=== PATIENT | female | born 1975 | race Caucasian/White ===

== ENCOUNTER → 2025-04-30 | Outpatient (CLI) | payer OTHER, SELFPAY ==
--- NOTE | 2025-04-30 16:47 | RAD_ITS ---
PROCEDURE: L/S SPINE MIN 4 VIEWS 04/30/2025 REASON FOR EXAM: BACK PAIN TECHNIQUE: L/S SPINE MIN 4 VIEWS COMPARISON: No FINDINGS: Mild and diffuse facet arthritis. Grade 1 anterolisthesis, L4. Relatively preserved disc spaces. No abnormal motion with flexion/extension. Mild S shaped scoliosis. No acute bone or soft tissue pathology. Extensive bilateral nephrolithiasis. RAD/L/S Spine Min 4 Views IMPRESSION: Lumbar spine scoliosis and degeneration. Reading Location: [facility]
== END | disposition home or self-care (01) ==
LOC: MTRAD 16:46
PROVIDERS: PCP Internal Medicine; Referring Provider Student in an Organized Health Care Education/Training Program; Visit Provider Student in an Organized Health Care Education/Training Program
DX: M54.9 Dorsalgia, unspecified (principal)
CPT/HCPCS: 72110

== ENCOUNTER → 2025-05-09 | Outpatient (CLI) | payer OTHER, SELFPAY ==
--- OUTSIDE RECORDS SUMMARY | 2025-05-09 09:15 | XMS RPT_ITS | CCD ---
Author Organization [facility] Care Team Providers Care Maintenance And Repair Worker Name Role Phone Randee Hdz Unavailable Unavailable Unavailable WILDER, Dr. RANDEE COLVIN Primary Care Unavaila prince Gamboa, Juni Obrien Attending Unavailable Juni Gamboa Attending Unavailable WILDER, Dr. RANDEE COLVIN Primary Care Unavaila ble WILDER, Dr. RANDEE COLVIN Referring Unavaila ble WILDER, Dr. RANDEE COLVIN Primary Care Unavaila Juni Olivas Attending Unavailable Juni Gamboa Attending Unavailable WILDER, Dr. RANDEE COLVIN Primary Care Unavaila ble WILDER, Dr. RANDEE COLVIN Primary Care Unavaila Juni Olivas Referring Unavailable ISAÍAS ANDERS Attending Unavailable WILDER, Dr. RANDEE COLVIN Primary Care Unavaila ble WILDER, Dr. RANDEE COLVIN Attending Unavaila ble WILDER, Dr. RANDEE COLVIN Referring Unavaila ble WILDER, Dr. RANDEE COLVIN Attending Unavaila ble WILDER, Dr. RANDEE COLVIN Referring Unavaila ble WILDER, Dr. RANDEE COLVIN Primary Care Unavaila Randee White MD Primary Care Provider Randee Hdz MD Primary Care Provider [phone] Randee Hdz MD Primary Care Provider Randee Hdz MD Unavailable Randee Hdz MD Primary Care Provider ANTHONY WHITE Referring Unavailable RANDEE HDZ Primary Care Unavailable ANTHONY WHITE Referring Unavailable RANDEE HDZ Primary Care Unavailable RANDEE HDZ Attending Unavailable RANDEE HDZ Primary Care Unavailable ANTHONY WHITE Referring Unavailable RANDEE HDZ Genet Primary Care Unavailable ANTHONY WHITE Referring Unavailable ANTHONY WHITE Attending Unavailable RANDEE HDZ Genet Primary Care Unavailable RANDEE HDZ M Primary Care Unavailable RANDEE HDZ M Primary Care Unavailable WILDER, RANDEE M Primary Care Unavailable WILDER, RANDEE M Primary Care Unavailable ANTHONY WHITE Referring Unavailable Jay Jay CHARLES, Dr. Bailey Primary Care Provider Meghana Helms Attending Provider Meghana Helms Referring Provider Dr. Leo Goyal MD Referring Provider Meghana Woods Referring Unavailable Meghana Woods Attending Unavailable Leo Goyal Primary Care Unavailable Assessment, Health Risk Attending Unavaila ble Assessment, Health Risk Referring Unavaila ble Meghana Woods Referring Unavailable Meghana Woods Attending Unavailable Leo Goyal Primary Care Unavailable Meghana Woods Attending Unavailable Basilio Goyalongbe Referring Unavailable Leo Goyal Primary Care Unavailable Shahid Poon Attending Provider Medications Current Medications Medication Drug Class(es) Dates Sig (Normalized) Sig (Original) compounded progesterone 50 mg capsule (12 sources) compounded proge sterone 50 mg capsule 50 mg twice daily. Active compounded proge sterone 50 mg capsule 50 mg twice daily. 0 Active Comment on above: 50 mg twice daily. 84 hr estradiol 0.41421 mg/hr transdermal system (17 sources) Estrogen Start: 05-06-2025 Estradiol (Karen) 0.05 mg/24 hr patch semiweekly Active 1 NMA TOPICAL TWICE A WEEK May 06, 2025 12:00am Start: 01-05-2025 estradiol (EST RACE) 0.01 % (0.1 mg/gram) vaginal cream Use 1 g vaginally two times a week. 1-2 times per week as directed. 42.5 g 5 01/05/2025 Active estradiol (KAREN ) 0.025 mg/24 hr Apply 1 Patch as directed two times a week. Active Comment on above: Apply 1 Patch as dir ected two times a week. Estriol (11 sources) Start: 12-12-2023 estriol 0.01 % (CPD) estradiol 0.01% estriol 0.01% topical cream (CPD), Apply 1 gram (4 clicks) vaginally once weekly. 30 Each 4 12/12/2023 Active Start: 12-12-2023 End: 12-12-2023 estriol 0.01 % (CPD) estradi ol 0.01% estriol 0.01% topical cream (CPD), Apply 1 gram (4 clicks) vaginally once weekly. 30 Each 4 12/12/2023 12/12/2023 Discontinued Comment on above: estradiol 0.01% estr iol 0.01% topical cream (CPD), Apply 1 gram (4 clicks) vaginally once weekly. FA/mv,Ca,iron,min/lycopene/ lut (MULTIVITAL ORAL) (12 sources) FA/mv,Ca,iron,mi n/lycopen e/lut (MULTIVITAL ORAL) Take by mouth once daily. Active FA/mv,Ca,iron,mi n/lycopene/lut (MULTIVITAL ORAL) Take by mouth once daily. 0 Active Comment on above: Take by mouth once d aily. OMEGA-3 FATTY ACIDS/FISH OIL (OMEGA 3 FISH OIL ORAL) (14 sources) OMEGA-3 FATTY AC IDS/FISH OIL (OMEGA 3 FISH OIL ORAL) Take by mouth. Active OMEGA-3 FATTY AC IDS/FISH OIL (OMEGA 3 FISH OIL ORAL) Take by mouth. 0 Active Comment on above: Take by mouth. penicillin v potassium 500 mg oral tablet (1 source) Start: End: take 1 tablet by mouth four times daily penicillin v potassium (Veetid) 500 mg tablet Indications: Gingivitis Take 1 tablet (500 mg) by mouth 4 times a day for 7 days. 28 tablet 03/14/2024 03/21/2024 Active progesterone 100 mg oral capsule (3 sources) Progesterone Start: take 1 capsule by mouth once daily in the morning Progesterone Micronized 100 mg capsule Active 100 mg PO EVERY MORNING May 06, 2025 12:00am off 7 days; repeat cycle Testosterone Cypionate 100 mg/mL oil (3 sources) Start: Testosterone Cypionate 100 mg/mL oil Active mg IM May 06, 2025 12:00am TESTOSTERONE CYPIONATE INTRAMUSC. (2 sources) Start: TESTOSTERONE CYPIONATE INTRAMUSC. Inject 0.1 mL intramuscularly as directed. Every 4 days 01/01/2025 Active Tirzepatide (Mounjaro) 2.5 mg/0.5 mL pen injector (1 source) Start: Tirzepatide (Mounjaro) 2.5 mg/0.5 mL pen injector Active 2.5 mg SC EVERY WEEK May 08, 2025 12:00am for 4 weeks Completed/Discontinued Medications Medication Drug Class(es) Dates Sig (Normalized) Sig (Original) amoxicillin 875 mg oral tablet (6 sources) Penicillin-class Antibacterial Start: 07-15-2018 take 1 tablet by mouth once daily Amoxicillin 875 MG Oral Tablet TAKE 1 TABLET EVERY 12 HOURS DAILY. Quantity: 20 Refills: 0 Ordered: 15-Jul-2018 Randee Hdz MD Start : 15-Jul-2018 Active amoxicillin 875 mg / clavulanate 125 mg oral tablet (6 sources) Penicillin-class Antibacterial Start: 10-17-2024 End: 05-06-2025 Amoxicillin-Pot Clavulanate 875-125 mg tablet Discontinued 1 {tbl} PO TWICE A DAY October 17, 2024 7:59pm May 06, 2025 9:05am azithromycin 250 mg oral tablet (6 sources) Macrolide Antimicrobial Start: 02-11-2024 End: 02-16-2024 take 2 tablets by mouth once daily, then take 1 tablet by mouth once daily at mealtime Azithromycin 250 mg tablet Discontinued 250 mg PO daily 6 5 February 11, 2024 12:00am February 15, 2024 12:00am February 16, 2024 12:12am 2 po qd for 1 day then 1 po qd for 4 days with food or after eating Start: 09-20-2021 End: 09-25-2021 take 2 tablets by mouth once daily, then take 1 tablet by mouth once daily at mealtime Azithromycin 250 mg tablet Discontinued 250 mg PO daily 6 5 September 20, 2021 1:00am September 24, 2021 1:00am September 25, 2021 1:01am 2 po qd for 1 day then 1 po qd for 4 days with food or after eating 12 hr buPROPion hydrochloride 150 mg extended release oral tablet (4 sources) Aminoketone take 1 tablet by mouth twice daily buPROPion SR (ZYBAN SR; WELLBUTRIN SR) 150 mg 12 hr tablet Take 150 mg by mouth twice daily. 0 Active Comment on above: Take 150 mg by mouth twice daily. cefdinir 300 mg oral capsule (6 sources) Cephalosporin Antibacterial Start: 2023 End: 2024 take 1 capsule by mouth twice daily Cefdinir 300 mg capsule Discontinued 300 mg PO TWICE A DAY 20 August 11, 2024 9:04pm October 17, 2024 7:54pm Desogestrel / Ethinyl Estradiol (4 sources) Progestin, Estrogen Start: 2016 take 1 tablet by mouth once daily Desogestrel-Ethinyl Estradiol (MIRCETTE, 28,) 0.15-0.02 mgx21 /0.01 mg x 5 per tablet Take 1 tablet by mouth once daily. 3 Package 1 09/21/2017 Active Comment on above: Take 1 tablet by yuri once daily. dexamethasone 6 mg oral tablet (3 sources) Corticosteroid Start: 2020 End: 2022 take 1 tablet by mouth twice daily Dexamethasone (Decadron) 6 mg tablet Discontinued 6 mg PO TWICE A DAY 14 September 20, 2021 1:00am February 05, 2023 6:54pm estrogens, conjugated (group home) 0.625 mg/ml vaginal cream (1 source) Estrogen Start: 2023 End: 2023 conjugated estrogens (PREMARIN) vaginal cream Use 2 g vaginally once daily. 45 g 4 12/12/2023 12/12/2023 Discontinued Comment on above: Use 2 g vaginally on ce daily. hydrOXYzine hydrochloride 25 mg oral tablet (1 source) Antihistamine Start: 2021 take 1 tablet by mouth once daily as needed hydrOXYzine HCl - 25 MG Oral Tablet TAKE 1 TABLET Daily prn Quantity: 30 Refills: 1 Ordered: 26-Jun-2022 Randee Hdz MD Start : 26-Jun-2022 Active methylPREDNISolone 4 mg oral tablet (9 sources) Corticosteroid Start: 2024 End: 2024 take 1 tablet by mouth once daily in the morning Methylprednisolone (Medrol (Devon)) 4 mg tablets,dose pack Discontinued 4 mg PO EVERY MORNING 14 11October 17, 2024 7:58pm May 06, 2025 9:05am low back pain Start: 01-09-2024 End: 08-11-2024 take 1 tablet by mouth once daily in the morning Methylprednisolone (Medrol (Devon)) 4 mg tablets,dose pack Discontinued 4 mg PO EVERY MORNING 14 11January 09, 2024 2:51pm August 11, 2024 8:52pm epicondylitis Start: 02-05-2023 End: 02-28-2023 take 1 tablet by mouth once daily in the morning Methylprednisolone (Medrol (Devon)) 4 mg tablets,dose pack Discontinued 4 mg PO EVERY MORNING February 05, 2023 12:00am February 28, 2023 2:42pm epicondylitis methylPREDNISolone 4 MG Oral Tablet Therapy Pack (6 sources) Start: 11-02-2020 take 9 tablets by mouth once methylPREDNISolone 4 MG Oral Tablet Therapy Pack take as directed per card instructions Quantity: 1 Refills: 0 Ordered: 02-Nov-2020 Randee Hdz MD Start : 02-Nov-2020 Active 24 hr venlafaxine 37.5 mg extended release oral capsule (1 source) Serotonin and Norepinephrine Reuptake Inhibitor Start: 06-26-2022 take 1 capsule by mouth once daily Venlafaxine HCl ER 37.5 MG Oral Capsule Extended Release 24 Hour TAKE 1 CAPSULE Daily Quantity: 30 Refills: 2 Ordered: 26-Jun-2022 Randee Hdz MD Start : 26-Jun-2022 Active Problems Active Problems Problem Classification Problem Date Documented Date Episodic/Chronic Acute bronchitis (8 sources) Acute bronchitis; Translations: [Acute bronchitis] Episodic Adjustment disorders (8 sources) Reactive depression (situational); Translations: [Adjustment disorder with depressed mood] Chronic Anxiety disorders (15 sources) Anxiety; Translations: [Anxiety state, unspecified] Onset: 10-27-2013 10-27-2013 Chronic Chronic obstructive pulmonary disease and bronchiectasis (3 sources) Bronchitis; Translations: [Bronchitis, not specified as acute or chronic] 09-20-2021 Episodic Chronic ulcer of skin (1 source) Pressure ulcer of unspecified ankle, unspecified stage; Translations: [Controlled type 2 diabetes mellitus with pressure ulcer of ankle (HCC) ([facility])] Onset: 03-17-2024 Chronic Diabetes mellitus without complication (1 source) Type 2 diabetes mellitus without complications; Translations: [Controlled type 2 diabetes mellitus with pressure ulcer of ankle (HCC) ([facility])] Onset: 03-17-2024 Chronic Diseases of mouth; excluding dental (8 sources) Mucocele of mouth; Translations: [Other and unspecified diseases of the oral soft tissues] Episodic Disorders of lipid metabolism (1 source) Hyperlipidemia, unspecified; Translations: [Hyperlipoproteinemia ] Onset: 03-17-2024 Chronic Disorders of teeth and jaw (3 sources) Gingivitis; Translations: [Chronic gingivitis, plaque induced] Onset: 03-14-2024 03-14-2024 Chronic Genitourinary symptoms and ill-defined conditions (8 sources) Dysuria; Translations: [Dysuria] Episodic Lymphadenitis (8 sources) Lymphadenopathy; Translations: [Enlargement of lymph nodes] Episodic Menstrual disorders (14 sources) Irregular periods; Translations: [Irregular menstruation, unspecified] Onset: 10-27-2013 10-27-2013 Chronic Miscellaneous mental health disorders (14 sources) Orgasm incapacity; 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] Onset: 10-27-2013 10-27-2013 Chronic Mood disorders (8 sources) Depressive disorder; Translations: [Depressive disorder, not elsewhere classified] Chronic Nutritional deficiencies (1 source) Vitamin D deficiency, unspecified; Translations: [Avitaminosis D] Onset: 03-17-2024 Chronic Open wounds of head; neck; and trunk (3 sources) Laceration of eyebrow; Translations: [Laceration without foreign body of unspecified eyelid and periocular area, initial encounter] 10-08-2023 Episodic Other acquired deformities (4 sources) Lumbar spondylolisthesis; Translations: [Spondylolisthesis, lumbar region] 05-06-2025 Episodic Other acquired deformities (1 source) Spondylolisthesis, lumbar region; Translations: [Spondylolisthesis, lumbar region] Onset: 05-07-2025 Episodic Other connective tissue disease (3 sources) Lateral epicondylitis of right humerus; Translations: [Lateral epicondylitis, right elbow] 02-28-2023 Episodic Other endocrine disorders (1 source) Pansey's syndrome, unspecified; Translations: [Pansey's syndrome (HCC)] Onset: 04-17-2024 Chronic Other endocrine disorders (1 source) Other specified disorders of adrenal gland; Translations: [Abnormality of cortisol-binding globulin (HCC)] Onset: 03-17-2024 Chronic Other female genital disorders (1 source) Vaginal dryness; Translations: [Other specified noninflammatory disorders of vagina] 12-12-2023 Episodic Other inflammatory condition of skin (8 sources) Pityriasis rosea; Translations: [Pityriasis rosea] Chronic Other lower respiratory disease (8 sources) Cough; Translations: [Cough] Episodic Other non-traumatic joint disorders (3 sources) Pain in elbow; Translations: [Pain in right elbow] 02-28-2023 Episodic Other nutritional; endocrine; and metabolic disorders (1 source) Unintentional weight gain; Translations: [Abnormal weight gain] 12-12-2023 Episodic Other screening for suspected conditions (not mental disorders or infectious disease) (17 sources) Patient encounter status; Translations: [Encounter for screening mammogram for malignant neoplasm of breast] Onset: 12-22-2024 Episodic Other upper respiratory infections (20 sources) Acute frontal sinusitis; Translations: [Acute frontal sinusitis] 02-12-2024 Episodic Otitis media and related conditions (3 sources) Otitis media of left ear; Translations: [Otitis media, unspecified, left ear] 02-11-2024 Episodic Residual codes; unclassified (2 sources) Finding related to sleep; Translations: [Sleep apnea, unspecified] 03-14-2024 Chronic Residual codes; unclassified (2 sources) Sleep apnea, unspecified; Translations: [Sleep apnea, unspecified] Onset: 03-14-2024 Chronic Residual codes; unclassified (8 sources) Past history of procedure; Translations: [Other specified personal history presenting hazards to health] Episodic Comment on above: [08/05/2015]: LV анна mber size, wall thickness and systolic function are within normal limits. No wall motion abnormalities observed. LVSF normal, est EF 60-65%.; [11/10/2021]: The le ft ventricular systolic function is low normal with a 50% estimated ejection fraction. Spectral Doppler shows an impaired relaxation pattern of left ventricular diastolic filling. RVSP within normal limits.; EVENT MONITOR [10/18 - 10/31/2021]: Recordings show sinus rhythm w/avg HR 75. No ep/of atrial fibrillation / PSVT / high-grade AV block. Isolated PVCs with no ventricular tachycardia.; Residual codes; unclassified (1 source) Insomnia; Translations: [Insomnia, unspecified] Episodic Skin and subcutaneous tissue infections (8 sources) Furuncle; Translations: [Carbuncle and furuncle of unspecified site] Episodic Spondylosis; intervertebral disc disorders; other back problems (3 sources) Displacement of cervical intervertebral disc; Translations: [Other cervical disc displacement, unspecified cervical region] 02-06-2023 Chronic Spondylosis; intervertebral disc disorders; other back problems (13 sources) Low back pain; Translations: [Lumbago] Onset: 05-07-2025 05-06-2025 Episodic Thyroid disorders (2 sources) Autoimmune thyroiditis; Translations: [Autoimmune thyroiditis] Onset: 03-17-2024 12-12-2023 Chronic Past or Other Problems Problem Classification Problem Date Documented Da te Episodic/Chronic Cancer of cervix (15 sources) Atypical squamous cells of undetermined significance on cervical Papanicolaou smear; Translations: [Atypical squamous cells of undetermined significance on cytologic smear of cervix (ASC-US)] Onset: 12-18-2016 12-18-2016 Episodic Cardiac dysrhythmias (17 sources) Palpitations; Translations: [Palpitations] Onset: 11-22-2021 Episodic Deficiency and other anemia (1 source) Anemia, unspecified; Translations: [Relative anemia] Onset: 05-12-2024 Episodic Mood disorders (2 sources) Mood disorders Onset: 06-26-2022 11-06-2022 Other and delivery including normal (8 sources) Normal ; Translations: [Encounter for supervision of other normal , unspecified trimester] Onset: 09-15-2011 Resolved: 12-18-2016 12-18-2016 Episodic Unclassified (2 sources) Onset: 03-14-2024 03-14-2024 Unclassified (2 sources) Patient encounter status 11-27-2024 Viral infection (17 sources) Viral disease; Translations: [Unspecified viral infection] Onset: 10-18-2021 Episodic Results Test Name Value Interpretation Reference Range Facility Orthopedic Visit Reporton Orthopedic Visit Report [facility] [address] [place] [address] OFFICE VISIT Date of Service: 05/06/25 MR#: [id number] Acct: [id number] Name: TORY SOLIS Rep #: [id number] : 1975 Provider: SHAWN Jeff Age/Sex: 50/F Location: [facility] [place] Status: Signed Intake Vital Signs 10/17/24 18:50 05/06/25 09:02 Height 5 ft 5 in 5 ft 5 in Weight: 152 lb 8 oz BMI 25.3 Intake Visit Reasons: LUMBAR SPINE Chief Complaint: Lumbar spine pain Accompanied by: Self Is patient in pain?: Yes Pain scale (1-10): 2 Allergies No Known Allergies Allergy (Verified 05/06/25 09:05) Medications ???Medication ???Instructions ???Recorded ???Confirmed ???Type estradiol 0.05 mg/24 hr semiweekly 1 patch topical 2XW 05/06/25 History transdermal patch (Karen) progesterone micronized 100 mg 100 mg PO QAM 05/06/25 05/06/25 Hi story capsule testosterone cypionate 100 mg/mL mg IM 05/06/25 05/06/25 History intramuscular oil Have you fallen in the past year?: No PFSH Medical History Herniated disc, cervical Right lateral epicondylitis Family History Father Prostate cancer Mother Suicide Grandfather Diabetes Aunt Asthma Social History Smoking Status: Never smoker alcohol intake: current alcohol intake frequency: holidays/special occasions only HPI LUMBAR SPINE Details: This documentation accurately reflects the service provided and the decisions made by , SHAWN Jeff 05/06/25 0902. Part of today???s visit was documented by Mariana Ramos MA, acting as scribe. TORY SOLIS is a 50 year old F here today for lumbar spine. Patient states that her pain is a 2 today. She is having pain n the lower back mainly on the left side. The pain is kind of a sharp pain at time, and stiff. She states that the pain is deeper to touch. Patient states that she thinks she has lumbar bulging disk in the lower back. Patient states that this has been going on for a couple years. She states that there was no injury. She thinks that she over works at her job. 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 Says that bending over increases her pain which makes it difficult for her to do her job. She has a very active job and is constantly bending over for to work with patients. She thinks it's from lifting a table up. Patient has never had any lower back surgery. Patient states that the most aggravating motion is bending over. Lifting also increases her pain. Patient says that she has had some SI issues in the past. Standing and walking improves the pain. Patient has tried ice on her lower back. The ice did help her lower back. She states that she doesn't know if it made a big decrease with pain. Patient states that her pain level was about the same. Patient hasn't had any injections in the past for her lower back. Here and there she has done physical therapy, but she thinks it didn't help decrease the pain. Patient does have diabetes, last a1c was 5.2, but doesn't have any blood thinners. No heart or lung issues. Patient states that she doesn't smoke, or do any drugs. Patient states that her balance is okay, she hasn't had any issues with it. She will take ibuprofen and Tylenol as needed with some benefit. No cane or walker. Patient says that she has also dealt with cervical spine pain however she denies any radicular symptoms and says that this has been manageable for her. Ortho Exam General General: Yes no acute distress Neurologic: Yes alert and Yes oriented x3 Spine SPINE TESTING CERVICAL THORACIC LUMBAR Musculoskeletal Strength 0=absent - 5=normal Details: Neurological exam of the lower extremities shows 5x5 power. Normal sensations across all dermatomes. No hyperreflexia. No midline or paraspinal tenderness. Coding Level of Care Code Off vis,new,level 3 Diagnoses Spondylolisthesis at L4-L5 level M43.16 Chronic left-sided low back pain without sciatica M54.50; G89.29 Chronicity: chronic Back pain laterality: left Sciatica presence: without sciatica Assessment and Plan Assessment and Plan (1) Spondylolisthesis at L4-L5 level: Status: Acute (2) Low back pain: Status: Acute Qualifiers: Chronicity: chronic Back pain laterality: left Sciatica presence: without sciatica Qualified Code(s): M54.50 - Low back pain, unspecified; G89.29 - Other chronic pain Orders: Orders L/S Spine Min 4 Views 04/30/25 M54.9 - Dorsalgia, unspecified Plan Obtained and reviewed lumbar x-rays. X-rays were done on April 30, 2025. X-rays show a mild levoscoliosis, a grade 1 anterolisthesis of L (more content not included)... [facility] L/S Spine Min 4 Viewson L/S Spine Min [address] [facility] [address] [place] [address] [id number] L/S Spine Min 4 Views MR#: [id number] Acct: [id number] Name: TORY SOLIS Rep #: [id number] : 1975 F 50 From: John Tony MD PCP: Dr. Leo Goyal MD Status: REG CLI Study: L/S Spine Min 4 Views Date of Exam: 04/30/25 Exam# [id number] Ordering Dr: Meghana Woods PROCEDURE: L/S SPINE MIN 4 VIEWS 04/30/2025 REASON FOR EXAM: BACK PAIN TECHNIQUE: L/S SPINE MIN 4 VIEWS COMPARISON: No FINDINGS: Mild and diffuse facet arthritis. Grade 1 anterolisthesis, L4. Relatively preserved disc spaces. No abnormal motion with flexion/extension. Mild S shaped scoliosis. No acute bone or soft tissue pathology. Extensive bilateral nephrolithiasis. RAD/L/S Spine Min 4 Views IMPRESSION: Lumbar spine scoliosis and degeneration. Reading Location: [place] [address] CC: SHAWN Jeff; Dr. Leo Goyal MD [employer] Mixer: Signed Normal [facility] Comprehensive metabolic 2000 panelon 02-28-2025 Albumin [Mass/Vol] 4.3 g/dL Normal 3.9-4.9 [facility] Comment on above: Order Comment: Speci men Type: BLOOD SPECIMEN Ordering Facility: [facility] Address: [address] [place] [address] Performed By: #### 2 4323-8, 56246-5 #### [facility] CLIA [id number] [address] [place] [address] [place] ALP [Catalytic activity/Vol] 60 U/L Normal 34-123 [facility] Comment on above: Order Comment: Speci men Type: BLOOD SPECIMEN Ordering Facility: [facility] Address: [facility] [place] [address] Performed By: #### 2 4323-8, 39254-6 #### [facility] CLIA [id number] [address] [place] ALT [Catalytic activity/Vol] 14 U/L Normal 7-38 [facility] Comment on above: Order Comment: Speci men Type: BLOOD SPECIMEN Ordering Facility: [facility] Address: [address] [place] [address] Performed By: #### 2 4323-8, 64115-0 #### [facility] CLIA [id number] [address] [place] [address] [place] Anion gap [Moles/Vol] 8 mmol/L Normal 8-15 [facility] Comment on above: Order Comment: Speci men Type: BLOOD SPECIMEN Ordering Facility: [facility] Address: [address] [place] [address] Performed By: #### 2 4323-8, 11531-9 #### [facility] CLIA [id number] [address] [place] [address] [place] AST [Catalytic activity/Vol] 17 U/L Normal 13-35 [facility] Comment on above: Order Comment: Speci men Type: BLOOD SPECIMEN Ordering Facility: [facility] Address: [address] [place] [address] Performed By: #### 2 4323-8, 87992-6 #### [facility] CLIA [id number] [address] [place] [address] [place] Bilirubin [Mass/Vol] 0.2 mg/dL Normal 0.2-1.3 [facility] Comment on above: Order Comment: Speci men Type: BLOOD SPECIMEN Ordering Facility: [facility] Address: [address] [place] [address] Performed By: #### 2 4323-8, 17206-3 #### [facility] CLIA [id number] [address] [place] [address] [place] Calcium [Mass/Vol] 9.2 mg/dL Normal 8.5-10.2 [facility] Comment on above: Order Comment: Speci men Type: BLOOD SPECIMEN Ordering Facility: [facility] Address: [address] [place] [address] Performed By: #### 2 4323-8, 45891-4 #### [facility] CLIA [id number] [address] [place] [address] [place] Chloride [Moles/Vol] 107 mmol/L Normal 98-107 [facility] Comment on above: Order Comment: Speci men Type: BLOOD SPECIMEN Ordering Facility: [facility] Address: [address] [place] [address] Performed By: #### 2 4323-8, 01901-4 #### [facility] CLIA [id number] [address] [place] [address] [place] CO2 [Moles/Vol] 26 mmol/L Normal 22-30 [facility] Comment on above: Order Comment: Speci men Type: BLOOD SPECIMEN Ordering Facility: [facility] Address: [address] [place] [address] Performed By: #### 2 4323-8, 15889-4 #### [facility] CLIA [id number] [address] [place] [address] [place] Creatinine [Mass/Vol] 0.86 mg/dL Normal 0.58-0.96 [facility] Comment on above: Order Comment: Speci men Type: BLOOD SPECIMEN Ordering Facility: [facility] Address: [address] [place] [address] Performed By: #### 2 4323-8, 18947-5 #### [facility] CLIA [id number] [address] [place] [address] [place] Creatinine and Glomerular filtration rate.predicted panel (S/P/Bld) 83 mL/min/1.73m??? Normal >=60 [facility] Comment on above: Order Comment: Edmund srivastava Type: BLOOD SPECIMEN Ordering Facility: [facility] Address: [address] [place] [address] Result Comment: Cale mated Glomerular Filtration Rate (eGFR) is calculated using the 2020 CKD-EPI creatinine equation. This equation utilizes serum creatinine, sex, and age as parameters. The creatinine assay has traceable calibration to isotope dilution-mass spectrometry. Refer to KDIGO guidelines for clinical interpretation. In patients with unstable renal function, e.g. those with acute kidney injury, the eGFR may not accurately reflect actual GFR. Performed By: #### 2 4323-8, 31615-3 #### [facility] CLIA [id number] [address] [place] [address] [place] Glucose [Mass/Vol] 114 mg/dL High 74-99 [facility] Comment on above: Order Comment: Edmund srivastava Type: BLOOD SPECIMEN Ordering Facility: [facility] Address: [address] [place] [address] Result Comment: The [place] Diabetes Association (ADA) provides guidance for cutoff values for fasting glucose and random glucose. The ADA defines fasting as no caloric intake for at least 8 hours. Fasting plasma glucose results between 100 to 125 mg/dL indicate increased risk for diabetes (prediabetes). Fasting plasma glucose results greater than or equal to 126 mg/dL meet the criteria for diagnosis of diabetes. In the absence of unequivocal hyperglycemia, results should be confirmed by repeat testing. In a patient with classic symptoms of hyperglycemia or hyperglycemic crisis, random plasma glucose results greater than or equal to 200 mg/dL meet the criteria for diagnosis of diabetes. Reference: Standards of Medical Care in Diabetes 2016, [place] Diabetes Association. Diabetes Care. 2016.39(Suppl 1). Performed By: #### 2 4323-8, 99894-6 #### [facility] CLIA [id number] [address] [place] [address] [place] Potassium [Moles/Vol] 4.3 mmol/L Normal 3.7-5.1 [facility] Comment on above: Order Comment: Speci men Type: BLOOD SPECIMEN Ordering Facility: [facility] Address: [address] [place] [address] Performed By: #### 2 4323-8, 80107-1 #### [facility] CLIA [id number] [address] [place] [address] [place] Protein [Mass/Vol] 7.3 g/dL Normal 6.3-8.0 [facility] Comment on above: Order Comment: Saadi men Type: BLOOD SPECIMEN Ordering Facility: [facility] Address: [address] [place] [address] Performed By: #### 2 4323-8, 61213-2 #### [facility] CLIA [id number] [address] [place] [address] [place] Sodium [Moles/Vol] 141 mmol/L Normal 136-144 [facility] Comment on above: Order Comment: Saadi men Type: BLOOD SPECIMEN Ordering Facility: [facility] Address: [address] [place] [address] Performed By: #### 2 4323-8, 05368-2 #### [facility] CLIA [id number] [address] [place] [address] [place] Urea nitrogen [Mass/Vol] 24 mg/dL High 7-21 [facility] Comment on above: Order Comment: Saadi men Type: BLOOD SPECIMEN Ordering Facility: [facility] Address: [address] [place] [address] Performed By: #### 2 4323-8, 54115-8 #### [facility] CLIA [id number] [address] [place] [address] [place] HbA1c (Bld)on 02-28-2025 Average glucose Estimated from glycated hemoglobin (Bld) [Mass/Vol] 105 mg/dL Normal [facility] Comment on above: Order Comment: Saadi men Type: BLOOD SPECIMEN Ordering Facility: [facility] Address: [address] [place] [address] Result Comment: eAG: (Estimated average glucose) is a calculated value from HgbA1c and is surgical device sales representative of the average blood glucose level in the last 2-3 month period. Performed By: #### 5 5454-3 #### [facility] CLIA [id number] [address] [place] [address] [place] HbA1c (Bld) [Mass fraction] 5.3 % Normal 4.3-5.6 [facility] Comment on above: Order Comment: Edmund srivastava Type: BLOOD SPECIMEN Ordering Facility: [facility] Address: [address] [place] [address] Result Comment: Amer [place] Diabetes Association guidelines indicate that patients with HgbA1c in the range 5.7-6.4% are at increased risk for development of diabetes, and intervention by lifestyle modification may be beneficial. HgbA1c greater or equal to 6.5% is considered diagnostic of diabetes. Performed By: #### 5 5454-3 #### [facility] CLIA [id number] [address] [place] [address] [place] Lipid 1996 panelon 5 Cholesterol [Mass/Vol] 130 mg/dL Normal <200 [facility] Comment on above: Order Comment: Edmund srivastava Type: BLOOD SPECIMEN Ordering Facility: [facility] Address: [address] [place] [address] Result Comment: <200 mg/dL, Desirable 200-239 mg/dL, Borderline high >239 mg/dL, High Performed By: #### 2 4323-8, 24964-8 #### [facility] CLIA [id number] [address] [place] [address] [place] Cholesterol in HDL [Mass/Vol] 59 mg/dL Normal >39 [facility] Comment on above: Order Comment: Edmund srivastava Type: BLOOD SPECIMEN Ordering Facility: [facility] Address: [address] [place] [address] Result Comment: 40-5 9 mg/dL, Acceptable >59 mg/dL, High: Negative risk factor for coronary heart disease <40 mg/dL, Low: Positive risk factor for coronary heart disease Performed By: #### 2 4323-8, 99078-3 #### [facility] CLIA [id number] [address] Cholesterol in LDL [Mass/Vol] 57 mg/dL Normal <100 [facility] Comment on above: Order Comment: Edmund srivastava Type: BLOOD SPECIMEN Ordering Facility: [facility] Address: [address] [place] [address] Result Comment: <100 mg/dL, Optimal 100-129 mg/dL, Near optimal/above optimal 130-159 mg/dL, Borderline high 160-189 mg/dL, High >189 mg/dL, Very high Secondary prevention optimal LDL Cholesterol levels are recommended to be <70 mg/dL LDL cholesterol is calculated using the Avila-NIH equation. Performed By: #### 2 4323-8, 04381-4 #### [facility] CLIA [id number] [address] Cholesterol in LDL/Cholesterol in HDL [Mass ratio] 0.97 {ratio} Normal <2.54 [facility] Comment on above: Order Comment: Edmund srivastava Type: BLOOD SPECIMEN Ordering Facility: [facility] Address: [address] [place] [address] Result Comment: Refe rence: 1. National Cholesterol Education Program ATP III Guideline At-A-Glance Quick Desk Reference: National Heart, Lung, and Blood [place]. National Institutes of Health. 2001: NIH Publication No. 01-3305. 2. An International Atherosclerosis Society position paper: global recommendations for the management of dyslipidemia: executive summary, Atherosclerosis. 2014: 232(2):410-413. Performed By: #### 2 4323-8, 46906-1 #### [facility] CLIA [id number] [address] Cholesterol in VLDL [Mass/Vol] 10 mg/dL Normal <30 [facility] Comment on above: Order Comment: Edmund atif Type: BLOOD SPECIMEN Ordering Facility: [facility] Address: [address] [place] [address] Performed By: #### 2 4323-8, 21408-4 #### [facility] CLIA [id number] [address] [place] Cholesterol non HDL [Mass/Vol] 71 mg/dL Normal <130 [facility] Comment on above: Order Comment: Speci men Type: BLOOD SPECIMEN Ordering Facility: [facility] Address: [address] [place] [address] Result Comment: <130 mg/dL, Optimal 130-159 mg/dL, Near optimal/above optimal 160-189 mg/dL, Borderline high 190-219 mg/dL, High >219 mg/dL, Very high Secondary prevention optimal non HDL Cholesterol levels are recommended to be <100 mg/dL Performed By: #### 2 4323-8, 96464-8 #### [facility] CLIA [id number] [address] Cholesterol.total/Ch olesterol in HDL [Mass ratio] 2.20 {ratio} Normal <5.10 [facility] Comment on above: Order Comment: Saadi men Type: BLOOD SPECIMEN Ordering Facility: [facility] Address: [address] [place] [address] Performed By: #### 2 4323-8, 47188-4 #### [facility] CLIA [id number] [address] FASTING TIME 12 hrs Normal [facility] Comment on above: Order Comment: Speci men Type: BLOOD SPECIMEN Ordering Facility: [facility] Address: [address] [place] [address] Performed By: #### 2 4323-8, 94341-9 #### [facility] CLIA [id number] [address] Triglyceride [Mass/Vol] 67 mg/dL Normal <150 [facility] Comment on above: Order Comment: Speci men Type: BLOOD SPECIMEN Ordering Facility: [facility] Address: [address] [place] [address] Result Comment: <150 mg/dL, Normal 150-199 mg/dL, Borderline high 200-499 mg/dL, High >499 mg/dL, Very high Performed By: #### 2 4323-8, 24195-7 #### [facility] CLIA [id number] [address] HIGH RISK HUMAN PAPILLOMA IVIS (HPV), PCR FOR DETECTION AND GENOTYPINGOrdered By: Daniela Downey on 01-13-2025 HPV 16 Ag Ql (Unsp spec) Not detected Not detected [facility] HPV 18 Ag Ql (Unsp spec) Not detected Not detected [facility] HPV 31+33+35+39+45+51+52 +56+58+59+66+68 DNA BINA+probe Ql (Cvx) Detected Abnormal Not detected [facility] Comment on above: High Risk HPV Other Type includes HPV types 31, 33, 35, 39, 45, 51, 52, 56, 58, 59, 66 and 68. Interpretation and review of laboratory results Abnormal [facility] This test was develo ped and its performance characteristics determined by [facility]'s [facility] [place] ([facility]). It has not been cleared or approved by the FDA. [facility] is regulated under CLIA as qualified to perform high-complexity testing. This test is used for clinical purposes. It should not be regarded as investigational or for research. [facility] No Panel InformationOrdered By: Daniela Downey on 01-13-2025 [facility] PAP TESTOrdered By: Jayne gomez on 01-13-2025 Case Report Gynecologic Cytology Report Case: [id number] Authorizing Provider: Anthony White MD Collected: 01/05/2025 03:39 PM Ordering Location: Obstetrics/Gynecology Received: 01/06/2025 07:56 AM First Screen: Cassy Lawson, CT, ASCP Rescreen: Jayne Peraza, CT, ASCP Specimen: Pap Test, ThinPrep, Cervix [facility] Clinical History Routine Exam [facility] Interpretation Negative [facility] LMP 08/29/2024 [facility] Pap Disclaimer g7yikCPdLOBcx3suPEEr bGFu ZzEwMzNcZnRuYmpcdWMxIHtc xrBzGSdiq4ZoX4EwWlDtROip bnNpXGRlZmxhbmcxMDMzXGZ0 enVdLVIiISkdIBUcRYxzSx6l hNPpdHtgBsGaTQCdv5zqnwVA pqyhyPn7a5abJIAqBeP1vTVi MOwoU8xrgwDxySOtTNCpBZy6 xL06JIHatY8woWLmPYqummHq NjU1KNzcGNEdKwT9MITlkBEo JAAfH1rmTDFqTYsiJFCkFZcm cRYyOCB8cYwxe0O5yVTrkWGu zCpjTgMeZtNcBtIJa9XbBFi1 eOhtJ2FlNLFpIhJ1bIIpBTRx AFbmHUHzNMTymxE8bC11FUdz wjX1wUFsv5Vkn33mr277pK0g vHFyNWU8QEQwUVTwkGYvMSHj XUQ7MLAboXZaL5vzTFBhAY0w evazTMztEBxcMIGfeYJ2GDHv nYNlZ6HhCVWtPRaxUJWmkgl3 WpQvQj8aaUXztDwxTKeen8re b7hfsBJvMvp3TQPeAyXoEpjq JEwbz3Brh9sjBJExod3eDAE7 sGBwsUjky4G0zZApKOHpcSPq iyRtWQXeDcM7SJegQD2wyh51 BOSoMFF9px4ycNKqmFgqtvJi mALaUGfuM4HaOWFrj422HSPf N2KwTFQuk1F1omVcVpYvTABl cYK9dlE7OVFuBUs1vKZrgmQ0 ndOwwTRrX1jzpD7rFMPmGN5w ssdun5rpFVpcVNdrLCRpvBF7 pfG4OKNgzABdB2UsxH5yWGUv ADldKAZrttd6XwCzHf4tnSSa eTcyMFxzYmtwYWdlXHBnbmNv bnRccGduZGVjXHBsYWluXHBs YWluXGYwXGZzMjRccWxccGxh yQ6oUwKeRkYlXjkjEZ4wFWGp M6rlfGZeJMVsRRNgD8rxPkQu eY1ckUusTTkufiQ0FDTwUJWN JBBvX48wYHEdoFWkVRPkI4Te VS3uhhgmnNIrhEKri6IaI0Qq xqdoZIuuV3MkI9PeMrPfVcSw f9RpamYyGHFezeQduySfgHc8 rrFgW8Y3jiX8cDNgAZSxrSTe P2MoEU7fmltwbFTfoLVeGFHv cMvpu1q2vY6nWEIwODFqHLHb IGZvciByZXNjcmVlbmluZyBh uVRjJQGwpI6bdoZmRGFihzBm cnZhbHMsIGFuZCBjbGluaWNh gYKss8TbMLzijXtynl6waBrt xN8kAoMrIcTlMionCV5vLVNy V2xguOViVAClOZUmI6xwYtOr yJ2pkMzgLXmgxkMrGUFhbg31 [facility] PAP Polishing Pad Mounter Comment c2sppIFfQFVul1jbBMZs bGFu ZzEwMzNcZnRuYmpcdWMxIHtc mgKcGQbol8NhR7RvJnToFLrm bnNpXGRlZmxhbmcxMDMzXGZ0 adDjENLsGXvaUCVsBSswAg5z lXSkqJijUhTpLPTso8ykbiBF zymnpRi3n9lrAKMdZiG6gKCh GNhaX0wcmaAqaCUuQJOaDMy5 dU03ZWYtzT5brYCrQGqgzpSr PuZ8FCriIEWhSjF7CBAslDVx WKIuZ5xoHJYgDKuwFSBkSVmp uBTnXDG2gVisg7G8yLNpsHXf lSkaZbRyXvAcFfENd3FsUHp0 qJijU7DhHLOqQaM5mTGlXUNg GOdqFCQtHRZnhnI2lD23HFlr yzK3lOHbe6Zem58oi028cA0k cZXcEKS8ZTUzZPAyoVSiFCYs MTS7SVAatJHoD0qtJGQlQT5l paccBVqcQOnbZGWvmTZ7EKCh yZQaN3GbAMNpQEqoJSXtztm7 VwQxLi0fzZJxhDrcWNgkz0ne j9rraKVlYvl6MDMaYgNlCwap KWide5Srw9noDHTmww8pNFO4 nTPrzMzxq7X7iXFnBPBohEGm ypGoFBRrXcD0LNhzWM1myy09 QBOyOKO2zg7whZMqdYbyvfWw wTJgDUrpG3XnDRKjb960ZPAv N5BcCSTne5Z7ahZwAvZtBCHm zPB4utN9OHRaBOn9aBZjtsN0 rxWdyZFkK5jcjO5uAHSwSU9q nthis1bpHNyuIEeeLPAltTX2 vsU6XLZcmHXcU5NqvY2gCKKr DLygLCXokck0YxTiPh7kyULu eTcyMFxzYmtwYWdlXHBnbmNv bnRccGduZGVjXHBsYWluXHBs YWluXGYwXGZzMjRccWxccGxh sU7uDhDbZuVnYdapUD9pIJIw I3vqhFBbTDSjJUDnP1rqXmXg iG7wpGlnFCurodI7LOqsKMnz laWppMJmpM4zswPjCCMcTtCy vhBarlXftMbbJMRmgKV3nWJy NBxwitNbBORnVU6aN0nfRkRP jCK0FI0tKXAzSGT2zL9iIGKl HIMcpFNnnF5qBLHgUORzPRUh VXyog5khmCUhQRL1aTvqdYIc i8Xut4VcMUAcSDYhUCZifeC4 z0S3ZCmnOPB1PTr9BLNgkngn T7DfsEQuy36xYOlffdCwWLYx PUYwLVUmw3OvMuOaLh3ehO44 gM3gPQG6iV9rJTZyFPSaaBNf hC6uWSUtQPveL1CmQODrhSIo ZHMgZnJvbSBldmVyeSBzbGlk TFAgqkTlhcE9kZQ2IWJpZxbi UGGjuRLklPUbbQ1dzZ4kyDF9 LlxwbGFpblxmMVxmczIyXGxh fywgJCVePJeaU3axYrIxMUYo tUbbTEjng3SuBIXyWFOkRhGq cGFyfX0= [facility] Performing Lab m2ahrOTmCDXpr1caTVWp bGFu ZzEwMzNcZnRuYmpcdWMxIHtc cnRmMVxhbnNpXGRlZmxhbmcx VAIrAVR0nfEeIRAqGUA8HLP1 RgGbf6Q6ZYFlOpMyCZZfED6f nMfrBHYjSU7hIAEkR3yhmJ5z qnn4XuFoUQQxFjV5ROKocbJ9 Sbs2EXDwZMhat6gyo3NiNXAz CRf2jUpmScZiZNRmt8mkdnRe FkAkOWAgLRTkMPSfnFAiK323 c6cnc2mvceWuxQL9NHWgUTP6 GRlbiqSnnqI8NHzatOSjHgX6 IDtccmVkMFxncmVlbjBcYmx1 JPXzT752EBX0gGyxx7lbGRI9 NXAoZFVjGjCiZo8ycIRvX217 PBMtFUEOPZLpqVi5ISVvcdOn pcNmxKCIn538E739r2pdRUEr ccDmzKrMjfbqt6nuO895HMCy cGVydzEyMjQwXHBhcGVyaDE1 XZAtBN0dthxbPYxbNUdaNAJe bvU9KRLmuFUlA7EfLPGxDA3f iggkQAG1TUvfQDYiPAH3UjFj ULFhq7Oeecr5BzFsei4sza29 NBC5j1QyuZdrEZK0LRE1BoGc Sj3yyDGsCSWtBH5eNrVakFTw ANUbui51vHpxMYfmqmGaxP0f JcKhNLPlnQOaVTCvKF2egRUv QOPvrR1mnhvxHHWpJwSzspet OUVauGmzwjKlDw4ugRewGSP4 MYxvJ3ujuY0zIyS7USazP7pc yM0vMMi3ACzwnGH1NVXvlP4h ZK0gautpi7rcUNniDXqwPHCd pkC3aeQ7VYVtkZUkO8CstA0o ARYgEH7ncpstw0hxUBB2WUvs KOOmPGI8GzTwMQPhm8Veunk2 QiNto5GtlTBsMKosV92ft678 ZITohjYaF5rukKCqslpunUUd frmsVHwlmpF6LZYzJBZzCXno XGYxXGZzMjJcbGFuZzEwMzNc aGljaFxmMVxkYmNoXGYxXGxv R7mqXoXkHbNgKwPWURZeggeg KBjaQ53fpU4iLI21IXVujLNp gIBfkP2cjG8uyUG2ECOkseSn iztdOgLfEACmq6RnDXIhQONe D9nrfvLpKI8jJZDtyZ6cYsqb OTUwMCBFdWNsaWQgQXZlLCBD tTF3ADoswoGlJ9ntSDGkBNGo UHRFENmXNxUzArTnLhY2RQe9 WHOtmg62i4chhNRnKEZjaULi FxLqYOWhLBCyh2evXTUpuUJe ZzEwMzNcZnRuYmpcdWMxXGRl WdSmy7lte357qTVwk4akQIXl YbX0yXBvAJGybHHpE953SHOj RMwnw8qnz6PxZAFdmMJlk2P7 CZPVbzavdZp3fDwnS56cm1K6 WpfrI5enUZHsDUGrD2JkLK6f EPKwXhm5ULQ4XZM7IRPtXGTk S5CzNG1iTMVkeEGeHBy1s4om yVwxPDHyAVS2p0ywUXxtrgIu YQ5rex3fwJf6p2kpsiKqIGUj XKMvuFDXRBLtZ2YuzDigTf1t rAf5jYwlFhkkVPZ1Hhd8CQ1u fc06xys1uUwaNDBrvyfoBjA2 RNuuXLYtlgcbYJd7ABdjAZYi qHO8FTMrcWJrS6WcSRzaAV2o vez6CKI5DIgyNYFiBmI4BVEk tBUiKVAohFhqHBdnr168YKK0 SsTuGP4zJ5Xhg6Y7lS2wgBRv EODdjHDmCfDdJFAdtw0qmIBb AQags2EyMIW8cpY7iJSxdNWu DLNaRA79Ejnts3ArYbrry1Fd D34ioCA9KZyir1acJT1hWtX8 idZkISmuy8ibqD4yYsK3FUmx XI8hPZ0bPMRdlH3cdbhrCFIr DaNetadlBVKusYdjamDwCk6y zAdrNGR6NCjbD2fdqC0eYkU4 XFibQ0usaZ6iYYx7MLzkpYH6 GUBfzW2pOZ7jqplnf8frKVxu OTpmRBFtemC2siHvGPGcaSNp Z5LriU3eOZVdZK7kcfwlv1re KNG3YZcwPYKwKPG1ZpRkDHCv z9Outro5UuWxd5XaiWMdFBlz Z77pf521WKZeioJbQ4iorNIb zazgbCJsmmqfPLwkdyJ4ORPm XHBsYWluXGYxXGZzMjBcbGFu ZzEwMzNcaGljaFxmMVxkYmNo MVLqKVonC5yvOfXvAxCeUGRV iIHxma7pcAgmMDoxfWGazITf gVF9tA1yQSXtwuOxla3qMKFj kTPBbLZ6QPzqavMuM0alvrfp UFO3CTCiLJL9Y3ynPWOCaaWi TUCtOPBsrMRoWVBLCIY6QBY6 QARwZETLPBMaTIC4CJI4LUYd OTRccGFyXHBhclxwYXJkXHBs XCczQWAzXPHtAfRicPloqZ9b NmYoVkRiPRffHG6sEGAvV6iu sDPkYBWjHOPiH4rsAoCjdV9h aFxmMVxjZjJcZnMyMFxsdHJj fOMJJRSldvJ6n2Q3QTkjxKVv blxmMVxmczIwXGxhbmcxMDMz YGwgO6iqJfTdNTHjfGbkYHpx p5WlHBMrZLDiStIwIMzwBZJ9 a9Y5MBiwcFIlflVQYqQTEW6p iCRcfzplDQ9NZeancQWtwyro MVxmczIyXGxhbmcxMDMzXGhp S7ypPoZiETDgjAsbVUeuy2Cy XGYxXGZzMjJccGFyfX0= [facility] Specimen Adequacy Satisfactory for interpretation. Transformation zone present [facility] CNOVon 01-05-2025 CNOV Office Visit (OBEM ) -------- TORY SOLIS ([id number]) 1975 F Date Time Provider Department 01/05/25 3:00 PM ANTHONY WHITE During your visit today, we recorded the following information about you: Blood pressure Weight Last Period 124/76 73.5 kg 08/29/24 Anthony White MD 01/27/2025 1:11 PM Signed Tory Solis is a 49 year old who presents for her annual gynecologic exam. Pot Room Tapper concerns Perimenopausal status. Abnormal mammography 12/22/2024 IMPRESSION: The asymmetry in the lateral left breast, posterior depth requires additional evaluation. Diagnostic mammogram is recommended. 01/02/2025 IMPRESSION: There is no evidence of malignancy in the left breast. Return to annual screening mammogram is recommended. Annual mammogram will be due in 11 months. Last visit November 2023 Perienopausal status estradiol (KAREN) 0.025 mg/24 hr Apply 1 Patch as directed two times a week. compounded progesterone 50 mg capsule estradiol 0.01% estriol 0.01% topical cream (CPD) 30 g 2 Sig: Apply 1 gram (4 clicks) vaginally twice weekly Sent to pharmacy as: estradiol 0.01% estriol 0.01% topical cream (CPD) Class: Normal Notes to Pharmacy: Compound Medication Route: TOPICAL OFF ALL ABOVE NOW ONLY ON TESTOSTERONE INJECTIONS Last Pap: 11/27/2023 negative Pap negative HPV History of abnormal pap: 2016 ASCUS positive HPV colposcopy History of STDS Yes Last mammogram: 2023 History of abnormal mammogram: yes repeat left mammography negative this month PAST MEDICAL HISTORY Diagnosis Date ASCUS with positive high risk HPV cervical 11/2016 Colpo Diabetes in A1 gestational diabetic Vaginal delivery x2 No past surgical history on file. No family history on file. Social History Tobacco Use Smoking status: Never Smokeless tobacco: Never Substance Use Topics Alcohol use: No Drug use: No REVIEW OF SYSTEMS Bladder: No burning with urination, blood in urine or incontinence Bowel: No blood in stool, pain with BM, tarry stool, persistent diarrhea or constipation Breast: No breast lumps, nipple d/c, overlying skin changes, redness or skin retraction EXAM: pleasant,well developed,well nourished,white female in no apparent distress HEENT: WNL NECK: Full range of motion,no adenopathy,thyroid normal DERMATOLOGY:Without lesions, Non-icteric, non-hirsute BREAST: soft, non-tender, symmetric, no dominant mass, normal nipple-areolar complex, no lymphadenopathy, and no nipple discharge CHEST: Normal inspiratory effort CARDIAC:Regular rate, rhythm ABDOMEN: Soft,non-tender,no hernia,No masses, hepatosplenomegaly,No lymphadenopathy PELVIC: external genitalia normal, normal Bartholin's glands, urethra, Satartia's glands, no vulvar lesions, no cervical lesions, normal discharge, well estrogenized, good vaginal support, vault clean with normal discharge, normal appearing perineal body and perianal region BIMANUAL: no cervical motion tenderness, no adnexal masses, and no pelvic masses RECTAL: deferred. NEURO: alert and oriented x3,exam grossly non-focal EXTREMITIES: Warm,No cyanosis, clubbing,No edema,nontender ASSESSMENT: 1) Normal annual exam. 2) PERIMENOPAUSE 3) GRADE 2 RECTOCELE SYMPTOMATIC The primary encounter diagnosis was ASCUS with positive high risk HPV cervical. Diagnoses of Well female exam with routine gynecological exam, Screening for lipid disorders, and Encounter for screening for diabetes mellitus were also pertinent to this visit. PLAN: 1) Pap done with HPV 2) SBE reviewed, Mammogram ordered done 3) Nutrition, exercise and routine health maintenance exams reviewed Orders Placed This Encounter Hemoglobin A1C Standing Status: Future Expected Date: 01/05/2025 Expiration Date: 04/06/2025 Comprehensive Metabolic Panel Standing Status: Future Expected Date: 01/05/2025 Expiration Date: 04/06/2025 Lipid Panel, Fasting Standing Status: Future Expected Date: 01/05/2025 Expiration Date: 04/06/2025 Scheduling Instructions: Patient must be Fasting 10-12 hours prior to having blood drawn. (Water is permitted) Pap Test Testing Reason: Screening, High-Risk [301] Clinical History: Routine Exam [115] LMP: 08/29/2024 HPV Testing: Yes HPV [201] Source: Cervix [37] Release to patient: Immediate release High Risk Human Papilloma Virus (HPV), PCR for Detection and Genotyping Release to patient: Immediate release TESTOSTERONE CYPIONATE INTRAMUSC. Sig: Inject 0.1 mL intramuscularly as directed. Every 4 days estradiol (ESTRACE) 0.01 % (0.1 mg/gram) vaginal cream Sig: Use 1 g vaginally two times a week. 1-2 times per week as directed. Dispense: 42.5 g Refill: 5 Anthony White MD Addendum: Pap smear came back negative for cytology but positive for HPV. Message sent to patient regarding results and plan repeat Pap in 1 year. Anthony Spangler (more content not included)... Normal [facility] HIGH RISK HUMAN PAPILLOMA IVIS (HPV), PCR FOR DETECTION AND GENOTYPINGon 01-05-2025 HPV 16 Ag Ql (Unsp spec) Not detected Normal Not detected [facility] Comment on above: Order Comment: Speci men Type: FLUID SPECIMEN Ordering Facility: [facility] Address: [address] [place] [address] Performed By: #### H PVHRT #### [facility] CLIA [id number] [address] [place] [address] [place] HPV 18 Ag Ql (Unsp spec) Not detected Normal Not detected [facility] Comment on above: Order Comment: Speci men Type: FLUID SPECIMEN Ordering Facility: [facility] Address: [address] [place] [address] Performed By: #### H PVHRT #### [facility] CLIA [id number] [address] [place] [address] [place] HPV 31+33+35+39+45+51+52 +56+58+59+66+68 DNA BINA+probe Ql (Cvx) Detected Abnormal Not detected [facility] Comment on above: Order Comment: Speci men Type: FLUID SPECIMEN Ordering Facility: [facility] Address: [address] [place] [address] Result Comment: High Risk HPV Other Type includes HPV types 31, 33, 35, 39, 45, 51, 52, 56, 58, 59, 66 and 68. Performed By: #### H PVHRT #### [facility] CLIA [id number] [address] [place] [address] [place] PAP TESTon 01-05-2025 ADEQUACY Normal [facility] Comment on above: Order Comment: Speci men Type: FLUID SPECIMEN Ordering Facility: [facility] Address: [address] [place] [address] Result Comment: Sati sfactory for interpretation. Transformation zone present Performed By: #### L [id number] #### [facility] CLIA [id number] [address] [place] [address] [place] CASE REPORT Normal [facility] Comment on above: Order Comment: Speci men Type: FLUID SPECIMEN Ordering Facility: [facility] Address: [address] [place] [address] Result Comment: Gyne cologic Cytology Report Case: [id number] Authorizing Provider: Anthony White MD Collected: 01/05/2025 03:39 PM Ordering Location: Obstetrics/Gynecology Received: 01/06/2025 07:56 AM First Screen: Cassy Lawson, CT, ASCP Rescreen: Jayne Peraza, CT, ASCP Specimen: Pap Test, ThinPrep, Cervix Performed By: #### L [id number] #### [facility] CLIA [id number] [address] [place] [address] [place] CLINICAL HISTORY, CYTOLOGY, MANUFACTURING WORKER Routine Exam Normal [facility] Comment on above: Order Comment: Speci men Type: FLUID SPECIMEN Ordering Facility: [facility] Address: [address] [place] [address] Performed By: #### L [id number] #### [facility] CLIA [id number] [address] [place] [address] [place] FINAL PERFORMING LAB Normal [facility] Comment on above: Order Comment: Speci men Type: FLUID SPECIMEN Ordering Facility: [facility] Address: [address] [place] [address] Result Comment: Tech nical component, dog and cat food cook screening performed at [facility], [address] [place], [place] [id number] CLIA# [id number] Diagnostic interpretation performed at [facility], [address] [place], [place] [address] CLIA# [id number] Direct Chill Caster: Fritz Wilcox M.D. Performed By: #### L [id number] #### [facility] CLIA [id number] [address] [place] [address] [place] INTERPRETATION, CYTOLOGY, MANUFACTURING WORKER Normal [facility] Comment on above: Order Comment: Speci men Type: FLUID SPECIMEN Ordering Facility: [facility] Address: [address] [place] [address] Result Comment: Nega tive for intraepithelial lesion or malignancy. at 1405 EDT Performed By: #### L [id number] #### [facility] CLIA [id number] [address] [place] [address] [place] LMP 08/29/2024 Normal [facility] Comment on above: Order Comment: Speci men Type: FLUID SPECIMEN Ordering Facility: [facility] Address: [address] [place] [address] Performed By: #### L [id number] #### [facility] CLIA [id number] [address] [place] [address] [place] PAP DISCLAIMER COMMENT The Pap Smear is a screening test for cervical cancer. False negative results occur with all screening tests, emphasizing the need for rescreening at recommended intervals, and clinical correlation. Normal [facility] Comment on above: Order Comment: Speci men Type: FLUID SPECIMEN Ordering Facility: [facility] Address: [address] [place] [address] Performed By: #### L [id number] #### [facility] CLIA [id number] [address] [place] [address] [place] PAP COLLEGE DEAN COMMENT This specimen has be en analyzed by the ThinPrep Imaging System, an automated imaging and review system, which assists the laboratory in evaluating cells on ThinPrep Pap tests. Following automated imaging, selected ferraro from every slide are reviewed by a dog and cat food cook. Normal [facility] Comment on above: Order Comment: Speci men Type: FLUID SPECIMEN Ordering Facility: [facility] Address: [address] [place] [address] Performed By: #### L [id number] #### [facility] CLIA [id number] [address] [place] [address] [place] [address] [place] RAJ DIAG W DALTON LTon 025 RAJ DIAG W DALTON LT * * *Final Report* * * DATE OF EXAM: Jan 02 2025 8:27AM AAW 0628 - RAJ DIAG W DALTON LT / PROCEDURE REASON: Abnormal mammogram * * * * Physician Interpretation * * * * [facility] [address] [facility] [place] [address] #[id number] - RAJ DIAG W DALTON LT HISTORY: 49 year-old patient seen for diagnostic evaluation of the finding(s) described on prior mammogram in the left breast. Patient states no personal history of breast cancer. COMPARISON STUDIES: The present examination has been compared to prior imaging studies dated 09/07/2022 (mammogram), 12/21/2023 (mammogram) and 12/22/2024 (mammogram). MAMMOGRAM TECHNIQUE: The study was acquired using full field digital technology and interpreted from soft copy. Digital Breast Tomosynthesis (DBT) images were obtained and used to assist in the interpretation of this examination. MAMMOGRAM FINDINGS: The breast is heterogeneously dense, which may obscure small masses. Additional evaluation was performed for the asymmetry in the left breast, lateral seen on 12/22/2024. There are no suspicious mammographic findings to correspond with the previously described finding. IMPRESSION: There is no evidence of malignancy in the left breast. Return to annual screening mammogram is recommended. Annual mammogram will be due in 11 months. BI-RADS Category 1: Negative RISK: Based on the Tyrer-Cuzick (TC) risk assessment model, this patient has a 10.7% lifetime risk of developing breast cancer, meaning they are at average risk for developing breast cancer. However, this is only an estimate based on available history provided on the patient's questionnaire. We encourage all patients to talk with their providers about these results, further recommendations for managing breast health, and appropriate supplemental screening options if the patient has dense breast tissue. Interpreting Radiologist: Yadira Preciado M.D. Resident/Fellow: Lexi Romero M.D. Electronically signed on: 01/02/2025 Starch And Prosize Mixer: WILMAN Camargo Date/Time: Jan 02 2025 8:15A Dictated by : LEXI ROMERO MD This examination was interpreted and the report reviewed and electronically signed by: YADIRA PRECIADO MD on Jan 02 2025 9:19AM EST [id number] Normal [facility] CNPNon 12-24-2024 CNPN Telephone (OBGMEM) -------- TORY SOLIS ([id number]) 1975 F Date Time Provider Department 12/24/24 [facility] During your visit today, we recorded the following information about you: Allergies As of Date: 12/24/2024 (No Known Allergies) Date Reviewed: 11/27/2023 Reviewed by: Griselda Gillespie MA - Fully Assessed Prescriptions as of 12/24/2024 - estriol 0.01 % (CPD) estradiol 0.01% estriol 0.01% topical cream (CPD), Apply 1 gram (4 clicks) vaginally once weekly. - estradiol (KAREN) 0.025 mg/24 hr Apply 1 Patch as directed two times a week. - compounded progesterone 50 mg capsule 50 mg twice daily. - FA/mv,Ca,iron,min/lycope ne/lut (MULTIVITAL ORAL) Take by mouth once daily. - OMEGA-3 FATTY ACIDS/FISH OIL (OMEGA 3 FISH OIL ORAL) Take by mouth. Meds Comments as of 03/21/2018: Denies any medications Problem List As Of Date 12/24/2024 Noted Resolved Supervision of other normal [Z34.80] 09/15/2011 12/18/2016 Irregular periods/menstrual cycles [N92.6] 10/27/2013 Anxiety [F41.9] 10/27/2013 Anorgasmia [QDX8714] 10/27/2013 ASCUS with positive high risk HPV cervical [R87*12/18/2016 Encounter Status:Closed by JENNIFER VALDEZ on 12/24/24 [facility] 12-23-2024 [facility] TORY SOLIS ([id number]) 1975 F Date Time Provider Department 12/23/24 [facility] During your visit today, we recorded the following information about you: Alena Jarrett 12/23/2024 8:37 AM Signed Patient is asking if she is needing to have a diagnostic mammogram completed now from the reading/results of her DALTON mammogram. Please advise and call patient. Thank you Jennifer Valdez RN 12/23/2024 9:05 AM Signed Orders placed. Patient notified via [employer].Jennifer Valdez RN Allergies As of Date: 12/23/2024 (No Known Allergies) Date Reviewed: 11/27/2023 Reviewed by: Griselda Gillespie MA - Fully Assessed Primary Visit Diagnosis:Abnormal mammogram [R92.8] Order(s):[facility] DIAGNOSTIC LEFT [[id number]] Order #: [id number] FUTURE BREAST LTD LEFT [[id number]] Order #: [id number] FUTURE Prescriptions as of 12/23/2024 - estriol 0.01 % (CPD) estradiol 0.01% estriol 0.01% topical cream (CPD), Apply 1 gram (4 clicks) vaginally once weekly. - estradiol (KAREN) 0.025 mg/24 hr Apply 1 Patch as directed two times a week. - compounded progesterone 50 mg capsule 50 mg twice daily. - FA/mv,Ca,iron,min/lycope ne/lut (MULTIVITAL ORAL) Take by mouth once daily. - OMEGA-3 FATTY ACIDS/FISH OIL (OMEGA 3 FISH OIL ORAL) Take by mouth. Meds Comments as of 03/21/2018: Denies any medications Problem List As Of Date 12/23/2024 Noted Resolved Supervision of other normal [Z34.80] 09/15/2011 12/18/2016 Irregular periods/menstrual cycles [N92.6] 10/27/2013 Anxiety [F41.9] 10/27/2013 Anorgasmia [RQX6019] 10/27/2013 ASCUS with positive high risk HPV cervical [R87*12/18/2016 Encounter Status:Closed by JENNIFER VALDEZ on 12/23/24 Normal [facility] DBT Breast - bilateral scree margaretn 12-22-2024 IMPRESSION: The asymmetry in the lateral left breast, posterior depth requires additional evaluation. Diagnostic mammogram is recommended. BI-RADS Category 0: Incomplete: Needs Additional Imaging Evaluation RISK: Based on the Tyrer-Cuzick (TC) risk assessment model, this patient has a 10.7% lifetime risk of developing breast cancer, meaning they are at average risk for developing breast cancer. However, this is only an estimate based on available history provided on the patient's questionnaire. We encourage all patients to talk with their providers about these results, further recommendations for managing breast health, and appropriate supplemental screening options if the patient has dense breast tissue. Interpreting Radiologist: Verna Peralta M.D. Electronically signed on: 12/22/2024 Starch And Prosize Mixer: WILMAN Transcribe Date/Time: Dec 22 2024 7:50A Dictated by: VERNA PERALTA MD This examination was interpreted and the report reviewed and electronically signed by: VERNA PERALTA MD on Dec 22 2024 8:42AM [facility] DIVISION OF RADIOLOGY * * *Final Report* * * DATE OF EXAM: Dec 22 2024 8:12AM [facility] 0582 - [facility] SCREENING W DALTON / PROCEDURE REASON: Encounter for screening mammogram for malignant neoplasm of breast * * * * Physician Interpretation * * * * RESULT: [place] [address] [place] [address] #[id number] - [facility] SCREENING W DALTON HISTORY: 49 year-old patient seen for screening. Patient is asymptomatic in both breasts. Patient states no personal history of breast cancer. COMPARISON STUDIES: The present examination has been compared to prior imaging studies dated 04/11/2019 (mammogram), 05/07/2020 (mammogram), 07/28/2021 (mammogram), 09/07/2022 (mammogram) and 12/21/2023 (mammogram). MAMMOGRAM TECHNIQUE: The study was acquired using full field digital technology and interpreted from soft copy. Digital Breast Tomosynthesis (DBT) images were obtained and used to assist in the interpretation of this examination. MAMMOGRAM FINDINGS: The breasts are heterogeneously dense, which may obscure small masses. There is an asymmetry in the lateral left breast, posterior depth. No suspicious masses, calcifications or other abnormalities are seen in the right breast. DIVISION OF RADIOLOGY Provider, [facility] - 12/22/2024 * * *Final Report* * * DATE OF EXAM: Dec 22 2024 8:12AM [facility] 0582 - [facility] SCREENING W DALTON / PROCEDURE REASON: Encounter for screening mammogram for malignant neoplasm of breast * * * * Physician Interpretation * * * * RESULT: [place] [address] #[id number] - [facility] SCREENING W D[place]TON HISTORY: 49 year-old patient seen for screening. Patient is asymptomatic in both breasts. Patient states no personal history of breast cancer. COMPARISON STUDIES: The present examination has been compared to prior imaging studies dated 04/11/2019 (mammogram), 05/07/2020 (mammogram), 07/28/2021 (mammogram), 09/07/2022 (mammogram) and 12/21/2023 (mammogram). MAMMOGRAM TECHNIQUE: The study was acquired using full field digital technology and interpreted from soft copy. Digital Breast Tomosynthesis (DBT) images were obtained and used to assist in the interpretation of this examination. MAMMOGRAM FINDINGS: The breasts are heterogeneously dense, which may obscure small masses. There is an asymmetry in the lateral left breast, posterior depth. No suspicious masses, calcifications or other abnormalities are seen in the right breast. IMPRESSION IMPRESSION: The asymmetry in the lateral left breast, posterior depth requires additional evaluation. Diagnostic mammogram is recommended. BI-RADS Category 0: Incomplete: Needs Additional Imaging Evaluation RISK: Based on the Tyrer-Cuzick (TC) risk assessment model, this patient has a 10.7% lifetime risk of developing breast cancer, meaning they are at average risk for developing breast cancer. However, this is only an estimate based on available history provided on the patient's questionnaire. We encourage all patients to talk with their providers about these results, further recommendations for managing breast health, and appropriate supplemental screening options if the patient has dense breast tissue. Interpreting Radiologist: Verna Peralta M.D. Electronically signed on: 12/22/2024 Starch And Prosize Mixer: WILMAN Transcribe Date/Time: Dec 22 2024 7:50A Dictated by: VERNA PERALTA MD This examination was interpreted and the report reviewed and electronically signed by: VERNA PERALTA MD on Dec 22 2024 8:42AM EST [facility] Radiology Study observation (narrative) [facility] DBT Breast - bilateral scree ningOrdered By: [facility] Provider on 12-22-2024 [facility] RAJ SCREENING W TOMOon 12-22 RAJ SCREENING W DALTON * * *Final Report* * * DATE OF EXAM: Dec 22 2024 8:12AM [facility] 0582 - RAJ SCREENING W DALTON / PROCEDURE REASON: Encounter for screening mammogram for malignant neoplasm of breast * * * * Physician Interpretation * * * * RESULT: [place] [id number] #[id number] - RAJ SCREENING W DALTON HISTORY: 49 year-old patient seen for screening. Patient is asymptomatic in both breasts. Patient states no personal history of breast cancer. COMPARISON STUDIES: The present examination has been compared to prior imaging studies dated 04/11/2019 (mammogram), 05/07/2020 (mammogram), 07/28/2021 (mammogram), 09/07/2022 (mammogram) and 12/21/2023 (mammogram). MAMMOGRAM TECHNIQUE: The study was acquired using full field digital technology and interpreted from soft copy. Digital Breast Tomosynthesis (DBT) images were obtained and used to assist in the interpretation of this examination. MAMMOGRAM FINDINGS: The breasts are heterogeneously dense, which may obscure small masses. There is an asymmetry in the lateral left breast, posterior depth. No suspicious masses, calcifications or other abnormalities are seen in the right breast. IMPRESSION: The asymmetry in the lateral left breast, posterior depth requires additional evaluation. Diagnostic mammogram is recommended. BI-RADS Category 0: Incomplete: Needs Additional Imaging Evaluation RISK: Based on the Tyrer-Cuzick (TC) risk assessment model, this patient has a 10.7% lifetime risk of developing breast cancer, meaning they are at average risk for developing breast cancer. However, this is only an estimate based on available history provided on the patient's questionnaire. We encourage all patients to talk with their providers about these results, further recommendations for managing breast health, and appropriate supplemental screening options if the patient has dense breast tissue. Interpreting Radiologist: Verna Peralta M.D. Electronically signed on: 12/22/2024 Starch And Prosize Mixer: WILMAN Transcribe Date/Time: Dec 22 2024 7:50A Dictated by: VERNA PERALTA MD This examination was interpreted and the report reviewed and electronically signed by: VERNA PERALTA MD on Dec 22 2024 8:42AM EST [id number] [facility] -------- TORY SOLIS ([id number]) 1975 F Date Time Provider Department 11/27/24 [facility] During your visit today, we recorded the following information about you: Zenaida Ji 11/27/2024 8:59 AM Signed Patient is requesting a mammogram. Allergies As of Date: 11/27/2024 (No Known Allergies) Date Reviewed: 11/27/2023 Reviewed by: Griselda Gillespie MA - Fully Assessed Reason for Visit: Orders [681] Primary Visit Diagnosis:Encounter for screening mammogram for malignant neoplasm of breast [Z12.31] Order(s):[facility] SCREENING W DALTON [[id number]] Order #: [id number] FUTURE Prescriptions as of 11/27/2024 - estriol 0.01 % (CPD) estradiol 0.01% estriol 0.01% topical cream (CPD), Apply 1 gram (4 clicks) vaginally once weekly. - estradiol (KAREN) 0.025 mg/24 hr Apply 1 Patch as directed two times a week. - compounded progesterone 50 mg capsule 50 mg twice daily. - FA/mv,Ca,iron,min/lycope ne/lut (MULTIVITAL ORAL) Take by mouth once daily. - OMEGA-3 FATTY ACIDS/FISH OIL (OMEGA 3 FISH OIL ORAL) Take by mouth. Meds Comments as of 03/21/2018: Denies any medications Problem List As Of Date 11/27/2024 Noted Resolved Supervision of other normal [Z34.80] 09/15/2011 12/18/2016 Irregular periods/menstrual cycles [N92.6] 10/27/2013 Anxiety [F41.9] 10/27/2013 Anorgasmia [NXI9036] 10/27/2013 ASCUS with positive high risk HPV cervical [R87*12/18/2016 Encounter Status:Closed by JENNIFER VALDEZ on 11/27/24 [facility] Telephone ([facility]) -------- TORY SOLIS ([id number]) 1975 F Date Time Provider Department 11/26/24 ANTHONY WHITE [facility] During your visit today, we recorded the following information about you: Zenaida Ji 11/26/2024 8:34 AM Signed Patient is scheduled in December for her annual exam. Patient's insurance is terminating at the end of the month, she will not have coverage in December. Patient is asking to be seen in the office in November, she prefers Dr. White. Call patient if an appointment is available this month. Allergies As of Date: 11/26/2024 (No Known Allergies) Date Reviewed: 11/27/2023 Reviewed by: Griselda Gillespie MA - Fully Assessed Reason for Visit: Appointment [186] Prescriptions as of 11/28/2024 - estriol 0.01 % (CPD) estradiol 0.01% estriol 0.01% topical cream (CPD), Apply 1 gram (4 clicks) vaginally once weekly. - estradiol (KAREN) 0.025 mg/24 hr Apply 1 Patch as directed two times a week. - compounded progesterone 50 mg capsule 50 mg twice daily. - FA/mv,Ca,iron,min/lycope ne/lut (MULTIVITAL ORAL) Take by mouth once daily. - OMEGA-3 FATTY ACIDS/FISH OIL (OMEGA 3 FISH OIL ORAL) Take by mouth. Meds Comments as of 03/21/2018: Denies any medications Problem List As Of Date 11/26/2024 Noted Resolved Supervision of other normal [Z34.80] 09/15/2011 12/18/2016 Irregular periods/menstrual cycles [N92.6] 10/27/2013 Anxiety [F41.9] 10/27/2013 Anorgasmia [ALZ1558] 10/27/2013 ASCUS with positive high risk HPV cervical [R87*12/18/2016 Encounter Status:Closed by ZENAIDA JI on 11/28/24 Normal [facility] Mumps Antibody,IgGon 025 MUMPS Ab, IgG 13.9 AU/mL Normal Immune >10.9 [facility] Comment on above: Result Comment: Nega tive <9.0 Equivocal 9.0 - 10.9 Positive >10.9 A positive result generally indicates past exposure to Mumps virus or previous vaccination. Performed By: #### L 3400.1750, L509.4015, L3100.3400, L3100.0539 #### [facility] [address] [place], [address] [facility] EMP Rubeola Titeron 02-1 RUBEOLA Ab, IgG < 13.5 Low Immune >16.4 [facility] Comment on above: Result Comment: Nega tive <13.5 Equivocal 13.5 - 16.4 Positive >16.4 Presence of antibodies to Rubeola is presumptive evidence of immunity except when acute infection is suspected. Performed at: - [address] [id number] [employer] Cashier: Vazquez Oliver PhD, Phone: [phone] Performed By: #### L 3400.1750, L509.4015, L3100.3400, L3100.0539 #### [facility] [address] [place], [address] Hepatitis B Surf AB - EMPon 11-11-2024 HEP B Surf Ab Non-Reactive Normal [facility] Comment on above: Result Comment: Non Reactive: Inconsistent with immunity less than <10 mIU/mL Reactive: Consistent with immunity greater than or equal to 10 mIU/mL Performed By: #### L 3400.1750, L509.4015, L3100.3400, L3100.0539 #### [facility] [address] [place], [address] Rubella IgG [facility] 0 11-11-2024 Rubella IgG Reactive Normal Nonreactive [facility] Comment on above: Result Comment: Anti body Results Interpretation of Immune Status Non Reactive Presumed Non-Immune Equivocal Equivocal Reactive Presumed Immune Performed By: #### L 3400.1750, L509.4015, L3100.3400, L3100.0539 #### [facility] [address] [place], [address] CBC W Auto Differential pane l (Bld)on 05-12-2024 Basophils (Bld) [#/Vol] 0.03 10*3/uL Normal <0.11 [facility] Comment on above: Order Comment: Speci men Type: BLOOD SPECIMEN Ordering Facility: [facility] ([id number]) Address: [address] [place], [place] [address] Performed By: #### 5 0190-8, 2276-4, 62223-3, 3016-3 #### [facility] CLIA [id number] [address] [place] [address] [place] Basophils/100 WBC (Bld) 0.5 % [facility] Comment on above: Order Comment: Speci men Type: BLOOD SPECIMEN Ordering Facility: [facility] ([facility]) Address: [address] [place] [address] Performed By: #### 5 0190-8, 2276-4, 95142-4, 3016-3 #### [facility] CLIA [id number] [address] [place] [address] [place] Differential cell count method Nom (Bld) Auto [facility] Comment on above: Order Comment: Speci men Type: BLOOD SPECIMEN Ordering Facility: [facility] ([facility]) Address: [address] [place] [address] Performed By: #### 5 0190-8, 2276-4, 49309-4, 3016-3 #### [facility] CLIA [id number] [address] [place] [address] [place] Eosinophils (Bld) [#/Vol] 0.08 10*3/uL Normal <0.46 [facility] Comment on above: Order Comment: Speci men Type: BLOOD SPECIMEN [facility]ing Facility: [facility] ([facility]) Address: [address] [place], [place] [address] Performed By: #### 5 0190-8, 2276-4, 16965-2, 3016-3 #### [facility] CLIA [id number] [address] [place] [address] [place] Eosinophils/100 WBC (Bld) 1.3 % [facility] Comment on above: Order Comment: Speci men Type: BLOOD SPECIMEN Ordering Facility: [facility] ([id number]) Address: [address] [place] [address] Performed By: #### 5 0190-8, 2276-4, 62084-6, 3016-3 #### [facility] CLIA [id number] [address] [place] [address] [place] Erythrocyte distribution width (RBC) [Ratio] 12.9 % Normal 11.5-15.0 [facility] Comment on above: Order Comment: Edmund srivastava Type: BLOOD SPECIMEN Ordering Facility: [facility] ([facility]) Address: [address] [place] [address] Performed By: #### 5 0190-8, 6-4, 56746-9, 6-3 #### [facility] CLIA [id number] [address] [place] [address] [place] Hematocrit (Bld) [Volume fraction] 43.3 % Normal 36.0-46.0 [facility] Comment on above: Order Comment: Edmund srivastava Type: BLOOD SPECIMEN Ordering Facility: [facility] ([facility]) Address: [address] [place] [address] Performed By: #### 5 0190-8, 6-4, 69669-4, 6-3 #### [facility] CLIA [id number] [address] [place] [address] [place] Hemoglobin (Bld) [Mass/Vol] 14.0 g/dL Normal 11.5-15.5 [facility] Comment on above: Order Comment: Edmund srivastava Type: BLOOD SPECIMEN Ordering Facility: [facility] ([facility]) Address: [address] [place] [address] Performed By: #### 5 0190-8, 6-4, 29024-2, 6-3 #### [facility] CLIA [id number] [address] [place] [address] [place] Immature granulocytes (Bld) [#/Vol] 10*3/uL Normal <0.10 [facility] Comment on above: Order Comment: Edmund srivastava Type: BLOOD SPECIMEN Ordering Facility: [facility] ([facility]) Address: [address] [place], [place] [address] Performed By: #### 5 0190-8, 6-4, 52984-4, 6-3 #### [facility] CLIA [id number] [address] [place] [address] [place] Immature granulocytes/100 WBC (Bld) 0.3 % Normal [facility] Comment on above: Order Comment: Edmund rsivastava Type: BLOOD SPECIMEN Ordering Facility: [facility] ([facility]) Address: [address] [place] [address] Performed By: #### 5 0190-8, 2276-4, 40413-6, 3016-3 #### [facility] CLIA [id number] [address] [place] [address] [place] Lymphocytes (Bld) [#/Vol] 2.30 10*3/uL Normal 1.00-4.00 [facility] Comment on above: Order Comment: Edmund srivastava Type: BLOOD SPECIMEN [facility]ing [facility] ([facility]) Address: [address] [place] [address] Performed By: #### 5 0190-8, 2276-4, 85002-0, 3016-3 #### [facility] CLIA [id number] [address] [place] [address] [place] Lymphocytes/100 WBC (Bld) 38.0 % Normal [facility] Comment on above: Order Comment: Edmund srivastava Type: BLOOD SPECIMEN Ordering Facility: [facility] ([facility]) Address: [address] [place] [address] Performed By: #### 5 0190-8, 2276-4, 77572-5, 3016-3 #### [facility] CLIA [id number] [address] [place] [address] [place] MCH (RBC) [Entitic mass] 30.3 pg Normal 26.0-34.0 [facility] Comment on above: Order Comment: Edmund srivastava Type: BLOOD SPECIMEN Ordering Facility: [facility] ([facility]) Address: [address] [place] [address] Performed By: #### 5 0190-8, 2276-4, 97079-4, 3016-3 #### [facility] CLIA [id number] [address] MCHC (RBC) [Mass/Vol] 32.3 g/dL Normal 30.5-36.0 [facility] Comment on above: Order Comment: Speci men Type: BLOOD SPECIMEN Ordering Facility: [facility] ([facility]) Address: [address] [place] [address] Performed By: #### 5 0190-8, 2276-4, 50099-6, 3016-3 #### [facility] CLIA [id number] [address] [place] [address] [place] MCV (RBC) [Entitic vol] 93.7 fL Normal 80.0-100.0 [facility] Comment on above: Order Comment: Speci men Type: BLOOD SPECIMEN Ordering Facility: [facility] ([facility]) Address: [address] [place] [address] Performed By: #### 5 0190-8, 2276-4, 06231-7, 3016-3 #### [facility] CLIA [id number] [address] [place] [address] [place] Monocytes (Bld) [#/Vol] 0.52 10*3/uL Normal <0.87 [facility] Comment on above: Order Comment: Speci men Type: BLOOD SPECIMEN Ordering Facility: [facility] ([facility]) Address: [address] [place] [address] Performed By: #### 5 0190-8, 2276-4, 19315-4, 3016-3 #### [facility] CLIA [id number] [address] [place] [address] [place] Monocytes/100 WBC (Bld) 8.6 % Normal [facility] Comment on above: Order Comment: Speci men Type: BLOOD SPECIMEN Ordering Facility: [facility] ([facility]) Address: [address] [place] [address] Performed By: #### 5 0190-8, 2276-4, 90734-7, 3016-3 #### [facility] CLIA [id number] [address] [place] [id number] [place] Neutrophils (Bld) [#/Vol] 3.11 10*3/uL Normal 1.45-7.50 [facility] Comment on above: Order Comment: Speci men Type: BLOOD SPECIMEN Ordering Facility: [facility] ([facility]) Address: [address] [place] [address] Performed By: #### 5 0190-8, 2276-4, 08524-0, 3016-3 #### [facility] CLIA [id number] [address] [place] [address] [place] Neutrophils/100 WBC (Bld) 51.3 % Normal [facility] Comment on above: Order Comment: Speci men Type: BLOOD SPECIMEN Ordering Facility: [facility] ([facility]) Address: [address] [place] [address] Performed By: #### 5 0190-8, 6-4, 49472-8, 3016-3 #### [facility] CLIA [id number] [address] [place] [address] [place] Nucleated RBC (Bld) [#/Vol] 10*3/uL Normal <0.01 [facility] Comment on above: Order Comment: Speci men Type: BLOOD SPECIMEN Ordering Facility: [facility] ([facility]) Address: [address] [place] [address] Performed By: #### 5 0190-8, 6-4, 94742-5, 3016-3 #### [facility] CLIA [id number] [address] [place] [address] [place] Nucleated RBC/100 WBC (Bld) [Ratio] 0.0 /100 WBC Normal [facility] Comment on above: Order Comment: Speci men Type: BLOOD SPECIMEN Ordering Facility: [facility] ([facility]) Address: [address] [place] [address] Performed By: #### 5 0190-8, 2276-4, 25577-2, 3016-3 #### [facility] CLIA [id number] [address] [place] Platelet mean volume (Bld) [Entitic vol] 9.9 fL Normal 9.0-12.7 [facility] Comment on above: Order Comment: Speci men Type: BLOOD SPECIMEN Ordering Facility: [facility] ([facility]) Address: [address] [place] [address] Performed By: #### 5 0190-8, 2276-4, 73566-4, 3016-3 #### [facility] CLIA [id number] [address] [place] [address] [place] Platelets (Bld) [#/Vol] 234 10*3/uL Normal 150-400 [facility] Comment on above: Order Comment: Speci men Type: BLOOD SPECIMEN Ordering Facility: [facility] ([facility]) Address: [address] [place] [address] Performed By: #### 5 0190-8, 2276-4, 50720-7, 3016-3 #### [facility] CLIA [id number] [address] [place] RBC (Bld) [#/Vol] 4.62 10*6/uL Normal 3.90-5.20 [facility] Comment on above: Order Comment: Speci men Type: BLOOD SPECIMEN Ordering Facility: [facility] ([facility]) Address: [address] [place] [address] Performed By: #### 5 0190-8, 2276-4, 38789-5, 3016-3 #### [facility] CLIA [id number] [address] [place] [address] [place] WBC (Bld) [#/Vol] 6.06 10*3/uL Normal 3.70-11.00 [facility] Comment on above: Order Comment: Speci men Type: BLOOD SPECIMEN Ordering Facility: [facility] ([facility]) Address: [address] [place] [address] Performed By: #### 5 0190-8, 2276-4, 47266-0, 3016-3 #### [facility] CLIA [id number] [address] [place] Cortis SerPl-mCncon 04-17-20 24 Cortisol [Mass/Vol] 0.8 ug/dL Low 4.8-19.5 [facility] Comment on above: Order Comment: Edmund srivastava Type: BLOOD SPECIMEN Ordering Facility: [facility] ([facility]) Address: [address] [place] [address] Result Comment: Prov ided reference range is from 6-10 AM sample collection time. Cortisol Reference Range: 6-10 AM = 4.8-19.5 ug/dL, 4-8 PM = 2.5-11.9 ug/dL Performed By: #### 2 143-6 #### [facility] CLIA [id number] [address] [facility] [address] DEXAMETHASONEon 04-17-2024 DEXAMETHASONE 186.9 ng/dL Normal [facility] Comment on above: Order Comment: Edmund srivastava Type: BLOOD SPECIMEN Ordering Facility: [facility] ([facility]) Address: [address] [place] [address] Result Comment: INTE RPRETIVE INFORMATION: Dexamethasone, Serum or Plasma by LC-MS/MS Adults baseline: Less than 50 ng/dL 8:00 AM draw following 1 mg dexamethasone between 11:00 pm and 12:00 am the previous evenin - 295 ng/dL 8:00 AM draw following 8 mg dexamethasone (4 x 2 mg doses) between 11:00 pm and 12:00 am the previous evenin - 2850 ng/dL This test was developed and its performance characteristics determined by [facility]. It has not been cleared or approved by the [place] Food and Drug Administration. This test was performed in a CLIA certified laboratory and is intended for clinical purposes. Performed By: [facility] [address] [place] [address] [employer]: Kenneth Noyola MD, PhD CLIA Number: [id number] Performed By: #### D EXA #### [facility] CLIA [id number] [address] [place] [address] Home sleep apnea test (HSAT) on 04-01-2024 [facility] Work Phone: 25(OH)D3 SerPl-ncon 2023 25-hydroxyvitamin D3 [Mass/Vol] 48.6 ng/mL Normal 31.0-80.0 [facility] Comment on above: Order Comment: Speci men Type: BLOOD SPECIMEN Ordering Facility: [facility] ([facility]) Address: [address] [place] [address] Performed By: #### 1 989-3 #### [facility] CLIA [id number] [address] [facility] [address] [address] [place] Comprehensive metabolic 2000 panelon 03-17-2024 Albumin [Mass/Vol] 4.0 g/dL Normal 3.9-4.9 [facility] Comment on above: Order Comment: Speci men Type: BLOOD SPECIMEN Ordering Facility: [facility] ([facility]) Address: [address] [place] [address] Performed By: #### 5 0190-8, 2276-4, 86303-4, 3016-3 #### [facility] CLIA [id number] [address] [place] [address] [place] ALP [Catalytic activity/Vol] 70 U/L Normal 34-123 [facility] Comment on above: Order Comment: Speci men Type: BLOOD SPECIMEN Ordering Facility: [facility] ([facility] Address: [address] [place], [place] [address] Performed By: #### 5 0190-8, 2276-4, 80587-1, 3016-3 #### [facility] CLIA [id number] [address] STATES OF [facility] ALT [Catalytic activity/Vol] 15 U/L Normal 7-38 [facility] Comment on above: Order Comment: Speci men Type: BLOOD SPECIMEN Ordering Facility: [facility] ([facility] Address: [address] [place], [place] [address] Performed By: #### 5 0190-8, 2276-4, 51258-0, 3016-3 #### [facility] CLIA [id number] [address] [place] [address] [place] Anion gap [Moles/Vol] 11 mmol/L Normal 8-15 [facility] Comment on above: Order Comment: Speci men Type: BLOOD SPECIMEN Ordering Facility: [facility] ([facility] Address: [address] [place], [place] [address] Performed By: #### 5 0190-8, 2276-4, 38813-0, 3016-3 #### [facility] CLIA [id number] [address] [place] [address] [place] AST [Catalytic activity/Vol] 18 U/L Normal 13-35 [facility] Comment on above: Order Comment: Speci men Type: BLOOD SPECIMEN Ordering Facility: [facility] ([facility] Address: [address] [place], [place] [address] Performed By: #### 5 0190-8, 2276-4, 85129-9, 3016-3 #### [facility] CLIA [id number] [address] [place] [address] [place] Bilirubin [Mass/Vol] 0.6 mg/dL Normal 0.2-1.3 [facility] Comment on above: Order Comment: Speci men Type: BLOOD SPECIMEN Ordering Facility: [facility] ([facility] Address: [address] [place], [place] [address] Performed By: #### 5 0190-8, 2276-4, 29903-7, 3016-3 #### [facility] CLIA [id number] [address] [place] [address] [place] Calcium [Mass/Vol] 8.9 mg/dL Normal 8.5-10.2 [facility] Comment on above: Order Comment: Speci men Type: BLOOD SPECIMEN Ordering Facility: [facility] ([facility]) Address: [address] [place], [place] [address] Performed By: #### 5 0190-8, 2276-4, 18070-0, 3016-3 #### [facility] CLIA [id number] [address] [place] [address] [place] Chloride [Moles/Vol] 104 mmol/L Normal 98-107 [facility] Comment on above: Order Comment: Speci men Type: BLOOD SPECIMEN Ordering Facility: [facility] ([facility]) Address: [address] [place], [place] [address] Performed By: #### 5 0190-8, 2276-4, 52028-5, 3016-3 #### [facility] CLIA [id number] [address] STATES OF [facility] CO2 [Moles/Vol] 23 mmol/L Normal 22-30 [facility] Comment on above: Order Comment: Speci men Type: BLOOD SPECIMEN Ordering Facility: [facility] ([facility]) Address: [address] [place] [address] Performed By: #### 5 0190-8, 2276-4, 90507-9, 3016-3 #### [facility] CLIA [id number] [address] Creatinine [Mass/Vol] 0.79 mg/dL Normal 0.58-0.96 [facility] Comment on above: Order Comment: Speci men Type: BLOOD SPECIMEN Ordering Facility: [facility] ([facility]) Address: [address] [place] [address] Performed By: #### 5 0190-8, 2276-4, 62858-4, 3016-3 #### [facility] CLIA [id number] [address] [place] [address] Creatinine and Glomerular filtration rate.predicted panel (S/P/Bld) 93 mL/min/1.73m??? Normal >=60 [facility] Comment on above: Order Comment: Speci [facility] Type: BLOOD SPECIMEN Ordering Facility: [facility] ([facility]) Address: [address] [place] [address] Result Comment: Cale mated Glomerular Filtration Rate (eGFR) is calculated using the 2020 CKD-EPI creatinine equation. This equation utilizes serum creatinine, sex, and age as parameters. The creatinine assay has traceable calibration to isotope dilution-mass spectrometry. Refer to KDIGO guidelines for clinical interpretation. In patients with unstable renal function, e.g. those with acute kidney injury, the eGFR may not accurately reflect actual GFR. Performed By: #### 5 0190-8, 2276-4, 76690-9, 3016-3 #### [facility] CLIA [id number] [address] [place] [address] [place] Glucose [Mass/Vol] 116 mg/dL High 74-99 [facility] Comment on above: Order Comment: Edmund srivastava Type: BLOOD SPECIMEN [facility]ing Facility: [facility] ([facility]) Address: [address] [place] [address] Result Comment: The [place] Diabetes Association (ADA) provides guidance for cutoff values for fasting glucose and random glucose. The ADA defines fasting as no caloric intake for at least 8 hours. Fasting plasma glucose results between 100 to 125 mg/dL indicate increased risk for diabetes (prediabetes). Fasting plasma glucose results greater than or equal to 126 mg/dL meet the criteria for diagnosis of diabetes. In the absence of unequivocal hyperglycemia, results should be confirmed by repeat testing. In a patient with classic symptoms of hyperglycemia or hyperglycemic crisis, random plasma glucose results greater than or equal to 200 mg/dL meet the criteria for diagnosis of diabetes. Reference: Standards of Medical Care in Diabetes 2016, [place] Diabetes Association. Diabetes Care. 2016.39(Suppl 1). Performed By: #### 5 0190-8, 2276-4, 14206-1, 3016-3 #### [facility] CLIA [id number] [address] [place] [address] [place] Potassium [Moles/Vol] 4.1 mmol/L Normal 3.7-5.1 [facility] Comment on above: Order Comment: Edmund srivastava Type: BLOOD SPECIMEN Ordering Facility: [facility] ([facility]) Address: [address] [place] [address] Performed By: #### 5 0190-8, 2276-4, 29854-0, 3016-3 #### [facility] CLIA [id number] [address] [place] [address] [place] Protein [Mass/Vol] 6.8 g/dL Normal 6.3-8.0 [facility] Comment on above: Order Comment: Edmund srivastava Type: BLOOD SPECIMEN [facility]ing [facility]: [facility] ([facility] Address: [address] [place] [address] Performed By: #### 5 0190-8, 2276-4, 39793-7, 3016-3 #### [facility] CLIA [id number] [address] [place] [address] [place] Sodium [Moles/Vol] 138 mmol/L Normal 136-144 [facility] Comment on above: Order Comment: Edmund men Type: BLOOD SPECIMEN [facility]ing Facility: [facility] ([facility] Address: [address] [place] [address] Performed By: #### 5 0190-8, 2276-4, 43420-9, 3016-3 #### [facility] CLIA [id number] [address] [place] [address] [place] Urea nitrogen [Mass/Vol] 14 mg/dL Normal 7-21 [facility] Comment on above: Order Comment: Speci men Type: BLOOD SPECIMEN [facility]ing Facility: [facility] ([facility] Address: [address] [place] [address] Performed By: #### 5 0190-8, 2276-4, 42155-6, 3016-3 #### [facility] CLIA [id number] [address] [place] [address] [place] DHEA-S BLDon 03-17-2024 DHEA-S [Mass/Vol] 291.4 ug/dL High 35.4-256.0 [facility] Comment on above: Order Comment: Edmund srivastava Type: BLOOD SPECIMEN Ordering Facility: [facility] ([facility]) Address: [address] [place] [address] Result Comment: Refe rence ranges are age and gender specific. For additional information, reference range tables can be found in the laboratory test directory. The normal values are based on the following source: Dehydroepiandrosterone sulfate (DHEA S) [package insert V 17.0 [place]]. [facility], [place], [place]: April 2013. Performed By: #### 5 0190-8, 2276-4, 88153-7, 3016-3 #### [facility] CLIA [id number] [address] [place] [address] [place] Ferritin SerPl-mCncon 2023 Ferritin [Mass/Vol] 73.5 ng/mL Normal 14.7-205.1 [facility] Comment on above: Order Comment: Speci men Type: BLOOD SPECIMEN Ordering Facility: [facility] ([facility]) Address: [address] [place] [address] Performed By: #### 5 0190-8, 2276-4, 67946-8, 3016-3 #### [facility] CLIA [id number] [address] [place] Fructosamine SerPl-sCncon Fructosamine [Moles/Vol] 233 umol/L Normal 205-285 [facility] Comment on above: Order Comment: Edmund srivastava Type: BLOOD SPECIMEN Ordering Facility: [facility] ([facility]) Address: [address] [place] [address] Performed By: #### 5 0190-8, 2276-4, 78011-1, 3016-3 #### [facility] CLIA [id number] [address] [place] HbA1c (Bld)on 03-17-2024 Average glucose Estimated from glycated hemoglobin (Bld) [Mass/Vol] 105 mg/dL Normal [facility] Comment on above: Order Comment: Edmund srivastava Type: BLOOD SPECIMEN Ordering Facility: [facility] ([facility]) Address: [address] [place] [address] Result Comment: eAG: (Estimated average glucose) is a calculated value from HgbA1c and is surgical device sales representative of the average blood glucose level in the last 2-3 month period. Performed By: #### 5 0190-8, 2276-4, 79695-3, 3016-3 #### [facility] CLIA [id number] [address] [place] HbA1c (Bld) [Mass fraction] 5.3 % Normal 4.3-5.6 [facility] Comment on above: Order Comment: Edmnud srivastava Type: BLOOD SPECIMEN Ordering Facility: [facility] ([facility]) Address: [address] [place] [address] Result Comment: Amer [place] Diabetes Association guidelines indicate that patients with HgbA1c in the range 5.7-6.4% are at increased risk for development of diabetes, and intervention by lifestyle modification may be beneficial. HgbA1c greater or equal to 6.5% is considered diagnostic of diabetes. Performed By: #### 5 0190-8, 2276-4, 20906-4, 3016-3 #### [facility] CLIA [id number] [address] [place] Iron and Iron binding capaci ty panelon 03-17-2024 Iron [Mass/Vol] 133 ug/dL Normal 41-186 [facility] Comment on above: Order Comment: Edmund srivastava Type: BLOOD SPECIMEN [facility] ([facility] Address: [address] [place] [address] Performed By: #### 5 0190-8, 2276-4, 34156-6, 3016-3 #### [facility] CLIA [id number] [address] STATES [facility] Iron binding capacity [Mass/Vol] 285 ug/dL Normal 232-386 [facility] Comment on above: Order Comment: Edmund srivastava Type: BLOOD SPECIMEN [facility]ing Facility: [facility] ([facility] Address: [address] [place] [address] Performed By: #### 5 0190-8, 2276-4, 67553-2, 3016-3 #### [facility] CLIA [id number] [address] Iron/TIBC [Molar ratio] 46.7 % Normal 15.0-57.0 [facility] Comment on above: Order Comment: Edmund srivastava Type: BLOOD SPECIMEN [facility]ing Facility: [facility] ([facility] Address: [address] [place], [place] [address] Performed By: #### 5 0190-8, 2276-4, 75544-1, 3016-3 #### [facility] CLIA [id number] [address] [place] T3Free SerPl-mCncon 03-17-20 Free T3 [Mass/Vol] 3.1 pg/mL Normal 2.3-4.1 [facility] Comment on above: Order Comment: Edmund srivastava Type: BLOOD SPECIMEN [facility]ing [facility]: [facility] ([facility] Address: [address] [place] [address] Performed By: #### 5 0190-8, 2276-4, 71870-8, 3016-3 #### [facility] CLIA [id number] [address] OF [facility] T4 Free SerPl-mCncon 024 Free T4 [Mass/Vol] 1.3 ng/dL Normal 0.9-1.7 [facility] Comment on above: Order Comment: Speci men Type: BLOOD SPECIMEN Ordering Facility: [facility] ([facility]) Address: [address] [place] [address] Performed By: #### 5 0190-8, 2276-4, 21898-0, 3016-3 #### [facility] CLIA [id number] [address] [place] [address] TSH SerPl-aCncon 03-17-2024 TSH Qn 0.804 m[IU]/L Normal 0.270-4.200 [facility] Comment on above: Order Comment: Edmund srivastava Type: BLOOD SPECIMEN Ordering Facility: [facility] ([facility]) Address: [address] [place] [address] Result Comment: If t he patient is , TSH reference range varies by gestational period: First Trimester (weeks 9-12): 0.180-2.990 mIU/L Second Trimester: 0.110-3.980 mIU/L Third Trimester: 0.480-4.710 mIU/L Dominick Peace et al. A Practical Approach for the Verifications and Determination of Site- and Trimester-Specific Reference Intervals for Thyroid Function tests in . Thyroid, 2019:29:3:412-420. Jacques E, et al. 2017 Guidelines of the [place] Thyroid Association for the Diagnosis and Management of Thyroid Disease during and the . Thyroid, 2017:27:3:315-389. Performed By: #### 5 0190-8, 2276-4, 07115-3, 3016-3 #### [facility] CLIA [id number] [address] [place] [address] [place] PAP TESTon 03-30-2023 Case Report Gynecologic Cytology Report Case: [id number] Authorizing Provider: Anthony White MD Collected: 12/14/2022 07:47 AM Ordering Location: Obstetrics/Gynecology Received: 12/14/2022 09:54 AM First Screen: Jayne Peraza, CT, ASCP Rescreen: Komal Peck CT, ASCP Specimen: Pap Test, ThinPrep, Cervix [facility] Clinical History [facility]ine [facility] FINAL DIAGNOSIS A - Cervix Satisfactory for interpretation Negative for Intraepithelial lesion or malignancy. [facility] HPV Reflex Auto HPV [facility] LMP 11/28/2022 [facility] Pap Disclaimer The Pap Smear is a screening test for cervical cancer. False negative results occur with all screening tests, emphasizing the need for rescreening at recommended intervals, and clinical correlation. [facility] Performing Lab Technical component, dog and cat food cook screening performed at [facility], [address] [id number] CLIA# [id number] Diagnostic interpretation performed at [facility], [address], [facility] [address] CLIA# [id number] Direct Chill Caster: Fritz Wilcox M.D. [facility] HPV W/GENOTYPE THIN PREPon 0 12-20-2022 HPV 16 Ag Ql (Unsp spec) Negative Negative for HPV DNA high risk type 16 by PCR [facility] HPV 18 Ag Ql (Unsp spec) Negative Negative for HPV DNA high risk type 18 by PCR [facility] HPV 31+33+35+39+45+51+52 +56+58+59+66+68 DNA BINA+probe Ql (Cvx) Negative for HPV DNA high risk types: 31,33,35,39,45,51,52,56, 58,59,66,68 by PCR. Negative for HPV DNA high risk types: 31,33,35,39,4 5,51,52,56,58 ,59,66,68 by PCR. [facility] Office Visit (Family Medicin e)on 06-26-2022 Follow-up visit Diagnoses/Problems Insomnia (780.52) (G47.00) Anxiety (300.00) (F41.9) Orders Anxiety Start: Venlafaxine HCl ER 37.5 MG Oral Capsule Extended Release 24 Hour; TAKE 1 CAPSULE Daily Insomnia Start: hydrOXYzine HCl - 25 MG Oral Tablet; TAKE 1 TABLET Daily prn Patient Discussion/Summary By signing my name below, I, Erick Le, attest that this documentation has been prepared under the direction and in the presence of Dr. Randee Hdz. All medical record entries made by the Jamshidibcory were at my direction and personally dictated by me. I have reviewed the chart and agree that the record accurately reflects my personal performance of the history, physical exam, discussion and plan. Provider Impressions Suboptimal anxiety control. Will try venlafaxine, hydroxyzine for insomnia. Rx sent to pharmacy. Call with issues or if symptoms worsen or don't improve. Follow up with me in 1 month/as needed depending on symptoms. Chief Complaint TORY SOLIS is here for a follow-up for . Anxiety and difficulty sleeping. History of Present Illness 47 year old female presenting for anxiety and difficulty sleeping. She has issues with anxiety. Notes work stressors are severe at the moment. Has issues with sleeping. Cannot sleep due to work stressors. She is on no regular meds. Would like to try medication for anxiety. No chest pain, SOB, leg edema, no headaches or dizziness. Exercise tolerance good. 'Scores and Scales' PHQ-9 [id number] 04:43PM PHQ-9 #1. Little interest or pleasure in doing things1-Several days PHQ-9 #2. Feeling down, depressed, or hopelesS1-Several days PHQ-9 #3. Trouble falling or staying asleep, or sleeping too much3-Nearly every day PHQ-9 #4. Feeling tired or having little energy1-Several days PHQ-9 #5. Poor appetite or overeating1-Several days PHQ-9 #6. Feeling bad about yourself or you are a failure or that you have let yourself or your family down0-Not at all PHQ-9 #7. Trouble concentrating on things, such as reading the newspaper or watch television0-Not at all PHQ-9 #8. Moving or speaking so slowly that other people could have noticed. Or the opposite-being so fidgety or restless that you have been moving around a lot more than usual0-Not at all PHQ-9 #9. Thoughts that you would be better off , or of hurting yourself0-Not at all PHQ-9 #10. If you checked off any problems, how difficult have these problems made it for you to do your work, take care of things at home, or get along with other people?Not difficult at all PHQ-9 Total Score (Please update problem list based on total score)7 PHQ-9 Depression SeverityMild (5-9) Review of Systems Constitutional: no chills, no fever and no night sweats. Eyes: no blurred vision and no eyesight problems. ENT: no hearing loss, no nasal congestion, no nasal discharge, no hoarseness and no sore throat. Neck: no mass(es) and no swelling. Cardiovascular: no chest pain, no intermittent leg claudication, no lower extremity edema, no palpitations and no syncope. Respiratory: no cough, no shortness of breath during exertion, no shortness of breath at rest and no wheezing. Gastrointestinal: no abdominal pain, no blood in stools, no constipation, no diarrhea, no melena, no nausea, no rectal pain and no vomiting. Genitourinary: no dysuria, no change in urinary frequency, no urinary hesitancy, no feelings of urinary urgency and no vaginal discharge. Musculoskeletal: no arthralgias, no back pain and no myalgias. Integumentary: no new skin lesions and no rashes. Neurological: no difficulty walking, no headache, no limb weakness, no numbness and no tingling. Psychiatric: anxiety and sleep disturbances, but as noted in HPI, no depression, no anhedonia and no substance use disorders. Endocrine: no recent weight gain and no recent weight loss. Hematologic/Lymphatic: no tendency for easy bruising and no swollen glands. Active Problems Acute bronchitis (466.0) (J20.9) Acute frontal sinusitis (461.1) (J01.10) Acute pharyngitis (462) (J02.9) Boil (680.9) (L02.92) Cough (786.2) (R05.9) Depression (311) (F32.A) Dysuria (788.1) (R30.0) Heart palpitations (785.1) (R00.2) Low back pain (724.2) (M54.50) Lymphadenopathy (785.6) (R59.1) Palpitations (785.1) (R00.2) Pityriasis rosea (696.3) (L42) Situational depression (309.0) (F43.21) Strep pharyngitis (034.0) (J02.0) Viral syndrome (079.99) (B34.9) Past Medical History History of Herpes simplex type 1 infection (054.9) (B00.9) History of cardiac monitoring (V15.89) (Z92.89) EVENT MONITOR [10/18/2021 - 10/31/2021]: Recordings show sinus rhythm w/avg HR 75. No ep/of atrial fibrillation / PSVT / high-grade AV block. Isolated PVCs with no ventricular tachycardia. History of echocardiogram (V15.89) (Z92.89) [11/10/2021]: The left ventricular systolic function is low normal with a 50% estimated ejection fraction. Spectral Doppler shows an impaired relaxation pattern of left (more content not included)... Normal [facility]works PHQ-2 VITALSon 06-26-2022 Adult depression screening assessment Yes -[facility] Work Phone: Adult depression screening assessment No [facility] Work Phone: Fall risk assessment a) No falls within the last year -[facility] Work Phone: PHQ-2 VITALS 1-Several days [facility] Work Phone: PHQ-2 VITALS 3-Nearly every day -[facility] Work Phone: PHQ-2 VITALS 0-Not at all -[facility] Work Phone: PHQ-2 VITALS Not difficult at all -[facility] Work Phone: Blood Pressure Cuff Sizeon 0 11-22-2021 Tobacco use status CPHS b) No [facility] [address] [place] Work Phone: Blood Pressure Cuff Size Adult [facility] [address] [place] Work Phone: Office Visit (Cardiology)on 11-22-2021 Follow-up visit Diagnoses/Problems Assessed Palpitations (785.1) (R00.2) Heart palpitations (785.1) (R00.2) Orders Low back pain Stop: methylPREDNISolone 4 MG Oral Tablet Therapy Pack Strep pharyngitis Stop: Amoxicillin 875 MG Oral Tablet Patient Instructions Follow-up as needed Continue heart healthy diet and exercise Chief Complaint Follow-up appointment History of Present Illness 11/22/2021: Office visit Patient returns to clinic for follow-up. She denies chest pain shortness of breath and states that her palpitations have improved since her last appointment. She did turning the event monitor which revealed no evidence of high-grade AV block, tacky bradycardia syndrome or VT. Echocardiogram showed normal ejection fraction 50% grade 1 diastolic dysfunction. There is no significant valvular pathology. Her blood work came back fairly unremarkable. Vital signs today show blood pressure 118/73 heart rate is 64 satting 97% on room air. Weight is 153 pounds. 10/18/2021 This is a 46-year-old female with a significant past medical history presents to clinic for evaluation for palpitations. Of note, patient had recent bout of Covid illness. 3 weeks after recovering from illness she started to have episodes of palpitations. Her most severe episode occurred over the weekend where she had 1/2 days of off-and-on palpitations. She has some atypical chest discomfort that was somewhat positional and associated with respiration. She denies shortness of breath. Denies lower extreme edema orthopnea or PND. She does not smoke or use illicit drugs. Denies heavy ethanol usage. She has no significant history of cardiovascular disease neither family history of early onset cardiovascular disease. She had a work-up 7 years ago firsts palpitations which were found to be related to use of Wellbutrin. Her vital signs today show blood pressure of 109/74, heart rate is 78 satting 90% on room air. Her weight is 154.2 pounds. EKG today shows sinus rhythm with a normal axis and appropriate R wave progression. Active Problems Other Problems Acute bronchitis (466.0) (J20.9) Acute frontal sinusitis (461.1) (J01.10) Acute pharyngitis (462) (J02.9) Boil (680.9) (L02.92) Cough (786.2) (R05.9) Depression (311) (F32.A) Dysuria (788.1) (R30.0) Heart palpitations (785.1) (R00.2) Low back pain (724.2) (M54.50) Lymphadenopathy (785.6) (R59.1) Palpitations (785.1) (R00.2) Pityriasis rosea (696.3) (L42) Situational depression (309.0) (F43.21) Strep pharyngitis (034.0) (J02.0) Viral syndrome (079.99) (B34.9) Surgical History Problems History of Complete Colonoscopy 15 yrs ago and 2018 Denied: History of Surgery Past Medical History Problems History of Herpes simplex type 1 infection (054.9) (B00.9) History of cardiac monitoring (V15.89) (Z92.89) History of echocardiogram (V15.89) (Z92.89) [11/10/2021]: The left ventricular systolic function is low normal with a 50% estimated ejection fraction. Spectral Doppler shows an impaired relaxation pattern of left ventricular diastolic filling. RVSP within normal limits. 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 methylPREDNISolone 4 MG Oral Tablet Therapy Packtake as directed per card instructions Allergies NoKnown No Known Allergies Recorded By: Randee Hdz; 03/05/2013 3:47:14 PM Family History Father Family history of Benign Essential Hypertension Social History Problems Caffeine Use Marital History - Currently Never smoker Working [employer] Review of Systems All review of systems are negative save those mentioned above HPI. Vitals Vital Signs Recorded: 22Nov2021 04:20PM Heart Rate64 [id number], RUE, Sitting Gnccjsipj48, RUE, Sitting Blood Pressure Cuff SizeAdult Height5 ft 6 in Amdyzl421 lb BMI Ablbdpqobb60.7 kg/m2 BSA Calculated1.78 Tobacco Useb) No O2 Gwvbublgpg78, RA Impressions 1. Palpitations/atypical chest discomfort: Symptoms occurring 3 weeks after Covid exposure. Symptoms occurring fairly but improved more recently. Appears to be some correlation with her normally monthly menses cycle. Baseline EKG shows normal sinus rhythm with a normal axis and appropriate R wave progression. Initial lab work shows fairly unremarkable CBC and RFP as well as TSH. 14-day event monitor did not show evidence of high-grade AV block tachybradycardia syndrome or ventricular tachycardia. Echocardiogram shows normal ejection fraction grade 1 diastolic dysfunction without significant valvular pathology. 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 Since they are improving we will continue to monitor for now. There is no indication to initiate pharmacotherapy. Signatures Electronically signed by : Juni Gamboa MD; Nov 22 2021 5:01PM EST (Author) Normal Touchworks Echocardiogramon 11-10-2021 Echocardiography [facility] , [address] [place] [address], [address], [place] [address] and TRANSTHORACIC ECHOCARDIOGRAM REPORT Patient Name: TORY SOLIS Reading Physician: [id number] Juni Gamboa MD Study Date: 11/10/2021 Referring Physician: JUNI GAMBOA MRN/PID: [id number] PCP: Accession/Order#: [id number] Department Location: [facility] Date of : 1975 Fellow: Gender: F Nurse: Admit Date: Edge Bander Hand: Blanka Hong [facility] Admission Status: Outpatient Additional Staff: Height: 167.64 cm CC Report to: Weight: 68.04 kg Study Type: Echocardiogram BSA: 1.77 m2 Blood Pressure: 109 /74 mmHg Diagnosis/ICD: R00.2-Palpitations Indication: Palpitations Procedure/CPT: Echo Complete w Full [id number] Patient History: Pertinent History: Palpitations and Chest Pain. Covid recovery. Study Detail: The following Echo studies were performed: 2D, M-Mode, Doppler and color flow. PHYSICIAN INTERPRETATION: Left Ventricle: The left ventricular systolic function is low normal, with an estimated ejection fraction of 50%. There are no regional wall motion abnormalities. The left ventricular cavity size is normal. Spectral Doppler shows an impaired relaxation pattern of left ventricular diastolic filling. Left Atrium: The left atrium is normal in size. Right Ventricle: The right ventricle is normal in size. There is normal right ventricular global systolic function. Right Atrium: The right atrium is normal in size. Aortic Valve: The aortic valve is trileaflet. There is no evidence of aortic valve regurgitation. The peak instantaneous gradient of the aortic valve is 6.5 mmHg. Mitral Valve: The mitral valve is mildly thickened. There is trace mitral valve regurgitation. Tricuspid Valve: The tricuspid valve is structurally normal. There is trace tricuspid regurgitation. The Doppler estimated RVSP is within normal limits at 18.9 mmHg. Pulmonic Valve: The pulmonic valve is structurally normal. There is trace pulmonic valve regurgitation. Pericardium: There is no pericardial effusion noted. Aorta: The aortic root is normal. CONCLUSIONS: 1. The left ventricular systolic function is low normal with a 50% estimated ejection fraction. 2. Spectral Doppler shows an impaired relaxation pattern of left ventricular diastolic filling. 3. RVSP within normal limits. QUANTITATIVE DATA SUMMARY: 2D MEASUREMENTS: Normal Ranges: IVSd: 0.73 cm (0.6-1.1cm) LVPWd: 0.74 cm (0.6-1.1cm) LVIDd: 5.07 cm (3.9-5.9cm) LVIDs: 3.70 cm LV Mass Index: 70.6 g/m2 LV % FS 27.0 % LA VOLUME: Normal Ranges: LA Vol A4C: 36.3 ml (22+/-6mL/m2) LA Vol A2C: 25.0 ml LA Vol BP: 33.3 ml LA Vol Index A4C: 20.5 ml/m2 LA Vol Index A2C: 14.1 ml/m2 LA Vol Index BP: 18.8 ml/m2 LA Area A4C: 16.0 cm2 LA Area A2C: 12.0 cm2 LA Major [place] A4C: 6.0 cm LA [place] A2C: 4.9 cm LA Volume Index: 20.0 ml/m2 LA Vol A4C: 31.3 ml LA Vol A2C: 25.6 ml RA VOLUME BY A/L METHOD: Normal Ranges: RA Vol A4C: 34.0 ml (8.3-19.5ml) RA Vol Index A4C: 19.2 ml/m2 RA Area A4C: 14.0 cm2 RA [place] A4C: 4.9 cm M-MODE MEASUREMENTS: Normal Ranges: Ao Root: 2.70 cm (2.0-3.7cm) LAs: 2.93 cm (2.7-4.0cm) AORTA MEASUREMENTS: Normal Ranges: Asc Ao, d: 2.90 cm (2.1-3.4cm) LV SYSTOLIC FUNCTION BY 2D PLANIMETRY (MOD): Normal Ranges: EF-A4C View: 52.4 % (>55%) EF-A2C View: 55.8 % EF-Biplane: 54.7 % LV DIASTOLIC FUNCTION: Normal Ranges: MV Peak E: 0.81 m/s (0.7-1.2 m/s) MV Peak A: 0.71 m/s (0.42-0.7 m/s) E/A Ratio: 1.13 (1.0-2.2) MV lateral e' 0.17 m/s MV medial e' 0.18 m/s MV A Dur: 112.27 msec PulmV Sys Sven: 52.98 cm/s PulmV [place] Sven: 49.76 cm/s PulmV S/D Sven: 1.06 PulmV A Revs Sven: 31.37 cm/s PulmV A Revs Dur: 142.72 msec MITRAL VALVE: Normal Ranges: MV DT: 162 msec (150-240msec) AORTIC VALVE: Normal Ranges: AoV Vmax: 1.27 m/s (<1.7m/s) AoV Peak P.5 mmHg (<20mmHg) LVOT Max Sven: 0.96 m/s (<1.1m/s) LVOT VTI: 19.53 cm LVOT Diameter: 2.20 cm (1.8-2.4cm) AoV Area,Vmax: 2.86 cm2 (2.5-4.5cm2) RIGHT VENTRICLE: RV 1 3.7 cm RV 2 1.9 cm RV 3 6.9 cm TAPSE: 20.0 mm RV s' 0.13 m/s TRICUSPID VALVE/RVSP: Normal Ranges: Peak TR Velocity: 1.99 m/s RV Syst Pressure: 18.9 mmHg (< 30mmHg) IVC Diam: 2.50 cm PULMONIC VALVE: Normal Ranges: PV Accel Time: 167 msec (>120ms) PV Max Sven: 0.9 m/s (0.6-0.9m/s) PV Max P.1 mmHg Pulmonary Veins: PulmV A Revs Dur: 142.72 msec PulmV A Revs Sven: 31.37 cm/s PulmV Marion Sven: 49.76 cm/s PulmV S/D Sven: 1.06 PulmV Sys Sven: 52.98 cm/s [id number] Juni Gamboa MD Electronically signed on 11/11/2021 at 10:57:02 AM Final Normal [facility] BNPon 10-19-2021 Natriuretic peptide B (Bld) [Mass/Vol] 28 pg/mL Normal 0 - 99 [facility] Comment on above: Result Comment: . <1 00 pg/mL - Heart failure unlikely 100-299 pg/mL - Intermediate probability of acute heart . failure exacerbation. Correlate with clinical . context and patient history. >=300 pg/mL - Heart Failure likely. Correlate with clinical . context and patient history. Biotin interference may cause falsely decreased results. Patients taking a Biotin dose of up to 5 mg/day should refrain from taking Biotin for 24 hours before sample collection. Providers may contact their local laboratory for further information. Performed By: #### B NP2 #### [facility] [address] [place] [address] C-REACTIVE PROTEINon 022 C-REACTIVE PROTEIN 0.11 mg/dL Normal [facility] Comment on above: Result Comment: REF VALUE < 1.00 Performed By: #### C RP #### [facility] [address] [place] [address] SEDIMENTATION RATE, ERYTHROC YTEon 10-19-2021 SEDIMENTATION RATE, ERYTHROCYTE 2 mm/h Normal 0 - 20 [facility] Comment on above: Performed By: #### E SRWS #### [facility] [address] [place] [address] C Reactive Protein, Serumon 10-18-2021 CRP [Mass/Vol] 0.11 mg/dL [facility] Work Phone: Comment on above: REF VALUE< 1.00 No Panel Informationon 10-18 28 pg/mL 0 - 99 [facility] [employer] Work Phone: Comment on above: . <100 pg/mL - Heart failure -200 pg/mL - Intermediate probability of acute heart. failure exacerbation. Correlate with clinical. context and patient history. >=300 pg/mL - Heart Failure likely. Correlate with clinical. context and patient history. Biotin interference may cause falsely decreased results. Patients taking a Biotin dose of up to 5 mg/day should refrain from taking Biotin for 24 hours before sample collection. Providers may contact their local laboratory for further information. [email or web address] 1:80 [email or web address]/museweb.d ll?RetrieveTestByDateTim e?BsvjfzgOV=[id number]&Da te=18-10-2021&Time=16%3a 00%3a27%3a00&TestType=EC G&Site=1&OutputType=PDF& Ext=PDF [facility] Work Phone: Normal sinus rhythm [facility] Work Phone: Normal [facility] Work Phone: [phone] [facility] Work Phone: [phone] [facility] Work Phone: [phone] 1 [facility] Work Phone: 146 1 [facility] Work Phone: 223 1 [facility] Work Phone: 12 1 [facility] Work Phone: 46 1 [facility] Work Phone: 67 1 [facility] Work Phone: 21 1 [facility] Work Phone: [phone] [facility] Work Phone: 390 1 [facility] Work Phone: 80 1 [facility] Work Phone: 154 1 [facility] Work Phone: 70 1 [facility] Work Phone: Office Visit (Cardiology)on 10-18-2021 Follow-up visit Diagnoses/Problems Assessed Heart palpitations (785.1) (R00.2) Palpitations (785.1) (R00.2) Viral syndrome (079.99) (B34.9) Orders Heart palpitations Electrocardiogram 12 Lead; Status:Active; Requested for:18Oct2021; Sedimentation Rate, Erythrocyte; Status:Active; Requested for:18Oct2021; Palpitations Brain Natriuretic Peptide BNP; Status:Active; Requested for:18Oct2021; C Reactive Protein, Serum; Status:Active; Requested for:18Oct2021; Continuous Ambulatory campus monitor up to 30 days; Status:Hold For - Scheduling; Requested for:18Oct2021; Type of Continuous Ambulatory Monitor : MCOT device Echocardiogram; Status:Hold For - Scheduling; Requested for:18Oct2021; Troponin I, Serum; Status:Active; Requested for:18Oct2021; Patient Instructions 14-day event monitor Echocardiogram Check CRP, ESR, BMP and troponins Follow-up once testing is completed Chief Complaint High palpitations atypical chest discomfort History of Present Illness10/18/2021: Office visit This is a 46-year-old female with a significant past medical history presents to clinic for evaluation for palpitations. Of note, patient had recent bout of Covid illness. 3 weeks after recovering from illness she started to have episodes of palpitations. Her most severe episode occurred over the weekend where she had 1/2 days of off-and-on palpitations. She has some atypical chest discomfort that was somewhat positional and associated with respiration. She denies shortness of breath. Denies lower extreme edema orthopnea or PND. She does not smoke or use illicit drugs. Denies heavy ethanol usage. She has no significant history of cardiovascular disease neither family history of early onset cardiovascular disease. She had a work-up 7 years ago firsts palpitations which were found to be related to use of Wellbutrin. Her vital signs today show blood pressure of 109/74, heart rate is 78 satting 90% on room air. Her weight is 154.2 pounds. EKG today shows sinus rhythm with a normal axis and appropriate R wave progression. Active Problems Other Problems Acute bronchitis (466.0) (J20.9) Acute frontal sinusitis (461.1) (J01.10) Acute pharyngitis (462) (J02.9) Boil (680.9) (L02.92) Cough (786.2) (R05.9) Depression (311) (F32.A) Dysuria (788.1) (R30.0) Heart palpitations (785.1) (R00.2) Low back pain (724.2) (M54.50) Lymphadenopathy (785.6) (R59.1) Palpitations (785.1) (R00.2) Pityriasis rosea (696.3) (L42) Situational depression (309.0) (F43.21) Strep pharyngitis (034.0) (J02.0) Viral syndrome (079.99) (B34.9) Surgical History Problems History of Complete Colonoscopy 15 yrs ago and 2018 Denied: History of Surgery Past Medical History Problems History of Herpes simplex type 1 infection (054.9) (B00.9) History of echocardiogram (V15.89) (Z92.89) [08/05/2015]: LV chamber size, wall thickness and systolic function are within normal limits. No wall motion abnormalities observed. LVSF normal, est EF 60-65%. 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 methylPREDNISolone 4 MG Oral Tablet Therapy Packtake as directed per card instructions Allergies NoKnown No Known Allergies Recorded By: Randee Hdz; 03/05/2013 3:47:14 PM Family History Father Family history of Benign Essential Hypertension Social History Problems Caffeine Use Marital History - Currently Never smoker Working [employer] Review of Systems All review of systems are negative save those mentioned above HPI. Vitals Vital Signs Recorded: 18Oct2021 03:15PM Heart Rate78 Tmcvbfej912, LUE Zismjdenx30, LUE Cfihid149 lb 2 oz BMI Fvnkvmbmgi33.88 kg/m2 BSA Calculated1.79 O2 Etfjaajzgx30 Physical Exam General: No acute distress ENT moist mucous membranes Neck: Supple no significant JVP Pulmonary: Clear to auscultation bilaterally, no wheezes or crackles noted Cardiac: Regular rate and rhythm, no murmurs or gallops. Normal S1-S2. Abdomen: Soft nondistended: Nontender Extremities: No edema Psych: Appropriate affect Impressions 1. Palpitations/atypical chest discomfort: Symptoms occurring 3 weeks after Covid exposure. Symptoms occurring fairly regularly. Baseline EKG shows normal sinus rhythm with a normal axis and appropriate R wave progression. Initial lab work shows fairly unremarkable CBC and RFP as well as TSH. 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 To further characterize patient's symptoms and correlation with underlying rhythm, we will obtain a 14-day event monitor. We will also obtain echocardiogram to assess valvular and ventricular function and rule out the presence of pericardial effusion. We will check ESR, CRP, BMP and troponin levels. Signatures Electronically signed by : Juni Gamboa MD; Oct 18 2021 4:51PM EST (Author) Normal Touchworks Sedimentation Rate, Erythroc yteon 10-18-2021 ESR (Bld) [Velocity] 2 mm/h 0 - 20 [facility] Work Phone: TROPONIN Ion 10-18-2021 Troponin I.cardiac [Mass/Vol] ng/mL Normal 0.00 - 0.03 [facility] Comment on above: Result Comment: LESS THAN 0.04 NG/ML: NEGATIVE REPEAT TESTING IN THREE TO SIX HOURS IF CLINICALLY INDICATED. 0.04 - 0.5 NG/ML: CONSISTENT WITH POSSIBLE CARDIAC DAMAGE AND POSSIBLE INCREASED CLINICAL RISK. SERIAL MEASUREMENTS MAY HELP ASSESS EXTENT OF MYOCARDIAL DAMAGE. >0.5 NG/ML: CONSISTENT WITH CARDIAC DAMAGE, INCREASED CLINICAL RISK AND MYOCARDIAL INFARCTION. SERIAL MEASUREMENTS MAY HELP ASSESS EXTENT OF MYOCARDIAL DAMAGE. . Note: Troponin I testing is performed using different testing methodology at [facility] than at other [facility]. Direct result comparisons should only be made within the same method. . Biotin interference may cause falsely decreased results. Patients taking a Biotin dose of up to 5 mg/day should refrain from taking Biotin for 24 hours before sample collection. Providers may contact their laboratory for further information. Performed By: #### T ROP2 #### [facility] [address] [place] [address] Troponin I, Serumon 10-18-19 Troponin I.cardiac [Mass/Vol] ng/mL See Below [facility] [employer] Work Phone: Comment on above: Reference Range: 0.0 0 - 0.03LESS THAN 0.04 NG/ML: NEGATIVEREPEAT TESTING IN THREE TO SIX HOURSIF CLINICALLY INDICATED.0.04 - 0.5 NG/ML: CONSISTENT WITH POSSIBLECARDIAC DAMAGE AND POSSIBLE INCREASEDCLINICAL RISK.SERIAL MEASUREMENTS MAY HELP ASSESS EXTENT OFMYOCARDIAL DAMAGE.>0.5 NG/ML: CONSISTENT WITH CARDIAC DAMAGE,INCREASED CLINICAL RISK AND MYOCARDIALINFARCTION. SERIAL MEASUREMENTS MAY HELPASSESS EXTENT OF MYOCARDIAL DAMAGE..Note: Troponin I testing is performed using different testing methodology at [facility] than at other [facility]. Direct result comparisons should only be made within the same method.. Biotin interference may cause falsely decreased results. Patients taking a Biotin dose of up to 5 mg/day should refrain from taking Biotin for 24 hours before sample collection. Providers may contact their laboratory for further information. BASIC METABOLIC PANELon 09-24 Anion gap [Moles/Vol] 11 mmol/L Normal 10 - 20 [facility] Comment on above: Performed By: #### B MP #### [facility] [address] [place] [address] Calcium [Mass/Vol] 9.2 mg/dL Normal 8.6 - 10.6 [facility] Comment on above: Performed By: #### B MP #### [facility] [address] [place] [address] Chloride [Moles/Vol] 103 mmol/L Normal 98 - 107 [facility] [place] Comment on above: Performed By: #### B MP #### [facility] [address] [place] [address] Creatinine [Mass/Vol] 0.69 mg/dL Normal 0.50 - 1.05 [facility] Comment on above: Performed By: #### B MP #### [facility] [address] [place] [address] eGFR FEMALE >90 Normal >90 [facility] Comment on above: Result Comment: CALC ULATIONS OF ESTIMATED GFR ARE PERFORMED USING THE 2020 CKD-EPI STUDY REFIT EQUATION WITHOUT THE RACE VARIABLE FOR THE IDMS-TRACEABLE CREATININE METHODS. https://jasn.asnjournals.org/content/early//ASN.0421977 988 Performed By: #### B MP #### [facility] [address] [place] [address] Glucose [Mass/Vol] 105 mg/dL High 74 - 99 [facility] Comment on above: Performed By: #### B MP #### [facility] [address] [place] [address] HCO3 (Bld) [Moles/Vol] 28 mmol/L Normal 21 - 32 [facility] Comment on above: Performed By: #### B MP #### [facility] [address] [place] [address] Potassium [Moles/Vol] 4.0 mmol/L Normal 3.5 - 5.3 [facility] Comment on above: Performed By: #### B MP #### [facility] [address] [place] [address] Sodium [Moles/Vol] 138 mmol/L Normal 136 - 145 [facility] Comment on above: Performed By: #### B MP #### [facility] [address] [place] [address] Urea nitrogen [Mass/Vol] 16 mg/dL Normal 6 - 23 [facility] Comment on above: Performed By: #### B MP #### [facility] [address] [place] [address] CBC AND DIFFERENTIALon 10-11 % AUTOMATED IMMATURE GRAN 0.1 % Normal 0.0 - 0.9 [facility] Comment on above: Result Comment: Karen ture Granulocyte Count (IG) includes promyelocytes, myelocytes and metamyelocytes but does not include bands. Percent differential counts (%) should be interpreted in the context of the absolute cell counts (cells/L). Performed By: #### C BCDF #### [facility] [address] [place] [address] Basophils (Bld) [#/Vol] 0.04 10*3/uL Normal 0.00 - 0.10 [facility] Comment on above: Performed By: #### C BCDF #### [facility] [address] [place] [address] Basophils/100 WBC (Bld) 0.6 % Normal 0.0 - 2.0 [facility] Comment on above: Performed By: #### C BCDF #### [facility] [address] [place] [address] Eosinophils (Bld) [#/Vol] 0.11 10*3/uL Normal 0.00 - 0.70 [facility] Comment on above: Performed By: #### C BCDF #### [facility] [address] [place] [address] Eosinophils/100 WBC (Bld) 1.6 % Normal 0.0 - 6.0 [facility] Comment on above: Performed By: #### C BCDF #### [facility] [address] [place] [address] Erythrocyte distribution width (RBC) [Ratio] 13.0 % Normal 11.5 - 14.5 [facility] Comment on above: Performed By: #### C BCDF #### [facility] [address] [place] [address] Hematocrit (Bld) [Volume fraction] 42.3 % Normal 36.0 - 46.0 [facility] Comment on above: Performed By: #### C BCDF #### [facility] [address] [place] [address] Hemoglobin (Bld) [Mass/Vol] 14.0 g/dL Normal 12.0 - 16.0 [facility] Comment on above: Performed By: #### C BCDF #### [facility] [address] [place] [address] Lymphocytes (Bld) [#/Vol] 2.52 10*3/uL Normal 1.20 - 4.80 [facility] Comment on above: Performed By: #### C BCDF #### [facility] [address] [place] [address] Lymphocytes/100 WBC (Bld) 36.4 % Normal 13.0 - 44.0 [facility] Comment on above: Performed By: #### C BCDF #### [facility] [address] [place] [address] MCHC (RBC) [Mass/Vol] 33.1 g/dL Normal 32.0 - 36.0 [facility] Comment on above: Performed By: #### C BCDF #### [facility] [address] [place] [address] MCV (RBC) [Entitic vol] 96 fL Normal 80 - 100 [facility] Comment on above: Performed By: #### C BCDF #### [facility] [address] [place] [address] Monocytes (Bld) [#/Vol] 0.54 10*3/uL Normal 0.10 - 1.00 [facility] Comment on above: Performed By: #### C BCDF #### [facility] [address] [place] [address] Monocytes/100 WBC (Bld) 7.8 % Normal 2.0 - 10.0 [facility] Comment on above: Performed By: #### C BCDF #### [facility] [address] [place] [address] Neutrophils (Bld) [#/Vol] 3.71 10*3/uL Normal 1.20 - 7.70 [facility] Comment on above: Performed By: #### C BCDF #### [facility] [address] [place] [address] Neutrophils/100 WBC (Bld) 53.5 % Normal 40.0 - 80.0 [facility] Comment on above: Performed By: #### C BCDF #### [facility] [address] [place] [address] NUCLEATED RBC 0.0 /100 WBC Normal 0.0-0.0 [facility] Comment on above: Performed By: #### C BCDF #### [facility] [address] [place] [address] Platelets (Bld) [#/Vol] 231 10*3/uL Normal 150 - 450 [facility] Comment on above: Performed By: #### C BCDF #### [facility] [address] [place] [address] RBC 4.40 x10E12/L Normal 4.00 - 5.20 [facility] Comment on above: Performed By: #### C BCDF #### [facility] [address] [place] [address] WBC (Bld) [#/Vol] 6.9 10*3/uL Normal 4.4 - 11.3 [facility] Comment on above: Performed By: #### C BCDF #### [facility] [address] [place] [address] MAGNESIUMon 10-11-2021 Magnesium [Mass/Vol] 2.02 mg/dL Normal 1.60 - 2.40 [facility] Comment on above: Performed By: #### M G #### [facility] [address] [address] [place] SARS-CoV-2 SPIKE TOTAL ANTIB ODYon 10-11-2021 SARS-CoV-2 (COVID-19) Ab IA Ql SEE BELOW Normal [facility] Comment on above: Result Comment: . SARS-COV-2 John protein antibodies detected. Result suggests recent or past infection of SARS-CoV-2 (COVID-19) and/or vaccination. Results from antibody testing should not be used as the sole basis to diagnose or exclude SARS-CoV-2 infection. False-positive results may be due to past or present infection with kdu-NXFD-SlV-2 coronavirus strains, such as coronavirus HKU1, NL63, OC43, or 229E. A reactive result does not necessarily indicate protective immunity as a threshold for protective level of antibodies is not yet established. . This test is for in vitro diagnostic use under the FDA Emergency Use Authorization (EUA) for US laboratories certified under CLIA to perform moderate or high complexity tests. This test has not been FDA cleared or approved. This test should not be used for screening of donated blood. Performed By: #### C OVTA #### [facility] [address] [address] [place], [place] SARS-CoV-2 (COVID-19) RNA BINA+probe Ql (Unsp spec) Reactive Abnormal NONREACTIVE [facility] Comment on above: Performed By: #### C OVTA #### [facility] [address] [place] [address] TSH WITH REFLEX TO FREE T4 I F ABNORMALon 10-11-2021 TSH Qn 0.73 m[IU]/L Normal 0.44 - 3.98 [facility] Comment on above: Result Comment: TSH testing is performed using different testing methodology at [facility] than at other [facility]. Direct result comparisons should only be made within the same method. Performed By: #### T HYDS #### [facility] [address] [place] [address] Complete Blood Count + Diffe rentialon 10-10-2021 Basophils/100 WBC (Bld) 0.6 % 0.0 - 2.0 [facility] Work Phone: Erythrocyte distribution width (RBC) [Ratio] 13.0 % See Below [facility] Work Phone: Comment on above: Reference Range: 11. 5 - 14.5 Hematocrit (Bld) [Volume fraction] 42.3 % See Below [facility] Work Phone: Comment on above: Reference Range: 36. 0 - 46.0 Hemoglobin (Bld) [Mass/Vol] 14.0 g/dL See Below [facility] Work Phone: Comment on above: Reference Range: 12. 0 - 16.0 Lymphocytes/100 WBC (Bld) 36.4 % See Below [facility] Work Phone: Comment on above: Reference Range: 13. 0 - 44.0 MCHC (RBC) [Mass/Vol] 33.1 g/dL See Below [facility] Work Phone: Comment on above: Reference Range: 32. 0 - 36.0 MCV (RBC) [Entitic vol] 96 fL 80 - 100 [facility] Work Phone: Monocytes/100 WBC (Bld) 7.8 % 2.0 - 10.0 [facility] Work Phone: [phone] Neutrophils/100 WBC (Bld) 53.5 % See Below [facility] Work Phone: Comment on above: Reference Range: 40. 0 - 80.0 Platelets (Bld) [#/Vol] 231 10*3/uL 150 - 450 [facility] Work Phone: RBC (Bld) [#/Vol] 4.40 {x10E12/L} See Below [facility] Work Phone: [phone] Comment on above: Reference Range: 4.0 0 - 5.20 WBC (Bld) [#/Vol] 6.9 10*3/uL 4.4 - 11.3 [facility] Work Phone: [phone] Complete Blood Count + Differential 0.04 {x10E9/L} See Below [facility] Work Phone: [phone] Comment on above: Reference Range: 0.0 0 - 0.10 Complete Blood Count + Differential 0.11 {x10E9/L} See Below [facility] Work Phone: [phone] Comment on above: Reference Range: 0.0 0 - 0.70 Complete Blood Count + Differential 0.54 {x10E9/L} See Below [facility] Work Phone: [phone] Comment on above: Reference Range: 0.1 0 - 1.00 Complete Blood Count + Differential 2.52 {x10E9/L} See Below [facility] Work Phone: [phone] Comment on above: Reference Range: 1.2 0 - 4.80 Complete Blood Count + Differential 3.71 {x10E9/L} See Below [facility] Work Phone: [phone] Comment on above: Reference Range: 1.2 0 - 7.70 Complete Blood Count + Differential 1.6 % 0.0 - 6.0 [facility] Work Phone: [phone] Complete Blood Count + Differential 0.1 % 0.0 - 0.9 [facility] Work Phone: [phone] Comment on above: Immature Granulocyte Count (IG) includes promyelocytes, myelocytes and metamyelocytes but does not include bands. Percent differential counts (%) should be interpreted in the context of the absolute cell counts (cells/L). Complete Blood Count + Differential 0.0 {/100_WBC} 0.0-0.0 [facility] Work Phone: Laboratory - Chemistry and C hemistry - challengeon 10-10-2021 Anion gap [Moles/Vol] 11 mmol/L 10 - 20 [facility] Work Phone: Calcium [Mass/Vol] 9.2 mg/dL 8.6 - 10.6 [facility] Work Phone: Chloride [Moles/Vol] 103 mmol/L 98 - 107 [facility] Work Phone: CO2 [Moles/Vol] 28 mmol/L 21 - 32 [facility] Work Phone: Creatinine [Mass/Vol] 0.69 mg/dL See Below [facility] Work Phone: Comment on above: Reference Range: 0.5 0 - 1.05 Glucose [Mass/Vol] 105 mg/dL above high threshold 74 - 99 [facility] Work Phone: Potassium [Moles/Vol] 4.0 mmol/L 3.5 - 5.3 [facility] Work Phone: Sodium [Moles/Vol] 138 mmol/L 136 - 145 [facility] Work Phone: TSH Qn 0.73 m[IU]/L See Below [facility] Work Phone: Comment on above: SOURCE: Reference Ra nge: 0.44 - 3.98 TSH testing is performed using different testing methodology at [facility] than at other [facility]. Direct result comparisons should only be made within the same method. Urea nitrogen [Mass/Vol] 16 mg/dL 6 - 23 [facility] Work Phone: Magnesium, Serumon Magnesium [Mass/Vol] 2.02 mg/dL See Below [facility] Work Phone: Comment on above: Reference Range: 1.6 0 - 2.40 No Panel Informationon 10-10 >90 >90 [facility] Work Phone: Comment on above: CALCULATIONS OF CALE MATED GFR ARE PERFORMED USING THE 2020 CKD-EPI STUDY REFIT EQUATION WITHOUT THE RACE VARIABLE FOR THE IDMS-TRACEABLE CREATININE METHODS.https://jasn.asnjournals.org/content/early/ASN .9638121731 [facility] Follow-up visit Diagnoses/Problems Heart palpitations (785.1) (R00.2) Cough (786.2) (R05.9)1 Situational depression (309.0) (F43.21)1 1 Amended By: Randee Hdz; Oct 10 2021 9:16 PM EST* Orders Health Maintenance SARS-COV2 SPIKE TOTAL ANTIBODY; Status:In Progress - Specimen/Data Collected; Done: 10Oct2021 Heart palpitations Basic Metabolic Panel; Status:In Progress - Specimen/Data Collected; Done: 10Oct2021 Cardiology - General Referral Evaluation and Treatment Evaluate AND Treat Status: Active Requested for: 18Oct2021 AMA Intake Activity Log Entry by [facility] on 2021-10-10 16:27 Status Change : Confirmed - SMN Module AMA Intake updated by [facility] on 2021-10-10 16:27 New Recipient: Juni Gamboa Appointment Date: 2021-10-18 15:00 Complete Blood Count + Differential; Status:In Progress - Specimen/Data Collected; Done: 10Oct2021 Magnesium, Serum; Status:In Progress - Specimen/Data Collected; Done: 10Oct2021 TSH WITH REFLEX TO FREE T4 IF ABNORMAL; Status:In Progress - Specimen/Data Collected; Done: 10Oct2021 Heart palpitations (785.1) (R00.2) Patient Discussion/Summary By signing my name below, Yamini Florence Scribe, attest that this documentation has been prepared under the direction and in the presence of Dr. Randee Hdz. All medical record entries made by the Scribe were at my direction and personally dictated by me. I have reviewed the chart and agree that the record accurately reflects my personal performance of the history, physical exam, discussion and plan. Provider Impressions referral to cardiology. Scheduled for 1 week from now. Blood work ordered BMP, CBC. magnesium, COVID antibodies, TSH. Recommended to go to ER if palpitations with associated symptoms. Nausea, vomiting, chest pain, etc. Follow up with me after seeing cardiology. Will further discuss symptoms of depression at this time. Chief Complaint Chief Complaint: TORY SOLIS is here with a chief complaint of . Pt thinks she had covid on 09/04/21, tested negative with at home test ,but dtr was positive with pcr test and pt had all the covid sxs. Continues to have heart palpations. History of Present Illness 46 year old female presenting for palpitations. Patient thinks she had covid on 09/04/21, tested negative with at home test ,but direct relative was positive with pcr test. States she had all the covid sxs. High fever, body aches, chills. Mild cough, tickle in chest, mild headache. took 1 week to resolve. Has done pretty well. Intermittent tickle in chest still. Saw [employer]ESS [employer]IPPER, gave her dexamethasone and z pack. After 4 days of dexamethasone was having racy heart mild sxs She stopped this. A couple of days later she had episode of severe palpitations again. Was like this for 24 hours, went to bed and then felt fine. This past weekend she was in [place] and had symptoms again. Could not sleep. On OTC multivitamins. Not taking anything out of the ordinary. On elderberry. Takes supplement with caffeine but has not been taking these past few days. She had never had issues before. She feels like something is in her throat. Feels mildly depressed. Would like testing after ruling out issues with her heart. She has started her period today. No perimenopausal symptoms. Has hair loss, long standing. has had some mood sxs sadness considering meds1 1 Amended By: Randee Hdz; Oct 10 2021 9:17 PM ESTReview of Systems Constitutional: feeling tired, but as noted in HPI, no chills, no fever and no night sweats. Eyes: no blurred vision and no eyesight problems. ENT: sore throat, but as noted in HPI, no hearing loss, no nasal congestion, no nasal discharge and no hoarseness. Neck: no mass(es) and no swelling. Cardiovascular: chest pain and palpitations, but as noted in HPI, no intermittent leg claudication, no lower extremity edema and no syncope. Respiratory: no cough, no shortness of breath during exertion, no shortness of breath at rest and no wheezing. Gastrointestinal: no abdominal pain, no blood in stools, no constipation, no diarrhea, no melena, no nausea, no rectal pain and no vomiting. Genitourinary: no dysuria, no change in urinary frequency, no urinary hesitancy, no feelings of urinary urgency and no vaginal discharge. Musculoskeletal: no arthralgias, no back pain and no myalgias. Integumentary: no new skin lesions and no rashes. Neurological: no difficulty walking, no headache, no limb weakness, no numbness and no tingling. Psychiatric: depression, but as noted in HPI, no anxiety, no anhedonia and no substance use disorders. Endocrine: hair thinning or loss, but as noted in HPI, no recent weight gain and no recent weight loss. Hematologic/Lymphatic: no tendency for easy bruising and no swollen glands. Active Problems Acute bronchitis (466.0) (J20.9) Acute frontal sinusitis (461.1) (J01.10) Acute pharyngitis (462) (J02.9) Boil (680.9) (L02.92) De (more content not included)... Normal [facility] SARS-COV2 SPIKE TOTAL ANTIBO DYon 10-10-2021 SARS-CoV-2 (COVID-19) Ab IA Ql Reactive Abnormal See Below [facility] Work Phone: Comment on above: SOURCE: Reference Ra nge: NONREACTIVE SARS-CoV-2 (COVID-19) IgG+IgM IA Ql SEE BELOW [facility] Work Phone: Comment on above: .SARS-COV-2 John pr otein antibodies detected. Result suggests recent or past infection of SARS-CoV-2 (COVID-19) and/or vaccination. Results from antibody testing should not be used as the sole basis to diagnose or exclude SARS-CoV-2 infection. False-positive results may be due to past or present infection with foz-LUKC-TbK-2 coronavirus strains, such as coronavirus HKU1, NL63, OC43, or 229E. A reactive result does not necessarily indicate protective immunity as a threshold for protective level of antibodies is not yet established..This test is for in vitro diagnostic use under the FDA Emergency Use Authorization (EUA) for US laboratories certified under CLIA to perform moderate or high complexity tests. This test has not been FDA cleared or approved. This test should not be used for screening of donated blood. SARS-CoV-2 SPIKE TOTAL ANTIB ODYon 10-10-2021 Lab Specimen Source Normal [facility] Comment on above: Performed By: #### C OVTA #### [facility] [address] [place] [address] Performed By: #### T HYDS #### [facility] [address] [place] [address] Tobacco Screening.on 022 Tobacco use status CP b) No -[facility] Work Phone: Vital Signs Date Time Vital Sign Value Performing Clinician Facility 05-08-2025 16:59-0400 Body height 165.[address] Leo Goyal MD Work Phone: [facility] 05-08-2025 16:59-0400 Body mass index (BMI) [Ratio] 25.4 kg/m2 Dr. Leo Goyal MD Work Phone: [facility] 05-08-2025 16:59-0400 Body temperature 98.4 [degF] Dr. Leo Goyal MD Work Phone: [facility] 05-08-2025 16:59-0400 Body weight 69.[address] Leo Goyal MD Work Phone: [facility] 05-08-2025 16:59-0400 Diastolic blood pressure 88 mm[Hg] Dr. Leo Goyal MD Work Phone: [facility] 05-08-2025 16:59-0400 Heart rate 92 /min Dr. Leo Goyal MD Work Phone: [facility] 05-08-2025 16:59-0400 SaO2% (BldA) [Mass fraction] 98 % Dr. Leo Goyal MD Work Phone: [facility] 05-08-2025 16:59-0400 Systolic blood pressure 136 mm[Hg] Dr. Leo Goyal MD Work Phone: [facility] 05-06-2025 09:02-0400 Body height 165.[address] Leo Goyal MD Work Phone: [facility] 05-06-2025 09:02-0400 Body mass index (BMI) [Ratio] 25.3 kg/m2 Dr. Leo Goyal MD Work Phone: [facility] 05-06-2025 09:02-0400 Body weight 69.[address] Leo Goyal MD Work Phone: [facility] 01-05-2025 15:06-0400 Body mass index (BMI) [Ratio] 25.38 kg/m2 Anthony White MD Work Phone: [facility] 01-05-2025 15:06-0400 Body weight 73.5 kg Anthony White MD Work Phone: [facility] 01-05-2025 15:06-0400 Diastolic blood pressure 76 mm[Hg] Anthony White MD Work Phone: [facility] 01-05-2025 15:06-0400 Systolic blood pressure 124 mm[Hg] Anthony White MD Work Phone: [facility] 03-14-2024 09:49-0400 Body mass index (BMI) [Ratio] 25.34 kg/m2 Randee Hdz MD Work Phone: [facility] 03-14-2024 09:49-0400 Body temperature 99 [degF] Randee Hdz MD Work Phone: [facility] 03-14-2024 09:49-0400 Body weight 71.22 kg Randee Hdz MD Work Phone: [facility] 03-14-2024 09:49-0400 Diastolic blood pressure 78 mm[Hg] Randee dHz MD Work Phone: [facility] 03-14-2024 09:49-0400 Heart rate 81 /min Randee Hdz MD Work Phone: [facility] 03-14-2024 09:49-0400 SaO2% (BldA) [Mass fraction] 96 % Randee Hdz MD Work Phone: [facility] 03-14-2024 09:49-0400 Systolic blood pressure 112 mm[Hg] Randee Hdz MD Work Phone: [facility] 12-14-2022 07:09-0400 Body weight 69.45 kg Anthony White MD Work Phone: [facility] 12-14-2022 07:09-0400 Diastolic blood pressure 82 mm[Hg] Anthony White MD Work Phone: [facility] 12-14-2022 07:09-0400 Systolic blood pressure 130 mm[Hg] Anthony White MD Work Phone: [facility] 06-26-2022 16:43-0400 7 1 Randee Hdz Work Phone: [facility] Work Phone: Comment on above: PHQ-9 TS 06-26-2022 16:39-0400 Body height 167.64 cm Randee Hdz Work Phone: [facility] Work Phone: 06-26-2022 16:39-0400 Body mass index (BMI) [Ratio] 24.05 kg/m2 Randee Castmel Work Phone: [facility] Work Phone: 06-26-2022 16:39-0400 Body surface area Derived from formula 1.76 m2 Randee Castmel Work Phone: [facility] Work Phone: 06-26-2022 16:39-0400 Body temperature 98.4 [degF] Randee Castmel Work Phone: [facility] Work Phone: 06-26-2022 16:39-0400 Body weight 67.59 kg Randee Castmel Work Phone: [facility] Work Phone: 06-26-2022 16:39-0400 Diastolic blood pressure 72 mm[Hg] Randee Castmel Work Phone: [facility] Work Phone: 06-26-2022 16:39-0400 Heart rate 70 /min Randee Castmel Work Phone: [facility] Work Phone: 06-26-2022 16:39-0400 Respiratory rate 16 /min Randee Castmel Work Phone: [facility] Work Phone: 06-26-2022 16:39-0400 Systolic blood pressure 124 mm[Hg] Randee Castmel Work Phone: [facility] Work Phone: 11-22-2021 16:20-0500 Body height 167.64 cm Randee Hdz Work Phone: [facility]Lvumaknrpa[facility]tn[facility] [address] [place] Work Phone: 11-22-2021 16:20-0500 Body mass index (BMI) [Ratio] 24.7 kg/m2 Randee De León [employer] Work Phone: JG-Fvyvgoovfz-Cajp na [address] [place] Work Phone: 11-22-2021 16:20-0500 Body surface area Derived from formula 1.78 m2 Randee De León [employer] Work Phone: QA-Ywfuhyxrpi-Htwn na [address] [place] Work Phone: 11-22-2021 16:20-0500 Body weight 69.4 kg Randee De León [employer] Work Phone: GF-Bdoivxhxfa-Ztyj na [address] [place] Work Phone: 11-22-2021 16:20-0500 Diastolic blood pressure 73 mm[Hg] Randee De León [employer] Work Phone: QW-Wzspqzvaqo-Sguk na [address] [place] Work Phone: 11-22-2021 16:20-0500 Heart rate 64 /min Randee De León [employer] Work Phone: TO-Zothedqhdf-Awsg na [address] [place] Work Phone: 11-22-2021 16:20-0500 SaO2% (BldA) [Mass fraction] 97 % Randee De León [employer] Work Phone: FW-Yxktgmskaz-Mjbe na [address] [place] Work Phone: 11-22-2021 16:20-0500 Systolic blood pressure 119 mm[Hg] Randee De León [employer] Work Phone: GS-Bcgkmjqcap-Bhlh na [address] [place] Work Phone: 10-18-2021 15:15-0500 Body mass index (BMI) [Ratio] 24.88 kg/m2 Randee De León [employer] Work Phone: SY-Ufcpytaqif-Lzwp na Work Phone: 10-18-2021 15:15-0500 Body surface area Derived from formula 1.79 m2 Randee De León [employer] Work Phone: UF-Invzchtrqx-Dfbx na Work Phone: 10-18-2021 15:15-0500 Body weight 69.91 kg Randee Hdz Work Phone: OE-Rfcknrytmz-Zwsg na Work Phone: 10-18-2021 15:15-0500 Diastolic blood pressure 74 mm[Hg] Randee Hdz Work Phone: QB-Vbnryuovrw-Stlj na Work Phone: 10-18-2021 15:15-0500 Heart rate 78 /min Randee Hdz Work Phone: VZ-Tdfndhnyhi-Ktmv na Work Phone: 10-18-2021 15:15-0500 SaO2% (BldA) [Mass fraction] 98 % Randee Hdz Work Phone: JU-Pxftiicnhc-Kixm na Work Phone: 10-18-2021 15:15-0500 Systolic blood pressure 109 mm[Hg] Randee Hdz Work Phone: RM-Scomqandyo-Hehx na Work Phone: 10-10-2021 15:59-0500 Body height 167.64 cm Randee Hdz Work Phone: [facility] Work Phone: 10-10-2021 15:59-0500 Body mass index (BMI) [Ratio] 24.86 kg/m2 Randee Hdz Work Phone: [facility] Work Phone: 10-10-2021 15:59-0500 Body surface area Derived from formula 1.79 m2 Randee Hdz Work Phone: [facility] Work Phone: 10-10-2021 15:59-0500 Body temperature 98.4 [degF] Randee Hdz Work Phone: [facility] Work Phone: 10-10-2021 15:59-0500 Body weight 69.85 kg Randee Hdz Work Phone: [facility] Work Phone: 10-10-2021 15:59-0500 Diastolic blood pressure 70 mm[Hg] Randee Hdz Work Phone: -[facility] Work Phone: 10-10-2021 15:59-0500 Heart rate 78 /min Randee Hdz Work Phone: [facility] Work Phone: 10-10-2021 15:59-0500 Respiratory rate 18 /min Randee Hdz Work Phone: -[facility] Work Phone: 10-10-2021 15:59-0500 SaO2% (BldA) [Mass fraction] 97 % Randee Hdz Work Phone: [facility] Work Phone: 10-10-2021 15:59-0500 Systolic blood pressure 138 mm[Hg] Randee Hdz Work Phone: [facility] Work Phone: Encounters Encounter Date Encounter Type Care Provider Facility Start: 05-15-2025 ambulatory Meghana Woods Facility:[facility] Start: 05-08-2025 End: 05-08-[address] Leo Goyal MD Work Phone: [facility] Start: 05-08-2025 End: 05-08-2025 Patient encounter procedure Shahid See ME -[facility] Work Phone: Start: 05-06-2025 End: 05-06-2025 Patient encounter procedure Meghana Woods ME -[facility] Work Phone: Start: 05-06-2025 End: 05-06-[address] Leo Goyal MD Work Phone: -[facility] Start: 04-30-2025 End: 04-30-[address] Leo Goyal MD Work Phone: -[facility] Start: 04-30-2025 End: 04-30-2025 Patient encounter procedure Meghana Woods ME -[facility] Work Phone: Start: 04-30-2025 End: 04-30-2025 ambulatory Meghana Woods Facility:[facility] Start: 02-28-2025 End: 02-28-2025 ambulatory [facility] Facility:[facility] Start: 02-28-2025 Encounter for gynecological examination (general) (routine) without abnormal findings [facility] Start: 01-27-2025 End: 03-29-2025 Follow-up encounter Anthony White MD Work Phone: Obstetrics/Gynecology Start: 01-05-2025 End: 01-05-2025 ambulatory ANTHONY WHITE Facility:[facility] Start: 01-05-2025 End: 01-05-2025 Patient encounter procedure Anthony White MD Work Phone: Obstetrics/Gynecology Comment on above: ASCUS with positive high risk HPV cervical (Primary Dx); Well female exam with routine gynecological exam; Screening for lipid disorders; Encounter for screening for diabetes mellitus Start: 01-05-2025 End: 01-05-2025 Patient encounter status Anthony White MD Work Phone: [facility] Start: 01-02-2025 ambulatory ANTHONY Garciai ty:[facility] Start: 01-02-2025 End: 01-02-2025 Subsequent hospital visit by physician Diagnostic Mammo [facility] Comment on above: Abnormal mammogram [ R92.8] Start: 01-01-2025 ambulatory ANTHONY Camacho ty:[facility] Start: 12-24-2024 End: 12-24-2024 Telephone encounter Anthony White MD Work Phone: Obstetrics/Gynecology Start: 12-23-2024 End: 12-23-2024 Telephone encounter Anthony White MD Work Phone: Obstetrics/Gynecology Start: 12-22-2024 End: 12-22-2024 ambulatory ANTHONY WHITE Facility:[facility] Start: 12-22-2024 End: 12-22-2024 Subsequent hospital visit by physician Screen Mammo [facility] Comment on above: Encounter for screen ing mammogram for malignant neoplasm of breast [Z12.31] Start: 11-27-2024 End: 11-27-2024 Telephone encounter nAthony White MD Work Phone: Obstetrics/Gynecology Comment on above: Orders Start: 11-26-2024 End: 11-28-2024 Telephone encounter Anthony White MD Work Phone: Obstetrics/Gynecology Comment on above: Appointment Start: 11-11-2024 ambulatory Health Risk Assessment Facility:[facility] Start: 05-12-2024 End: 05-12-2024 [facility] Start: 04-17-2024 End: 04-17-2024 ambulatory RANDEEASHLI HDZ Facility:[facility] Start: 03-22-2024 End: 03-22-2024 Patient encounter procedure Fela Rivera [facility] Comment on above: Sleep disorder breat aaron Start: 03-17-2024 End: 03-17-2024 [facility] Start: 03-14-2024 End: 03-14-2024 Office outpatient visit 25 minutes Randee Hdz MD Work Phone: [facility] Comment on above: Sleep disorder breat aaron (Primary Dx); Gingivitis Start: 03-14-2024 End: 03-14-2024 ambulatory [facility] Start: 12-24-2023 Documentation procedure Mammog shelli Coordinator [facility] Start: 12-24-2023 Letter encounter Mammography Coordinator [facility] Start: 12-12-2023 End: 12-12-2023 [facility] Anthony White MD Work Phone: Obstetrics/Gynecology Comment on above: Unintended weight ga in (Primary Dx); Screening for thyroid disorder; Vaginal dryness; Screening for lipid disorders; Encounter for screening for diabetes mellitus; Autoimmune thyroiditis Start: 11-02-2023 Telephone encounter Anthony Perry MD Work Phone: Obstetrics/Gynecology Start: 12-14-2022 End: 12-14-2022 Patient encounter procedure Anthony White MD Work Phone: Obstetrics/Gynecology Comment on above: Well female exam wit h routine gynecological exam (Primary Dx) Start: 12-14-2022 End: 12-14-2022 Patient encounter status Anthony White MD Work Phone: Obstetrics/Gynecology Start: 09-07-2022 End: 09-07-2022 Subsequent hospital visit by physician Screen/Diagnostic Mammo [facility] Work Phone: Mammography Comment on above: Encounter for screen ing mammogram for malignant neoplasm of breast [Z12.31] Start: 08-10-2022 Telephone encounter Anthony Perry MD Work Phone: Obstetrics/Gynecology Comment on above: Orders Start: 06-26-2022 Office outpatient vi sit 25 minutes Randee Hdz Work Phone: [facility] Work Phone: Start: 06-26-[address] RANDEE HDZ Facility:[id number] Start: 11-22-2021 Office outpatient vi sit 15 minutes Randee Hdz Work Phone: YB-Rvxnodkddm-Grahig [address] [place] Work Phone: Start: 11-22-2021 ambulatory Juni Arce lity:[id number] Start: 11-13-2021 Chart Update Randee Hdz Work Phone: AN-Ligxihjwfz-Sefse Work Phone: Start: 11-10-[address] RANDEE HDZ Facility:[id number] Start: 11-02-[address] RANDEE HDZ Facility:[id number] Start: 10-19-2021 Chart Update Randee Hdz Work Phone: OX-Avldkfjxhq-[place]ww[place] [place] [address] Work Phone: Start: 10-18-[address] RANDEE HDZ Facility:[id number] Start: 10-18-2021 Office outpatient ne w 45 minutes Randee Hdz Work Phone: MO-Jhowlnvxfn-Dcbxai Work Phone: Start: 10-18-2021 ambulatory Juni Arce lity:[id number] Start: 10-13-2021 Chart Update Randee Hdz Work Phone: [facility] Work Phone: Start: 10-10-2021 Office outpatient vi sit 25 minutes Randee Hdz Work Phone: [facility] Work Phone: Start: 10-10-[address] RANDEE HDZ Facility:[id number] Procedures Date Procedure Procedure Detail Performing Clinician Start: 04-30-2025 X-ray of lumbosacral spine Dr. Leo Goyal MD Work Phone: Start: 02-28-2025 Lipid 1996 panel - S jase or Plasma Anthony White MD Work Phone: Start: 01-05-2025 Cytp c/v auto thin l yr prepj scr mnl rescr phys Anthony White MD Work Phone: Start: 01-05-2025 HIGH RISK HUMAN EDELMIRA LLOMA VIRUS (HPV), PCR FOR DETECTION AND GENOTYPING Anthony White MD Work Phone: Start: 12-22-2024 Screening digital br east tomosynthesis bi Anthony White MD Work Phone: Start: 04-01-2024 Sleep std airflow hr t rate&o2 sat effort unatt Randee Hdz MD Work Phone: Start: 12-21-2023 Mammography Randee garcia MD Work Phone: Start: 12-20-2023 Lipid 1996 panel - S jase or Plasma Mammography Coordinator Start: 11-27-2023 Microscopic observat ion [Identifier] in Cervix by Cyto stain Randee Hdz MD Work Phone: Start: 12-14-2022 Cytp cerv/vag auto t hin layer prep mnl screen Anthony White MD Work Phone: Start: 12-14-2022 Iadna human papillom avirus high-risk types Anthony White MD Work Phone: Start: 09-07-2022 Mammography Anthony jett MD Work Phone: Start: 11-10-2021 Echocardiography Randee Hdz Work Phone: Start: 07-28-2021 Mammography Anthony jett MD Work Phone: Start: 06-21-2021 Lipid 1996 panel - S jase or Plasma Anthony White MD Work Phone: Start: 06-04-2018 Lipid 1996 panel - S jase or Plasma Randee Hdz MD Work Phone: Start: 03-05-2017 Colonoscopy Randee garcia MD Work Phone: Screening colonoscopy Randee Hdz Work Phone: Comment on above: 15 yrs ago and 2018; NEGATED: Highlighted row has not occurred! Denies Surgery Randee Hdz Work Phone: Plan of Treatment Date Care Activity Detail Author Start: 09-29-2033 DTaP/Tdap/Td Vaccine s (3 - Td or Tdap) DTaP/Tdap/Td Vaccines (3 - Td or Tdap) [facility] Start: 09-29-2033 Urine microalbumin profile DTaP,Tdap,Td Vaccine (3 - Td or Tdap) [facility] Start: 02-28-2030 Lipid panel Lipid Screening [facility] Start: 12-19-2028 Lipid panel Lipid Screening [facility] Start: 11-26-2028 Screening for malign ant neoplasm of cervix [facility] Start: 02-29-2028 Diabetes Screening Diabetes Screenin g [facility] Start: 12-15-2027 HPV TESTING HPV TESTING [facility] Start: 12-15-2027 PAP TESTING PAP TESTING [facility] Start: 12-15-2027 Screening for malign ant neoplasm of cervix [facility] Start: 03-17-2027 Diabetes mellitus screening Diabetes Screening [facility] Start: 03-17-2027 Diabetes Screening Diabetes Screenin g [facility] Start: 03-05-2027 Screening for malign ant neoplasm of colon [facility] Start: 12-19-2026 Diabetes mellitus screening Diabetes Screening [facility] Start: 12-19-2026 Diabetes Screening Diabetes Screenin g [facility] Start: 11-26-2026 Screening for malign ant neoplasm of cervix [facility] Start: 06-21-2026 Lipid panel Lipid Screening [facility] Start: 06-21-2026 LIPID SCREEN LIPID SCREEN [facility] Start: 06-16-2026 HPV TESTING HPV TESTING [facility] Start: 06-16-2026 PAP TESTING PAP TESTING [facility] Start: 2026 Zoster Vaccines (1 of 2) Zoste r Vaccines (1 of 2) [facility] Start: 01-06-2026 End: 01-06-2026 Patient encounter procedure 01/06/2026 10:00 AM EDT Office Visit Obstetrics/Gynecology [address] [address] Anthony White MD [address] [address] Annual Obstetrics/Gynecolog y Comment on above: Annual Start: 01-05-2026 Screening for malign ant neoplasm of cervix Cervical Cancer Screening [facility] Start: 12-22-2025 Screening for malign ant neoplasm of breast Mammogram Screening [facility] Start: 05-25-2025 Influenza vaccination Influenz a Vaccine (Season Ended) [facility] Start: 01-05-2025 End: 01-05-2025 Patient encounter procedure 01/05/2025 3:00 PM EDT Office Visit Obstetrics/Gynecology [address] [address] Anthony White MD [address] [address] Annual Obstetrics/Gynecolog y Comment on above: Annual Start: 01-05-2025 End: 04-06-2025 Comprehensive metabolic 2000 panel - Serum or Plasma COMPREHENSIVE METABOLIC PANEL Lab Routine Well female exam with routine gynecological exam Encounter for screening for diabetes mellitus Expected: 01/05/2025, Expires: 04/06/2025 [facility] Comment on above: Expected: 01/05/2025 , Expires: 04/06/2025 Start: 01-05-2025 End: 04-06-2025 Hemoglobin A1c in Blood HEMOGLOBIN A1C Lab Routine Encounter for screening for diabetes mellitus Expected: 01/05/2025, Expires: 04/06/2025 [facility] Work Phone: Comment on above: Expected: 01/05/2025 , Expires: 04/06/2025 Start: 01-05-2025 End: 04-06-2025 Lipid 1996 panel - Serum or Plasma LIPID PANEL, FASTING Lab Routine Well female exam with routine gynecological exam Screening for lipid disorders Expected: 01/05/2025, Expires: 04/06/2025 [facility] Comment on above: Expected: 01/05/2025 , Expires: 04/06/2025 Start: 12-22-2024 End: 12-22-2024 Patient encounter procedure 12/22/2024 7:50 AM EDT Appointment Mammogram [address] [place] [address] Mammogram Start: 12-20-2024 Screening for malign ant neoplasm of breast [facility] Start: 06-21-2024 DIABETES SCREEN DIABETES SCREEN [facility] Start: 06-21-2024 Diabetes Screening Diabetes Screenin g [facility] Start: 05-25-2024 Covid-19 Vaccine ( season) Covid-19 Vaccine () [facility] Start: 05-25-2024 Influenza vaccination [facility] Start: 03-14-2024 End: 03-14-2025 Home sleep apnea test (HSAT) Home sleep apnea test (HSAT) [facility] Routine Sleep disorder breathing Expected: 03/14/2024 (Approximate), Expires: 03/14/2025 [facility] Service Area Work Phone: Comment on above: Expected: 03/14/2024 (Approximate), Expires: 03/14/2025 Start: 12-12-2023 End: 03-12-2024 Fasting glucose [Mass/volume] in Serum or Plasma GLUCOSE FASTING BLD Lab Routine Encounter for screening for diabetes mellitus Expected: 12/12/2023, Expires: 03/12/2024 [facility] Work Phone: Comment on above: Expected: 12/12/2023 , Expires: 03/12/2024 Start: 12-12-2023 End: 03-12-2024 Hemoglobin A1c in Blood HGB A1C Lab Routine Encounter for screening for diabetes mellitus Expected: 12/12/2023, Expires: 03/12/2024 [facility] Work Phone: Comment on above: Expected: 12/12/2023 , Expires: 03/12/2024 Start: 12-12-2023 End: 03-12-2024 Lipid 1996 panel - Serum or Plasma LIPID PANEL BASIC Lab Routine Screening for lipid disorders Expected: 12/12/2023, Expires: 03/12/2024 [facility] Work Phone: Comment on above: Expected: 12/12/2023 , Expires: 03/12/2024 Start: 09-24-2023 Depression Assessment Depression Ass essment [facility] Start: 09-07-2023 Mammography MAMMOGRAM [facility] Start: 09-07-2023 Screening for malign ant neoplasm of breast Mammogram Screening [facility] Start: 06-04-2023 Lipid panel Lipid Panel [facility] Start: 05-25-2023 Covid-19 Vaccine ( season) Covid-19 Vaccine (2022- season) [facility] Start: 05-25-2023 Influenza vaccination [facility] Start: 09-24-2022 DEPRESSION ASSESSMENT DEPRESSION ASS ESSMENT [facility] Start: 07-28-2022 Mammography MAMMOGRAM [facility] Start: 05-25-2022 Influenza vaccination INFLUENZA (#1) [facility] Start: 04-04-2022 Urine microalbumin profile DTAP,TDAP,TD (2 - Td or Tdap) [facility] Start: 11-22-2021 FUV, Provider: Juni Gamboa, Status: Pen, Time: 3:45 PM FUV, Provider: Juni Gamboa, Status: Pen, Time: 3:45 PM GV-Ffdmpzviua-Qkzork Work Phone: Start: 11-10-2021 ECHO, Provider: MEDI NA HHVI,MG CARD, Status: Pen, Time: 9:00 AM ECHO, Provider: CONNELLY HHVI,MG CARD, Status: Pen, Time: 9:00 AM PW-Pgklvgdrat-Ephrcw Work Phone: Start: 10-18-2021 NPV, Provider: Juni Gamboa, Status: Pen, Time: 3:00 PM NPV, Provider: Juni Gamboa, Status: Pen, Time: 3:00 PM [facility] Work Phone: Start: 09-24-2021 DEPRESSION ASSESSMENT [facility]PRESSION [facility] Start: 07-28-2021 COVID-19 VACCINE (3 - Booster for Pfizer series) COVID-19 VACCINE (3 - Booster for Pfizer series) [facility] Start: 2021 COLOGUARD (FIT-DNA) COLOGUARD (FIT-D NA) [facility] Start: 2021 Colonoscopy COLONOSCOPY [facility] Start: 2021 COLORECTAL CANCER SCREENING COLORECTAL CANCER SCREENING [facility] Start: [address] COLONOGRAPHY [facility] Start: 2021 FECAL OCCULT BLOOD FECAL OCCULT BLOO D [facility] Start: 2021 Screening for malign ant neoplasm of colon [facility] Start: 2021 SIGMOIDOSCOPY SIGMOIDOSCOPY [facility] Start: 1997 Screening for malign ant neoplasm of cervix HPV/Cotest [facility] Start: 1995 Hepatitis B Vaccine (1 of 3 - 19+ 3-dose series) Hepatitis B Vaccine (1 of 3 - 19+ 3-dose series) [facility] Start: 1995 Hepatitis B Vaccines (1 of 3 - 19+ 3-dose series) Hepatitis B Vaccines (1 of 3 - 19+ 3-dose series) [facility] Start: 1994 Depression Screening Depression Scre ening [facility] Start: 1994 Hepatitis C screening Hepatitis C Sc reening [facility] Start: 1977 MMR Vaccines (1 of 1 - Standard series) MMR Vaccines (1 of 1 - Standard series) [facility] Start: 1976 HEPATITIS B (1 of 3 - 3-dose series) HEPATITIS B (1 of 3 - 3-dose series) [facility] Start: 1976 Hepatitis B Vaccine (1 of 3 - 3-dose series) Hepatitis B Vaccine (1 of 3 - 3-dose series) [facility] Start: 1976 HIV screening HIV Screening [facility] Start: 1976 Screening for malign ant neoplasm of colon [facility] Start: 1976 Yearly Adult Physical Yearly Adult P hysical [facility] End: 12-01-2024 DBT Breast - bilateral screening RAJ SCREENING [facility] Routine Encounter for screening mammogram for malignant neoplasm of breast 1 Occurrences starting 11/02/2023 until 12/01/2024 [facility] Work Phone: Comment on above: 1 Occurrences starti ng 11/02/2023 until 12/01/2024 End: 12-27-2025 DBT Breast - bilateral screening RAJ SCREENING [facility] Routine Encounter for screening mammogram for malignant neoplasm of breast 1 Occurrences starting 11/27/2024 until 12/27/2025 [facility] Work Phone: Comment on above: 1 Occurrences starti ng 11/27/2024 until 12/27/2025 End: 09-09-2023 RAJ SCREENING [facility] SCREENING [facility] Routine Encounter for screening mammogram for malignant neoplasm of breast 1 Occurrences starting 08/10/2022 until 09/09/2023 [facility] Work Phone: Comment on above: 1 Occurrences starti ng 08/10/2022 until 09/09/2023 End: 09-07-2022 RAJ SCREENING W [place] [facility] Work Phone: Comment on above: 1 Occurrences starti ng 09/07/2022 until 09/07/2022 End: 01-22-2026 MG Breast - left Diagnostic for implant RAJ DIAGNOSTIC LEFT Radiology Routine Abnormal mammogram 1 Occurrences starting 12/23/2024 until 01/22/2026 [facility] Work Phone: Comment on above: 1 Occurrences starti ng 12/23/2024 until 01/22/[address] [facility] End: 01-22-2026 US Breast - left limited US BREAST LTD LEFT Radiology Routine Abnormal mammogram 1 Occurrences starting 12/23/2024 until 01/22/2026 [facility] Comment on above: 1 Occurrences starti ng 12/23/2024 until 01/22/2026 [facility] Immunizations Immunization Date Immunization Notes Care Provider Tavo blum 09-29-2023 tetanus toxoid, redu jacque diphtheria toxoid, and acellular pertussis vaccine, adsorbed Anthony White MD Work Phone: [facility] 06-02-2021 Pfizer-BioNTech COVI D-19 Vacc 30 MCG/0.3ML Intramuscular Suspension Randee Hdz Work Phone: [facility] Work Phone: 05-03-2021 Pfizer-BioNTech COVI D-19 Vacc 30 MCG/0.3ML Intramuscular Suspension Randee Hdz Work Phone: [facility] Work Phone: 04-04-2012 tetanus toxoid, redu jacque diphtheria toxoid, and acellular pertussis vaccine, adsorbed Anthony White MD Work Phone: [facility] Payers Date Payer Category Payer Unknown [id number] 2024 Self-pay 2016 [employer] [id number] 2016 Unknown 2016 Unknown [id number] 1975 Unknown [id number] 2.16. [id number] 1975 Unknown [id number] 2.16. [id number] 1975 Unknown [id number] 2.16. [id number] 1975 Unknown [id number] 2.16. [id number] 1975 Unknown [id number] 2.16. [id number] 1975 Unknown [id number] 2.16. [id number] 1975 Unknown [id number] 2.16. [id number] 1975 Unknown [id number] 2.16.8 [id number] Unknown [id number] 2.16.8 [id number] Unknown [id number] 2.16.8 [id number] Unknown [id number] 2.16.8 [id number] Unknown [id number] 2.16.8 [id number] Social History Date Type Detail Facility Start: 09-29-2023 End: 09-30-2023 Marital History - Currently Marital History - Currently [facility] Work Phone: Start: 09-15-2011 End: 05-06-2025 Tobacco smoking status NHIS Never smoked tobacco [facility] Start: 09-15-2011 End: 03-14-2024 Tobacco use and exposure Smokeless tobacco non-user [facility] Start: 06-16-2021 End: 01-05-2025 Alcohol intake Current non-drinker of alcohol (finding) [facility] Start: 1975 Sex Assigned At Not on file [facility] Start: 09-29-2023 End: 09-30-2023 Tobacco use panel [facility] National Score (1-100), lower number is lower risk 44 [facility] Start: 03-14-2024 Alcoholic beverage intake Current drinker of alcohol (finding) [facility] Work Phone: Start: 03-04-2024 End: 03-14-2024 Exposure to SARS-CoV-2 (event) Not sure [facility] Start: 1975 Sex Assigned At Female W [facility] Functional Status Date Assessment Result Facility 06-26-2022 PHQ-9 [id number] Mild (5-9) [facility] Work Phone: 09-10-2014 Are you deaf, or do you have serious difficulty hearing No 09/10/2014 9:18 AM Cassy Sebastian Ma No [facility] 09-10-2014 Are you blind, or do you have serious difficulty seeing, even when wearing glasses No 09/10/2014 9:18 AM Cassy Sebastian Ma No [facility] 09-10-2014 Do you have serious difficulty walking or climbing stairs No 09/10/2014 9:18 AM Cassy Sebastian Ma No [facility] 09-10-2014 Do you have difficul ty dressing or bathing No 09/10/2014 9:18 AM Cassy Sebastian Ma No [facility] 09-10-2014 Because of a physica l, mental, or emotional condition, do you have difficulty doing errands alone such as visiting a physician's office or shopping No 09/10/2014 9:18 AM Cassy Sebastian Ma No [facility] Mental Status Date Assessment Result Facility 09-10-2014 Because of a physica l, mental, or emotional condition, do you have serious difficulty concentrating, remembering, or making decisions No 09/10/2014 9:18 AM MAYELIN Ines Nik Cassy Gay Lucy [facility] Clinical Notes 09-15-2011 to 05-06-2025 Note Date & Type Note Facility 05-06-2025 Evaluation note Diagnosis Onset Date Resolution Low back pain acute April 9:01am Spondylolisthesis at L4-L5 level acute May 06 9:01am [facility] Work Phone: 1(512) 609-456008-07-2025 Radiology Diagnostic study note [facility] Imaging Services [address], [place] [address] L/S Spine Min 4 Views MR#: [id number] Acct: [id number] Name: TORY SOLIS Rep #: [id number] : 1975 F 50 From: Leah Tony MD PCP: Dr. Leo Goyal MD Status: R EG CLI Study:L/S Spine Min 4 Views Date of Exam: 04/30/25 Exam# [id number] Ordering Dr: Giorgio Woods PROCEDURE: L/S SPINE MIN 4 VIEWS 04/30/2025 REASON FOR EXAM: BACK PAIN TECHNIQUE: L/S SPINE MIN 4 VIEWS COMPARISON: No FINDINGS: Mild and diffuse facet arthritis. Grade 1 anterolisthesis, L4. Relatively preserved disc spaces. Noabnormal motion with flexion/extension. Mild S shaped scoliosis. No acute bone or soft tissue pathology. Extensive bilateral nephrolithiasis. RAD/L/S Spine Min 4 Views IMPRESSION: Lumbar spine scoliosis and degeneration. Reading Location: BRI-2 CC: SHAWN Jeff; Dr. Leo Goyal MD ~ [employer]: Signed [facility]04-14-2025 NoteHNO ID: [id number] Author: ANTHONY WHITE MD Service: ? Author Type: Physician Type: Progress Notes Filed: 01/27/2025 13:11 Note Text: Tory Solis is a 49 year old who presents for her annual gynecologic exam. Pot Room Tapper concerns Perimenopausal status. Abnormal mammography 12/22/2024 IMPRESSION: The asymmetry in the lateral left breast, posterior depth requires additional evaluation. Diagnostic mammogram is recommended. 01/02/2025 IMPRESSION: There is no evidence of malignancy in the left breast. Return to annual screening mammogram is recommended. Annual mammogram will be due in 11 months. Last visit November 2023 Perienopausal status estradiol (KAREN) 0.025 mg/24 hr Apply 1 Patch as directed two times a week. compounded progesterone 50 mg capsule estradiol 0.01% estriol 0.01% topical cream (CPD) 30 g 2 Sig: Apply 1 gram (4 clicks) vaginally twice weekly Sent to pharmacy as: estradiol 0.01% estriol 0.01% topical cream (CPD) Class: Normal Notes to Pharmacy: Compound Medication Route: TOPICAL OFF ALL ABOVE NOW ONLY ON TESTOSTERONE INJECTIONS Last Pap: 11/27/2023 negative Pap negative HPV History of abnormal pap: 2016 ASCUS positive HPV colposcopy History of STDS Yes Last mammogram: 2023 History of abnormal mammogram: yes repeat left mammography negative this month PAST MEDICAL HISTORY Diagnosis Date ASCUS with positive high risk HPV cervical 11/2016 Colpo Diabetes in A1 gestational diabetic Vaginal delivery x2 No past surgical history on file. No family history on file. Social History Tobacco Use Smoking status: Never Smokeless tobacco: Never Substance Use Topics Alcohol use: No Drug use: No REVIEW OF SYSTEMS Bladder: No burning with urination, blood in urine or incontinence Bowel: No blood in stool, pain with BM, tarry stool, persistent diarrhea or constipation Breast: No breast lumps, nipple d/c, overlying skin changes, redness or skin retraction EXAM: pleasant,well developed,well nourished,white female in no apparent distress HEENT: WNL NECK: Full range of motion,no adenopathy,thyroid normal DERMATOLOGY:Without lesions, Non-icteric, non-hirsute BREAST: soft, non-tender, symmetric, no dominant mass, normal nipple-areolar complex, no lymphadenopathy, and no nipple discharge CHEST: Normal inspiratory effort CARDIAC:Regular rate, rhythm ABDOMEN: Soft,non-tender,no hernia,No masses, hepatosplenomegaly,No lymphadenopathy PELVIC: external genitalia normal, normal Bartholin's glands, urethra, Satartia's glands, no vulvar lesions, no cervical lesions, normal discharge, well estrogenized, good vaginal support, vault clean with normal discharge, normal appearing perineal body and perianal region BIMANUAL: no cervical motion tenderness, no adnexal masses, and no pelvic masses RECTAL: deferred. NEURO: alert and oriented x3,exam grossly non-focal EXTREMITIES: Warm,No cyanosis, clubbing,No edema,nontender ASSESSMENT: 1) Normal annual exam. 2) PERIMENOPAUSE 3) GRADE 2 RECTOCELE SYMPTOMATIC The primary encounter diagnosis was ASCUS with positive high risk HPV cervical. Diagnoses of Well female exam with routine gynecological exam, Screening for lipid disorders, and Encounter for screening for diabetes mellitus were also pertinent to this visit. PLAN: 1) Pap done with HPV 2) SBE reviewed, Mammogram ordered done 3) Nutrition, exercise and routine health maintenance exams reviewed Orders Placed This Encounter Hemoglobin A1C Standing Status: Future Expected Date: 01/05/2025 Expiration Date: 04/06/2025 Comprehensive Metabolic Panel Standing Status: Future Expected Date: 01/05/2025 Expiration Date: 04/06/2025 Lipid Panel, Fasting Standing Status: Future Expected Date: 01/05/2025 Expiration Date: 04/06/2025 Scheduling Instructions: Patient must be Fasting 10-12 hours prior to having blood drawn. (Water is permitted) Pap Test Testing Reason: Screening, High-Risk [301] Clinical History: Routine Exam [115] LMP: 08/29/2024 HPV Testing: Yes HPV [201] Source: Cervix [37] Release to patient: Immediate release High Risk Human Papilloma Virus (HPV), PCR for Detection and Genotyping Release to patient: Immediate release TESTOSTERONE CYPIONATE INTRAMUSC. Sig: Inject 0.1 mL intramuscularly as directed. Every 4 days estradiol (ESTRACE) 0.01 % (0.1 mg/gram) vaginal cream Sig: Use 1 g vaginally two times a week. 1-2 times per week as directed. Dispense: 42.5 g Refill: 5 Anthony White MD Addendum: Pap smear came back negative for cytology but positive for HPV. Message sent to patient regarding results and plan repeat Pap in 1 year. Anthony White M.D.[facility]04-14-2025 History of Present illness Narrative* Anthony White MD - 01/05/2025 11:54 AM EDT Tory Solis is a 49 year old who presents for her annual gynecologic exam. Pot Room Tapper concerns Perimenopausal status. Abnormal mammography 12/22/2024 IMPRESSION: The asymmetry in the lateral left breast, posterior depth requires additional evaluation. Diagnostic mammogram is recommended. 01/02/2025 IMPRESSION: There is no evidence of malignancy in the left breast. Return to annual screening mammogram is recommended. Annual mammogram will be due in 11 months. Last visit November 2023 Perienopausal status estradiol (KAREN) 0.025 mg/24 hr Apply 1 Patch as directed two times a week. compounded progesterone 50 mg capsule estradiol 0.01% estriol 0.01% topical cream (CPD) 30 g 2 Sig: Apply 1 gram (4 clicks) vaginally twice weekly Sent to pharmacy as: estradiol 0.01% estriol 0.01% topical cream (CPD) Class: Normal Notes to Pharmacy: Compound Medication Route: TOPICAL OFF ALL ABOVE NOW ONLY ON TESTOSTERONE INJECTIONS Last Pap: 11/27/2023 negative Pap negative HPV History of abnormal pap: 2016 ASCUS positive HPV colposcopy History of STDS Yes Last mammogram: 2023 History of abnormal mammogram: yes repeat left mammography negative this month PAST MEDICAL HISTORY Diagnosis Date ASCUS with positive high risk HPV cervical 11/2016 Colpo Diabetes in A1 gestational diabetic Vaginal delivery x2 No past surgical history on file. No family history on file. Social History Tobacco Use Smoking status: Never Smokeless tobacco: Never Substance Use Topics Alcohol use: No Drug use: No REVIEW OF SYSTEMS Bladder: No burning with urination, blood in urine or incontinence Bowel: No blood in stool, pain with BM, tarry stool, persistent diarrhea or constipation Breast: No breast lumps, nipple d/c, overlying skin changes, redness or skin retraction EXAM: pleasant,well developed,well nourished,white female in no apparent distress HEENT: WNL NECK: Full range of motion,no adenopathy,thyroid normal DERMATOLOGY:Without lesions, Non-icteric, non-hirsute BREAST: soft, non-tender, symmetric, no dominant mass, normal nipple-areolar complex, no lymphadenopathy, and no nipple discharge CHEST: Normal inspiratory effort CARDIAC:Regular rate, rhythm ABDOMEN: Soft,non-tender,no hernia,No masses, hepatosplenomegaly,No lymphadenopathy PELVIC: external genitalia normal, normal Bartholin's glands, urethra, Satartia's glands, no vulvar lesions, no cervical lesions, normal discharge, well estrogenized, good vaginal support, vault clean with normal discharge, normal appearing perineal body and perianal region BIMANUAL: no cervical motion tenderness, no adnexal masses, and no pelvic masses RECTAL: deferred. NEURO: alert and oriented x3,exam grossly non-focal EXTREMITIES: Warm,No cyanosis, clubbing,No edema,nontender ASSESSMENT: 1) Normal annual exam. 2) PERIMENOPAUSE 3) GRADE 2 RECTOCELE SYMPTOMATIC The primary encounter diagnosis was ASCUS with positive high risk HPV cervical. Diagnoses of Well female exam with routine gynecological exam, Screening for lipid disorders, and Encounter for screening for diabetes mellitus were also pertinent to this visit. PLAN: 1) Pap done with HPV 2) SBE reviewed, Mammogram ordered done 3) Nutrition, exercise and routine health maintenance exams reviewed Orders Placed This Encounter Hemoglobin A1C Standing Status: Future Expected Date: 01/05/2025 Expiration Date: 04/06/2025 Comprehensive Metabolic Panel Standing Status: Future Expected Date: 01/05/2025 Expiration Date: 04/06/2025 Lipid Panel, Fasting Standing Status: Future Expected Date: 01/05/2025 Expiration Date: 04/06/2025 Scheduling Instructions: Patient must be Fasting 10-12 hours prior to having blood drawn. (Water is permitted) Pap Test Testing Reason: Screening, High-Risk [301] Clinical History: Routine Exam [115] LMP: 08/29/2024 HPV Testing: Yes HPV [201] Source: Cervix [37] Release to patient: Immediate release High Risk Human Papilloma Virus (HPV), PCR for Detection and Genotyping Release to patient: Immediate release TESTOSTERONE CYPIONATE INTRAMUSC. Sig: Inject 0.1 mL intramuscularly as directed. Every 4 days estradiol (ESTRACE) 0.01 % (0.1 mg/gram) vaginal cream Sig: Use 1 g vaginally two times a week. 1-2 times per week as directed. Dispense: 42.5 g Refill: 5 Anthony White MD Addendum: Pap smear came back negative for cytology but positive for HPV. Message sent to patient regarding results and plan repeat Pap in 1 year. Anthony White M.D. documented in this encounterUniversity [facility]als [facility]04-11-2025 History of Present illness Narrative* Daniela Lara RT(R) - 01/02/2025 8:00 AM EDT Radiology Service Progress Note PATIENT NAME: Tory Solis DATE OF SERVICE: January 02, 2025 TIME: 8:28 AM PATIENT IDENTITY VERIFICATION COMPLETED USING TWO (2) IDENTIFIERS: Name and Date of confirmedby patient verbally. FALL SCREENING: Has the patient had 2 falls in the last year or 1 fall with injury or currently using an Ambulatory Assistive Device (Walker, Cane, Wheelchair, Crutches, etc.)? No PATIENT GENDER DATA: Assigned female at . status: : No status:NO. PATIENT RELEVANT IMPLANT DATA REVIEWED: Not Applicable PATIENT PRESENTS WITH AN IMPLANTABLE OR ATTACHED HEATER TENDER: No RADIOLOGY DEPARTMENT: Mammography PERIPHERAL IV DATA: Not applicable SIGNED BY: RT Brenda(Juan Carlos) January 02, 2025 8:28 AM documented in this encounterUniversity Hospitals [facility] Center04-11-2025 NoteHNO ID: [id number] Author: DANIELA LARA RT(R) Service: ? Author Type: Technologist Type: Progress Notes Filed: 01/02/2025 08:28 Note Text: Radiology Service Progress Note PATIENT NAME: Tory oSlis DATE OF SERVICE: January 02, 2025 TIME: 8:28 AM PATIENT IDENTITY VERIFICATION COMPLETED USING TWO (2) IDENTIFIERS: Name and Date of confirmed by patient verbally. FALL SCREENING: Has the patient had 2 falls in the last year or 1 fall with injury or currently using an Ambulatory Assistive Device (Walker, Cane, Wheelchair, Crutches, etc.)? No PATIENT GENDER DATA: Assigned female at . status: : No status: NO. PATIENT RELEVANT IMPLANT DATA REVIEWED: Not Applicable PATIENT PRESENTS WITH AN IMPLANTABLE OR ATTACHED HEATER TENDER: No RADIOLOGY DEPARTMENT: Mammography PERIPHERAL IV DATA: Not applicable SIGNED BY: RT Brenda(R) January 02, 2025 8:28 [facility] Tele[facility] encounter Note* Telephone Encounter - Jennifer Valdez RN - 12/23/2024 9:05 AM EDT Orders placed. Patient notified via [employer].Jennifer Valdez RN [facility]04-01-2025 Miscellaneous Notes* Telephone Encounter - Jennifer Valdez RN - 12/23/2024 9:05 AM EDT Orders placed. Patient notified via [employer].Jennifer Valdez RN * Telephone Encounter - Alena Jarrett - 12/23/2024 8:35 AM EDT Patient is asking if she is needing to have a diagnostic mammogram completed now from the reading/results of her [place] mammogram. Please advise and call patient. Thank you documented in this encounterUniversity Hospitals [facility] Center04-01-2025 Telephone encounter Note * Telephone Encounter - Alena Jarrett - 12/23/2024 8:35 AM EDT Patient is asking if she is needing to have a diagnostic mammogram completed now from the reading/results of her [place] mammogram. Please advise and call patient. Thank you [facility]03-31-2025 History of Present illness Narrative* Larry Pool, Mammo Tech - 12/22/2024 7:50 AM EDT Radiology Service Progress Note PATIENT NAME: Tory Solis DATE OF SERVICE: December 22, 2024 TIME: 8:13 AM PATIENT IDENTITY VERIFICATION COMPLETED USING TWO (2) IDENTIFIERS: Name and Date of confirmedby patient verbally. FALL SCREENING: Has the patient had 2 falls in the last year or 1 fall with injury or currently using an Ambulatory Assistive Device (Walker, Cane, Wheelchair, Crutches, etc.)? No PATIENT GENDER DATA: Assigned female at . status: : No status:NO. PATIENT RELEVANT IMPLANT DATA REVIEWED: Not Applicable PATIENT PRESENTS WITH AN IMPLANTABLE OR ATTACHED HEATER TENDER: No RADIOLOGY DEPARTMENT: Mammography PERIPHERAL IV DATA: Not applicable SIGNED BY: Marge Valdes December 22, 2024 8:13 AM documented in this encounterUniversity Hospitals Cleveland [facility] Center03-31-2025 NoteHNO ID: [id number] Author: LARRY POOL Mammo Tech Service: ? Author Type: Technologist Type: Progress Notes Filed: 12/22/2024 08:13 Note Text: Radiology Service Progress Note PATIENT NAME: Tory Solis DATE OF SERVICE: December 22, 2024 TIME: 8:13 AM PATIENT IDENTITY VERIFICATION COMPLETED USING TWO (2) IDENTIFIERS: Name and Date of confirmed by patient verbally. FALL SCREENING: Has the patient had 2 falls in the last year or 1 fall with injury or currently using an Ambulatory Assistive Device (Walker, Cane, Wheelchair, Crutches, etc.)? No PATIENT GENDER DATA: Assigned female at . status: : No status: NO. PATIENT RELEVANT IMPLANT DATA REVIEWED: Not Applicable PATIENT PRESENTS WITH AN IMPLANTABLE OR ATTACHED HEATER TENDER: No RADIOLOGY DEPARTMENT: Mammography PERIPHERAL IV DATA: Not applicable SIGNED BY: Marge Valdes December 22, 2024 8:13 [facility]03-06-2025 Telephone encounter Note* Telephone Encounter - Zenaida Ji - 11/27/2024 8:58 AM EST Patient is requesting a mammogram. [facility]03-06-2025 Miscellaneous Notes* Telephone Encounter - Zenaida Ji - 11/27/2024 8:58 AM EST Patient is requesting a mammogram. documented in this encounterUniversity Hospitals [facility] Center03-05-2025 Telephone encounter Note * Telephone Encounter - Zenaida Ji - 11/26/2024 8:32 AM EST Patient is scheduled in December for her annual exam. Patient's insurance is terminating at the end of month, she will not have coverage in December. Patient is asking to be seen in the office in November, she prefers Dr. White. Call patient if an appointment is available this month. [facility]03-05-2025 Miscellaneous Notes* Telephone Encounter - Zenaida Ji - 11/26/2024 8:32 AM EST Patient is scheduled in December for her annual exam. Patient's insurance is terminating at the end of month, she will not have coverage in December. Patient is asking to be seen in the office in November, she prefers Dr. White. Call patient if an appointment is available this month. documented in this encounterUniversity Hospitals Cleveland Medical Center06-29-2024 History of Present illness Narrative* Fela Rivera - 03/22/2024 10:00 AM EDT Study completed by Silvia on 03/22/2024. documented in [facility] encounterPro[facility] Work Phone: 1(162) 248-699206-21-2024 History of Present illness Narrative* Randee Hdz MD - 03/14/2024 9:30 AM EDT Subjective Patient ID: Tory Solis is a 48 y.o. female who presents for Snoring (EP. Address snoring. Would like home sleep study ordered. Was at dentist on Sunday and having pain and tenderness and worried shemay be getting a infection with the 99.0 temp.). HPI Has hx dm 2 diet controlled and went back prior to kids Went to endo for fatigue weight gain trouble losing weight Went back on bw and had ab went to get checked again for thyroid issues Bw ordered and he suggested sleep study Does not feel herself and weight has been an issue Gained 10 pounds in past yr no she is perimenopausal Has had snoring and gasping and restless Is still tired in the AM and needs energy drink never feels rested tired a lot Not napping no nodding off and ok when drives Has some tenderness in left lower gum routine cleaning has been sore since and low grade temp slight more achy after her cleaning this week feels like something is brewing there Review of Systems Review of systems was performed and is otherwise negative except as noted in HPI. Objective BP 112/78 Pulse 81 Temp 37.2 C (99 F) (Oral) Wt 71.2 kg (157 lb) LMP 02/29/2024 SpO2 96% BMI 25.34 kg/m Physical Exam HEENT is normal slight irritation on the left lower outer gums Lungs clear bilaterally Heart is regular rate rhythm no murmurs Abdomen benign Lower extremities no edema Assessment/Plan Diagnoses and all orders for this visit: Sleep disorder breathing - Home sleep apnea test (HSAT); Future Gingivitis - penicillin v potassium (Veetid) 500 mg tablet; Take 1 tablet (500 mg) by mouth 4 times a day for 7 days. Ordered sleep study Blood work reviewed Will do penicillin for the gum irritation she has follow-up with her dentist fails to resolve She will call with issues Keep routine follow-up appointment Randee Hdz MD documented in this encounterProtestant Hospital Work Phone: 1(137) 235-323404-01-2024 Miscellaneous Notes* Letter - Coordinator, Mammography - 12/24/2023 9:25 PM EDT December 25, 2023 PID: [id number] Tory Solis [address] [place] [address] Dear Ms. Solis, We are pleased to inform you that the results of your recent breast imaging exam on 12/21/2023 are normal. Your mammogram demonstrates that you have dense breast tissue, which could hide abnormalities. Dense breast tissue, in and of itself, is a relatively common condition. Therefore, this information is not provided to cause undue concern; rather, it is to raise your awareness and promote discussion with your health care provider regarding the presence of dense breast tissue in addition to other riskfactors. Early detection of cancer is very important. We also understand recommendations regarding breast cancer screening are controversial. Please discuss with your primary care provider which strategy is best for you and whether a mammogram is right for you. Your imaging studies and report will be kept on file at [facility] as part of your permanent medical record and are available for your continuing care. Thank you for allowing us to help in meeting your health care needs. Sincerely, Dr. Rodriguez Interpreting Radiologist [facility] (Normal over 40) documented in this encounterUniversity [facility]als [facility] Center2024 History of Present illness Narrative* Anthony White MD - 12/12/2023 4:14 PM EDT Tory Solis is a 48 year old female who presents for a follow up for Secondary amenorrhea for the past 3 months Results of testing for menopausal status History of prior diabetes in and borderline insulin resistance now Noted prior testing demonstrating thyroid antibodies Current Outpatient Medications on File Prior to Visit Medication Sig estradiol (KAREN) 0.025 mg/24 hr Apply 1 Patch as directed two times a week. compounded progesterone 50 mg capsule 50 mg twice daily. FA/mv,Ca,iron,min/lycopene/lut (MULTIVITAL ORAL) Take by mouth once daily. OMEGA-3 FATTY ACIDS/FISH OIL (OMEGA 3 FISH OIL ORAL) Take by mouth. No current facility-administered medications on file prior to visit. PAST MEDICAL HISTORY Diagnosis Date ASCUS with positive high risk HPV cervical 11/2016 Colpo Diabetes in A1 gestational diabetic Vaginal delivery x2 No past surgical history on file. No family history on file. Social History Tobacco Use Smoking status: Never Smokeless tobacco: Never Substance Use Topics Alcohol use: No Drug use: No Objective: LMP 09/29/2023 Patient's last menstrual period was 09/29/2023. ALLERGIES No Known Allergies Latest Reference Range & Units 11/27/23 15:33 Free T4 0.9 - 1.7 ng/dL 1.3 TSH 0.270 - 4.200 mIU/L 0.747 Estradiol 17B pg/mL 148 FSH See comment mIU/mL 7.7 Assessment: Secondary amenorrhea for the past 3 months Results of testing for menopausal status History of prior diabetes in and borderline insulin resistance now Noted prior testing demonstrating thyroid antibodies Plan: 1) referral to endocrinology previously has seen Dr. Arce in the past 2) if no menses by March, 6 months then plan Provera withdrawal 3) plan vaginal estrogen and need to find affordable approach Premarin $650 Estrace $[address] [facility] compounding mail order pharmacy 4) plan fasting lipid fasting glucose hemoglobin A1c scheduling I spent a total of 20 minutes on the date of the service which included preparing to see the patient via telephone encounter, completing clinical documentation, obtaining and/or reviewing separately obtained history, counseling and educating the patient/family/caregiver, ordering medications, tests, or procedures and communicating with other HCPs (not separately reported). estradiol 0.01% estriol 0.01% topical cream (CPD) 30 g 2 Sig: Apply 1 gram (4 clicks) vaginally twice weekly Sent to pharmacy as: estradiol 0.01% estriol 0.01% topical cream (CPD) Class: Normal Notes to Pharmacy: Compound Medication Route: TOPICAL Apply to affected area once a week. Apply 1 gram (4 clicks) vaginally once weekly Anthony White MD documented in this encounterUniversity Hospitals [facility] Center02-09-2024 Miscellaneous Notes* Telephone Encounter - Aida Cooper LPN - 11/02/2023 3:22 PM EST done * Telephone Encounter - Margarita Cherry - 11/02/2023 3:18 PM EST Patient is requesting an order for a mammogram prior to her annual appointment in December documented in this encounterUniversity Hospitals [facility] Center03-23-2023 Instructions* Patient Instructions* Anthony White MD - 12/14/2022 7:43 AM EDT PREVENTING OSTEOPOROSIS * Calcium and vitamin D can slow bone loss and may decrease fractures. Consume 1,000-1,200mg milligrams of calcium a day in divided doses. Calcium is necessary but not always sufficient. Good sourcesof calcium are calcium supplements, like Tums, fruit juices and breads; lowfat dairy products; green leafy vegetables such as broccoli, kale and spinach greens, almonds; and soy milk. Calcium CITRATE like Citracal D is well absorbed with or without food/stomach acid and is the preferred calcium supplement in women on stomach acid blockers and women with a history of kidney stones. * Vitamin D3 aids in the absorption of calcium and stimulates bone formation. Consume at least OF SEPARATE 1,000iu to 2,000 iu international units of vitamin D3 a day and up to 5,000 iu daily if you have been found to be low * Eat foods low in sodium, low in animal protein and low in caffeine. * Bone mass is built before menopause as a result of exercising, diet, and genetics. Exercises thatincrease bone mass are the ones that make the muscles work against gravity. Walking and muscle-building exercise may reduce bone loss and fractures and improve balance. Visit www.nof.org, the National Osteoporosis Foundation web site for more bone tips. documented in this encounterUniversity Hospitals Cleveland [facility] Center03-23-2023 History of Present illness Narrative* Anthony White MD - 12/14/2022 7:05 AM EDT Tory Solis is a 47 year old who presents for her annual gynecologic exam. Pot Room Tapper concerns . C/o perimenopausal sx's she saw functional medicine and began HRT supplementation. MOOD SWINGS WHEN ON OCP'S . Ascus HPV -2017 and 2018 NORMAL Cycle every 28 days Flow 5 days Contraception: none Last Pap: 2019 History of abnormal pap: yes Hx ascus and hpv hx 2017 Pap negative HPV neg March 2020and 05/2021 History of STDS No Last mammogram: 2019 History of abnormal mammogram: no PAST MEDICAL HISTORY Diagnosis Date ASCUS with positive high risk HPV cervical 11/2016 Colpo Diabetes in A1 gestational diabetic Vaginal delivery x2 No past surgical history on file. No family history on file. Social History Tobacco Use Smoking status: Never Smokeless tobacco: Never Substance Use Topics Alcohol use: No Drug use: No REVIEW OF SYSTEMS Bladder: No burning with urination, blood in urine or incontinence Bowel: No blood in stool, pain with BM, tarry stool, persistent diarrhea or constipation Breast: No breast lumps, nipple d/c, overlying skin changes, redness or skin retraction EXAM: pleasant,well developed,well nourished,white female in no apparent distress HEENT: WNL NECK: Full range of motion,no adenopathy,thyroid normal DERMATOLOGY:Without lesions, Non-icteric, non-hirsute BREAST: soft, non-tender, symmetric, no dominant mass, normal nipple-areolar complex, no lymphadenopathy and no nipple discharge CHEST: Normal inspiratory effort CARDIAC:Regular rate, rhythm ABDOMEN: Soft,non-tender,no hernia,No masses, hepatosplenomegaly,No lymphadenopathy PELVIC: external genitalia normal, normal Bartholin's glands, urethra, Satartia's glands, no vulvar lesions, no cervical lesions, normal discharge, well estrogenized, stage I-II uterine descensus stage I cystocele no rectocele BIMANUAL: no cervical motion tenderness, no adnexal masses and no pelvic masses RECTAL: deferred. NEURO: alert and oriented x3,exam grossly non-focal EXTREMITIES: Warm,No cyanosis, clubbing,No edema,nontender ASSESSMENT: 1) Normal annual exam. 2) ascus 3) Hx ascus and hpv hx 2017 Pap negative HPV March 2020, & 05/2021 PLAN: 1) Pap done with HPV 2) SBE reviewed, Mammogram ordered done 3) Nutrition, exercise and routine health maintenance exams reviewed 4) continue pelvic floor exercises 5) Anthony White MD documented in this [facility]12-15-2022 History of Present illness Narrative* BEATRIZ Ledezma - 09/07/2022 10:40 AM EST Radiology Service Progress Note PATIENT NAME: Tory Solis DATE OF SERVICE: September 07, 2022 TIME: 10:56 AM PATIENT IDENTITY VERIFICATION COMPLETED USING TWO (2) IDENTIFIERS: Name and Date of confirmedby patient verbally. FALL SCREENING: Has the patient had 2 falls in the last year or 1 fall with injury or currently using an Ambulatory Assistive Device (Walker, Cane, Wheelchair, Crutches, etc.)? No PATIENT GENDER DATA: Female. status: : No status: NO. PATIENT RELEVANT IMPLANT DATA REVIEWED: Not Applicable RADIOLOGY DEPARTMENT: Mammography PERIPHERAL IV DATA: Not applicable SIGNED BY: BEATRIZ Ledezma September 07, 2022 10:56 AM documented in this encounterUniversity Hospitals [facility] Center11-17-2022 Miscellaneous Notes* Telephone Encounter - Jennifer Valdez RN - 08/10/2022 9:33 AM EST Order placed. Jennifer Valdez RN * Telephone Encounter - Lauren Hyman - 08/10/2022 9:20 AM EST Patient is currently scheduled for her annual exam on 11/23/2022, she is due for her mammogram this month can place an order for that so she can have that completed before November, please advise thanks. documented in this [facility]03-01-2022 History of Present illness Narrative* 11/22/2021: Office visit * Patient returns to clinic for follow-up. She denies chest pain shortness of breath and states that her palpitations have improved since her last appointment. She did turning the event monitor which revealed no evidence of high-grade AV block, tacky bradycardia syndrome or VT. Echocardiogram showed n ormal ejection fraction 50% grade 1 diastolic dysfunction. There is no significant valvular pathology. Her blood work came back fairly unremarkable. Vital signs today show blood pressure 118/73 heartrate is 64 satting 97% on room air. Weight is 153 pounds. * 10/18/2021 * This is a 46-year-old female with a significant past medical history presents to clinic for evaluation for palpitations. Of note, patient had recent bout of Covid illness. 3 weeks after recovering from illness she started to have episodes of palpitations. Her most severe episode occurred over the weekend where she had 1/2 days of off-and-on palpitations. She has some atypical chest discomfort that was somewhat positional and associated with respiration. She denies shortness of breath. Denies lower extreme edema orthopnea or PND. She does not smoke or use illicit drugs. Denies heavy ethanol usage. She has no significant history of cardiovascular disease neither family history of early onset cardiovascular disease. She had a work-up 7 years ago firsts palpitations which were found to be related to use of Wellbutrin. Her vital signs today show blood pressure of 109/74, heart rate is 78 satting 90% on room air. Her weight is 154.2 pounds. EKG today shows sinus rhythm with a normal axis and appropriate R wave progression. [id number] [address] [place] Work Phone: [phone] 770-863901-25-2022 History of Present illness Narrative* 10/18/2021: Office visit * This is a 46-year-old female with a significant past medical history presents to clinic for evaluation for palpitations. Of note, patient had recent bout of Covid illness. 3 weeks after recovering from illness she started to have episodes of palpitations. Her most severe episode occurred over the weekend where she had 1/2 days of off-and-on palpitations. She has some atypical chest discomfort that was somewhat positional and associated with respiration. She denies shortness of breath. Denies lower extreme edema orthopnea or PND. She does not smoke or use illicit drugs. Denies heavy ethanol usage. She has no significant history of cardiovascular disease neither family history of early onset cardiovascular disease. She had a work-up 7 years ago firsts palpitations which were found to be related to use of Wellbutrin. Her vital signs today show blood pressure of 109/74, heart rate is 78 satting 90% on room air. Her weight is 154.2 pounds. EKG today shows sinus rhythm with a normal axis and appropriate R wave progression. [facility] Work Phone: [phone] 601-351212-12-2021 History of Present illness Narrative* 46 year old female presenting for palpitations. * Patient thinks she had covid on 09/04/21, tested negative with at home test ,but direct relative was positive with pcr test. * States she had all the covid sxs. * High fever, body aches, chills. * Mild cough, tickle in chest, mild headache. * took 1 week to resolve. * Has done pretty well. * Intermittent tickle in chest still. * Saw PROCESS STRIPPER, gave her dexamethasone and z pack. * After 4 days of dexamethasone was having racy heart mild sxs * She stopped this. * A couple of days later she had episode of severe palpitations again. * Was like this for 24 hours, went to bed and then felt fine. * This past weekend she was in [place] and had symptoms again. * Could not sleep. * On OTC multivitamins. * Not taking anything out of the ordinary. * On elderberry. * Takes supplement with caffeine but has not been taking these past few days. * She had never had issues before. * She feels like something is in her throat. * Feels mildly depressed. * Would like testing after ruling out issues with her heart. * She has started her period today. * No perimenopausal symptoms. * Has hair loss, long standing. * has had some mood sxs sadness considering [facility] Work Phone: [phone] 956-486612-12-2021 History of Present illness Narrative* 46 year old female presenting for palpitations. * Patient thinks she had covid on 09/04/21, tested negative with at home test ,but direct relative was positive with pcr test. * States she had all the covid sxs. * High fever, body aches, chills. * Mild cough, tickle in chest, mild headache. * took 1 week to resolve. * Has done pretty well. * Intermittent tickle in chest still. * Saw PROCESS STRIPPER, gave her dexamethasone and z pack. * After 4 days of dexamethasone was having racy heart mild sxs * She stopped this. * A couple of days later she had episode of severe palpitations again. * Was like this for 24 hours, went to bed and then felt fine. * This past weekend she was in [place] and had symptoms again. * Could not sleep. * On OTC multivitamins. * Not taking anything out of the ordinary. * On elderberry. * Takes supplement with caffeine but has not been taking these past few days. * She had never had issues before. * She feels like something is in her throat. * Feels mildly depressed. * Would like testing after ruling out issues with her heart. * She has started her period today. * No perimenopausal symptoms. * Has hair loss, long standing. * has had some mood sxs sadness considering [facility] Work Phone: [phone] History of Past illness Narrative* Problem Noted Date Resolved Date Supervision of other normal 09/15/2011 12/18/2016 documented as of this encounter (statuses as of 08/10/2022) [facility] History of Past illness Narrative* Problem Noted Date Resolved Date Supervision of other normal 09/15/2011 12/18/2016 documented as of this encounter (statuses as of 09/08/2022) [facility] History of Past illness Narrative* Problem Noted Date Resolved Date Supervision of other normal 09/15/2011 12/18/2016 documented as of this encounter (statuses as of 12/25/2022) [place] [address]-23-2011 History of Past illness Narrative* Problem Noted Date Diagnosed Date Resolved Date Supervision of other normal 09/15/2011 12/18/2016 documented as of this encounter (statuses as of 11/02/2023) [address]23-2011 History of Past illness Narrative* Problem Noted Date Diagnosed Date Resolved Date Supervision of other normal 09/15/2011 12/18/2016 documented as of this encounter (statuses as of 12/13/2023) [place] [address]2011 History of Past illness Narrative* Problem Noted Date Diagnosed Date Resolved Date Supervision of other normal 09/15/2011 12/18/2016 documented as of this encounter (statuses as of 12/26/2023) [facility] note* Diagnosis Encounter for screening mammogram for malignant neoplasm of breast- Primary Other screening mammogram documented in this encounter [facility] note* Diagnosis Encounter for screening mammogram for malignant neoplasm of breast Other screening mammogram documented in this encounter [facility] note* Diagnosis Well female exam with routine gynecological exam- Primary Routine gynecological examination documented in this encounter [facility] note* Diagnosis Encounter for screening mammogram for malignant neoplasm of breast- Primary Other screening mammogram documented in this encounter [facility] note* Diagnosis Unintended weight gain- Primary Abnormal weight gain Screening for thyroid disorder Vaginal dryness Other specified symptom associated with female genital organs Screening for lipid disorders Encounter for screening for diabetes mellitus Screening for diabetes mellitus Autoimmune thyroiditis Chronic lymphocytic thyroiditis documented in this encounter [facility] note* Diagnosis Sleep disorder breathing- Primary Other sleep disturbances Gingivitis Chronic gingivitis, plaque induced documented in this encounter [facility] Work Phone: Evaluation note* Diagnosis Sleep disorder breathing Other sleep disturbances documented in this encounter [facility] Work Phone: Evaluation note* Diagnosis Encounter for screening mammogram for malignant neoplasm of breast- Primary Other screening mammogram documented in this encounter [facility] note* Diagnosis Encounter for screening mammogram for malignant neoplasm of breast Other screening mammogram documented in this encounter [facility] note* Diagnosis Abnormal mammogram- Primary Abnormal mammogram, unspecified documented in this encounter [facility] note* Diagnosis ASCUS with positive high risk HPV cervical- Primary Cervical high risk human papillomavirus (HPV) DNA test positive Well female exam with routine gynecological exam Routine gynecological examination Screening for lipid disorders Encounter for screening for diabetes mellitus Screening for diabetes mellitus documented in this encounter [facility] noteNo assessment information availableCoalinga [facility] Work Phone: History of Present illness Narrative* 47 year old female presenting for anxiety and difficulty sleeping. * She has issues with anxiety. * Notes work stressors are severe at the moment. * Has issues with sleeping. * Cannot sleep due to work stressors. * She is on no regular meds. * Would like to try medication for anxiety. * No chest pain, SOB, leg edema, no headaches or dizziness. * Exercise tolerance good. [facility] Work Phone: [facility] for referral (narrative)* Diagnostic Procedure Only (Routine) - Authorized Specialty Diagnoses / Procedures Referred By Pascale marcial Referred To Contact [facility] Diagnoses Encounter for screening mammogram for malignant neoplasm of breast Procedures RAJ SCREENING W DALTON SCREENING DIGITAL BREAST TOMOSYNTHESIS BI SCREENING MAMMOGRAPHY BI 2-VIEW BREAST INC Anthony Short MD [address] [place] [address] [facility] [address] [place] [address] Referral ID Status Reason Start Date Expiration Date Visits Requested Visits Authorized [id number] Authorized Auto-Generat ed Referral 2 09/09/[address] [facility] for referral (narrative)* Diagnostic Procedure Only (Routine) - Closed Specialty Diagnoses / Procedures Referred By Pascale marcial Referred To Contact [facility] Diagnoses Encounter for screening mammogram for malignant neoplasm of breast Procedures RAJ SCREENING W DALTON SCREENING DIGITAL BREAST TOMOSYNTHESIS BI SCREENING MAMMOGRAPHY BI 2-VIEW BREAST INC CAD Anthony White MD [address] [phone] [facility] [address] [place] [address] Referral ID Status Reason Start Date Expiration Date V isits Requested Visits Authorized [id number] Closed Auto-Generate d Referral 08/10/2022 09/09/[address] [facility] for referral (narrative)* Diagnostic Procedure Only (Routine) - Authorized Specialty Diagnoses / Procedures Referred By Pascale t Referred To Contact [facility] Diagnoses Encounter for screening mammogram for malignant neoplasm of breast Procedures RAJ SCREENING W DALTON SCREENING DIGITAL BREAST TOMOSYNTHESIS BI SCREENING MAMMOGRAPHY BI 2-VIEW BREAST INC CAD Anthony White MD [address] [place] [phone] [facility] [address] [place] [address] Referral ID Status Reason Start Date Expiration Date Visits Requested Visits Authorized [id number] Authorized Auto-Generat ed Referral 11/02/2023 12/01/[address] [facility] for referral (narrative)No reason for referral information availableParkview [facility] Work Phone: Reason for visit Narrative* Diagnostic Procedure Only (Routine) - Closed Specialty Diagnoses / Procedures Referred By Contac t Referred To Contact [facility] Diagnoses Encounter for screening mammogram for malignant neoplasm of breast Procedures RAJ SCREENING W DALTON SCREENING DIGITAL BREAST TOMOSYNTHESIS BI SCREENING MAMMOGRAPHY BI 2-VIEW BREAST INC Anthony Short MD [address] [address] [facility] [address] [place] [address] Referral ID Status Reason Start Date Expiration Date V isits Requested Visits Authorized [id number] Closed Auto-Generate d Referral 08/10/2022 09/09/2023 1 1 [facility] for visit Narrative* Diagnostic Procedure Only (Routine) - Closed Specialty Diagnoses / Procedures Referred By Pascale marcial Referred To Contact [facility] Diagnoses Encounter for screening mammogram for malignant neoplasm of breast Procedures RAJ SCREENING W DALTON SCREENING DIGITAL BREAST TOMOSYNTHESIS BI SCREENING MAMMOGRAPHY BI 2-VIEW BREAST INC Anthony Short MD [address] [address] Phone: tel: fax: [facility] [address] [place] [address] Referral ID Status Reason Start Date Expiration Date V isits Requested Visits Authorized [id number] Closed Auto-Generate d Referral 11/27/2024 12/27/2025 1 1 [facility] for visit Narrative* Diagnostic Procedure Only (Routine) - Closed Specialty Diagnoses / Procedures Referred By Contsmitha t Referred To Contact [facility] Diagnoses Abnormal mammogram Procedures RAJ DIAGNOSTIC LEFT DIAGNOSTIC MAMMOGRAPHY COMPUTER-AIDED DETCJ UNI Anthony White MD [address] [address] Phone: tel: fax: [facility] [address] [place] [address] Referral ID Status Reason Start Date Expiration Date V isits Requested Visits Authorized [id number] Closed Auto-Generate d Referral 12/23/2024 01/22/2026 1 1 [facility] Chief Complaint Chief Complaint: TORY SOLIS is here with a chief complaint of . Pt thinks she had covid on 09/04/21, tested negative with at home test ,but dtr was positive with pcr test and pt had all the covid sxs. Continues to have heart palpations. High palpitations atypical chest discomfortChief Complaint: TORY SOLIS is here with a chief complaint of . Pt thinks she had covid on 09/04/21, tested negative with at home test ,but dtr was positive with pcr test and pt had all the covid sxs. Continues to have heart palpations.Follow-up appointmentMEWILL SOLIS is here for a follow-up for . Anxiety and difficulty sleeping. Summary Purpose Family History Relationship Condition Age at Onset Recorded Date/T jesus father Malignant neoplasm of prostate Unknown mother Suicide Unknown grandfather Diabetes mellitus Unknown aunt Asthma Unknown No Family History Records Found Advance Directives No Advanced Directives Records FoundNo Advanced Directives Records FoundNo Advanced Directives Records FoundNo Advanced Directives Records FoundNo Advanced Directives Records FoundNo Advanced Directives Records FoundNo Advanced Directives Records Found Reason for Referral Specialty Diagnoses / Procedures Referred By Pascale t Referred To Contact Endocrinology Diagnoses Autoimmune thyroiditis Procedures CONSULT TO ENDOCRINOLOGY OFFICE/OUTPATIENT [facility] 60 MINUTES Anthony White MD [address] [address] Referral ID Status Reason Start Date Expiration Date Visits Requested Visits Authorized [id number] Authorized PCP Requested Referral 12/12/2023 12/11/2024 1 1 Specialty Diagnoses / Procedures Referred By Contac t Referred To Contact Sleep Lab Diagnoses Sleep disorder breathing Procedures Home sleep apnea test (HSAT) Randee Hdz MD [address] [facility], [address] [address] Referral ID Status Reason Start Date Expiration Date V isits Requested Visits Authorized [id number] Pending Review 03/14/2024 03/14/2025 1 1 Chief Complaint and Reason for Visit Chief Complaint Admit Date LOWER BACK PAIN April 30, 2025 4:4 1pm LUMBAR SPINE May 06, 2025 9: 01am Reason for Visit Admit Date Low back pain May 06, 2025 9: 01am Spondylolisthesis at L4-L5 level May 06, 2025 9:01am Chief Complaint Admit Date LOWER BACK PAIN April 30, 2025 4:4 1pm LUMBAR SPINE May 06, 2025 9: 01am CONCERN FOR UTI May 08, 2025 4: 48pm Additional Source Comments INFORMATION SOURCE (unrecogn ized section and content) DATE CREATED AUTHOR 06/28/2022 [facility] DATE CREATED AUTHOR AUTHOR'S ORGANIZ ATION 06/28/2022 [employer] DATE CREATED AUTHOR AUTHOR'S ORGANIZ ATION 01/03/2025 [facility] dical Center DATE CREATED AUTHOR AUTHOR'S ORGANIZ ATION 01/11/2025 [facility] DATE CREATED AUTHOR AUTHOR'S ORGANIZ ATION 01/30/2025 [facility] DATE CREATED AUTHOR AUTHOR'S ORGANIZ ATION 03/01/2025 [facility] DATE CREATED AUTHOR AUTHOR'S ORGANIZ ATION 05/08/2025 [facility] Source Comments (unrecognize d section and content) In the event this informatio n is protected by the Federal Confidentiality of Alcohol and Drug Abuse Patient Records regulations: The Federal rules restrict any use of the information to criminally investigate or prosecute any alcohol or drug abuse patient.[facility] the event this information is protected by the Federal Confidentiality of Alcohol and Drug Abuse Patient Records regulations: The Federal rules restrict any use of the information to criminally investigate or prosecute any alcohol or drug abuse patient.[facility] Center[facility] the event this information is protected by the Federal Confidentiality of Alcohol and Drug Abuse Patient Records regulations: The Federal rules restrict any use of the information to criminally investigate or prosecute any alcohol or drug abuse patient.[facility] the event this information is protected by the Federal Confidentiality of Alcohol and Drug Abuse Patient Records regulations: The Federal rules restrict any use of the information to criminally investigate or prosecute any alcohol or drug abuse patient.[facility] Center[facility] the event this information is protected by the Federal Confidentiality of Alcohol and Drug Abuse Patient Records regulations: The Federal rules restrict any use of the information to criminally investigate or prosecute any alcohol or drug abuse patient.[facility] Center[facility] the event this information is protected by the Federal Confidentiality of Alcohol and Drug Abuse Patient Records regulations: The Federal rules restrict any use of the information to criminally investigate or prosecute any alcohol or drug abuse patient.[facility] Center[facility] the event this information is protected by the Federal Confidentiality of Alcohol and Drug Abuse Patient Records regulations: The Federal rules restrict any use of the information to criminally investigate or prosecute any alcohol or drug abuse patient.[facility] Center[facility] the event this information is protected by the Federal Confidentiality of Alcohol and Drug Abuse Patient Records regulations: The Federal rules restrict any use of the information to criminally investigate or prosecute any alcohol or drug abuse patient.[facility] the event this information is protected by the Federal Confidentiality of Alcohol and Drug Abuse Patient Records regulations: The Federal rules restrict any use of the information to criminally investigate or prosecute any alcohol or drug abuse patient.[facility] Center[facility] the event this information is protected by the Federal Confidentiality of Alcohol and Drug Abuse Patient Records regulations: The Federal rules restrict any use of the information to criminally investigate or prosecute any alcohol or drug abuse patient.[facility] Center[facility] the event this information is protected by the Federal Confidentiality of Alcohol and Drug Abuse Patient Records regulations: The Federal rules restrict any use of the information to criminally investigate or prosecute any alcohol or drug abuse patient.[facility] CenterIn the event this information is protected by the Federal Confidentiality of Alcohol and Drug Abuse Patient Records regulations: The Federal rules restrict any use of the information to criminally investigate or prosecute any alcohol or drug abuse patient.[facility] CenterIn the event this information is protected by the Federal Confidentiality of Alcohol and Drug Abuse Patient Records regulations: The Federal rules restrict any use of the information to criminally investigate or prosecute any alcohol or drug abuse patient.[facility] CenterIn the event this information is protected by the Federal Confidentiality of Alcohol and Drug Abuse Patient Records regulations: The Federal rules restrict any use of the information to criminally investigate or prosecute any alcohol or drug abuse patient.[facility] Reason for Visit (unrecogniz ed section and content) Reason Comments Orders Reason Comments Well Woman Reason Comments Menopause Consult Reason Comments Snoring EP. Address snoring. Would like home sleep study ordered. Was at dentist on Sunday and having pain and tenderness and worried she may be getting a infection with the 99.0 temp. Specialty Diagnoses / Procedures Referred By Pascale marcial Referred To Contact Sleep Lab Diagnoses Sleep disorder breathing Procedures Home sleep apnea test (HSAT) Randee Hdz MD [address] [facility], [address] [address] Referral ID Status Reason Start Date Expiration Date V isits Requested Visits Authorized [id number] Authorized 03/14/2024 03/14/2025 1 1 Reason Comments Appointment Care Teams (unrecognized sec tion and content) Maintenance And Repair Worker Relationship Specialty Start Date End Date Randee Hdz MD [address] [place], [place] [id number] PCP - General Internal Medicine 09/10/14 Maintenance And Repair Worker Relationship Specialty Start Date End Date Randee Hdz MD [address] [place], [place] [id number] PCP - General Internal Medicine 09/10/14 Maintenance And Repair Worker Relationship Specialty Start Date End Date Randee Hdz MD [address] [place], [place] [id number] PCP - General Internal Medicine 09/10/14 Maintenance And Repair Worker Relationship Specialty Start Date End Date Randee Hdz MD [address] [facility] [address] [place] [address] PCP - General Internal Medicine 09/10/14 Maintenance And Repair Worker Relationship Specialty Start Date End Date Randee Hdz MD [address] [facility] [address] [place] [address] PCP - General Internal Medicine 09/10/14 Maintenance And Repair Worker Relationship Specialty Start Date End Date Randee Hdz MD [address] [facility] [address] [place] [address] PCP - General Internal Medicine 09/10/14 Maintenance And Repair Worker Relationship Specialty Start Date End Date Randee Hdz MD [address] [facility], [address] [place] [address] PCP - General 11/02/20 Randee Hdz MD [address] [facility], [address] [place] [address] PCP - [place] [facility] PCP 11/23/23 Maintenance And Repair Worker Relationship Specialty Start Date End Date Randee Hdz MD [address] [facility], [address] [place] [address] PCP - General 11/02/20 Randee Hdz MD [address] [facility], [address] [place] [address] PCP - [place] [facility] PCP 11/23/23 Maintenance And Repair Worker Relationship Specialty Start Date End Date Randee Hdz MD [address] [place] [address] PCP - General Internal Medicine 09/10/14 Maintenance And Repair Worker Relationship Specialty Start Date End Date Randee Hdz MD [address] [place] [address] PCP - General Internal Medicine 09/10/14 Maintenance And Repair Worker Relationship Specialty Start Date End Date Randee Hdz MD [address] [place] [address] PCP - General Internal Medicine 09/10/14 Maintenance And Repair Worker Relationship Specialty Start Date End Date Randee Hdz MD [address] [place] [address] PCP - General Internal Medicine 09/10/14 Maintenance And Repair Worker Relationship Specialty Start Date End Date Randee Hdz MD [address] [place] [address] PCP - General Internal Medicine 09/10/14 Maintenance And Repair Worker Relationship Specialty Start Date End Date Randee Hdz MD [address] [place] [address] PCP - General Internal Medicine 09/10/14 Maintenance And Repair Worker Relationship Specialty Start Date End Date Randee Hdz MD [address] [place] [address] PCP - General Internal Medicine 09/10/14 Maintenance And Repair Worker Relationship Specialty Start Date End Date Randee Hdz MD [address] [place] [address] PCP - General Internal Medicine 09/10/14 Team Status: Active Member Role/Relationship Status Dates Dr. Leo Goyal MD Primary Care Provider Active Team Status: Active Member Role/Relationship Status Dates Dr. Leo Goyal MD Primary Care Provider Active Start: April 30, 2025 SHAWN Jeff Attending Provider Active Star t: April 30, 2025 SHAWN Jeff Referring Provider Active Star t: April 30, 2025 Team Status: Inactive Member Role/Relationship Status Dates SHAWN Jeff Attending Provider Active Star t: May 06, 2025 End: May 06, 2025 Dr. Leo Goyal MD Primary Care Provider Active Start: May 06, 2025 End: May 06, 2025 Dr. Leo Goyal MD Referring Provider Active Start: May 06, 2025 End: May 06, 2025 Team Status: Inactive Member Role/Relationship Status Dates Dr. Leo Goyal MD Primary Care Provider Active Start: April 30, 2025 End: April 30, 2025 SHAWN Jeff Attending Provider Active Star t: April 30, 2025 End: April 30, 2025 SHAWN Jeff Referring Provider Active Star t: April 30, 2025 End: April 30, 2025 Team Status: Inactive Member Role/Relationship Status Dates Dr. Leo Goyal MD Primary Care Provider Active Start: May 08, 2025 End: May 08, 2025 Dr. Leo Goyal MD Referring Provider Active Start: May 08, 2025 End: May 08, 2025 Shahid ESCOBAR PA Attending Provider Active Sta rt: May 08, 2025 End: May 08, 2025 Goals (unrecognized section and content) Goals may be documented in a n alternate sectionGoals may be documented in an alternate sectionGoals may be documented in an alternate section FOR RECORDS PERTAINING TO PATIENTS WHO ARE OR HAVE BEEN ENROLLED IN A CHEMICAL DEPENDENCY/SUBSTANCEABUSE PROGRAM, SOME INFORMATION MAY BE OMITTED. This clinical summary was aggregated from multiple sources. Caution should be exercised in using it in the provision of clinical care. This summary normalizes information from multiple sources, and as a consequence, information in this document may materially change the coding, format and clinical context of patient data. In addition, data may be omitted in some cases. CLINICAL DECISIONS SHOULD BE BASED ON THE PRIMARY CLINICAL RECORDS. [facility] [employer] [facility]. provides no warranty or guarantee of the accuracy or completeness of information in this document.
== END | disposition home or self-care (01) ==
LOC: LABSPEC 09:13
PROVIDERS: PCP Internal Medicine; Visit Provider Physician Assistant Surgical
DX: R30.0 Dysuria (principal)
CPT/HCPCS: 87086

== ENCOUNTER → 2025-05-15 | Outpatient (CLI) | payer OTHER, SELFPAY ==
--- NOTE | 2025-05-15 15:50 | MRI_ITS ---
PROCEDURE: SPINE LUMBAR (ROUTINE) 05/15/2025 REASON FOR EXAM: BACK PAIN X2 YEARS WORSENING, L4-5 SPONDY TECHNIQUE: SPINE LUMBAR (ROUTINE) FINDINGS: Normal lumbar vertebral body height and alignment. Normal conus. No subluxation. No compression deformity. No retroperitoneal mass. L1-2 is unremarkable. Degenerative facet arthrosis at L2-3 and L3-4 with mild ligamentous hypertrophy but no results in spinal stenosis. At L4-5, minimal annular bulge and ligamentous hypertrophy results in mild acquired spinal stenosis. At L5-S1 facet arthrosis and minimal bulging are present without significant spinal stenosis. There is no foraminal nerve root impingement. There is inferior foraminal narrowing on the left at L4-5 without direct nerve impingement. MRI/Spine Lumbar (Routine) IMPRESSION: 1. Mild canal narrowing at L4-5. 2. Multilevel facet degeneration Reading Location[facility]
--- OUTSIDE RECORDS SUMMARY | 2025-05-15 19:10 | XMS RPT_ITS | CCD ---
Author Organization [facility] Care Team Providers Care Powerhouse Electrician Name Role Phone Randee Hdz Unavailable Unavailable Unavailable WILDER, Dr. RANDEE COLVIN Primary Care Unavaila Juni Olivas Attending Unavailable Juni Gamboa Attending Unavailable WILDER, Dr. RANDEE COLVIN Primary Care Unavaila prince HDZ, Dr. RANDEE COLVIN Referring Unavaila ble WILDER, Dr. RANDEE COLVIN Primary Care Unavaila Juni Olivas Attending Unavailable Juni Gamboa Attending Unavailable WILDER, Dr. RANDEE CLOVIN Primary Care Unavaila prince HDZ, Dr. RANDEE COLVIN Primary Care Unavaila Juni Olivas Referring Unavailable ISAÍAS ANDERS Attending Unavailable WILDER, Dr. RANDEE COLVIN Primary Care Unavaila prince HDZ, Dr. RANDEE COLVIN Attending Unavaila ble WILDER, Dr. RANDEE COLVIN Referring Unavaila ble WILDER, Dr. RANDEE COLVIN Attending Unavaila ble WILDER, Dr. RANDEE COLVIN Referring Unavaila ble WILDER, Dr. RANDEE COLVIN Primary Care UnavailRandee Tan MD Primary Care Provider [phone] Randee Hdz MD Primary Care Provider [phone] Randee Hdz MD Primary Care Provider [phone] Randee Hdz MD Unavailable Randee Hdz MD Primary Care Provider [phone] ANTHONY WHITE Referring Unavailable WILDER, RANDEE M Primary Care Unavailable ANTHONY WHITE W Referring Unavailable WILDER, RANDEE M Primary Care Unavailable WILDER, RANDEE M Attending Unavailable WILDER, RANDEE M Primary Care Unavailable ANTHONY WHITE W Referring Unavailable WILDER, RANDEE M Primary Care Unavailable ANTHONY WHITE W Referring Unavailable ANTHONY WHITE W Attending Unavailable WILDER, RANDEE M Primary Care Unavailable WILDER, RANDEE M Primary Care Unavailable WILDER, RANDEE M Primary Care Unavailable WILDER, RANDEE M Primary Care Unavailable WILDER, RANDEE M Primary Care Unavailable ANTHONY WHITE Referring Unavailable Jay Jay CHARLES, Dr. Bailey Primary Care Provider Meghana Helms Attending Provider Meghana Helms Referring Provider Dr. Leo Goyal MD Referring Provider Shahid Poon Attending Provider [phone] Assessment, Health Risk Referring Unavaila ble Assessment, Health Risk Attending Unavaila ble Oleghe, Efewongbe Primary Care Unavailable Shahid Poon Attending Unavailable Oleghe, Efewongbe Primary Care Unavailable Oleghe, Efewongbe Referring Unavailable Meghana Woods Attending Unavailable Oleghe, Efewongbe Primary Care Unavailable Oleghe, Efewongbe Referring Unavailable Shahid Poon Attending Unavailable Oleghe, Efewongbe Primary Care Unavailable Meghana Woods Attending Unavailable Meghana Woods Referring Unavailable Oleghe, Efewongbe Primary Care Unavailable Meghana Woods Attending Unavailable Meghana Woods Referring Unavailable Medications Current Medications Medication Drug Class(es) Dates Sig (Normalized) Sig (Original) compounded progesterone 50 mg capsule (12 sources) compounded proge sterone 50 mg capsule 50 mg twice daily. Active compounded proge sterone 50 mg capsule 50 mg twice daily. 0 Active Comment on above: 50 mg twice daily. 84 hr estradiol 0.65459 mg/hr transdermal system (18 sources) Estrogen Start: 05-06-2025 Estradiol (Karen) 0.05 [...] (4 clicks) vaginally once weekly. 30 Each 12/12/2023 12/12/2023 Discontinued Comment on above: estradiol [...] mg oral tablet (1 source) Start: End: 4 take 1 tablet by mouth four times daily penicillin v potassium (Veetid) 500 mg tablet Indications: Gingivitis Take 1 tablet (500 mg) by mouth 4 times a day for 7 days. 28 tablet 03/14/2024 03/21/2024 Active progesterone 100 mg oral capsule (4 sources) Progesterone Start: take 1 capsule by mouth once daily in the morning Progesterone Micronized 100 mg capsule Active 100 mg PO EVERY MORNING May 06, 2025 12:00am off 7 days; repeat cycle Testosterone Cypionate 100 mg/mL oil (4 sources) Start: Testosterone Cypionate 100 mg/mL oil Active mg IM May 06, 2025 12:00am TESTOSTERONE CYPIONATE INTRAMUSC. (2 sources) Start: TESTOSTERONE CYPIONATE INTRAMUSC. Inject 0.1 mL intramuscularly as directed. Every 4 days 01/01/2025 Active Tirzepatide (Mounjaro) 2.5 mg/0.5 mL pen injector (2 sources) Start: Tirzepatide (Mounjaro) 2.5 mg/0.5 mL pen [...] mg / clavulanate 125 mg oral tablet (8 sources) Penicillin-class Antibacterial Start: 10-17-2024 End: 05-06-2025 Amoxicillin-Pot Clavulanate 875-125 mg tablet Discontinued 1 {tbl} PO TWICE A DAY October 17, 2024 7:59pm May 06, 2025 9:05am azithromycin 250 mg oral tablet (8 sources) Macrolide Antimicrobial Start: 02-11-2024 End: 02-16-2024 take 2 tablets by mouth once daily, then take 1 tablet by mouth once daily at mealtime Azithromycin 250 mg tablet Discontinued 250 mg PO daily 6 5 0 February 11, 2024 12:00am February 15, 2024 12:00am February 16, 2024 12:12am 2 po qd for 1 day then 1 po qd for 4 days with food or after eating Start: 09-20-2021 End: 09-25-2021 take 2 tablets by mouth once daily, then take 1 tablet by mouth once daily at mealtime Azithromycin 250 mg tablet Discontinued 250 mg PO daily 6 5 0 September 20, 2021 1:00am September 24, 2021 [...] twice daily. cefdinir 300 mg oral capsule (8 sources) Cephalosporin Antibacterial Start: 2023 End: 2024 [...] once daily. dexamethasone 6 mg oral tablet (4 sources) Corticosteroid Start: 2020 End: 2022 take 1 tablet by mouth twice daily Dexamethasone (Decadron) 6 mg tablet Discontinued 6 mg PO TWICE A DAY 14 0 September 20, 2021 1:00am February 05, 2023 6:54pm estrogens, conjugated (senior care) 0.625 mg/ml vaginal cream (1 source) Estrogen [...] 26-Jun-2022 Active methylPREDNISolone 4 mg oral tablet (12 sources) Corticosteroid Start: 2024 End: 2024 take [...] [Anxiety state, unspecified] Onset: 10-27-2013 10-27-2013 Chronic Calculus of urinary tract (2 sources) Kidney stone; Translations: [Calculus of kidney] 05-08-2025 Episodic Chronic obstructive pulmonary disease and bronchiectasis (4 sources) Bronchitis; Translations: [Bronchitis, not specified as acute or chronic] 09-20-2021 Episodic Chronic ulcer of skin (1 source) Pressure ulcer of unspecified ankle, unspecified stage; Translations: [Controlled type 2 diabetes mellitus with pressure ulcer of ankle (HCC) ([facility])] Onset: 03-17-2024 Chronic Diabetes mellitus without complication (1 source) Type 2 diabetes mellitus without complications; Translations: [Controlled type 2 diabetes mellitus with pressure ulcer of ankle (HCC) ([facility])] Onset: 03-17-2024 Chronic Diseases of mouth; excluding dental (8 sources) Mucocele of mouth; Translations: [Other and unspecified diseases of the oral soft tissues] Episodic Disorders of lipid metabolism (1 source) Hyperlipidemia, unspecified; Translations: [Hyperlipoproteinemia ] Onset: 03-17-2024 Chronic Disorders of teeth and jaw (3 sources) Gingivitis; Translations: [Chronic gingivitis, plaque induced] Onset: 03-14-2024 03-14-2024 Chronic Genitourinary symptoms and ill-defined conditions (9 sources) Dysuria; Translations: [Dysuria] Onset: 05-08-2025 Episodic Lymphadenitis (8 sources) Lymphadenopathy; Translations: [Enlargement [...] Open wounds of head; neck; and trunk (4 sources) Laceration of eyebrow; Translations: [Laceration without foreign body of unspecified eyelid and periocular area, initial encounter] 10-08-2023 Episodic Other acquired deformities (6 sources) Lumbar spondylolisthesis; Translations: [Spondylolisthesis, lumbar region] 05-06-2025 Episodic Other acquired deformities (1 source) Spondylolisthesis, lumbar region; Translations: [Spondylolisthesis, lumbar region] Onset: 05-12-2025 Episodic Other connective tissue disease (4 sources) Lateral epicondylitis of right humerus; Translations: [Lateral epicondylitis, right elbow] 02-28-2023 Episodic Other endocrine disorders (1 source) Edgardo's syndrome, unspecified; 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 Other endocrine [...] Translations: [Cough] Episodic Other non-traumatic joint disorders (4 sources) Pain in elbow; Translations: [Pain in [...] 02-12-2024 Episodic Otitis media and related conditions (4 sources) Otitis media of left ear; Translations: [...] Spondylosis; intervertebral disc disorders; other back problems (4 sources) Displacement of cervical intervertebral disc; Translations: [Other cervical disc displacement, unspecified cervical region] 02-06-2023 Chronic Spondylosis; intervertebral disc disorders; other back problems (15 sources) Low back pain; Translations: [Lumbago] Onset: [...] Test Name Value Interpretation Reference Range Facility Urine Cultureon 05-10-2025 [facility] Culture exhibits no growth. Normal [facility] Comment on above: Performed By: #### M 100.2200 #### [facility] [address] [place], [place], [id number] Urine cultureOrdered By: Doyle See on 05-09-2025 Bacteria identified Cx Nom (U) Culture exhibits no growth. [facility] - Chemistry and C hemistry - challengeOrdered By: Shahid See on 05-08-2025 Bilirubin Ql (U) Negative [facility] Glucose Ql (U) Negative [facility] Ketones Ql (U) Negative [facility] pH (U) 6.5 [pH] [facility] Specific gravity (U) [Rel density] 1.005 [facility] Urobilinogen (U) [Mass/Vol] 0.6549647 mg/dL [facility] - Hematology and Cell countsOrdered By: Shahid See on 05-08-2025 Hemoglobin Ql (U) Negative [facility] - Specimen inform ationOrdered By: Shahid See on 05-08-2025 Clarity (U) Clear [facility] Color (U) Yellow [facility] - UrinalysisOrder ed By: Shahid See on 05-08-2025 Nitrite Ql (U) Negative [facility] Protein Ql (U) Negative [facility] No Panel InformationOrdered By: Shahid See on 05-08-2025 Urine Leukocytes Negatve [facility] Urine Non-Hemolyzed Blood [facility] Urgent Care Visit Reporton 0 05-08-2025 Urgent Care Visit Report [facility] [address], [address] [place] [address] OFFICE VISIT Date of Service: 05/08/25 MR#: [id number] Acct: [id number] Name: TORY SOLIS Rep #: [id number] : 1975 Provider: SHAWN Redman Age/Sex: 50/F Location[facility] Status: Signed Intake Vital Signs 05/06/25 09:02 05/08/25 16:59 Height 5 ft 5 in 5 ft 5 in Weight: 152 lb 8 oz 153 lb BMI 25.3 25.4 BP 136/88 H Blood Pressure Location Lt brachial Position Sitting Pulse 92 Pulse Source Monitor Temp 98.4 F Temp Source Oral Pulse Oximetry (%) 98 Oxygen Delivery Method room air Intake Visit Reasons: CONCERN FOR UTI Chief Complaint: UTI Allergies No Known Allergies Allergy (Verified 05/08/25 16:58) Medications ???Medication ???Instructions ???Recorded ???Confirmed ???Type estradiol 0.05 mg/24 hr semiweekly 1 patch topical 2XW 05/06/25 History transdermal patch (Karen) progesterone micronized 100 mg 100 mg PO QAM 05/06/25 05/08/25 Hi story capsule testosterone cypionate 100 mg/mL mg IM 05/06/25 05/08/25 History intramuscular oil tirzepatide 2.5 mg/0.5 mL 2.5 mg subcut QWEEK 05/08/2505/08 History subcutaneous pen injector (Mounjaro) Nurse's Note: Had an xray of back and said bilateral something per patient. When she taked to Dr. Hutchinson she was told it could be kidney stones. Patient stating she has been feeling bladder pressure, burning with urination, elevated heart rate per Aura Ring, light headedness, foggy thinking. Patient stated that her BUN was high and EGFR was 83 per blood work done at [facility] Medical History Herniated disc, cervical Right lateral epicondylitis Family History Father Prostate cancer Mother Suicide Grandfather Diabetes Aunt Asthma Social History Smoking Status: Never smoker alcohol intake: current alcohol intake frequency: holidays/special occasions only HPI HPI Chief Complaint: UTI Details: TORY SOLIS, is a 50 F who presents to the office today for request of testing to see if she has a UTI. Patient does state that she recently had an x-ray of her back for orthopedics which revealed extensive kidney stones. Patient states she has no dysuria, hematuria or increasing urgency/frequency. Patient does have a history of type 2 diabetes however his very well-controlled. She states being concerned as she has increased fatigue and intermittent body aches/pain. She denies nausea, vomiting or diarrhea. No pelvic or abdominal pain. No other associated symptoms or alleviating/aggravating factor. ROS Const Constitutional: No other (6 system ROS completed with pertinent findings in the HPI otherwise normal.) Exam Const General: cooperative and healthy appearing Resp Effort Inspection: normal respiratory effort Cardio Rate: regular rate General: No CVA tenderness Psych Appearance: grossly normal Mental Status: mental status grossly normal Results POC Urinalysis Dip (Clinic) Office Urine Color Yellow Last Edit by Annie Powell MA on 05/08/25 17:10 Office Urine Clarity Clear Last Edit by Annie Powell MA on 05/08/25 17:10 Office Urine Glucose Negative Last Edit by Annie Powell MA on 05/08/25 17:10 Office Urine Ketones Negative Last Edit by Annie Powell MA on 05/08/25 17:10 Off Ur Spec [place] 1.005 Last Edit by Annie Powell MA on 05/08/25 17:10 Office Urine pH 6.5 Last Edit by Annie Powell MA on 05/08/25 17:10 Office Urine Bilirubin Negative Last Edit by Annie Powell MA on 05/08/25 17:10 Office Urine Urobilinogen 0.2 mg/dL Last Edit by Annie Powell MA on 05/08/25 17:10 Office Urine Blood Negative Last Edit by Annie Powell MA on 05/08/25 17:10 Office Urine Blood Hemolyzed NA Last Edit by Annie Powell MA on 05/08/25 17:10 Office Urine Protein Negative Last Edit by Annie Powell MA on 05/08/25 17:10 Office Urine Nitrate Negative Last Edit by Annie Powell MA on 05/08/25 17:10 Off Ur Leukocytes Negatve Last Edit by Annie Powell MA on 05/08/25 17:10 Coding Level of Care Code Off vis,new,level 3 Diagnoses Nephrolithiasis N20.0 Assessment and Plan Assessment and Plan (1) Nephrolithiasis: Status: Acute Orders: Orders POC Urinalysis Dip (Clinic) Today R30.0 - Dysuria Culture, Urine Today R30.0 - Dysuria Plan UA in the office without signs of UTI and essentially normal. Patient advised that she should follow-up with her urologist at the appointment scheduled and get into her PCP for other testing. Patient verbalized understanding and agreement with all the above. 05/08/25 17 (more content not included)... Normal [facility] Orthopedic Visit Reporton Orthopedic Visit Report [facility] [address] [place] [address] OFFICE VISIT Date of Service: 05/06/25 MR#: [id number] Acct: [id number] Name: TORY SOLIS Rep #: [id number] : 1975 Provider: SHAWN Jeff Age/Sex: 50/F Location: [facility] Status: Signed Intake Vital Signs 10/17/24 18:50 [...] service provided and the decisions made by me, SHAWN Jeff 05/06/25 09. Part of today???s visit was documented by [...] anterolisthesis of L (more content not included)... Normal [facility] L/S Spine Min 4 Viewson 08- L/S Spine Min 4 Views [facility] [address] [place], [place] [address] [phone] L/S Spine Min 4 Views MR#: [id number] Acct: [id number] Name: TORY SOLIS Rep #: [id number] : 1975 F 50 From: John Saunders MD PCP: Dr. Leo Goyal MD Status: REG CLI Study: L/S Spine Min 4 Views Date of Exam: 04/30/25 Exam# [id number] Ordering Dr: Meghana Woods PROCEDURE: L/S SPINE [...] Lumbar spine scoliosis and degeneration. Reading Location: [place] [address] CC: SHAWN Jeff; Dr. Leo Goyal MD Paint Stripper: Signed Normal [facility] Comprehensive metabolic 2000 panelon 02-28-2025 Albumin [Mass/Vol] 4.3 g/dL Normal 3.9-4.9 [facility] Comment on above: Order Comment: Speci men Type: BLOOD SPECIMEN Ordering Facility: [facility] Address: [address] [place] [address] Performed By: #### 2 4323-8, 44243-5 #### [facility] CLIA [id number] [address] [place] ALP [Catalytic activity/Vol] 60 U/L Normal 34-123 [facility] Comment on above: Order Comment: Speci men Type: BLOOD SPECIMEN Ordering Facility: [facility] Address: [address] [place] [address] Performed By: #### 2 4323-8, 33744-2 #### [facility] CLIA [id number] [address] [place] ALT [Catalytic activity/Vol] 14 U/L Normal 7-38 [facility] Comment on above: Order Comment: Saadi men Type: BLOOD SPECIMEN Ordering Facility: [facility] Address: [address] [place] [address] Performed By: #### 2 4323-8, 38867-5 #### [facility] CLIA [id number] [address] [place] [address] [place] Anion gap [Moles/Vol] 8 mmol/L Normal 8-15 [facility] Comment on above: Order Comment: Speci men Type: BLOOD SPECIMEN Ordering Facility: [facility] Address: [address] [place] [address] Performed By: #### 2 4323-8, 06091-4 #### [facility] CLIA [id number] [address] [place] [address] [place] AST [Catalytic activity/Vol] 17 U/L Normal 13-35 [facility] Comment on above: Order Comment: Speci men Type: BLOOD SPECIMEN Ordering Facility: [facility] Address: [address] [place] [address] Performed By: #### 2 4323-8, 66007-9 #### [facility] CLIA [id number] [address] [place] [address] [place] Bilirubin [Mass/Vol] 0.2 mg/dL Normal 0.2-1.3 [facility] Comment on above: Order Comment: Speci men Type: BLOOD SPECIMEN Ordering Facility: [facility] Address: [address] [place] [address] Performed By: #### 2 4323-8, 44028-4 #### [facility] CLIA [id number] [address] [place] [address] [place] Calcium [Mass/Vol] 9.2 mg/dL Normal 8.5-10.2 [facility] Comment on above: Order Comment: Speci men Type: BLOOD SPECIMEN Ordering Facility: [facility] Address: [address] [place] [address] Performed By: #### 2 4323-8, 23303-8 #### [facility] CLIA [id number] [address] [place] [address] [place] Chloride [Moles/Vol] 107 mmol/L Normal 98-107 [facility] Comment on above: Order Comment: Speci men Type: BLOOD SPECIMEN Ordering Facility: [facility] Address: [address] [place] [address] Performed By: #### 2 4323-8, 21278-0 #### [facility] CLIA [id number] [address] [place] CO2 [Moles/Vol] 26 mmol/L Normal 22-30 [facility] Comment on above: Order Comment: Edmund srivastava Type: BLOOD SPECIMEN Ordering Facility: [facility] Address: [address] [place] [address] Performed By: #### 2 4323-8, 80354-1 #### [facility] CLIA [id number] [address] [place] [facility] Creatinine [Mass/Vol] 0.86 mg/dL Normal 0.58-0.96 [facility] Comment on above: Order Comment: Edmund srivastava Type: BLOOD SPECIMEN Ordering Facility: [facility] Address: [address] [place] [address] Performed By: #### 2 4323-8, 62026-2 #### [facility] CLIA [id number] [address] Creatinine and Glomerular filtration rate.predicted panel (S/P/Bld) 83 mL/min/1.73m??? Normal >=60 [facility] Comment on above: Order Comment: Edmund srivastava Type: BLOOD SPECIMEN Ordering Facility: [facility] Address: [address] [place] [address] Result Comment: Cale mated Glomerular Filtration Rate [...] actual GFR. Performed By: #### 2 4323-8, 50718-5 #### [facility] CLIA [id number] [address] [place] [facility] Glucose [Mass/Vol] 114 mg/dL High 74-99 [facility] Comment on above: Order Comment: Edmund srivastava Type: BLOOD SPECIMEN Ordering Facility: [facility] Address: [address] [place] [id number] Result Comment: The [place] Diabetes Association (ADA) provides guidance for cutoff [...] Standards of Medical Care in Diabetes 2016, [place] [employer] Association. Diabetes Care. 2016.39(Suppl 1). Performed By: #### 2 4323-8, 85393-8 #### [facility] CLIA [id number] [address] [place] [address] [place] Potassium [Moles/Vol] 4.3 mmol/L Normal 3.7-5.1 [facility] Comment on above: Order Comment: Speci men Type: BLOOD SPECIMEN Ordering Facility: [facility] Address: [address] [place] [address] Performed By: #### 2 4323-8, #### [facility] CLIA [id number] [address] [place] [address] [place] Protein [Mass/Vol] 7.3 g/dL Normal 6.3-8.0 [facility] Comment on above: Order Comment: Speci men Type: BLOOD SPECIMEN Ordering Facility: [facility] Address: [address] [place] [address] Performed By: #### 2 4323-8, #### [facility] CLIA [id number] [address] [place] [address] [place] Sodium [Moles/Vol] 141 mmol/L Normal 136-144 [facility] Comment on above: Order Comment: Speci men Type: BLOOD SPECIMEN Ordering Facility: [facility] Address: [address] [place] [id number] Performed By: #### 2 4323-8, 51525-6 #### [facility] CLIA [id number] [address] [place] [address] [place] Urea nitrogen [Mass/Vol] 24 mg/dL High 7-21 [facility] Comment on above: Order Comment: Edmund srivastava Type: BLOOD SPECIMEN Ordering Facility: [facility] Address: [address] [place] [address] Performed By: #### 2 4323-8, 06622-0 #### [facility] CLIA [id number] [address] [place] [address] [place] HbA1c (Bld)on 02-28-2025 Average glucose Estimated from glycated hemoglobin (Bld) [Mass/Vol] 105 mg/dL Normal [facility] Comment on above: Order Comment: Edmund srivastava Type: BLOOD SPECIMEN Ordering Facility: [facility] Address: [address] [place] [address] Result Comment: eAG: (Estimated average glucose) is a calculated value from HgbA1c and is inbound customer service representative of the average blood glucose level in the last 2-3 month period. Performed By: #### 5 5454-3 #### [facility] CLIA [id number] [address] [place] [address] [place] HbA1c (Bld) [Mass fraction] 5.3 % Normal 4.3-5.6 [facility] Comment on above: Order Comment: Edmund srivastava Type: BLOOD SPECIMEN Ordering Facility: [facility] Address: [address] [place] [address] Result Comment: [place] Diabetes Association guidelines indicate that patients with HgbA1c in the range 5.7-6.4% are at increased risk for development of diabetes, and intervention by lifestyle modification may be beneficial. HgbA1c greater or equal to 6.5% is considered diagnostic of diabetes. Performed By: #### 5 5454-3 #### [facility] CLIA [id number] [address] [place] [address] [place] Lipid 1996 panelon 5 Cholesterol [Mass/Vol] 130 mg/dL Normal <200 [facility] Comment on above: Order Comment: Edmund srivastava Type: BLOOD SPECIMEN Ordering Facility: [facility] Address: [address] [place] [address] Result Comment: <200 mg/dL, Desirable 200-239 mg/dL, Borderline high >239 mg/dL, High Performed By: #### 2 4323-8, 10973-9 #### [facility] CLIA [id number] [address] Cholesterol in HDL [Mass/Vol] 59 mg/dL Normal >39 [facility] Comment on above: Order Comment: Edmund srivastava Type: BLOOD SPECIMEN Ordering Facility: [facility] Address: [address] [place] [address] Result Comment: 40-5 9 mg/dL, Acceptable >59 mg/dL, High: Negative risk factor for coronary heart disease <40 mg/dL, Low: Positive risk factor for coronary heart disease Performed By: #### 2 4323-8, 83693-1 #### [facility] CLIA [id number] [address] Cholesterol in LDL [Mass/Vol] 57 mg/dL Normal <100 [facility] Comment on above: Order Comment: Edmund srivastava Type: BLOOD SPECIMEN Ordering Facility: [facility] Address: [address] [place] [address] Result Comment: <100 mg/dL, Optimal 100-129 mg/dL, Near optimal/above optimal 130-159 mg/dL, Borderline high 160-189 mg/dL, High >189 mg/dL, Very high Secondary prevention optimal LDL Cholesterol levels are recommended to be <70 mg/dL LDL cholesterol is calculated using the Avila-NIH equation. Performed By: #### 2 4323-8, 46780-1 #### [facility] CLIA [id number] [address] Cholesterol in LDL/Cholesterol in HDL [Mass ratio] 0.97 {ratio} Normal <2.54 [facility] Comment on above: Order Comment: Edmund srivastava Type: BLOOD SPECIMEN Ordering Facility: [facility] Address: [address] [place] [address] Result Comment: Refe rence: 1. National Cholesterol Education Program ATP III Guideline At-A-Glance Quick Desk Reference: National Heart, Lung, and Blood [place]. National Institutes of Health. 2001: NIH Publication No. 01-3305. 2. An International Atherosclerosis Society position paper: global recommendations for the management of dyslipidemia: executive summary, Atherosclerosis. 2014: 232(2):410-413. Performed By: #### 2 4323-8, 26540-8 #### [facility] CLIA [id number] [address] Cholesterol in VLDL [Mass/Vol] 10 mg/dL Normal <30 [facility] Comment on above: Order Comment: Saadi men Type: BLOOD SPECIMEN Ordering Facility: [facility] Address: [address] [place] [address] Performed By: #### 2 4323-8, 52003-4 #### [facility] CLIA [id number] [address] Cholesterol non HDL [Mass/Vol] 71 mg/dL Normal <130 [facility] Comment on above: Order Comment: Edmund [facility] Type: BLOOD SPECIMEN Ordering Facility: [facility] Address: [address] [place] [address] Result Comment: <130 mg/dL, Optimal 130-159 mg/dL, Near optimal/above optimal 160-189 mg/dL, Borderline high 190-219 mg/dL, High >219 mg/dL, Very high Secondary prevention optimal non HDL Cholesterol levels are recommended to be <100 mg/dL Performed By: #### 2 4323-8, 15050-4 #### [facility] CLIA [id number] [address] Cholesterol.total/Ch olesterol in HDL [Mass ratio] 2.20 {ratio} Normal <5.10 [facility] Comment on above: Order Comment: Edmund [facility] Type: BLOOD SPECIMEN Ordering Facility: [facility] Address: [address] [place] [address] Performed By: #### 2 4323-8, 04363-2 #### [facility] CLIA [id number] [address] FASTING TIME 12 hrs Normal [facility] Comment on above: Order Comment: Edmund men Type: BLOOD SPECIMEN Ordering Facility: [facility] Address: [address] [place] [address] Performed By: #### 2 4323-8, 80158-4 #### [facility] CLIA [id number] [address] [place] [address] [place] Triglyceride [Mass/Vol] 67 mg/dL Normal <150 [facility] Comment on above: Order Comment: Speci men Type: BLOOD SPECIMEN Ordering Facility: [facility] Address: [address] [place], [place] [address] Result Comment: <150 mg/dL, Normal 150-199 mg/dL, Borderline high 200-499 mg/dL, High >499 mg/dL, Very high Performed By: #### 2 4323-8, 92635-0 #### [facility] CLIA [id number] [address] [place] [address] [place] HIGH RISK HUMAN PAPILLOMA IVIS (HPV), PCR FOR DETECTION AND GENOTYPINGOrdered By: Daniela Downey on 01-13-2025 HPV 16 Ag Ql (Unsp spec) Not detected Not detected [facility] HPV 18 Ag Ql (Unsp spec) Not detected Not detected [facility] HPV 31+33+35+39+45+51+52 +56+58+59+66+68 DNA BINA+probe Ql (Cvx) Detected Abnormal Not detected [facility] Comment on above: High Risk HPV Other Type includes HPV types 31, 33, 35, 39, 45, 51, 52, 56, 58, 59, 66 and 68. Interpretation and review of laboratory results Abnormal [facility] This test was develo ped and its performance characteristics determined by [facility] [place] ([facility]). It has not been cleared or approved by the FDA. [facility] is regulated under CLIA as qualified to perform high-complexity testing. This test is used for clinical purposes. It should not be regarded as investigational or for research. [facility] No Panel InformationOrdered By: Daniela Downey on 01-13-2025 [facility] PAP TESTOrdered By: Jayne gomez on 01-13-2025 Case Report Gynecologic Cytology Report Case: [id number] Authorizing Provider: Anthony White MD Collected: 01/05/2025 03:39 PM Ordering Location: Obstetrics/Gynecology Received: 01/06/2025 07:56 AM First Screen: Cassy Lawson, CT, ASCP Rescreen: Jayne Peraza, CT, ASCP Specimen: Pap Test, ThinPrep, Cervix [facility] Clinical History Routine Exam [facility] Interpretation Negative [facility] LMP 08/29/2024 [facility] Pap Disclaimer b5xllQVbUQObe9pqNEUp bGFu ZzEwMzNcZnRuYmpcdWMxIHtc reXeKBztm3FkX1OhRiVdCAnk bnNpXGRlZmxhbmcxMDMzXGZ0 giAeXUAnHNhsEYEeRTgmVt1f oLRykItfLkEzORZoq8aduoLJ nzyhdBu0a9bgNZTqWuK7fZPi UQlkZ8flbbLftALyLIDcABm7 xZ94UOSseO4ydNIdCAdlefNr PjB6MAzjUAHsEoH8ZFSalLLu UEBtS0yuVEMaIVbvZXQlAMgp vKDrYXR5kQgta5H2rJCofPNn iBggXxXqZjOoNoVWc9FbAXc5 xMnfP0UqMSYfNrZ3rJZwYEBv LVwfOFBxQFKezgO4kE60XRoq vvS2yMGei4Agm39ag616dW0s tEWcKAB7QNClCMPebPHqMTFb FJG2EKLkoAEhA4tuRWNkKJ2c lqmyCDqgAZnaVUAnuSW9TNSc hFKrH8LkVDMgBWfvOLYlvbw8 QcKnDe4omKEjxUqmJIpnd3hm v5rjjETbWhy9MBQiKbQvMcjj VXtxl6Zsi5bwTNBenn8gELN5 pZKcvRqub6L8xATmILEhnEQm vySjXXGuGvZ6VHiwQS5ghu60 QNTpOFQ1rt8jlIYxeFrbcsUu fHTiJQyjT7JoDJDti818LIDi X3HzXSUss1L8rnHyMpYhMLCd bGQ4lfN2XTAcTXb3aXKoiyU6 cjOyyWWbH9zfqN7zACBiEV8b qmplz7reRRknCHzlJOFlaCX0 uqZ8PWIthRJdG2IdpO7hJOAo IOtvVXFnnxv4XsCyXo9yjHHy eTcyMFxzYmtwYWdlXHBnbmNv bnRccGduZGVjXHBsYWluXHBs YWluXGYwXGZzMjRccWxccGxh yY7tUsKjUpSnFejaCQ0iQQQr H4dpcOFmUUZpPXWkV6kgQjIy iZ2tgPuwVVcdkoA3AWBaMPZD MVAwI21pQUVnpKWdYCLaQ2Oe QV3qbqmywXEezYMdf9FcP0Ny upipQVbcG8PwO4DfWgRkTcKl w9EudqXtGKJnpiUlesXomOf2 kwMwF9T6kdW4uIEzKLTmjSZl O9BfWA4fbrqgtAZwmRLsEQFz eFumv8o5zW1sSJOiXCLfVOZo IGZvciByZXNjcmVlbmluZyBh iHRbYIGugE2nadEyKCXexbDk cnZhbHMsIGFuZCBjbGluaWNh tABzq0LcDMsurZoqrr1lsRrw cP8hLxZuPoUtAqorNE5lZWZd K2mlsZRgTSGcDGLdC2zjUsHg xR0nrGknIYgqqsKsTQUqlj11 [facility] PAP Azure Developer Comment u2qlwSRtNYDzq3ynBBYv bGFu ZzEwMzNcZnRuYmpcdWMxIHtc veGlJVpfj6FfL7YwDwLrYQyo bnNpXGRlZmxhbmcxMDMzXGZ0 dyKxTXKlTJafOQRgJOyhEk0q hPAvoErfQtOgNAHkn2lpecHY hscvkPg3l7rkTYZiZlJ6uTLg JYtdJ0tameYblZKvWXQfVKn2 vY16YGXjnP3bkCKrVPqvyjAb AbX5SUbqVVEwMpM0TNXojCWj COUwS2wuAWJzREejDGThKZnw cVKmLSX5mCraw5K6hGNgcOEu pFykTiMiSwRnIsFKp5GmHDp0 bMgaK2MhCJGdEsT0lCEfULWn UFsrAPFqJLGtszK8dU52WRmo fbF1sEMau6Duo55dy318yV0l hDXlQBV1DNBjKNCaqKXrYJGp KWO8MYKgoDRpU5qaISYtOI2y epguSTurBShsHSFbxBL7RKLk aQGwW8UqKNSpOEeyAEAoebr7 HnQeKa2erPUhlZxxJYrht2fo q8obaCWyTpf8LZQgDkAaJewp IYmyy4Xvr5beBYUagp0rIXS4 kOGzbUdjc0T7rJEhTMRzcFTf xtFrDYZqNsQ8GVjnTI0bmw24 NROlQMH1pl5ieBWsoKadcdTa dHLxXIdyS4TcVVDyk508IQOx E0SpEFUtq6L9fyRiErBcPSEs rQP4msL4JWYqAGg0qBOmzaC2 fsPpzZAmY8kssK3eXSKhVZ2l lpfzx2ujLLpgZFsmOXGemVN1 jcB4YUTfzYAjR1JqxT3oTFZp QGqfYFQsmvs8CuHwAx5hxPGs eTcyMFxzYmtwYWdlXHBnbmNv bnRccGduZGVjXHBsYWluXHBs YWluXGYwXGZzMjRccWxccGxh kK5mCgHnHrHhMzqtYF2zFAWy E4lhlNXmKILoSDMaL5zqNvZb qL7xwHvlCJfcglB6BFipHMax fkNmeMOeuQ9kvhCqLXUpJbPi gvGkvjWqmUtvEJGkzLZ4dBVx YWrgmwJfOXQrGH2rX5yvQkPN iJC7SX2sUMOpFYH1hE4oESTt IHVtzQNkoT2jJUAvWNLvDZAo BOlhn4ykdLJfCOT7yOdllHXm h5Mfj7ZaIRVrKCUtEUOdluY1 d6V6MCclENO9YYe3EQWhxgjn T5SncVHpp49tBLedihRjVGUy LMTxXSZrg6FeFiGxLa7mrD46 eO5tWUA0hA9zCWIaJIMfeTWu fA2cSLZqKTzsM1VfUDRsjVVh ZHMgZnJvbSBldmVyeSBzbGlk YYChlsSzqsF5vPT8TFBnTigw OPSqdLFxkDEtkA0meI5yfJG4 LlxwbGFpblxmMVxmczIyXGxh sobtERIlWBplV4dtZoWlPNGt jVmkDQmij6WmUERkDYAuEzAm cGFyfX0= [facility] b4pwrFAqVQUgl7ukEEOv bGFu ZzEwMzNcZnRuYmpcdWMxIHtc cnRmMVxhbnNpXGRlZmxhbmcx WIRkPNJ6beGlPVIuZKW5JHJ0 DeRgh5L5NMHcAgCmAYXlRV2w zJldLOFtAK7sWTNrS5vevS8h age4YwSpWLFrOgO2QFKrbpN8 Imd2CTEtLLvoy0vao5MzGXBs AEk5rYjrTpUqYCNyx1njhmUd GxSkFEYtSKZkKTUndZVnR077 u3ely1huenYztJB1GLZuYST5 EOrosrFgsxG2BVymvJYlFjN7 IDtccmVkMFxncmVlbjBcYmx1 ITFzQ636EWE4aOpgg6zbIAT8 KODtLKKuMlNlOj2sySOjN247 LJFnVCZTNKEgdJi1QPAqvmXh hoWaqTDMm306S988m7gjUTRm qnYupIfMglytt4chG359EGFz cGVydzEyMjQwXHBhcGVyaDE1 LBNtZZ5qhwygKXxxXObcSEFv tkP3EZMqxWXrD8ItENWhVQ6d upedMOU9WCtfSGCpSYS0CwOe HACkj2Mkbay6QuTrue8iyv83 FUA1j5ZjbJvzFYN9WHT3UeTb Sf3omNUdPUBpTL1gSgIegXSl ZWTjtg90zQxzYVuyhvYvjH5o KeNwSTKzhUEtMRMaXG3fqDZd DERcvA9isgaaIVZiBoHvtkxi CFRhgZyjdgUjLf7fkMucWNN4 XDtlY5tpsD1qPuA3BCsjD5hs fN4vTMo7UMbgeQO2PYIrtG4p GP6boptjq4muVWuoMFwfDQTz zsE3pkM6HLOepHOoA4JawS7a QPDhIH4qgvjvn3lmJYF6DPrf UYGhHRF2NmLkRMDcw7Pgryr2 YnAln2GasDIyTMkaT75dc301 NCEwggXyM5yjxLPfawxjyADx mqwySCfyqrY5QXHcQXCmFDvr XGYxXGZzMjJcbGFuZzEwMzNc aGljaFxmMVxkYmNoXGYxXGxv F3hoNfNpReFsJwHJHMAkdjos QOtvR40buT7zNP78GRRvfDAa bJOvzN2ttG9ooSP1VCZtyaXw cgssYlMuSGDgl5ZdBILtXDNb T4bslsXuTR7dGGHbnT9mRshq OTUwMCBFdWNsaWQgQXZlLCBD oBY7JAhakwAjG1ulAUMeWAMj JOGHXOkGZnPsHbQbMpN5ZPt0 KYYuqb87k4egmEQzSUYmaMIo OlZmHVHfATVoj6dmXKNamSMp ZzEwMzNcZnRuYmpcdWMxXGRl ItGzl5pje645iDWaa3rhZKQm DoW5eDCqJRItsVWjA301GHIq YYpzd9grk6YaOCKzxQMwy4S6 GNQHztkuvDy5sPgmE42sg4H9 NmnhU1mtMKAkJJYyC4JnYG3g XZKeDio7AYC2EHD7TIPgLFUa T6QmHP3mUIUexSUjUMv5r8hs nAvzQVLcZRV0f1meYOdtjjOl BW5slf4obFj2z1mbvwZjRKFo DSIbnLYOKYVvT9FzoWjbOx4p bWn5rNweHgzlHLB9Mav9AR3t fo83xew4qAbqNFSppjewIsF8 VQyxNDCkfvqpRGq6KBicVCHv iAW6DCZawFNmX6RmFXaiRX9b xod0WNJ5HLumRPJaZsM0NSTt wAWkHSFotXjiHVlke480SYO3 AxIlEP7hQ7Phf5Q0lW0rzAQq RMOfzWJbIaWfMTTtmn3tzHKv IZjse1LtJHZ7kfJ0eRSjeHUo RTXoVJ88Redou7XuFvrza2La Z99nnJV3FTmhi7jnZW9tCfI7 mxDlUQbmf6rsrM8nZyV5IGzs RY2oXP3sJZHapN4inbuqHHSa NrRagpnwKPFacUosxtNtPy2l qMyjHUT0LIdrC1dihL1iSgF3 GMepH1rcmX4hDFk1SZmigDA8 RVJxiZ3qBA5pzvrxb2osWJeb UVpkJFHefkA1lrVyGANsgMIq C9IegV9nEPKgHU9avovmw3ak TYH6LFblDYMtLKI0EySlAMTo q0Debex2AoEwk4NmlLOyUYqm E83sw053DECpfiLdS8srbFZq bvrzeSRoeujaJThumrM1LYWh XHBsYWluXGYxXGZzMjBcbGFu ZzEwMzNcaGljaFxmMVxkYmNo USSeHAjyC4yjQbTfZzYfYESK fKCjnr1ppWqkFLwrkOWnmQRp hZX7jP6sHNPmunJybu1pRSEx nITLeJA6DCizudBpG5yacfvr IOQ3QEDnTJQ3K3ieIJOFfyIn GRLoPWQcwFGtBGWPEPZ1JMQ2 EAYsODVMJDZoCUG9JHA0RZQo OTRccGFyXHBhclxwYXJkXHBs BNqjUAYeSILiBmTdtCtanL8p TcAkHpKaRRyaSW2uDVFdO7rb qNQnVZUxZWNiF0dqPaKoqI2v aFxmMVxjZjJcZnMyMFxsdHJj gLFWIXDyueR8z2K8GBehiQUb blxmMVxmczIwXGxhbmcxMDMz KYpmZ6vsCeLzNURykAcwCMgp v6IyWVNhXWWoKyRqYKfhNYX6 j9W3MHjtcAAlaxGZZtZLBV3d jSAzimyoZX4KPbpkiBAjpngx MVxmczIyXGxhbmcxMDMzXGhp C9nhHtQhDEZwkTdkZUuae3Df XGYxXGZzMjJccGFyfX0= [facility] Specimen Adequacy Satisfactory for interpretation. Transformation zone present [facility] CNOVon 01-05-2025 CNOV Office Visit (OBGMEM ) -------- TORY SOLIS ([id number]) 1975 F Date Time Provider Department 01/05/25 3:00 PM ANTHONY WHITE OBEM During your visit today, we recorded the following information about you: Blood pressure Weight Last Period 124/76 73.5 kg 08/29/24 Anthony White MD 01/27/2025 1:11 PM Signed Tory Solis is a 49 year old who presents for her annual gynecologic exam. Weed Eradicator concerns Perimenopausal status. Abnormal mammography 12/22/2024 IMPRESSION: [...] external genitalia normal, normal Bartholin's glands, urethra, Donnybrook's glands, no vulvar lesions, no cervical lesions, [...] Anthony Spangler (more content not included)... Normal [facility] HIGH RISK HUMAN PAPILLOMA IVIS (HPV), PCR FOR DETECTION AND GENOTYPINGon 01-05-2025 HPV 16 Ag Ql (Unsp spec) Not detected Normal Not detected [facility] Comment on above: Order Comment: Speci men Type: FLUID SPECIMEN Ordering Facility: [facility] Address: [address] [place] [address] Performed By: #### H PVHRT #### [facility] CLIA [id number] [address] [place] [address] [place] HPV 18 Ag Ql (Unsp spec) Not detected Normal Not detected [facility] Comment on above: Order Comment: Speci men Type: FLUID SPECIMEN Ordering Facility: [facility] Address: [address] [place] [address] Performed By: #### H PVHRT #### [facility] CLIA [id number] [address] [place] [address] [place] HPV 31+33+35+39+45+51+52 +56+58+59+66+68 DNA BINA+probe Ql (Cvx) Detected Abnormal Not detected [facility] Comment on above: Order Comment: Speci men Type: FLUID SPECIMEN Ordering Facility: [facility] Address: [address] [place] [address] Result Comment: High Risk HPV Other Type includes HPV types 31, 33, 35, 39, 45, 51, 52, 56, 58, 59, 66 and 68. Performed By: #### H PVHRT #### [facility] CLIA [id number] [address] [place] [address] [place] PAP TESTon 01-05-[address] [facility] Comment on above: Order Comment: Speci men Type: FLUID SPECIMEN Ordering Facility: [facility] Address: [address] [place] [address] Result Comment: Sati sfactory for interpretation. Transformation zone present Performed By: #### L [id number] #### [facility] CLIA [id number] [address] [place] [address] [place] CASE REPORT Normal [facility] Comment on above: Order Comment: Speci men Type: FLUID SPECIMEN Ordering Facility: [facility] Address: [address] [place] [address] Result Comment: Gyne cologic Cytology Report Case: [id number] Authorizing Provider: Anthony White MD Collected: 01/05/2025 03:39 PM Ordering Location: Obstetrics/Gynecology Received: 01/06/2025 07:56 AM First Screen: Cassy Lawson, CT, ASCP Rescreen: Jayne Peraza, CT, ASCP Specimen: Pap Test, ThinPrep, Cervix Performed By: #### L [id number] #### [facility] CLIA [id number] [address] [place] [address] [place] CLINICAL HISTORY, CYTOLOGY, SENSOR TECHNICIAN Routine Exam Normal [facility] Comment on above: Order Comment: Speci men Type: FLUID SPECIMEN Ordering Facility: [facility] Address: [address] [place] [address] Performed By: #### L [id number] #### [facility] CLIA [id number] [address] [place], [place] [address] [place] FINAL PERFORMING LAB Normal [facility] Comment on above: Order Comment: Speci men Type: FLUID SPECIMEN Ordering Facility: [facility] Address: [address] [place], [place] [address] Result Comment: Tech nical component, aircraft manager screening performed at [facility], [address] [place] [address] [place] [address] CLIA# [id number] Diagnostic interpretation performed at [facility], [address] [place] [address] [place] [address] CLIA# [id number] Tax Appraiser: Fritz Wilcox M.D. Performed By: #### L [id number] #### [facility] CLIA [id number] [address] [place], [place] [address] [place] INTERPRETATION, CYTOLOGY, SENSOR TECHNICIAN Normal [facility] Comment on above: Order Comment: Speci men Type: FLUID SPECIMEN Ordering Facility: [facility] Address: [address] [place], [place] [address] Result Comment: Nega tive for intraepithelial lesion or malignancy. at 1405 EDT Performed By: #### L [id number] #### [facility] CLIA [id number] [address] [place], [place] [address] [place] LMP 08/29/[address] [facility] Comment on above: Order Comment: Speci men Type: FLUID SPECIMEN Ordering Facility: [facility] Address: [address] [place], [place] [address] Performed By: #### L [id number] #### [facility] CLIA [id number] [address] [place], [place] [address] [place] PAP DISCLAIMER COMMENT The Pap Smear is a screening test for cervical cancer. False negative results occur with all screening tests, emphasizing the need for rescreening at recommended intervals, and clinical correlation. Normal [facility] Comment on above: Order Comment: Speci men Type: FLUID SPECIMEN Ordering Facility: [facility] Address: [address] [place] [address] Performed By: #### L [id number] #### [facility] CLIA [id number] [address] [place] [address] [place] PAP REELING MACHINE SETUP OPERATOR COMMENT This specimen has be en analyzed by the ThinPrep Imaging System, an automated imaging and review system, which assists the laboratory in evaluating cells on ThinPrep Pap tests. Following automated imaging, selected ferraro from every slide are reviewed by a aircraft manager. Normal [facility] Comment on above: Order Comment: Speci men Type: FLUID SPECIMEN Ordering Facility: [facility] Address: [address] [place] [address] Performed By: #### L [id number] #### [facility] CLIA [id number] [address] [place] [address] [place] RAJ DIAG W [place] LTon 025 RAJ DIAG W [place] LT * * *Final Report* * * DATE OF EXAM: Jan 02 2025 8:27AM AAW [id number] - RAJ DIAG W [place] LT / PROCEDURE REASON: Abnormal mammogram * * * * Physician Interpretation * * * * [facility] [address] [facility]. [place] [id number] #[id number] - RAJ DIAG W [place] LT HISTORY: [...] Lexi Romero M.D. Electronically signed on: 01/02/2025 Paint Stripper: WILMAN Transcribe Date/Time: Jan 02 2025 8:15A Dictated by : LEXI ROMERO MD This examination was interpreted and the report reviewed and electronically signed by: YADIRA PRECIADO MD on Jan 02 2025 9:19AM EST [id number] 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 Please advise and call patient. Thank you Jennifer Valdez RN 12/23/2024 9:05 AM Signed Orders placed. Patient notified via [employer].Jennifer Valdez RN Allergies As of Date: 12/23/2024 (No Known Allergies) Date Reviewed: 11/27/2023 Reviewed by: Griselda Gillespie MA - Fully Assessed Primary Visit Diagnosis:Abnormal mammogram [R92.8] Order(s):[facility] DIAGNOSTIC LEFT [[id number]] Order #: [id number] FUTURE BREAST LTD LEFT [[id number]] Order #: [id number] FUTURE Prescriptions as of 12/23/2024 - estriol [...] cycles [N92.6] 10/27/2013 Anxiety [F41.9] 10/27/2013 Anorgasmia [AUA8262] 10/27/2013 ASCUS with positive high risk HPV cervical [R87*12/18/2016 Encounter Status:Closed by JENNIFER VALDEZ on 12/23/[address] [facility] DBT Breast - bilateral scree ap 12-22-2024 IMPRESSION: The asymmetry in the lateral [...] Verna Peralta M.D. Electronically signed on: 12/22/2024 Paint Stripper: WILMAN Transcribe Date/Time: Dec 22 2024 7:50A Dictated by: VERNA PERALTA MD This examination was interpreted and the report reviewed and electronically signed by: VERNA PERALTA MD on Dec 22 2024 8:42AM [facility] DIVISION OF RADIOLOGY * * *Final Report* * * DATE OF EXAM: Dec 22 2024 8:12AM [facility] 0582 - [facility] SCREENING W D[place] / PROCEDURE REASON: Encounter for screening mammogram for malignant neoplasm of breast * * * * Physician Interpretation * * * * RESULT: [address] [address] #[id number] - [facility] SCREENING W DALTON HISTORY: 49 year-old patient [...] the right breast. DIVISION OF RADIOLOGY Provider, [facility] - 12/22/2024 * * *Final Report* * * DATE OF EXAM: Dec 22 2024 8:12AM [facility] 0582 - [facility] SCREENING W DAL[place] / PROCEDURE REASON: Encounter for screening mammogram for malignant neoplasm of breast * * * * Physician Interpretation * * * * RESULT: [facility] [address] [place] [address] #[id number] - [facility] SCREENING W DALTON HISTORY: 49 year-old patient [...] Verna Peralta M.D. Electronically signed on: 12/22/2024 Paint Stripper: WILMAN Transcribe Date/Time: Dec 22 2024 7:50A Dictated by: VERNA PERALTA MD This examination was interpreted and the report reviewed and electronically signed by: VERNA PERALTA MD on Dec 22 2024 8:42AM EST [facility] Radiology Study observation (narrative) [facility] DBT Breast - bilateral scree ningOrdered By: [facility] Provider on 12-22-2024 [facility] SCREENING W TOMOon 12-22 [facility] SCREENING W DALTON * * *Final Report* * * DATE OF EXAM: Dec 22 2024 8:12AM [facility] 0582 - [facility] SCREENING W D[place] / PROCEDURE REASON: Encounter for screening mammogram for malignant neoplasm of breast * * * * Physician Interpretation * * * * RESULT: [facility] [address] [place] [address] #[id number] - [facility] SCREENING W DALTON HISTORY: 49 [...] Verna Peralta M.D. Electronically signed on: 12/22/2024 Paint Stripper: WILMAN Transcribe Date/Time: Dec 22 2024 7:50A Dictated by: VERNA PERALTA MD This examination was interpreted and the report reviewed and electronically signed by: VERNA PREALTA MD on Dec 22 2024 8:42AM EST [id number] [facility] CNPNon 11-27-2024 CNPN Telephone ([facility] -------- TORY SOLIS ([id number]) 1975 F Date Time Provider Department 11/27/24 [facility] During your visit today, we recorded the following information about you: Zenaida Ji 11/27/2024 8:59 AM Signed Patient is requesting a mammogram. Allergies As of Date: 11/27/2024 (No Known Allergies) Date Reviewed: 11/27/2023 Reviewed by: Griselda Gillespie MA - Fully Assessed Reason for Visit: Orders [681] Primary Visit Diagnosis:Encounter for screening mammogram for malignant neoplasm of breast [Z12.31] Order(s):[facility] SCREENING W DALTON [[id number]] Order #: [id number] FUTURE Prescriptions as of 11/27/2024 - estriol [...] cycles [N92.6] 10/27/2013 Anxiety [F41.9] 10/27/2013 Anorgasmia [[id number]] 10/27/2013 ASCUS with positive high risk HPV cervical [R87*12/18/2016 Encounter Status:Closed by JENNIFER VALDEZ on 11/27/[address] [facility] TORY SOLIS ([id number]) 1975 F Date Time Provider Department 11/26/24 [...] cycles [N92.6] 10/27/2013 Anxiety [F41.9] 10/27/2013 Anorgasmia [TIZ5363] 10/27/2013 ASCUS with positive high risk HPV cervical [R87*12/18/2016 Encounter Status:Closed by ZENAIDA JI on 11/28/[address] [facility] Mumps Antibody,IgGon 025 MUMPS Ab, IgG 13.9 AU/mL Normal Immune >10.9 [facility] Comment on above: Result Comment: Nega tive <9.0 Equivocal 9.0 - 10.9 Positive >10.9 A positive result generally indicates past exposure to Mumps virus or previous vaccination. Performed By: #### L 3400.1750, L509.4015, L3100.3400, L3100.0539 #### [facility] [address] [place] [place], [address] [facility] Rubeola Titeron 10-25 RUBEOLA Ab, IgG < 13.5 Low Immune >16.4 [facility] Comment on above: Result Comment: Nega tive <13.5 Equivocal 13.5 - 16.4 Positive >16.4 Presence of antibodies to Rubeola is presumptive evidence of immunity except when acute infection is suspected. Performed at: [address] [id number] Ship/Rec/Doc Control: Vazquez Oliver PhD, Phone: [phone] Performed By: #### L 3400.1750, L509.4015, L3100.3400, L3100.0539 #### [facility] [address] [place], [address] Hepatitis B Surf AB - EMPon 11-11-2024 HEP B Surf Ab Non-Reactive Normal [facility] Comment on above: Result Comment: Non Reactive: Inconsistent with immunity less than <10 mIU/mL Reactive: Consistent with immunity greater than or equal to 10 mIU/mL Performed By: #### L 3400.1750, L509.4015, L3100.3400, L3100.0539 #### [facility] [address] [place], [address] Rubella IgG [facility] 11-11-2024 Rubella IgG Reactive Normal Nonreactive [facility] Comment on above: Result Comment: Anti body Results Interpretation of Immune Status Non Reactive Presumed Non-Immune Equivocal Equivocal Reactive Presumed Immune Performed By: #### L 3400.1750, L509.4015, L3100.3400, L3100.0539 #### [facility] [address] [place], [address] CBC W Auto Differential pane l (Bld)on 05-12-2024 Basophils (Bld) [#/Vol] 0.03 10*3/uL Normal <0.11 [facility] Comment on above: Order Comment: Edmund srivastava Type: BLOOD SPECIMEN [facility] Address: [address] [place] [address] Performed By: #### 5 0190-8, 2276-4, 32353-2, 3016-3 #### [facility] CLIA [id number] [address] [place] [address] [place] Basophils/100 WBC (Bld) 0.5 % Normal [facility] Comment on above: Order Comment: Edmund srivastava Type: BLOOD SPECIMEN [facility] Address: [address] [place] [address] Performed By: #### 5 0190-8, 2276-4, 00896-0, 3016-3 #### [facility] CLIA [id number] [address] [place] [address] [place] Differential cell count method Nom (Bld) Auto Normal [facility] Comment on above: Order Comment: Edmund srivastava Type: BLOOD SPECIMEN Ordering Facility: [facility] ([facility]) Address: [address] [place] [address] Performed By: #### 5 0190-8, 2276-4, 24195-5, 3016-3 #### [facility] CLIA [id number] [address] [place] [id number] [place] Eosinophils (Bld) [#/Vol] 0.08 10*3/uL Normal <0.46 [facility] Comment on above: Order Comment: Edmund srivastava Type: BLOOD SPECIMEN Ordering Facility: [facility] ([facility]) Address: [address] [place] [address] Performed By: #### 5 0190-8, 2276-4, 49542-6, 3016-3 #### [facility] CLIA [id number] [address] [place] Eosinophils/100 WBC (Bld) 1.3 % Normal [facility] Comment on above: Order Comment: Edmund srivastava Type: BLOOD SPECIMEN [facility] Address: [address] [place] [address] Performed By: #### 5 0190-8, 2276-4, 21664-6, 3016-3 #### [facility] CLIA [id number] [address] [place] [address] Erythrocyte distribution width (RBC) [Ratio] 12.9 % Normal 11.5-15.0 [facility] Comment on above: Order Comment: Edmund srivastava Type: BLOOD SPECIMEN [facility] Address: [address] [place] [address] Performed By: #### 5 0190-8, 2276-4, 98502-9, 3016-3 #### [facility] CLIA [id number] [address] [place] Hematocrit (Bld) [Volume fraction] 43.3 % Normal 36.0-46.0 [facility] Comment on above: Order Comment: Edmund srivastava Type: BLOOD SPECIMEN [facility] Address: [address] [place] [address] Performed By: #### 5 0190-8, 2276-4, 49877-3, 3016-3 #### [facility] CLIA [id number] [address] [place] Hemoglobin (Bld) [Mass/Vol] 14.0 g/dL Normal 11.5-15.5 [facility] Comment on above: Order Comment: Speci men Type: BLOOD SPECIMEN Ordering Facility: [facility] ([facility]) Address: [address] [place] [address] Performed By: #### 5 0190-8, 2276-4, 65103-5, 3016-3 #### [facility] CLIA [id number] [address] [place] [address] [place] Immature granulocytes (Bld) [#/Vol] 10*3/uL Normal <0.10 [facility] Comment on above: Order Comment: Speci men Type: BLOOD SPECIMEN Ordering Facility: [facility] ([facility]) Address: [address] [place] [address] Performed By: #### 5 0190-8, 2276-4, 61691-9, 3016-3 #### [facility] CLIA [id number] [address] [place] [address] [place] Immature granulocytes/100 WBC (Bld) 0.3 % Normal [facility] Comment on above: Order Comment: Speci men Type: BLOOD SPECIMEN Ordering Facility: [facility] ([facility]) Address: [address] [place] [address] Performed By: #### 5 0190-8, 2276-4, 51129-7, 3016-3 #### [facility] CLIA [id number] [address] [place] [address] [place] Lymphocytes (Bld) [#/Vol] 2.30 10*3/uL Normal 1.00-4.00 [facility] Comment on above: Order Comment: Speci men Type: BLOOD SPECIMEN Ordering Facility: [facility] ([facility]) Address: [address] [place] [address] Performed By: #### 5 0190-8, 2276-4, 11335-7, 3016-3 #### [facility] CLIA [id number] [address] [place] Lymphocytes/100 WBC (Bld) 38.0 % Normal [facility] Comment on above: Order Comment: Speci men Type: BLOOD SPECIMEN Ordering Facility: [facility] ([facility]) Address: [address] [place] [address] Performed By: #### 5 0190-8, 2276-4, 16832-8, 3016-3 #### [facility] CLIA [id number] [address] MCH (RBC) [Entitic mass] 30.3 pg Normal 26.0-34.0 [facility] Comment on above: Order Comment: Speci men Type: BLOOD SPECIMEN Ordering Facility: [facility] ([facility]) Address: [address] [place], [place] [address] Performed By: #### 5 0190-8, 2276-4, 76195-6, 3016-3 #### [facility] CLIA [id number] [address] MCHC (RBC) [Mass/Vol] 32.3 g/dL Normal 30.5-36.0 [facility] Comment on above: Order Comment: Speci men Type: BLOOD SPECIMEN Ordering Facility: [facility] ([facility]) Address: [address] [place], [place] [address] Performed By: #### 5 0190-8, 2276-4, 54918-9, 6-3 #### [facility] CLIA [id number] [address] [place] MCV (RBC) [Entitic vol] 93.7 fL Normal 80.0-100.0 [facility] Comment on above: Order Comment: Speci [facility] Type: BLOOD SPECIMEN Ordering Facility: [facility] ([facility]) Address: [address] [place], [place] [address] Performed By: #### 5 0190-8, 2276-4, 96404-0, 3016-3 #### [facility] CLIA [id number] [address] Monocytes (Bld) [#/Vol] 0.52 10*3/uL Normal <0.87 [facility] Comment on above: Order Comment: Speci men Type: BLOOD SPECIMEN Ordering Facility: [facility] ([facility]) Address: [address] [place] [address] Performed By: #### 5 0190-8, 2276-4, 91253-7, 3016-3 #### [facility] CLIA [id number] [address] [place] [address] [place] Monocytes/100 WBC (Bld) 8.6 % Normal [facility] Comment on above: Order Comment: Speci men Type: BLOOD SPECIMEN Ordering Facility: [facility] ([facility]) Address: [address] [place], [place] [address] Performed By: #### 5 0190-8, 2276-4, 09456-0, 3016-3 #### [facility] CLIA [id number] [address] [place] [address] [place] Neutrophils (Bld) [#/Vol] 3.11 10*3/uL Normal 1.45-7.50 [facility] Comment on above: Order Comment: Speci men Type: BLOOD SPECIMEN [facility]ing [facility] Address: [address] [place], [place] [address] Performed By: #### 5 0190-8, 2276-4, 36227-5, 3016-3 #### [facility] CLIA [id number] [address] [place] [address] [place] Neutrophils/100 WBC (Bld) 51.3 % Normal [facility] Comment on above: Order Comment: Speci men Type: BLOOD SPECIMEN Ordering Facility: [facility] ([facility]) Address: [address] [place] [address] Performed By: #### 5 0190-8, 2276-4, 66485-2, 3016-3 #### [facility] CLIA [id number] [address] [place] [address] [place] Nucleated RBC (Bld) [#/Vol] 10*3/uL Normal <0.01 [facility] Comment on above: Order Comment: Speci men Type: BLOOD SPECIMEN Ordering Facility: [facility] Address: [address] [place], [place] [address] Performed By: #### 5 0190-8, 2276-4, 45189-1, 3016-3 #### [facility] CLIA [id number] [address] [place] [address] [place] Nucleated RBC/100 WBC (Bld) [Ratio] 0.0 /100 WBC Normal [facility] Comment on above: Order Comment: Speci men Type: BLOOD SPECIMEN [facility]ing [facility]: [facility] Address: [address] [place], [place] [address] Performed By: #### 5 0190-8, 2276-4, 34822-3, 3016-3 #### [facility] CLIA [id number] [address] [place] [address] [place] Platelet mean volume (Bld) [Entitic vol] 9.9 fL Normal 9.0-12.7 [facility] Comment on above: Order Comment: Speci men Type: BLOOD SPECIMEN Ordering Facility: [facility] Address: [address] [place], [place] [address] Performed By: #### 5 0190-8, 2276-4, 75073-1, 3016-3 #### [facility] CLIA [id number] [address] [place] [address] [place] Platelets (Bld) [#/Vol] 234 10*3/uL Normal 150-400 [facility] Comment on above: Order Comment: Speci men Type: BLOOD SPECIMEN [facility]ing [facility] Address: [address] [place] [address] Performed By: #### 5 0190-8, 2276-4, 55929-2, 3016-3 #### [facility] CLIA [id number] [address] [place] [address] [place] RBC (Bld) [#/Vol] 4.62 10*6/uL Normal 3.90-5.20 [facility] Comment on above: Order Comment: Speci men Type: BLOOD SPECIMEN Ordering Facility: [facility] ([facility] Address: [address] [place], [place] [address] Performed By: #### 5 0190-8, 2276-4, 39053-3, 3016-3 #### [facility] CLIA [id number] [address] [place] [address] [place] WBC (Bld) [#/Vol] 6.06 10*3/uL Normal 3.70-11.00 [facility] Comment on above: Order Comment: Edmund srivastava Type: BLOOD SPECIMEN Ordering Facility: [facility] ([facility]) Address: [address] [place] [address] Performed By: #### 5 0190-8, 2276-4, 13902-7, 3016-3 #### [facility] CLIA [id number] [address] [place] Cortis SerPl-mCncon 04-17-20 24 Cortisol [Mass/Vol] 0.8 ug/dL Low 4.8-19.5 [facility] Comment on above: Order Comment: Edmund srivastava Type: BLOOD SPECIMEN Ordering Facility: [facility] ([facility]) Address: [address] [place] [address] Result Comment: Prov ided reference range is from 6-10 AM sample collection time. Cortisol Reference Range: 6-10 AM = 4.8-19.5 ug/dL, 4-8 PM = 2.5-11.9 ug/dL Performed By: #### 2 143-6 #### [facility] CLIA [id number] [address] [place] [address] [place] DEXAMETHASONEon 04-17-2024 DEXAMETHASONE 186.9 ng/dL Normal [facility] Comment on above: Order Comment: Edmund srivastava Type: BLOOD SPECIMEN Ordering Facility: [facility] ([facility]) Address: [address] [place] [address] Result Comment: INTE RPRETIVE INFORMATION: Dexamethasone, Serum [...] developed and its performance characteristics determined by [employer]. It has not been cleared or approved by the [place] Food and Drug Administration. This test was performed in a CLIA certified laboratory and is intended for clinical purposes. Performed By: [facility] [address] [place] [address] Tax Appraiser: Kenneth Noyola MD, PhD CLIA Number: [id number] Performed By: #### D DONTE #### [facility] CLIA [id number] [address] [place] [address] Home sleep apnea test (HSAT) on 04-01-2024 [facility] Work Phone: 25(OH)D3 [facility] 2023 25-hydroxyvitamin D3 [Mass/Vol] 48.6 ng/mL Normal 31.0-80.0 [facility] Comment on above: Order Comment: Edmund srivastava Type: BLOOD SPECIMEN Ordering Facility: [facility] ([facility] Address: [address] [place] [address] Performed By: #### 1 989-3 #### [facility] CLIA [id number] [address] [place] [address] [place] Comprehensive metabolic 2000 panelon 03-17-2024 Albumin [Mass/Vol] 4.0 g/dL Normal 3.9-4.9 [facility] Comment on above: Order Comment: Edmund srivastava Type: BLOOD SPECIMEN Ordering Facility: [facility] ([facility]) Address: [address] [place] [address] Performed By: #### 5 0190-8, 2276-4, 57825-0, 3016-3 #### [facility] CLIA [id number] [address] [place] [address] [place] ALP [Catalytic activity/Vol] 70 U/L Normal 34-123 [facility] Comment on above: Order Comment: Edmund srivastava Type: BLOOD SPECIMEN Ordering Facility: [facility] ([facility] Address: [address] [place] [address] Performed By: #### 5 0190-8, 2276-4, 72641-2, 3016-3 #### [facility] CLIA [id number] [address] ALT [Catalytic activity/Vol] 15 U/L Normal 7-38 [facility] Comment on above: Order Comment: Speci men Type: BLOOD SPECIMEN Ordering Facility: [facility] ([facility] Address: [address] [place] [address] Performed By: #### 5 0190-8, 2276-4, 39641-8, 3016-3 #### [facility] CLIA [id number] [address] [place] Anion gap [Moles/Vol] 11 mmol/L Normal 8-15 [facility] Comment on above: Order Comment: Speci men Type: BLOOD SPECIMEN Ordering Facility: [facility] ([facility] Address: [address] [place] [address] Performed By: #### 5 0190-8, 2276-4, 00758-6, 3016-3 #### [facility] CLIA [id number] [address] AST [Catalytic activity/Vol] 18 U/L Normal 13-35 [facility] Comment on above: Order Comment: Speci men Type: BLOOD SPECIMEN Ordering Facility: [facility] ([facility] Address: [address] [place] [address] Performed By: #### 5 0190-8, 2276-4, 68889-0, 3016-3 #### [facility] CLIA [id number] [address] [place] [facility] Bilirubin [Mass/Vol] 0.6 mg/dL Normal 0.2-1.3 [facility] Comment on above: Order Comment: Speci men Type: BLOOD SPECIMEN Ordering Facility: [facility] ([facility] Address: [address] [place] [address] Performed By: #### 5 0190-8, 2276-4, 29089-7, 3016-3 #### [facility] CLIA [id number] [address] [place] [address] [place] Calcium [Mass/Vol] 8.9 mg/dL Normal 8.5-10.2 [facility] Comment on above: Order Comment: Edmund srivastava Type: BLOOD SPECIMEN Ordering Facility: [facility] ([facility] Address: [address] [place] [address] Performed By: #### 5 0190-8, 2276-4, 90303-2, 3016-3 #### [facility] CLIA [id number] [address] [place] [address] [place] Chloride [Moles/Vol] 104 mmol/L Normal 98-107 [facility] Comment on above: Order Comment: Edmund srivastava Type: BLOOD SPECIMEN Ordering Facility: [facility] ([facility] Address: [address] [place] [address] Performed By: #### 5 0190-8, 6-4, 15670-4, 6-3 #### [facility] CLIA [id number] [address] [place] [address] [place] CO2 [Moles/Vol] 23 mmol/L Normal 22-30 [facility] Comment on above: Order Comment: Edmund srivastava Type: BLOOD SPECIMEN Ordering Facility: [facility] ([facility] Address: [address] [place] [address] Performed By: #### 5 0190-8, 6-4, 32380-2, 3016-3 #### [facility] CLIA [id number] [address] [place] [address] [place] Creatinine [Mass/Vol] 0.79 mg/dL Normal 0.58-0.96 [facility] Comment on above: Order Comment: Edmund srivastava Type: BLOOD SPECIMEN Ordering Facility: [facility] ([facility] Address: [address] [place] [address] Performed By: #### 5 0190-8, 2276-4, 56368-7, 3016-3 #### [facility] CLIA [id number] [address] [place] [address] [place] Creatinine and Glomerular filtration rate.predicted panel (S/P/Bld) 93 mL/min/1.73m??? Normal >=60 [facility] Comment on above: Order Comment: Edmund srivastava Type: BLOOD SPECIMEN Ordering Facility: [facility] ([facility] Address: [address] [place] [address] Result Comment: Cale mated Glomerular Filtration Rate [...] GFR. Performed By: #### 5 0190-8, 2276-4, 31944-2, 3016-3 #### [facility] CLIA [id number] [address] [place] [address] [place] Glucose [Mass/Vol] 116 mg/dL High 74-99 [facility] Comment on above: Order Comment: Edmund srivastava Type: BLOOD SPECIMEN Ordering Facility: [facility] ([facility] Address: [address] [place] [address] Result Comment: The [place] Diabetes Association (ADA) provides guidance for cutoff [...] Standards of Medical Care in Diabetes 2016, [place] Diabetes Association. Diabetes Care. 2016.39(Suppl 1). Performed By: #### 5 0190-8, 2276-4, 21689-3, 3016-3 #### [facility] CLIA [id number] [address] [place] [address] [place] Potassium [Moles/Vol] 4.1 mmol/L Normal 3.7-5.1 [facility] Comment on above: Order Comment: Speci men Type: BLOOD SPECIMEN Ordering Facility: [facility] ([facility] Address: [address] [place], [place] [address] Performed By: #### 5 0190-8, 2276-4, 54055-1, 3016-3 #### [facility] CLIA [id number] [address] [place] [address] [place] Protein [Mass/Vol] 6.8 g/dL Normal 6.3-8.0 [facility] Comment on above: Order Comment: Speci men Type: BLOOD SPECIMEN Ordering Facility: [facility] ([facility] Address: [address] [place], [place] [address] Performed By: #### 5 0190-8, 2276-4, 21723-2, 3016-3 #### [facility] CLIA [id number] [address] [place] [address] [place] Sodium [Moles/Vol] 138 mmol/L Normal 136-144 [facility] Comment on above: Order Comment: Speci men Type: BLOOD SPECIMEN Ordering Facility: [facility] ([facility]) Address: [address] [place] [address] Performed By: #### 5 0190-8, 2276-4, 36998-5, 3016-3 #### [facility] CLIA [id number] [address] [place] [address] [place] Urea nitrogen [Mass/Vol] 14 mg/dL Normal 7-21 [facility] Comment on above: Order Comment: Speci men Type: BLOOD SPECIMEN Ordering Facility: [facility] ([facility] Address: [address] [place] [address] Performed By: #### 5 0190-8, 2276-4, 35436-7, 3016-3 #### [facility] CLIA [id number] [address] [place] [address] [place] DHEA-S BLDon 03-17-2024 DHEA-S [Mass/Vol] 291.4 ug/dL High 35.4-256.0 [facility] Comment on above: Order Comment: Saadi men Type: BLOOD SPECIMEN Ordering Facility: [facility] ([facility] Address: [address] [place] [address] Result Comment: Refe rence ranges are age and gender specific. For additional information, reference range tables can be found in the laboratory test directory. The normal values are based on the following source: Dehydroepiandrosterone sulfate (DHEA S) [package insert V 17.0 Khmer]. [facility], [place], [place]: April 2013. Performed By: #### 5 0190-8, 2276-4, 04099-0, 3016-3 #### [facility] CLIA [id number] [address] Ferritin SerPl-mCncon 2023 Ferritin [Mass/Vol] 73.5 ng/mL Normal 14.7-205.1 [facility] Comment on above: Order Comment: Edmund men Type: BLOOD SPECIMEN Ordering Facility: [facility] ([facility]) Address: [address] [place] [address] Performed By: #### 5 0190-8, 2276-4, 53413-5, 3016-3 #### [facility] CLIA [id number] [address] [place] Fructosamine SerPl-sCncon Fructosamine [Moles/Vol] 233 umol/L Normal 205-285 [facility] Comment on above: Order Comment: Saadi men Type: BLOOD SPECIMEN [facility]ing Facility: [facility] Address: [address] [place] [address] Performed By: #### 5 0190-8, 2276-4, 57709-5, 3016-3 #### [facility] CLIA [id number] [address] STATES OF [facility] HbA1c (Bld)on 03-17-2024 Average glucose Estimated from glycated hemoglobin (Bld) [Mass/Vol] 105 mg/dL Normal [facility] Comment on above: Order Comment: Saadi men Type: BLOOD SPECIMEN Ordering Facility: [facility] ([facility] Address: [address] [place] [address] Result Comment: eAG: (Estimated average glucose) is a calculated value from HgbA1c and is inbound customer service representative of the average blood glucose level in the last 2-3 month period. Performed By: #### 5 0190-8, 2276-4, 25151-0, 3016-3 #### [facility] CLIA [id number] [address] HbA1c (Bld) [Mass fraction] 5.3 % Normal 4.3-5.6 [facility] Comment on above: Order Comment: Edmund srivastava Type: BLOOD SPECIMEN Ordering Facility: [facility] ([facility]) Address: [address] [place] [address] Result Comment: [place] Diabetes Association guidelines indicate that patients with HgbA1c in the range 5.7-6.4% are at increased risk for development of diabetes, and intervention by lifestyle modification may be beneficial. HgbA1c greater or equal to 6.5% is considered diagnostic of diabetes. Performed By: #### 5 0190-8, 6-4, 64636-4, 3016-3 #### [facility] CLIA [id number] [address] [place] Iron and Iron binding capaci ty panelon 03-17-2024 Iron [Mass/Vol] 133 ug/dL Normal 41-186 [facility] Comment on above: Order Comment: Edmund srivastava Type: BLOOD SPECIMEN [facility]ing Facility: [facility] ([facility] Address: [address] [place] [address] Performed By: #### 5 0190-8, 2276-4, 56575-6, 3016-3 #### [facility] CLIA [id number] [address] Iron binding capacity [Mass/Vol] 285 ug/dL Normal 232-386 [facility] Comment on above: Order Comment: Edmund srivastava Type: BLOOD SPECIMEN Ordering Facility: [facility] ([facility] Address: [address] [place] [address] Performed By: #### 5 0190-8, 6-4, 94375-6, 3016-3 #### [facility] CLIA [id number] [address] [place] [address] [place] JOE Iron/TIBC [Molar ratio] 46.7 % Normal 15.0-57.0 [facility] Comment on above: Order Comment: Speci men Type: BLOOD SPECIMEN [facility]ing Facility: [facility] ([id number]) Address: [address] [place] [address] Performed By: #### 5 0190-8, 2276-4, 83565-1, 3016-3 #### [facility] CLIA [id number] [address] [place] [address] [place] T3Free SerPl-mCncon 03-17-20 24 Free T3 [Mass/Vol] 3.1 pg/mL Normal 2.3-4.1 [facility] Comment on above: Order Comment: Saadi men Type: BLOOD SPECIMEN [facility] Address: [address] [place] [address] Performed By: #### 5 0190-8, 2276-4, 77427-6, 3016-3 #### [facility] CLIA [id number] [address] OF [place] T4 Free SerPl-mCncon 024 Free T4 [Mass/Vol] 1.3 ng/dL Normal 0.9-1.7 [facility] Comment on above: Order Comment: Speci men Type: BLOOD SPECIMEN [facility] Address: [address] [place] [address] Performed By: #### 5 0190-8, 2276-4, 49278-0, 3016-3 #### [facility] CLIA [id number] [address] [place] [address] [place] TSH SerPl-aCncon 03-17-2024 TSH Qn 0.804 m[IU]/L Normal 0.270-4.200 [facility] Comment on above: Order Comment: Speci men Type: BLOOD SPECIMEN [facility] Address: [address] [place] [address], [place] [address] Result Comment: If t he patient is , TSH reference range varies by gestational period: First Trimester (weeks 9-12): 0.180-2.990 mIU/L Second Trimester: 0.110-3.980 mIU/L Third Trimester: 0.480-4.710 mIU/L Dominick Peace et al. A Practical Approach for the Verifications and Determination of Site- and Trimester-Specific Reference Intervals for Thyroid Function tests in . Thyroid, 2019:29:3:412-420. Jacques Cabrales, et al. 2017 Guidelines of the [place] Thyroid Association for the Diagnosis and Management of Thyroid Disease during and the . Thyroid, 2017:27:3:315-389. Performed By: #### 5 0190-8, 2276-4, 45149-0, 3016-3 #### [facility] CLIA [id number] [address] PAP TESTon 12-21-2022 Case Report Gynecologic Cytology Report Case: [id number] Authorizing Provider: Anthony White MD Collected: 12/14/2022 07:47 AM Ordering Location: Obstetrics/Gynecology Received: 12/14/2022 09:54 AM First Screen: Jayne Peraza, BEATRIZ, ASCP Rescreen: BEATRIZ Veloz, ASCP Specimen: Pap Test, ThinPrep, Cervix [facility] Clinical History Routine Exam [facility] FINAL DIAGNOSIS A - Cervix Satisfactory for interpretation Negative for Intraepithelial lesion or malignancy. [facility] HPV Reflex Auto HPV [facility] LMP 11/28/2022 [facility] Pap Disclaimer The Pap Smear is a screening test for cervical cancer. False negative results occur with all screening tests, emphasizing the need for rescreening at recommended intervals, and clinical correlation. [facility] Performing Lab Technical component, aircraft manager screening performed [facility] [address] [facility] [address] CLIA# [id number] Diagnostic interpretation performed [facility] [address] [facility] [address] CLIA# [id number] Tax Appraiser: Fritz Wilcox M.D. [facility] HPV W/GENOTYPE THIN PREPon 0 12-20-2022 HPV 16 Ag Ql (Unsp spec) Negative Negative for HPV DNA high risk type 16 by PCR [facility] HPV 18 Ag Ql (Unsp spec) Negative Negative for HPV DNA high risk type 18 by PCR [facility] HPV 31+33+35+39+45+51+52 +56+58+59+66+68 DNA BINA+probe Ql (Cvx) Negative for HPV DNA high risk types: 31,33,35,39,45,51,52,56, 58,59,66,68 by PCR. Negative for HPV DNA high risk types: 31,33,35,39,4 5,51,52,56,58 ,59,66,68 by PCR. [facility] Office Visit (Family Medicin e)on 06-26-2022 Follow-up [...] All medical record entries made by the Jamshidibe were at my direction and personally dictated [...] Exercise tolerance good. 'Scores and Scales' PHQ-9 26Jun2022 04:43PM PHQ-9 #1. Little interest or pleasure [...] of left (more content not included)... Normal [facility] PHQ-2 VITALSon 06-26-2022 Adult depression screening assessment Yes [facility] Work Phone: Adult depression screening assessment No [facility] Work Phone: Fall risk assessment a) No falls within the last year [facility] Work Phone: PHQ-2 VITALS 1-Several days -[facility] Work Phone: PHQ-2 VITALS 3-Nearly every day [facility] Work Phone: PHQ-2 VITALS 0-Not at all [facility] Work Phone: PHQ-2 VITALS Not difficult at all [facility] Work Phone: Blood Pressure Cuff [...] Marital History - Currently Never smoker Working [employer] Review of Systems All review of systems are negative save those mentioned above HPI. Vitals Vital Signs Recorded: 22Nov2021 04:20PM Heart Rate64 Vdvbiikh632, RUE, Sitting Wydjqdted00, RUE, Sitting Blood Pressure Cuff SizeAdult Height5 ft 6 in Zhhnhc560 lb BMI Qvburdaazg81.7 kg/m2 BSA Calculated1.78 Tobacco Useb) No O2 Yjfiberpgp87, RA Impressions 1. Palpitations/atypical chest discomfort: Symptoms [...] EST (Author) Normal [facility] Echocardiogramon 11-10-2021 Echocardiography [facility] , [address] [place] [address], [address] [address] and TRANSTHORACIC ECHOCARDIOGRAM REPORT Patient Name: TORY SOLIS Reading Physician: [id number] Juni Gamboa MD Study Date: 11/10/2021 Referring Physician: JUNI GAMBOA MRN/PID: [id number] PCP: Accession/Order#: [id number] Department Location: [facility] Date of : 1975 Fellow: Gender: F Nurse: Admit Date: Asbestos Cloth Inspector: Blanka Hong [facility] Admission Status: Outpatient Additional Staff: Height: 167.64 cm CC Report to: Weight: 68.04 kg Study Type: Echocardiogram BSA: 1.77 m2 Blood Pressure: 109 /74 mmHg Diagnosis/ICD: R00.2-Palpitations Indication: Palpitations Procedure/CPT: Echo Complete w Full Doppler-[id number] Patient History: Pertinent History: Palpitations and Chest [...] LA Area A2C: 12.0 cm2 LA Major [place] A4C: 6.0 cm LA Major [place] A2C: 4.9 cm LA Volume Index: 20.0 ml/m2 LA Vol A4C: 31.3 ml LA Vol A2C: 25.6 ml RA VOLUME BY A/L METHOD: Normal Ranges: RA Vol A4C: 34.0 ml (8.3-19.5ml) RA Vol Index A4C: 19.2 ml/m2 RA Area A4C: 14.0 cm2 RA Major [place] A4C: 4.9 cm M-MODE MEASUREMENTS: Normal Ranges: [...] Sven: 1.06 PulmV Sys Sven: 52.98 cm/s 69564 Juni Gamboa MD Electronically signed on 11/11/2021 at 10:57:02 AM Final Normal [facility] BNPon 10-19-2021 Natriuretic peptide B (Bld) [Mass/Vol] 28 pg/mL Normal 0 - 99 [facility] Comment on above: Result Comment: . <1 [...] information. Performed By: #### B NP2 #### [facility] [address] [place] [address] C-REACTIVE PROTEINon 022 C-REACTIVE PROTEIN 0.11 mg/dL Normal [facility] Comment on above: Result Comment: REF VALUE < 1.00 Performed By: #### C RP #### [facility] [address] [place] [address] SEDIMENTATION RATE, ERYTHROC YTEon 10-19-2021 SEDIMENTATION RATE, ERYTHROCYTE 2 mm/h Normal 0 - 20 [facility] Comment on above: Performed By: #### E SRWS #### [facility] [address] [place] [address] C Reactive Protein, Serumon 10-18-2021 CRP [Mass/Vol] 0.11 mg/dL [facility] [address] Work Phone: [phone] Comment on above: REF VALUE< 1.00 No Panel Informationon 10-18 28 pg/mL 0 - 99 [facility] [employer] Work Phone: [phone] Comment on above: . <100 pg/mL - Heart failure -916 pg/mL - Intermediate probability of acute heart. [...] contact their local laboratory for further information. [email or web address] 1:80 80/[email or web address].d ll?RetrieveTestByDateTim e?WuaergoHK=[id number]&Da te=18-10-2021&Time=16%3a 00%3a27%3a00&TestType=EC G&Site=1&OutputType=PDF& Ext=PDF [facility] Work Phone: [phone] Normal sinus rhythm [facility] Work Phone: [phone] Normal [facility] Work Phone: [phone] [facility] Work Phone: [phone] [facility] Work Phone: [phone] [facility] Work Phone: [phone] [facility] Work Phone: [phone] [facility] Work Phone: [phone] [facility] Work Phone: [phone] [facility] Work Phone: [phone] [facility] Work Phone: [phone] 1 [facility] Work Phone: [phone] [facility] Work Phone: [phone] [facility] Work Phone: 80 1 [facility] Work Phone: [phone] [facility] Work Phone: 70 1 [facility] Work Phone: [phone] Office Visit (Cardiology)on 10-18-2021 Follow-up visit Diagnoses/Problems Assessed Heart palpitations (785.1) (R00.2) Palpitations (785.1) (R00.2) Viral syndrome (079.99) (B34.9) Orders Heart palpitations Electrocardiogram 12 Lead; Status:Active; Requested for:18Oct2021; Sedimentation Rate, Erythrocyte; Status:Active; Requested for:18Oct2021; Palpitations Brain Natriuretic Peptide BNP; Status:Active; Requested for:18Oct2021; C Reactive Protein, Serum; Status:Active; Requested for:18Oct2021; Continuous Ambulatory regrinder up to 30 days; Status:Hold For - [...] Marital History - Currently Never smoker Working [employer] Review of Systems All review of systems are negative save those mentioned above HPI. Vitals Vital Signs Recorded: 18Oct2021 03:15PM Heart Rate78 Ijifzvrd766, LUE Hiqztntpt07, LUE Ccrvns120 lb 2 oz BMI Rckqthwtme54.88 kg/m2 BSA Calculated1.79 O2 Rzqybbtbsx06 Physical Exam General: No acute distress ENT [...] 2 mm/h 0 - 20 [facility] [address] [employer] [address] Work Phone: TROPONIN Ion 10-18-2021 Troponin I.cardiac [Mass/Vol] ng/mL Normal 0.00 - 0.03 [facility] Comment on above: Result Comment: LESS THAN [...] is performed using different testing methodology at [facility] than at [facility]. Direct result comparisons should only be made within the same method. . Biotin interference may cause falsely decreased results. Patients taking a Biotin dose of up to 5 mg/day should refrain from taking Biotin for 24 hours before sample collection. Providers may contact their laboratory for further information. Performed By: #### T ROP2 #### [facility] [address] [place] [address] Troponin I, Serumon 10-18-19 Troponin I.cardiac [Mass/Vol] ng/mL See Below [facility] Work Phone: Comment on above: Reference Range: [...] is performed using different testing methodology at [facility] than at [facility]. Direct result comparisons should only be made within the same method.. Biotin interference may cause falsely decreased results. Patients taking a Biotin dose of up to 5 mg/day should refrain from taking Biotin for 24 hours before sample collection. Providers may contact their laboratory for further information. BASIC METABOLIC PANELon 09-24 Anion gap [Moles/Vol] 11 mmol/L Normal - 20 [facility] Comment on above: Performed By: #### B MP #### [facility] [address] [place] [address] Calcium [Mass/Vol] 9.2 mg/dL Normal 8.6 - 10.6 [facility] Comment on above: Performed By: #### B MP #### [facility] [address] [place] [address] Chloride [Moles/Vol] 103 mmol/L Normal 98 - 107 [facility] Comment on above: Performed By: #### B MP #### [facility] [address] [place] [address] Creatinine [Mass/Vol] 0.69 mg/dL Normal 0.50 - 1.05 [facility] Comment on above: Performed By: #### B MP #### [facility] [address] [place] [address] eGFR FEMALE >90 Normal >90 [facility] Comment on above: Result Comment: CALC ULATIONS OF ESTIMATED GFR ARE PERFORMED USING THE 2020 CKD-EPI STUDY REFIT EQUATION WITHOUT THE RACE VARIABLE FOR THE IDMS-TRACEABLE CREATININE METHODS. https://jasn.asnjournals.org/content//ASN.5430968 988 Performed By: #### B MP #### [facility] [address] [place] [address] Glucose [Mass/Vol] 105 mg/dL High 74 - 99 [facility] Comment on above: Performed By: #### B MP #### [facility] [address] [place] [address] HCO3 (Bld) [Moles/Vol] 28 mmol/L Normal 21 - 32 [facility] Comment on above: Performed By: #### B MP #### [facility] [address] [place] [address] Potassium [Moles/Vol] 4.0 mmol/L Normal 3.5 - 5.3 [facility] Comment on above: Performed By: #### B MP #### [facility] [address] [place] [address] Sodium [Moles/Vol] 138 mmol/L Normal 136 - 145 [facility] Comment on above: Performed By: #### B MP #### [facility] [address] [place] [address] Urea nitrogen [Mass/Vol] 16 mg/dL Normal 6 - 23 [facility] Comment on above: Performed By: #### B MP #### [facility] [address] [place] [address] CBC AND DIFFERENTIALon 10-11 % AUTOMATED IMMATURE GRAN 0.1 % Normal 0.0 - 0.9 [facility] Comment on above: Result Comment: Karen ture Granulocyte Count (IG) includes promyelocytes, myelocytes and metamyelocytes but does not include bands. Percent differential counts (%) should be interpreted in the context of the absolute cell counts (cells/L). Performed By: #### C BCDF #### [facility] [address] [place] [address] Basophils (Bld) [#/Vol] 0.04 10*3/uL Normal 0.00 - 0.10 [facility] Comment on above: Performed By: #### C BCDF #### [facility] [address] [place] [address] Basophils/100 WBC (Bld) 0.6 % Normal 0.0 - 2.0 [facility] Comment on above: Performed By: #### C BCDF #### [facility] [address] [place] [address] Eosinophils (Bld) [#/Vol] 0.11 10*3/uL Normal 0.00 - 0.70 [facility] Comment on above: Performed By: #### C BCDF #### [facility] [address] [place] [address] Eosinophils/100 WBC (Bld) 1.6 % Normal 0.0 - 6.0 [facility] Comment on above: Performed By: #### C BCDF #### [facility] [address] [place] [address] Erythrocyte distribution width (RBC) [Ratio] 13.0 % Normal 11.5 - 14.5 [facility] Comment on above: Performed By: #### C BCDF #### [facility] [address] [place] [address] Hematocrit (Bld) [Volume fraction] 42.3 % Normal 36.0 - 46.0 [facility] Comment on above: Performed By: #### C BCDF #### [facility] [address] [place] [address] Hemoglobin (Bld) [Mass/Vol] 14.0 g/dL Normal 12.0 - 16.0 [facility] Comment on above: Performed By: #### C BCDF #### [facility] [address] [place] [address] Lymphocytes (Bld) [#/Vol] 2.52 10*3/uL Normal 1.20 - 4.80 [facility] Comment on above: Performed By: #### C BCDF #### [facility] [address] [place] [address] Lymphocytes/100 WBC (Bld) 36.4 % Normal 13.0 - 44.0 [facility] Comment on above: Performed By: #### C BCDF #### [facility] [address] [place] [address] MCHC (RBC) [Mass/Vol] 33.1 g/dL Normal 32.0 - 36.0 [facility] Comment on above: Performed By: #### C BCDF #### [facility] [address] [place] [address] MCV (RBC) [Entitic vol] 96 fL Normal 80 - 100 [facility] Comment on above: Performed By: #### C BCDF #### [facility] [address] [place] [address] Monocytes (Bld) [#/Vol] 0.54 10*3/uL Normal 0.10 - 1.00 [facility] Comment on above: Performed By: #### C BCDF #### [facility] [address] [place] [address] Monocytes/100 WBC (Bld) 7.8 % Normal 2.0 - 10.0 [facility] Comment on above: Performed By: #### C BCDF #### [facility] [address] [place] [address] Neutrophils (Bld) [#/Vol] 3.71 10*3/uL Normal 1.20 - 7.70 [facility] Comment on above: Performed By: #### C BCDF #### [facility] [address] [place] [address] Neutrophils/100 WBC (Bld) 53.5 % Normal 40.0 - 80.0 [facility] Comment on above: Performed By: #### C BCDF #### [facility] [address] [place] [address] NUCLEATED RBC 0.0 /100 WBC Normal 0.0-0.0 [facility] Comment on above: Performed By: #### C BCDF #### [facility] [address] [place] [address] Platelets (Bld) [#/Vol] 231 10*3/uL Normal 150 - 450 [facility] Comment on above: Performed By: #### C BCDF #### [facility] [address] [place] [address] RBC 4.40 x10E12/L Normal 4.00 - 5.20 [facility] Comment on above: Performed By: #### C BCDF #### [place] [address] [place] [address] WBC (Bld) [#/Vol] 6.9 10*3/uL Normal 4.4 - 11.3 [facility] Comment on above: Performed By: #### C BCDF #### [facility] [address] [place] [address] MAGNESIUMon 10-11-2021 Magnesium [Mass/Vol] 2.02 mg/dL Normal 1.60 - 2.40 [facility] Comment on above: Performed By: #### M G #### [facility] [address] [place] [address] SARS-CoV-2 SPIKE TOTAL ANTIB ODYon 10-11-2021 SARS-CoV-2 (COVID-19) Ab IA Ql SEE BELOW Normal [facility] Comment on above: Result Comment: . SARS-COV-2 John protein antibodies detected. Result suggests recent or past infection of SARS-CoV-2 (COVID-19) and/or vaccination. Results from antibody testing should not be used as the sole basis to diagnose or exclude SARS-CoV-2 infection. False-positive results may be due to past or present infection with ehq-WHXH-CpM-2 coronavirus strains, such as coronavirus HKU1, NL63, [...] blood. Performed By: #### C OVTA #### [facility] [address] [place] [address] SARS-CoV-2 (COVID-19) RNA BINA+probe Ql (Unsp spec) Reactive Abnormal NONREACTIVE [facility] Comment on above: Performed By: #### C OVTA #### [facility] [address] [place] [address] TSH WITH REFLEX TO FREE T4 I F ABNORMALon 10-11-2021 TSH Qn 0.73 m[IU]/L Normal 0.44 - 3.98 [facility] Comment on above: Result Comment: TSH testing is performed using different testing methodology at [facility] than at other [facility]. Direct result comparisons should only be made within the same method. Performed By: #### T HYDS #### [facility] [address] [place] [address] Complete Blood Count + Diffe rentialon 10-10-2021 Basophils/100 WBC (Bld) 0.6 % 0.0 - 2.0 [facility] Work Phone: Erythrocyte distribution width (RBC) [Ratio] 13.0 % See Below [facility] Work Phone: Comment on above: Reference Range: 11. 5 - 14.5 Hematocrit (Bld) [Volume fraction] 42.3 % See Below [facility] Work Phone: Comment on above: Reference Range: 36. 0 - 46.0 Hemoglobin (Bld) [Mass/Vol] 14.0 g/dL See Below [facility] Work Phone: Comment on above: Reference Range: 12. 0 - 16.0 Lymphocytes/100 WBC (Bld) 36.4 % See Below [facility] Work Phone: Comment on above: Reference Range: 13. 0 - 44.0 MCHC (RBC) [Mass/Vol] 33.1 g/dL See Below [facility] Work Phone: [phone] Comment on above: Reference Range: 32. 0 - 36.0 MCV (RBC) [Entitic vol] 96 fL 80 - 100 [facility] Work Phone: Monocytes/100 WBC (Bld) 7.8 % 2.0 - 10.0 [facility] Work Phone: Neutrophils/100 WBC (Bld) 53.5 % See Below [facility] Work Phone: [phone] Comment on above: Reference Range: 40. 0 - 80.0 Platelets (Bld) [#/Vol] 231 10*3/uL 150 - 450 [facility] Work Phone: RBC (Bld) [#/Vol] 4.40 {x10E12/L} See Below [facility] Work Phone: Comment on above: Reference Range: 4.0 0 - 5.20 WBC (Bld) [#/Vol] 6.9 10*3/uL 4.4 - 11.3 [facility] Work Phone: Complete Blood Count + Differential 0.04 {x10E9/L} See Below [facility] Work Phone: Comment on above: Reference Range: 0.0 0 - 0.10 Complete Blood Count + Differential 0.11 {x10E9/L} See Below [facility] Work Phone: Comment on above: Reference Range: 0.0 0 - 0.70 Complete Blood Count + Differential 0.54 {x10E9/L} See Below [facility] Work Phone: Comment on above: Reference Range: 0.1 0 - 1.00 Complete Blood Count + Differential 2.52 {x10E9/L} See Below [facility] Work Phone: Comment on above: Reference Range: 1.2 0 - 4.80 Complete Blood Count + Differential 3.71 {x10E9/L} See Below [facility] Work Phone: Comment on above: Reference Range: 1.2 0 - 7.70 Complete Blood Count + Differential 1.6 % 0.0 - 6.0 [facility] Work Phone: Complete Blood Count + Differential 0.1 % 0.0 - 0.9 [facility] Work Phone: Comment on above: Immature Granulocyte Count (IG) includes promyelocytes, myelocytes and metamyelocytes but does not include bands. Percent differential counts (%) should be interpreted in the context of the absolute cell counts (cells/L). Complete Blood Count + Differential 0.0 {/100_WBC} 0.0-0.0 [facility] Work Phone: Laboratory - Chemistry and C hemistry - challengeon 10-10-2021 Anion gap [Moles/Vol] 11 mmol/L 10 - 20 [facility] Work Phone: Calcium [Mass/Vol] 9.2 mg/dL 8.6 - 10.6 [facility] Work Phone: Chloride [Moles/Vol] 103 mmol/L 98 - 107 [facility] Work Phone: CO2 [Moles/Vol] 28 mmol/L 21 - 32 [facility] Work Phone: Creatinine [Mass/Vol] 0.69 mg/dL See Below [facility] Work Phone: Comment on above: Reference Range: 0.5 0 - 1.05 Glucose [Mass/Vol] 105 mg/dL above high threshold 74 - 99 [facility] Work Phone: Potassium [Moles/Vol] 4.0 mmol/L 3.5 - 5.3 [facility] Work Phone: Sodium [Moles/Vol] 138 mmol/L 136 - 145 [facility] Work Phone: TSH Qn 0.73 m[IU]/L See Below [facility] Work Phone: Comment on above: SOURCE: Reference Ra nge: 0.44 - 3.98 TSH testing is performed using different testing methodology at [facility] than at other [facility]. Direct result comparisons should only be made within the same method. Urea nitrogen [Mass/Vol] 16 mg/dL 6 - [address] [facility] Work Phone: Magnesium, Serumon 2 Magnesium [Mass/Vol] 2.02 mg/dL See Below [facility] Work Phone: Comment on above: Reference Range: 1.6 0 - 2.40 No Panel Informationon 10-10 >90 >[address] [facility] Work Phone: Comment on above: CALCULATIONS OF CALE MATED GFR ARE PERFORMED USING THE 2020 CKD-EPI STUDY REFIT EQUATION WITHOUT THE RACE VARIABLE FOR THE IDMS-TRACEABLE CREATININE METHODS.https://jasn.asnjournals.org/content/early/ASN .5260105372 Office Visit (Family Medicin e)on 10-10-2021 Follow-up visit Diagnoses/Problems Heart palpitations [...] 18Oct2021 AMA Intake Activity Log Entry by CMS ACCOUNT (INTRANET) on 2021-10-10 16:27 Status Change : Confirmed - SMN Module AMA Intake updated by CMS ACCOUNT (INTRANET) on 2021-10-10 16:27 New Recipient: Juni Gamboa Charli Appointment Date: 2021-10-18 15:00 Complete Blood Count + Differential; Status:In Progress - Specimen/Data Collected; Done: 10Oct2021 Magnesium, Serum; Status:In Progress - Specimen/Data Collected; Done: 10Oct2021 TSH WITH REFLEX TO FREE T4 IF ABNORMAL; Status:In Progress - Specimen/Data Collected; Done: 10Oct2021 Heart palpitations (785.1) (R00.2) Patient Discussion/Summary By signing my name below, I, Jamshid Leibcory, attest that this documentation has been prepared [...] well. Intermittent tickle in chest still. Saw PHLEBOTOMIST MEDICAL LAB ASSISTANT, gave her dexamethasone and z pack. After 4 days of dexamethasone was having racy heart mild sxs She stopped this. A couple of days later she had episode of severe palpitations again. Was like this for 24 hours, went to bed and then felt fine. This past weekend she was in [place] and had symptoms again. Could not sleep. [...] (L02.92) De (more content not included)... Normal [employer] SARS-COV2 SPIKE TOTAL ANTIBO DYon 10-10-2021 SARS-CoV-2 (COVID-19) Ab IA Ql Reactive Abnormal See Below [facility] Work Phone: Comment on above: SOURCE: Reference Ra nge: NONREACTIVE SARS-CoV-2 (COVID-19) IgG+IgM IA Ql SEE BELOW [facility] Work Phone: Comment on above: .SARS-COV-2 John pr otein antibodies detected. Result suggests recent or past infection of SARS-CoV-2 (COVID-19) and/or vaccination. Results from antibody testing should not be used as the sole basis to diagnose or exclude SARS-CoV-2 infection. False-positive results may be due to past or present infection with cwp-XOIM-SuT-2 coronavirus strains, such as coronavirus HKU1, NL63, [...] ANTIB ODYon 10-10-2021 Lab Specimen Source Normal [facility] Comment on above: Performed By: #### C OVTA #### [facility] [address] [place] [address] Performed By: #### T HYDS #### [facility] [address] [place] [address] Tobacco Screening.on 022 Tobacco use status CPHS b) No [facility] Work Phone: Vital Signs Date Time Vital Sign Value Performing Clinician Facility 05-08-2025 16:59-0400 Body height 165.[address] Leo Goyal MD Work Phone: [facility] 05-08-2025 16:59-0400 Body mass index (BMI) [Ratio] 25.4 kg/m2 Dr. Leo Goyal MD Work Phone: [facility] 05-08-2025 16:59-0400 Body temperature 98.4 [degF] Dr. Leo Goyal MD Work Phone: [facility] 05-08-2025 16:59-0400 Body weight 69.[address] Leo Goyal MD Work Phone: [facility] 05-08-2025 16:59-0400 Diastolic blood pressure 88 mm[Hg] Dr. Leo Goyal MD Work Phone: [facility] 05-08-2025 16:59-0400 Heart rate 92 /min Dr. Leo Goyal MD Work Phone: [facility] 05-08-2025 16:59-0400 SaO2% (BldA) [Mass fraction] 98 % Dr. Leo Goyal MD Work Phone: [facility] 05-08-2025 16:59-0400 Systolic blood pressure 136 mm[Hg] Dr. Leo Goyal MD Work Phone: [facility] 05-06-2025 09:02-0400 Body height 165.[address] Leo Goyal MD Work Phone: [facility] 05-06-2025 09:02-0400 Body mass index (BMI) [Ratio] 25.3 kg/m2 Dr. Leo Goyal MD Work Phone: [facility] 05-06-2025 09:02-0400 Body weight 69.[address] Leo Goyal MD Work Phone: [facility] 01-05-2025 15:06-0400 Body mass index (BMI) [Ratio] 25.38 kg/m2 Anthony White MD Work Phone: [facility] 01-05-2025 15:06-0400 Body weight 73.5 kg Anthony White MD Work Phone: [facility] 01-05-2025 15:06-0400 Diastolic blood pressure 76 mm[Hg] Anthony White MD Work Phone: [facility] 01-05-2025 15:06-0400 Systolic blood pressure 124 mm[Hg] Anthony White MD Work Phone: [facility] 03-14-2024 09:49-0400 Body mass index (BMI) [Ratio] 25.34 kg/m2 Randee Hdz MD Work Phone: [facility] 03-14-2024 09:49-0400 Body temperature 99 [degF] Randee Hdz MD Work Phone: [facility] 03-14-2024 09:49-0400 Body weight 71.22 kg Randee Hdz MD Work Phone: [facility] 03-14-2024 09:49-0400 Diastolic blood pressure 78 mm[Hg] Randee Hdz MD Work Phone: [facility] 03-14-2024 09:49-0400 Heart rate 81 /min Randee Hdz MD Work Phone: [facility] 03-14-2024 09:49-0400 SaO2% (BldA) [Mass fraction] 96 % Randee Hdz MD Work Phone: [facility] 03-14-2024 09:49-0400 Systolic blood pressure 112 mm[Hg] Randee Hdz MD Work Phone: [facility] 12-14-2022 07:09-0400 Body weight 69.45 kg Anthony White MD Work Phone: [facility] 12-14-2022 07:09-0400 Diastolic blood pressure 82 mm[Hg] Anthony White MD Work Phone: [facility] 12-14-2022 07:09-0400 Systolic blood pressure 130 mm[Hg] Anthony White MD Work Phone: [facility] 06-26-2022 16:43-0400 7 1 Randee Hdz Work Phone: [facility] Work Phone: Comment on above: PHQ-9 TS 06-26-2022 16:39-0400 Body height 167.64 cm Randee Hdz Work Phone: [facility] Work Phone: 06-26-2022 16:39-0400 Body mass index (BMI) [Ratio] 24.05 kg/m2 Randee Hdz Work Phone: [facility] Work Phone: 06-26-2022 16:39-0400 Body surface area Derived from formula 1.76 m2 Randee Hdz Work Phone: [facility] Work Phone: 06-26-2022 16:39-0400 Body temperature 98.4 [degF] Randee Hdz Work Phone: [facility] Work Phone: 06-26-2022 16:39-0400 Body weight 67.59 kg Randee Hdz Work Phone: [facility] Work Phone: 06-26-2022 16:39-0400 Diastolic blood pressure 72 mm[Hg] Randee Hdz Work Phone: [facility] Work Phone: 06-26-2022 16:39-0400 Heart rate 70 /min Randee Castmel Work Phone: [facility] Work Phone: 06-26-2022 16:39-0400 Respiratory rate 16 /min Randee Castmel Work Phone: [facility] Work Phone: 06-26-2022 16:39-0400 Systolic blood pressure 124 mm[Hg] Ranede Castmel Work Phone: [facility] Work Phone: 11-22-2021 16:20-0500 Body height 167.64 cm Randee Castmel Work Phone: SP-Dzrtqnxqsm-Ejgl na [address] [place] Work Phone: 11-22-2021 16:20-0500 Body mass index (BMI) [Ratio] 24.7 kg/m2 Randee Castmel Work Phone: VK-Berttxgbzw-Pxqu na [address] [place] Work Phone: 11-22-2021 16:20-0500 Body surface area Derived from formula 1.78 m2 Randee Castmel Work Phone: YG-Icjudnsvra-Hmaj na [address] [place] Work Phone: 11-22-2021 16:20-0500 Body weight 69.4 kg Randee Catsmel Work Phone: EI-Jomujayoto-Osrm na [address] [place] Work Phone: 11-22-2021 16:20-0500 Diastolic blood pressure 73 mm[Hg] Randee De León Wilder Work Phone: WW-Kovstwzukm-Gmzr na [address] [place] Work Phone: 11-22-2021 16:20-0500 Heart rate 64 /min Randee De León Wilder Work Phone: PX-Zhxehrmdty-Zgbh na [address] [place] Work Phone: 11-22-2021 16:20-0500 SaO2% (BldA) [Mass fraction] 97 % Randee Hdz Work Phone: JY-Lqkdsghhkh-Vllf na [address] [place] Work Phone: 11-22-2021 16:20-0500 Systolic blood pressure 119 mm[Hg] Randee De León Wilder Work Phone: QJ-Zmasmlcccn-Xiko na [address] [place] Work Phone: 10-18-2021 15:15-0500 Body mass index (BMI) [Ratio] 24.88 kg/m2 Randee Hdz Work Phone: UU-Hwapbwlajd-Kjgg na Work Phone: 10-18-2021 15:15-0500 Body surface area Derived from formula 1.79 m2 Randee De León Wilder Work Phone: SZ-Ajytnzxgfb-Zxaz na Work Phone: 10-18-2021 15:15-0500 Body weight 69.91 kg Randee Hdz Work Phone: KO-Ijykvbsmly-Hftq na Work Phone: 10-18-2021 15:15-0500 Diastolic blood pressure 74 mm[Hg] Randee Hdz Work Phone: XJ-Oxbbhcdscu-Hbss na Work Phone: 10-18-2021 15:15-0500 Heart rate 78 /min Randee Hdz Work Phone: AZ-Xjeftfmdyj-Coab na Work Phone: 10-18-2021 15:15-0500 SaO2% (BldA) [Mass fraction] 98 % Randee Hdz Work Phone: KI-Pmctzpexhg-Tnwf na Work Phone: 10-18-2021 15:15-0500 Systolic blood pressure 109 mm[Hg] Randee De León Wilder Work Phone: CW-Zquvqewpvr-Ppmw na Work Phone: 10-10-2021 15:59-0500 Body height 167.64 cm Randee Hdz Work Phone: [facility] Work Phone: 10-10-2021 15:59-0500 Body mass index (BMI) [Ratio] 24.86 kg/m2 Randee Hdz Work Phone: [facility] Work Phone: 10-10-2021 15:59-0500 Body surface area Derived from formula 1.79 m2 Randee Hdz Work Phone: [facility] Work Phone: 10-10-2021 15:59-0500 Body temperature 98.4 [degF] Randee Hdz Work Phone: [facility] Work Phone: 10-10-2021 15:59-0500 Body weight 69.85 kg Randee Hdz Work Phone: [facility] Work Phone: 10-10-2021 15:59-0500 Diastolic blood pressure 70 mm[Hg] Randee Hdz Work Phone: [facility] Work Phone: 10-10-2021 15:59-0500 Heart rate 78 /min Randee Hdz Work Phone: [facility] Work Phone: 10-10-2021 15:59-0500 Respiratory rate 18 /min Randee Hdz Work Phone: [facility] Work Phone: 10-10-2021 15:59-0500 SaO2% (BldA) [Mass fraction] 97 % Randee Hdz Work Phone: [facility] Work Phone: 10-10-2021 15:59-0500 Systolic blood pressure 138 mm[Hg] Randee Hdz Work Phone: [facility] Work Phone: Encounters Encounter Date Encounter Type Care Provider Facility Start: 05-15-2025 ambulatory Leo Goyal Facili ty:[facility] Start: 05-09-2025 End: 05-09-2025 Patient encounter procedure Shahid ESCOBAR -[facility] Work Phone: Start: 05-09-2025 End: 05-09-2025 ambulatory Leo Goyal Facility:[facility] Start: 05-08-2025 End: 05-08-2025 Patient encounter procedure Shahid ESCOB[facility] Work Phone: Start: 05-08-2025 End: 05-08-[address] Leo Goyal MD Work Phone: [facility] Start: 05-06-2025 End: 05-06-2025 Patient encounter procedure Meghana ESCOBAR -[facility] Work Phone: Start: 05-06-2025 End: 05-06-[address] Leo Goyal MD Work Phone: -[facility] Start: 04-30-2025 End: 04-30-[address] Leo Goyal MD Work Phone: [facility] Start: 04-30-2025 End: 04-30-2025 Patient encounter procedure Meghana ESCOBAR -[facility] Work Phone: Start: 04-30-2025 End: 04-30-2025 ambulatory Leo Goyal Facility:[facility] Start: 02-28-2025 End: 02-28-2025 ambulatory RANDEE De León WILDER Facility:[facility] Start: 02-28-2025 Encounter for gynecological examination (general) (routine) without abnormal findings [facility] Start: 01-27-2025 End: 03-29-2025 Follow-up encounter Anthony White MD Work Phone: Obstetrics/Gynecology Start: 01-05-2025 End: 01-05-2025 ambulatory ANTHONY WHITE Facility:[facility] Start: 01-05-2025 End: 01-05-2025 Patient encounter procedure Anthony White MD Work Phone: Obstetrics/Gynecology Comment on above: ASCUS with positive high risk HPV cervical (Primary Dx); Well female exam with routine gynecological exam; Screening for lipid disorders; Encounter for screening for diabetes mellitus Start: 01-05-2025 End: 01-05-2025 Patient encounter status Anthony White MD Work Phone: [facility] Start: 01-02-2025 ambulatory ANTHONY WHITE Facili ty:[facility] Start: 01-02-2025 End: 01-02-2025 Subsequent hospital visit by physician Diagnostic Mammo [facility] 1 [facility] MAMMO REFLE[facility] Comment on above: Abnormal mammogram [ R92.8] Start: 01-01-2025 ambulatory ANTHONY WHITE Facili ty:[facility] Start: 12-24-2024 End: 12-24-2024 Telephone encounter Anthony White MD Work Phone: Obstetrics/Gynecology Start: 12-23-2024 End: 12-23-2024 Telephone encounter Anthony White MD Work Phone: Obstetrics/Gynecology Start: 12-22-2024 End: 12-22-2024 ambulatory ANTHONY WHITE Facility:[facility] Start: 12-22-2024 End: 12-22-2024 Subsequent hospital visit by physician Screen Mammo [facility] Comment on above: Encounter for screen ing mammogram for malignant neoplasm of breast [Z12.31] Start: 11-27-2024 End: 11-27-2024 Telephone encounter Anthony White MD Work Phone: Obstetrics/Gynecology Comment on above: Orders Start: 11-26-2024 End: 11-28-2024 Telephone encounter Anthony White MD Work Phone: Obstetrics/Gynecology Comment on above: Appointment Start: 11-11-2024 ambulatory Health Risk Assessment Facility:[facility] Start: 05-12-2024 End: 05-12-2024 ambulatory [facility] Facility:[facility] Start: 04-17-2024 End: 04-17-2024 ambulatory [facility] Facility:[facility] Start: 03-22-2024 End: 03-22-2024 Patient encounter procedure Fela Miguel [facility] Comment on above: Sleep disorder breat aaron Start: 03-17-2024 End: 03-17-2024 ambulatory [facility] Facility:[facility] Start: 03-14-2024 End: 03-14-2024 Office outpatient visit 25 minutes Randee Hdz MD Work Phone: [facility] Comment on above: Sleep disorder breat aaron (Primary Dx); Gingivitis Start: 03-14-2024 End: 03-14-2024 ambulatory [facility] Start: 12-24-2023 Documentation procedure Mammog shelli Coordinator [facility] Start: 12-24-2023 Letter encounter Mammography Coordinator [facility] Start: 12-12-2023 End: 12-12-2023 [facility] Anthony White MD Work Phone: Obstetrics/Gynecology [...] sit 15 minutes Randee Hdz Work Phone: [facility] [address] [place] Work Phone: Start: 11-22-2021 ambulatory Juni Arce lity:[id number] Start: 11-13-2021 Chart Update Randee Hdz Work Phone: AA-Exvrpirlgm-Buelq Work Phone: Start: 11-10-[address] RANDEE HDZ Facility:[id number] Start: 11-02-[address] RANDEE HDZ Facility:[id number] Start: 10-19-2021 Chart Update Randee Hdz Work Phone: [facility]qlfbjhhgk[facility] [address] Work Phone: Start: 10-18-[address] RANDEE HDZ Facility:[id number] Start: 10-18-2021 Office outpatient ne w 45 minutes Randee Hdz Work Phone: VU-Tingwatbzk-Qsueyc Work Phone: Start: 10-18-2021 ambulatory Juni Arce lity:[id number] Start: 10-13-2021 Chart Update Randee Hdz Work Phone: [facility] Work Phone: Start: 10-10-2021 Office outpatient vi sit 25 minutes Randee Hdz Work Phone: [facility] Work Phone: Start: 10-10-[address] RANDEE HDZ Facility:[id number] Procedures Date Procedure Procedure Detail Performing Clinician Start: 05-09-[address] Corby Goyal MD Work Phone: Start: 05-08-[address] Corby Goyal MD Work Phone: Start: 04-30-2025 X-ray of lumbosacral spine Dr. [...] DTaP/Tdap/Td Vaccines (3 - Td or Tdap) [facility] Start: 09-29-2033 Urine microalbumin profile DTaP,Tdap,Td Vaccine (3 - Td or Tdap) [facility] Start: 02-28-2030 Lipid panel Lipid Screening [facility] Start: 12-19-2028 Lipid panel Lipid Screening [facility] Start: 11-26-2028 Screening for malign ant neoplasm of cervix [facility] Start: 02-29-2028 Diabetes Screening Diabetes Screenin g [facility] Start: 12-15-2027 HPV TESTING HPV TESTING [facility] Start: 12-15-2027 PAP TESTING PAP TESTING [facility] Start: 12-15-2027 Screening for malign ant neoplasm of cervix [facility] Start: 06-24-2027 Diabetes mellitus screening Diabetes Screening [facility] Start: 03-17-2027 Diabetes Screening Diabetes Screenin g [facility] Start: 03-05-2027 Screening for malign ant neoplasm of colon [facility] Start: 12-19-2026 Diabetes mellitus screening Diabetes Screening [facility] Start: 12-19-2026 Diabetes Screening Diabetes Screenin g [facility] Start: 11-26-2026 Screening for malign ant neoplasm of cervix [facility] Start: 06-21-2026 Lipid panel Lipid Screening [facility] Start: 06-21-2026 LIPID SCREEN LIPID SCREEN [facility] Start: 06-16-2026 HPV TESTING HPV TESTING [facility] Start: 06-16-2026 PAP TESTING PAP TESTING [facility] Start: 2026 Zoster Vaccines (1 of 2) Zoste r Vaccines (1 of 2) [facility] Start: 01-06-2026 End: 01-06-2026 Patient encounter procedure 01/06/2026 10:00 AM EDT Office Visit Obstetrics/Gynecology [address] [id number] Anthony White MD [address] [phone] Annual Obstetrics/Gynecolog y Comment on above: Annual Start: 01-05-2026 Screening for malign ant neoplasm of cervix Cervical Cancer Screening [facility] Start: 12-22-2025 Screening for malign ant neoplasm of breast Mammogram Screening [facility] Start: 05-25-2025 Influenza vaccination Influenz a Vaccine (Season Ended) [facility] Start: 01-05-2025 End: 01-05-2025 Patient encounter procedure 01/05/2025 3:00 PM EDT Office Visit Obstetrics/Gynecology [address] [id number] Anthony White MD [address] [phone] Annual Obstetrics/Gynecolog y Comment on above: Annual Start: 01-05-2025 End: 04-06-2025 Comprehensive metabolic 2000 panel - Serum or Plasma COMPREHENSIVE METABOLIC PANEL Lab Routine Well female exam with routine gynecological exam Encounter for screening for diabetes mellitus Expected: 01/05/2025, Expires: 04/06/2025 [facility] Comment on above: Expected: 01/05/2025 , Expires: 04/06/2025 Start: 01-05-2025 End: 04-06-2025 Hemoglobin A1c in Blood HEMOGLOBIN A1C Lab Routine Encounter for screening for diabetes mellitus Expected: 01/05/2025, Expires: 04/06/2025 [facility] Work Phone: Comment on above: Expected: 01/05/2025 , Expires: 04/06/2025 Start: 01-05-2025 End: 04-06-2025 Lipid 1996 panel - Serum or Plasma LIPID PANEL, FASTING Lab Routine Well female exam with routine gynecological exam Screening for lipid disorders Expected: 01/05/2025, Expires: 04/06/2025 [facility] Comment on above: Expected: 01/05/2025 , Expires: 04/06/2025 Start: 12-22-2024 End: 12-22-2024 Patient encounter procedure 12/22/2024 7:50 AM EDT Appointment Mammogram [address] [place], [place] [address] Mammogram Start: 12-20-2024 Screening for malign ant neoplasm of breast [facility] Start: 06-21-2024 DIABETES SCREEN DIABETES SCREEN [facility] Start: 06-21-2024 Diabetes Screening Diabetes Screenin g [facility] Start: 05-25-2024 Covid-19 Vaccine ( season) Covid-19 Vaccine () [facility] Start: 05-25-2024 Influenza vaccination C [facility] Start: 03-14-2024 End: 03-14-2025 Home sleep apnea test (HSAT) Home sleep apnea test (HSAT) [facility] Routine Sleep disorder breathing Expected: 03/14/2024 (Approximate), Expires: 03/14/2025 [facility] Service Area Work Phone: Comment on above: Expected: 03/14/2024 (Approximate), Expires: 03/14/2025 Start: 12-12-2023 End: 03-12-2024 Fasting glucose [Mass/volume] in Serum or Plasma GLUCOSE FASTING BLD Lab Routine Encounter for screening for diabetes mellitus Expected: 12/12/2023, Expires: 03/12/2024 [facility] Work Phone: Comment on above: Expected: 12/12/2023 , Expires: 03/12/2024 Start: 12-12-2023 End: 03-12-2024 Hemoglobin A1c in Blood HGB A1C Lab Routine Encounter for screening for diabetes mellitus Expected: 12/12/2023, Expires: 03/12/2024 [facility] Work Phone: Comment on above: Expected: 12/12/2023 , Expires: 03/12/2024 Start: 12-12-2023 End: 03-12-2024 Lipid 1996 panel - Serum or Plasma LIPID PANEL BASIC Lab Routine Screening for lipid disorders Expected: 12/12/2023, Expires: 03/12/2024 [facility] Work Phone: Comment on above: Expected: 12/12/2023 , Expires: 03/12/2024 Start: 09-24-2023 Depression Assessment Depression Ass essment [facility] Start: 09-07-2023 Mammography MAMMOGRAM [facility] Start: 09-07-2023 Screening for malign ant neoplasm of breast Mammogram Screening [facility] Start: 06-04-[address] Panel [facility] Start: 05-25-2023 Covid-19 Vaccine () Covid-19 Vaccine () [facility] Start: 05-25-2023 Influenza vaccination C [facility] Start: 09-24-2022 DEPRESSION ASSESSMENT DEPRESSION ASS ESSMENT [facility] Start: 07-28-2022 Mammography MAMMOGRAM [facility] Start: 05-25-2022 Influenza vaccination INFLUENZA (#1) [facility] Start: 04-04-2022 Urine microalbumin profile DTAP,TDAP,TD (2 - Td or Tdap) [facility] Start: 11-22-2021 FUV, Provider: Juni Gamboa, Status: Pen, Time: 3:45 PM FUV, Provider: Juni Gamboa, Status: Pen, Time: 3:45 PM [facility]Wzksaxtrba[facility]Njbfqh Work Phone: Start: 11-10-2021 ECHO, Provider: MEDI NA HHVI,MG CARD, Status: Pen, Time: 9:00 AM ECHO, Provider: CONNELLY HHVI,MG CARD, Status: Pen, Time: 9:00 AM TS-Totnueknkp-Bcsalr Work Phone: Start: 10-18-2021 NPV, Provider: Juni Gamboa, Status: Pen, Time: 3:00 PM NPV, Provider: Juni Gamboa, Status: Pen, Time: 3:00 PM [facility] Work Phone: Start: 09-24-2021 DEPRESSION ASSESSMENT DEPRESSION ASS ESSMENT [facility] Start: 07-28-2021 COVID-19 VACCINE (3 - Booster for Pfizer series) COVID-19 VACCINE (3 - Booster for Pfizer series) [facility] Start: 2021 COLOGUARD (FIT-DNA) COLOGUARD (FIT-D NA) [facility] Start: 2021 Colonoscopy COLONOSCOPY [facility] Start: 2021 COLORECTAL CANCER SCREENING COLORECTAL CANCER SCREENING [facility] Start: [address] COLONOGRAPHY [facility] Start: 2021 FECAL OCCULT BLOOD FECAL OCCULT BLOO D [facility] Start: 2021 Screening for malign ant neoplasm of colon [facility] Start: 2021 SIGMOIDOSCOPY SIGMOIDOSCOPY [facility] Start: 1997 Screening for malign ant neoplasm of cervix HPV/Cotest [facility] Start: 1995 Hepatitis B Vaccine (1 of 3 - 19+ 3-dose series) Hepatitis B Vaccine (1 of 3 - 19+ 3-dose series) [facility] Start: 1995 Hepatitis B Vaccines (1 of 3 - 19+ 3-dose series) Hepatitis B Vaccines (1 of 3 - 19+ 3-dose series) [facility] Start: 1994 Depression Screening Depression Scre ening [facility] Start: 1994 Hepatitis C screening Hepatitis C Sc [facility] Start: 1977 MMR Vaccines (1 of 1 - Standard series) MMR Vaccines (1 of 1 - Standard series) [facility] Start: 1976 HEPATITIS B (1 of 3 - 3-dose series) HEPATITIS B (1 of 3 - 3-dose series) [facility] Start: 1976 Hepatitis B Vaccine (1 of 3 - 3-dose series) Hepatitis B Vaccine (1 of 3 - 3-dose series) [facility] Start: 1976 HIV screening [facility] Start: 1976 Screening for malign ant neoplasm of colon [facility] Start: 1976 Yearly Adult Physical Yearly Adult P hysical [facility] End: 12-01-2024 DBT Breast - bilateral screening [facility] SCREENING [facility] Routine Encounter for screening mammogram for malignant neoplasm of breast 1 Occurrences starting 11/02/2023 until 12/01/2024 [facility] Work Phone: Comment on above: 1 Occurrences starti ng 11/02/2023 until 12/01/2024 End: 12-27-2025 DBT Breast - bilateral screening [facility] SCRE[facility] Routine Encounter for screening mammogram for malignant neoplasm of breast 1 Occurrences starting 11/27/2024 until 12/27/2025 [facility] Work Phone: Comment on above: 1 Occurrences starti ng 11/27/2024 until 12/27/2025 End: 09-09-2023 RAJ SCREENING [facility] Routine Encounter for screening mammogram for malignant neoplasm of breast 1 Occurrences starting 08/10/2022 until 09/09/2023 [facility] Work Phone: Comment on above: 1 Occurrences starti ng 08/10/2022 until 09/09/2023 End: 09-07-2022 RAJ SCREENING [facility] Work Phone: Comment on above: 1 Occurrences starti ng 09/07/2022 until 09/07/2022 End: 01-22-2026 MG Breast - left Diagnostic for implant [facility] DIAGNOSTIC LEFT Radiology Routine Abnormal mammogram 1 Occurrences starting 12/23/2024 until 01/22/2026 [facility] Work Phone: Comment on above: 1 Occurrences starti ng 12/23/2024 until 01/22/2026 MR Lumbar spine [facility] End: 01-22-2026 US Breast - left limited US BREAST LTD LEFT Radiology Routine Abnormal mammogram 1 Occurrences starting 12/23/2024 until 01/22/2026 [facility] Comment on above: 1 Occurrences starti ng 12/23/2024 until 01/22/2026 [facility] Immun[facility] Immunization Date Immunization Notes Care Provider Fa cility 09-29-2023 tetanus toxoid, redu jacque diphtheria toxoid, and acellular pertussis vaccine, adsorbed Anthony White MD Work Phone: [facility] 06-02-2021 Pfizer-BioNTech COVI D-19 Vacc 30 MCG/0.3ML Intramuscular Suspension Randee Hdz Work Phone: [facility] Work Phone: 05-03-2021 Pfizer-BioNTech COVI D-19 Vacc 30 MCG/0.3ML Intramuscular Suspension Randee Hdz Work Phone: [facility] Work Phone: 04-04-2012 tetanus toxoid, redu jacque diphtheria toxoid, and acellular pertussis vaccine, adsorbed Anthony White MD Work Phone: [facility] Payers Date Payer Category Payer Unknown [id number] 2024 Self-pay 2016 [employer] Blue [employer] [id number] [id number] 2016 Unknown 2016 Unknown [id number] 1975 Unknown [id number] 2.16. [id number] 1975 Unknown [id number] 2.16. [id number] 1976 Unknown [id number] 2.16. [id number] 1976 Unknown [id number] 2.16. [id number] 1976 Unknown [id number] 2.16. [id number] 1976 Unknown [id number] 2.16. [id number] 1975 Unknown [id number] 2.16. [id number] 1975 Unknown [id number] 2.16.8 [id number] Unknown [id number] 2.16.8 [id number] Unknown [id number] 2.16.8 [id number] Unknown [id number] 2.16.8 [id number] Unknown [id number] 2.16.8 [id number] Unknown [id number] 2.16.8 [id number] Unknown [id number] 2.16.8 [id number] Social History Date Type Detail Facility Start: 09-29-2023 End: 09-30-2023 Marital History - Currently Marital History - Currently [facility] Work Phone: Start: 09-15-2011 End: 05-06-2025 Tobacco smoking status NHIS Never smoked tobacco [facility] Start: 09-15-2011 End: 03-14-2024 Tobacco use and exposure Smokeless tobacco non-user [facility] Start: 06-16-2021 End: 01-05-2025 Alcohol intake Current non-drinker of alcohol (finding) [facility] Start: 1975 Sex Assigned At Not on file [facility] Start: 09-29-2023 End: 09-30-2023 Tobacco use panel [facility] National Score (1-100), lower number is lower risk 44 [facility] Start: 03-14-2024 Alcoholic beverage intake Current drinker of alcohol (finding) [facility] Work Phone: Start: 03-04-2024 End: 03-14-2024 Exposure to SARS-CoV-2 (event) Not sure [facility] Start: 1975 Sex Assigned At Female W [facility] Functional Status Date Assessment Result Facility 06-26-2022 PHQ-9 [id number] Mild (5-9) [facility] Work Phone: 09-10-2014 Are you deaf, or do you have serious difficulty hearing No 09/10/2014 9:18 AM Cassy Sebastian Ma No [facility] 09-10-2014 Are you blind, or do you have serious difficulty seeing, even when wearing glasses No 09/10/2014 9:18 AM Cassy Sebastian Ma No [facility] 09-10-2014 Do you have serious difficulty walking or climbing stairs No 09/10/2014 9:18 AM Cassy Sebastian Ma No [facility] 09-10-2014 Do you have difficul ty dressing or bathing No 09/10/2014 9:18 AM Cassy Sebastian Ma No [facility] 09-10-2014 Because of a physica l, mental, or emotional condition, do you have difficulty doing errands alone such as visiting a physician's office or shopping No 09/10/2014 9:18 AM Cassy Sebastian Ma No [facility] Mental Status Date Assessment Result Facility 09-10-2014 Because of a physica l, mental, or emotional condition, do you have serious difficulty concentrating, remembering, or making decisions No 09/10/2014 9:18 AM Cassy Sebastian Ma No [facility] Clinical Notes 09-15-2011 to 05-06-2025 Note Date & Type Note Facility 05-06-2025 Evaluation note Diagnosis Onset Date Resolution Low back pain acute April 9:01am Spondylolisthesis at L4-L5 level acute May 06 9:01am [facility] Work Phone: 1(970) 858-711408-13-2025 Evaluation note* Diagnosis Onset Date Resolution Status Admit Date Low back pain acute April 9:01am Spondylolisthesis at L4-L5 level acu te May 06, 2025 9:01am Nephrolithiasis acute May 082024 4:48pm [facility] Work Phone: 1(934) 740-277508-07-2025 Radiology Diagnostic study note [facility] Imaging Services [address] [place], [place] [address] L/S Spine Min 4 Views MR#: [id number] Acct: [id number] Name: TORY SOLIS Rep #: [id number] : 1975 F 50 From: Leah Saunders MD PCP: Dr. Leo Goyal MD Status: R EG CLI Study:L/S Spine Min 4 Views Date of Exam: 04/30/25 Exam# [id number] Ordering Dr: Giorgio Woods PROCEDURE: L/S SPINE [...] Lumbar spine scoliosis and degeneration. [facility]: SHAWN Jeff; Dr. Leo Goyal MD ~ Paint Stripper: Signed [facility]04-14-2025 NoteHNO ID: [id number] Author: ANTHONY WHITE MD Service: ? Author Type: Physician Type: Progress Notes Filed: 01/27/2025 13:11 Note Text: Tory Solis is a 49 year old who presents for her annual gynecologic exam. Weed Eradicator concerns Perimenopausal status. Abnormal mammography 12/22/2024 IMPRESSION: [...] external genitalia normal, normal Bartholin's glands, urethra, Donnybrook's glands, no vulvar lesions, no cervical lesions, [...] repeat Pap in 1 year. Anthony White M.D.[facility]04-14-2025 History of Present illness Narrative* Anthony White MD - 01/05/2025 11:54 AM EDT Tory Solis is a 49 year old who presents for her annual gynecologic exam. Weed Eradicator concerns Perimenopausal status. Abnormal mammography 12/22/2024 IMPRESSION: [...] external genitalia normal, normal Bartholin's glands, urethra, Donnybrook's glands, no vulvar lesions, no cervical lesions, [...] year. Anthony White M.D. [facility] History of Present illness Narrative* Daniela Lara [...] PATIENT PRESENTS WITH AN IMPLANTABLE OR ATTACHED QUICK PRINT OPERATOR: No RADIOLOGY DEPARTMENT: Mammography PERIPHERAL IV DATA: Not applicable SIGNED BY: RT Brenda(Juan Carlos) January 02, 2025 8:28 AM documented [facility]04-11-2025 NoteHNO ID: [id number] Author: DANIELA LARA RT(Juan Carlos) Service: ? Author Type: Technologist Type: Progress [...] PATIENT PRESENTS WITH AN IMPLANTABLE OR ATTACHED QUICK PRINT OPERATOR: No RADIOLOGY DEPARTMENT: Mammography PERIPHERAL IV DATA: Not applicable SIGNED BY: RT Brenda(R) January 02, 2025 8:[facility] Telephone encounter Note* Telephone Encounter - Jennifer Valdez RN - 12/23/2024 9:05 AM EDT Orders placed. Patient notified via FanTreehart.Jennifer Valdez RN [facility]04-01-2025 Miscellaneous Notes* Telephone Encounter - Jennifer Valdez RN - 12/23/2024 9:05 AM EDT Orders placed. Patient notified via [employer].Jennifer Valdez RN * Telephone Encounter - Alena Jarrett - 12/23/2024 8:35 AM EDT Patient is asking if she is needing to have a diagnostic mammogram completed now from the reading/results of her [facility] mammogram. Please advise and call patient. Thank you [facility]25 Telephone encounter Note * Telephone Encounter - Alena Jarrett - 12/23/2024 8:35 AM EDT Patient is asking if she is needing to have a diagnostic mammogram completed now from the reading/results of her [facility] mammogram. Please advise and call patient. Thank you [facility]03-31-2025 History of Present illness Narrative* Larry Pool, [...] PATIENT PRESENTS WITH AN IMPLANTABLE OR ATTACHED QUICK PRINT OPERATOR: No RADIOLOGY DEPARTMENT: Mammography PERIPHERAL IV DATA: Not applicable SIGNED BY: Marge Valdes December 22, 2024 8:13 AM documented in this encounterCorey [facility]03-31-2025 NoteHNO ID: [id number] Author: LARRY POOL Mammo Tech Service: ? [...] PATIENT PRESENTS WITH AN IMPLANTABLE OR ATTACHED QUICK PRINT OPERATOR: No RADIOLOGY DEPARTMENT: Mammography PERIPHERAL IV DATA: Not applicable SIGNED BY: Marge Valdes December 22, 2024 8:13 [facility]03-06-2025 Telephone encounter Note* Telephone Encounter - Zenaida Ji - 11/27/2024 8:58 AM EST Patient is requesting a mammogram. [facility]03-06-2025 Miscellaneous Notes* Telephone Encounter - Zenaida Ji - 11/27/2024 8:58 AM EST Patient is requesting a mammogram. [facility]03-05-2025 Telephone encounter Note * Telephone Encounter - Zenaida Ji - 11/26/2024 8:32 AM EST Patient is scheduled in December for her annual exam. Patient's insurance is terminating at the end of month, she will not have coverage in December. Patient is asking to be seen in the office in November, she prefers Dr. White. Call patient if an appointment is available this month. [facility]03-05-2025 Miscellaneous Notes* Telephone Encounter - Zenaida Ji [...] is available this month. documented in [facility] encounterCore[facility]06-29-2024 History of Present illness Narrative* Fela Rivera - 03/22/2024 10:00 AM EDT Study completed by Silvia on 03/22/2024. [facility] Work Phone: 1(153) 803-426006-21-2024 History of Present illness Narrative* Randee Hdz [...] appointment Randee Hdz MD documented in this [facility] Work Phone: 1(329) 368-422404-01-2024 Miscellaneous Notes* Letter - Coordinator, Mammography - 12/24/2023 9:25 PM EDT December 25, 2023 PID: [id number] Tory Solis [address] [place] [address] Dear Ms. Solis, We are pleased to [...] report will be kept on file at [facility] as part of your permanent medical record and are available for your continuing care. Thank you for allowing us to help in meeting your health care needs. Sincerely, Dr. Rodriguez Interpreting Radiologist [facility] (Normal over 40) documented in this encounterCorey Hospital2024 History of Present illness Narrative* Anthony White [...] 2) if no menses by March, 6 then plan Provera withdrawal 3) plan vaginal [...] weekly Anthony White MD documented in this encounterCorey Hospital02-09-2024 Miscellaneous Notes* Telephone Encounter - Aida Cooper LPN - 11/02/2023 3:22 PM EST done * Telephone Encounter - Margarita Cherry - 11/02/2023 3:18 PM EST Patient is requesting an order for a mammogram prior to her annual appointment in December documented in [facility] encounterCore[facility]03-23-2023 Instructions* Patient Instructions* Anthony White MD - [...] for more bone tips. documented in this encounterCorey Hospital03-23-2023 History of Present illness Narrative* Anthony White MD - 12/14/2022 7:05 AM EDT Tory Solis is a 47 year old who presents for her annual gynecologic exam. Weed Eradicator concerns . C/o perimenopausal sx's she saw [...] external genitalia normal, normal Bartholin's glands, urethra, Donnybrook's glands, no vulvar lesions, no cervical lesions, [...] 5) Anthony White MD documented in this encounterCorey Hospital12-15-2022 History of Present illness Narrative* BEATRIZ Ledezma [...] 07, 2022 10:56 AM documented in this encounterCorey Hospital11-17-2022 Miscellaneous Notes* Telephone Encounter - Jennifer Valdez [...] November, please advise thanks. documented in this [facility]03-01-2022 History of Present illness Narrative* 11/22/2021: Office [...] normal axis and appropriate R wave progression. [facility] [place] Work Phone: 1(614) 646-302001-25-2022 History of Present illness Narrative* 10/18/2021: Office [...] normal axis and appropriate R wave progression. [facility] Work Phone: 1(398) 442-500312-12-2021 History of Present illness Narrative* 46 year [...] Intermittent tickle in chest still. * Saw PHLEBOTOMIST MEDICAL LAB ASSISTANT, gave her dexamethasone and z pack. * After 4 days of dexamethasone was having racy heart mild sxs * She stopped this. * A couple of days later she had episode of severe palpitations again. * Was like this for 24 hours, went to bed and then felt fine. * This past weekend she was in [place] and had symptoms again. * Could not [...] has had some mood sxs sadness considering meds [facility] Work Phone: 1(535) 117-892612-12-2021 History of Present illness Narrative* 46 year [...] Intermittent tickle in chest still. * Saw PHLEBOTOMIST MEDICAL LAB ASSISTANT, gave her dexamethasone and z pack. * After 4 days of dexamethasone was having racy heart mild sxs * She stopped this. * A couple of days later she had episode of severe palpitations again. * Was like this for 24 hours, went to bed and then felt fine. * This past weekend she was in [place] and had symptoms again. * Could not [...] has had some mood sxs sadness considering [facility] Work Phone: 1([phone]) [phone] History of Past illness Narrative* Problem Noted Date Resolved Date Supervision of other normal 09/15/2011 12/18/2016 documented as of this encounter (statuses as of 08/10/2022) [facility]12-23-2011 History of Past illness Narrative* Problem Noted Date Resolved Date Supervision of other normal 09/15/2011 12/18/2016 documented as of this encounter (statuses as of 09/08/2022) [facility]12-[facility]-2011 History of Past illness Narrative* Problem Noted Date Resolved Date Supervision of other normal 09/15/2011 12/18/2016 documented as of this encounter (statuses as of 12/25/2022) [facility]12[facility] History of Past illness Narrative* Problem Noted Date Diagnosed Date Resolved Date Supervision of other normal 09/15/2011 12/18/2016 documented as of this encounter (statuses as of 11/02/2023) [facility] History of Past illness Narrative* Problem Noted Date Diagnosed Date Resolved Date Supervision of other normal 09/15/2011 12/18/2016 documented as of this encounter (statuses as of 12/13/2023) [place] [address]-23-2011 History of Past illness Narrative* Problem Noted Date Diagnosed Date Resolved Date Supervision of other normal 09/15/2011 12/18/2016 documented as of this encounter (statuses as of 12/26/2023) [facility] note* Diagnosis Encounter for screening mammogram for malignant neoplasm of breast- Primary Other screening mammogram [facility]* Diagnosis Encounter for screening mammogram for malignant neoplasm of breast Other screening mammogram [facility]* Diagnosis Well female exam with routine gynecological exam- Primary Routine gynecological examination documented [facility]* Diagnosis Encounter for screening mammogram for malignant neoplasm of breast- Primary Other screening mammogram [facility]* Diagnosis Unintended weight gain- Primary Abnormal weight gain Screening for thyroid disorder Vaginal dryness Other specified symptom associated with female genital organs Screening for lipid disorders Encounter for screening for diabetes mellitus Screening for diabetes mellitus Autoimmune thyroiditis Chronic lymphocytic thyroiditis documented in this encounter [facility] note* Diagnosis Sleep disorder breathing- Primary Other sleep disturbances Gingivitis Chronic gingivitis, plaque induced documented in this encounter [facility] Work Phone: Evaluation note* Diagnosis Sleep disorder breathing Other sleep disturbances documented in this encounter [facility] Work Phone: Evaluation note* Diagnosis Encounter for screening mammogram for malignant neoplasm of breast- Primary Other screening mammogram [facility]* Diagnosis Encounter for screening mammogram for malignant neoplasm of breast Other screening mammogram [facility]* Diagnosis Abnormal mammogram- Primary Abnormal mammogram, unspecified documented in this encounter [facility] note* Diagnosis ASCUS with positive high risk HPV cervical- Primary Cervical high risk human papillomavirus (HPV) DNA test positive Well female exam with routine gynecological exam Routine gynecological examination Screening for lipid disorders Encounter for screening for diabetes mellitus Screening for diabetes mellitus documented in this encounter [facility] noteNo assessment information availableMiller [facility] Work Phone: History of Present illness Narrative* [...] headaches or dizziness. * Exercise tolerance good. [facility] Work Phone: [facility] for referral (narrative)* Diagnostic Procedure Only (Routine) - Authorized Specialty Diagnoses / Procedures Referred By Pascale marcial Referred To Contact [facility] Diagnoses Encounter for screening mammogram for malignant neoplasm of breast Procedures RAJ SCREENING W [place] SCREENING DIGITAL BREAST TOMOSYNTHESIS BI SCREENING MAMMOGRAPHY BI 2-VIEW BREAST INC Anthony Short MD [address] [address] [facility] [address] [place] [address] Referral ID Status Reason Start Date Expiration Date Visits Requested Visits Authorized [id number] Authorized Auto-Generat ed Referral 2 09/09/2023 1 1 [facility] for referral (narrative)* Diagnostic Procedure Only (Routine) - Closed Specialty Diagnoses / Procedures Referred By Pascale marcial Referred To Contact [facility] Diagnoses Encounter for screening mammogram for malignant neoplasm of breast Procedures RAJ SCREENING W [place] SCREENING DIGITAL BREAST TOMOSYNTHESIS BI SCREENING MAMMOGRAPHY BI 2-VIEW BREAST INC Anthony Short MD [address] [id number] [facility] [address] [address] Referral ID Status Reason Start Date Expiration Date V isits Requested Visits Authorized [id number] Closed Auto-Generate d Referral 08/10/2022 09/09/2023 1 1 [facility] for referral (narrative)* Diagnostic Procedure Only (Routine) - Authorized Specialty Diagnoses / Procedures Referred By Pascale marcial Referred To Contact [facility] Diagnoses Encounter for screening mammogram for malignant neoplasm of breast Procedures RAJ SCREENING W [place] SCREENING DIGITAL BREAST TOMOSYNTHESIS BI SCREENING MAMMOGRAPHY BI 2-VIEW BREAST INC Anthony Short MD [address] [address] [facility] [address] [place] [address] Referral ID Status Reason Start Date Expiration Date Visits Requested Visits Authorized [id number] Authorized Auto-Generat ed Referral 11/02/2023 12/01/2024 1 1 [facility] for referral (narrative)No reason for referral information availableInd[facility] Work Phone: [facility] for visit Narrative* Diagnostic Procedure Only (Routine) - Closed Specialty Diagnoses / Procedures Referred By Pascale marcial Referred To Contact [facility] Diagnoses Encounter for screening mammogram for malignant neoplasm of breast Procedures RAJ SCREENING W [place] SCREENING DIGITAL BREAST TOMOSYNTHESIS BI SCREENING MAMMOGRAPHY BI 2-VIEW BREAST INC Anthony Short MD [address] [place] [address] [facility] [address] [place] [address] Referral ID Status Reason Start Date Expiration Date V isits Requested Visits Authorized [id number] Closed Auto-Generate d Referral 08/10/2022 09/09/2023 1 1 [facility] for visit Narrative* Diagnostic Procedure Only (Routine) - Closed Specialty Diagnoses / Procedures Referred By Pascale marcial Referred To Contact [facility] Diagnoses Encounter for screening mammogram for malignant neoplasm of breast Procedures RAJ SCREENING W [place] SCREENING DIGITAL BREAST TOMOSYNTHESIS BI SCREENING MAMMOGRAPHY BI 2-VIEW BREAST INC Anthony Short MD [address] [address] Phone: tel: fax: [facility] [address] [place] [address] Referral ID Status Reason Start Date Expiration Date V isits Requested Visits Authorized [id number] Closed Auto-Generate d Referral 11/27/2024 12/27/2025 1 1 [facility] for visit Narrative* Diagnostic Procedure Only (Routine) - Closed Specialty Diagnoses / Procedures Referred By Pascale marcial Referred To Contact [facility] Diagnoses Abnormal mammogram Procedures RAJ DIAGNOSTIC LEFT DIAGNOSTIC MAMMOGRAPHY COMPUTER-AIDED DETCJ UNI Anthony White MD [address] [place] [address] Phone: tel: fax: [facility] [address] [place] [address] Referral ID Status Reason Start Date Expiration Date V isits Requested Visits Authorized [id number] Closed Auto-Generate d Referral 12/23/2024 01/22/2026 1 1 [facility] Chief Complaint Chief Complaint: TORY SOLIS is [...] Autoimmune thyroiditis Procedures CONSULT TO ENDOCRINOLOGY OFFICE/OUTPATIENT [facility] 60 MINUTES Anthony White MD [address] [address] Referral ID Status Reason Start Date Expiration Date Visits Requested Visits Authorized [id number] Authorized PCP Requested Referral 12/12/2023 12/11/2024 1 1 Specialty Diagnoses / Procedures Referred By Contac t Referred To Contact Sleep Lab Diagnoses Sleep disorder breathing Procedures Home sleep apnea test (HSAT) Randee Hdz MD [address] [facility] [address] [place] [address] Referral ID Status Reason Start Date Expiration Date V isits Requested Visits Authorized [id number] Pending Review 03/14/2024 03/14/2025 1 1 Chief [...] FOR UTI May 08, 2025 4: 48pm Reason for Visit Admit Date Low back pain May 06, 2025 9: 01am Spondylolisthesis at L4-L5 level May 06, 2025 9:01am Nephrolithiasis May 08, 2025 4: 48pm Additional Source Comments INFORMATION SOURCE (unrecogn ized section and content) DATE CREATED AUTHOR 06/28/[address] [facility] DATE CREATED AUTHOR AUTHOR'S ORGANIZ ATION 06/28/2022 [facility] DATE CREATED AUTHOR AUTHOR'S ORGANIZ ATION [facility]/2025 [facility] DATE CREATED AUTHOR AUTHOR'S ORGANIZ ATION 01/11/2025 [facility] DATE CREATED AUTHOR AUTHOR'S ORGANIZ ATION 01/30/2025 [facility] DATE CREATED AUTHOR AUTHOR'S ORGANIZ ATION 03/01/2025 [facility] DATE CREATED AUTHOR AUTHOR'S ORGANIZ ATION 05/13/2025 [facility] Source Comments (unrecognize d section and content) In the event this informatio n is protected by the Federal Confidentiality of Alcohol and Drug Abuse Patient Records regulations: The Federal rules restrict any use of the information to criminally investigate or prosecute any alcohol or drug abuse patient.[facility] ClinicIn the event this information is protected by the Federal Confidentiality of Alcohol and Drug Abuse Patient Records regulations: The Federal rules restrict any use of the information to criminally investigate or prosecute any alcohol or drug abuse patient.[facility] Hospital[facility] the event this information is protected by the Federal Confidentiality of Alcohol and Drug Abuse Patient Records regulations: The Federal rules restrict any use of the information to criminally investigate or prosecute any alcohol or drug abuse patient.[facility] HospitalIn the event this information is protected by the Federal Confidentiality of Alcohol and Drug Abuse Patient Records regulations: The Federal rules restrict any use of the information to criminally investigate or prosecute any alcohol or drug abuse patient.[facility] HospitalIn the event this information is protected by the Federal Confidentiality of Alcohol and Drug Abuse Patient Records regulations: The Federal rules restrict any use of the information to criminally investigate or prosecute any alcohol or drug abuse patient.[facility] HospitalIn the event this information is protected by the Federal Confidentiality of Alcohol and Drug Abuse Patient Records regulations: The Federal rules restrict any use of the information to criminally investigate or prosecute any alcohol or drug abuse patient.[facility] HospitalIn the event this information is protected by the Federal Confidentiality of Alcohol and Drug Abuse Patient Records regulations: The Federal rules restrict any use of the information to criminally investigate or prosecute any alcohol or drug abuse patient.[facility] HospitalIn the event this information is protected by the Federal Confidentiality of Alcohol and Drug Abuse Patient Records regulations: The Federal rules restrict any use of the information to criminally investigate or prosecute any alcohol or drug abuse patient.[facility] Hospital[facility] the event this information is protected by the Federal Confidentiality of Alcohol and Drug Abuse Patient Records regulations: The Federal rules restrict any use of the information to criminally investigate or prosecute any alcohol or drug abuse patient.[facility] HospitalIn the event this information is protected by the Federal Confidentiality of Alcohol and Drug Abuse Patient Records regulations: The Federal rules restrict any use of the information to criminally investigate or prosecute any alcohol or drug abuse patient.[facility] Hospital[facility] the event this information is protected by the Federal Confidentiality of Alcohol and Drug Abuse Patient Records regulations: The Federal rules restrict any use of the information to criminally investigate or prosecute any alcohol or drug abuse patient.[facility] HospitalIn the event this information is protected by the Federal Confidentiality of Alcohol and Drug Abuse Patient Records regulations: The Federal rules restrict any use of the information to criminally investigate or prosecute any alcohol or drug abuse patient.[facility] HospitalIn the event this information is protected by the Federal Confidentiality of Alcohol and Drug Abuse Patient Records regulations: The Federal rules restrict any use of the information to criminally investigate or prosecute any alcohol or drug abuse patient.[facility] HospitalIn the event this information is protected by the Federal Confidentiality of Alcohol and Drug Abuse Patient Records regulations: The Federal rules restrict any use of the information to criminally investigate or prosecute any alcohol or drug abuse patient.[facility] Reason for Visit (unrecogniz ed section and content) Reason Comments Orders Reason Comments Well Woman Reason Comments Menopause Consult Reason Comments Snoring EP. Address snoring. Would like home sleep study ordered. Was at dentist on Sunday and having pain and tenderness and worried she may be getting a infection with the 99.0 temp. Specialty Diagnoses / Procedures Referred By Contsmitha marcial Referred To Contact Sleep Lab Diagnoses Sleep disorder breathing Procedures Home sleep apnea test (HSAT) Randee Hdz MD [address] [facility], [address] [address] Referral ID Status Reason Start Date Expiration Date V isits Requested Visits Authorized [id number] Authorized 03/14/2024 03/14/2025 1 1 Reason Comments Appointment Care Teams (unrecognized sec tion and content) Powerhouse Electrician Relationship Specialty Start Date End Date Randee Hdz MD [address] [place], [place] [id number] PCP - General Internal Medicine 09/10/14 Powerhouse Electrician Relationship Specialty Start Date End Date Randee Hdz MD [address] [place], [place] [id number] PCP - General Internal Medicine 09/10/14 Powerhouse Electrician Relationship Specialty Start Date End Date Randee Hdz MD [address] [facility] [address] [place] [address] PCP - General Internal Medicine 09/10/14 Powerhouse Electrician Relationship Specialty Start Date End Date Randee Hdz MD [address] [facility] [address] [place] [address] PCP - General Internal Medicine 09/10/14 Powerhouse Electrician Relationship Specialty Start Date End Date Randee Hdz MD [address] [facility] [address] [place] [address] PCP - General Internal Medicine 09/10/14 Powerhouse Electrician Relationship Specialty Start Date End Date Randee Hdz MD [facility] [facility] [address] [place] [address] PCP - General Internal Medicine 09/10/14 Powerhouse Electrician Relationship Specialty Start Date End Date Randee Hdz MD [facility] [address] [facility], [address] [place] [address] PCP - General 11/02/20 Radnee Hdz MD [facility] [address] [facility], [address] [place] [address] PCP - Titus WANO PCP 11/23/23 Powerhouse Electrician Relationship Specialty Start Date End Date Randee Hdz MD [address] [facility], [address] [place] [address] PCP - General 11/02/20 Randee Hdz MD [facility] [facility], [address] [place] [address] PCP - Titus DE LUNA PCP 11/23/23 Powerhouse Electrician Relationship Specialty Start Date End Date Randee Hdz MD [address] [place] [address] PCP - General Internal Medicine 09/10/14 Powerhouse Electrician Relationship Specialty Start Date End Date Randee Hdz MD [address] [place] [address] PCP - General Internal Medicine 09/10/14 Powerhouse Electrician Relationship Specialty Start Date End Date Randee Hdz MD [address] [place] [address] PCP - General Internal Medicine 09/10/14 Powerhouse Electrician Relationship Specialty Start Date End Date Randee Hdz MD [address] [place] [address] PCP - General Internal Medicine 09/10/14 Powerhouse Electrician Relationship Specialty Start Date End Date Randee Hdz MD [address] [place] [address] PCP - General Internal Medicine 09/10/14 Powerhouse Electrician Relationship Specialty Start Date End Date Randee Hdz MD [address] [place] [address] PCP - General Internal Medicine 09/10/14 Powerhouse Electrician Relationship Specialty Start Date End Date Randee Hdz MD [address] [place] [address] PCP - General Internal Medicine 09/10/14 Powerhouse Electrician Relationship Specialty Start Date End Date Randee Hdz MD [facility] [facility] [place] [place] [address] PCP - General Internal Medicine 09/10/14 Team Status: Active Member Role/Relationship Status Dates Dr. Leo Goyal MD Primary Care Provider Active Team Status: Active Member Role/Relationship Status Dates Dr. Leo Goyal MD Primary Care Provider Active Start: April 30, 2025 Meghana Woods , PA Attending Provider Active Star t: April 30, 2025 Meghana Woods , PA Referring Provider Active Star t: April 30, [...] April 30, 2025 End: April 30, 2025 Meghana Woods PA Attending Provider Active Star t: April 30, 2025 End: April 30, 2025 Meghana Woods , [place] Referring Provider Active Star t: April 30, 2025 End: April 30, 2025 Team Status: Inactive Member Role/Relationship Status Dates Dr. Leo Goyal MD Primary Care Provider Active Start: May 08, 2025 End: May 08, 2025 Dr. Leo Goyal MD Referring Provider Active Start: May 08, 2025 End: May 08, 2025 SHAWN Roland Attending Provider Active Sta rt: May 08, 2025 End: May 08, 2025 Team Status: Inactive Member Role/Relationship Status Dates Dr. Leo Goyal MD Primary Care Provider Active Start: May 09, 2025 End: May 09, 2025 SHAWN Roland Attending Provider Active Sta rt: May 09, 2025 End: May 09, 2025 Goals (unrecognized section and content) Goals [...] BE BASED ON THE PRIMARY CLINICAL RECORDS. [employer] [facility]. provides no warranty or guarantee of the accuracy or completeness of information in this document.
== END | disposition home or self-care (01) ==
LOC: OPUS 15:35
PROVIDERS: PCP Internal Medicine; Referring Provider Student in an Organized Health Care Education/Training Program; Visit Provider Student in an Organized Health Care Education/Training Program
DX: M43.16 Spondylolisthesis, lumbar region (principal); M54.50 Low back pain, unspecified; G89.29 Other chronic pain
CPT/HCPCS: 72148

== ENCOUNTER → 2025-05-22 | Outpatient (CLI) | payer OTHER, SELFPAY ==
[2025-05-22 13:56] LABS: Anion Gap 12 (5-15); BUN 19 mg/dL (4-19); BUN/Creat Ratio 26.2 RATIO (10-20); Calcium,Total 9.4 mg/dL (7.6-11.0); Carbon Dioxide 21.7 mmol/L (21.0-32.0); Chloride 104 mmol/L (98-108); Glucose 93 mg/dL (70-99); Potassium 4.3 mmol/L (3.3-5.1)
== END | disposition home or self-care (01) ==
LOC: MTLAB 09:29
PROVIDERS: PCP Internal Medicine; Referring Provider Urology; Visit Provider Urology
DX: N20.0 Calculus of kidney (principal)
CPT/HCPCS: 36415; 80048

== ENCOUNTER → 2025-06-02 | Outpatient (CLI) | payer OTHER, SELFPAY ==
--- NOTE | 2025-06-02 18:20 | CT_ITS ---
PROCEDURE: ABDOMEN/PELVIS WITHOUT CONT 06/02/2025 REASON FOR EXAM: KIDNEY STONES, BACK PAIN TECHNIQUE: Procedure Code: CTABDPEL Modality: CT Procedure: ABDOMEN/PELVIS WITHOUT CONT Noncontrast technique limits evaluation of the abdominal and pelvic viscera. Coronal and Sagittal reconstruction series were provided. One or more dose reduction techniques were used (e.g., Automated exposure control, adjustment of the mA and/or kV according to patient size, use of iterative reconstruction technique). RADIATION DOSE SUMMARY: CTDlvol: 6.55 mGy DLP: 328.82 mGycm COMPARISON: None FINDINGS: Lung bases: Minimal increased markings in the medial aspect of the right middle lobe as well as in the anterior left lower lobe suggestive of linear atelectasis and/or scarring. Liver: Small cysts are seen in the right lobe of the liver. The largest measures 1 cm. Gallbladder: Unremarkable Spleen: Normal size. Pancreas: Normal size. No surrounding inflammation. Adrenals: Unremarkable Kidneys: Multiple bilateral nonobstructive intrarenal calculi. The largest is in the left kidney and measures 6.4 mm. Mild degree of right hydronephrosis. No evidence of obstruction. Bladder: Unremarkable Reproductive Organs: Unremarkable Bowel: Unremarkable Appendix: Unremarkable Lymph nodes: Unremarkable. Vasculature: The abdominal aorta and IVC contours are normal. Noncontrast technique limits evaluation. Peritoneum / Retroperitoneum: Unremarkable Bones: Unremarkable CT/Abdomen/Pelvis without Cont IMPRESSION: Nonobstructive bilateral intrarenal calculi. No evidence of obstruction. Small hepatic cysts in the right lobe of the liver. Reading Location: [id number]
== END | disposition home or self-care (01) ==
LOC: CT 18:16
PROVIDERS: PCP Internal Medicine; Referring Provider Urology; Visit Provider Urology
DX: N20.0 Calculus of kidney (principal); M54.50 Low back pain, unspecified; G89.29 Other chronic pain
CPT/HCPCS: 74176

== ENCOUNTER → 2025-06-03 | Outpatient (CLI) | payer OTHER, SELFPAY ==
[2025-06-03 18:32] LABS: Follicle Stimulating Hormone 84.0 mIU/mL
== END | disposition home or self-care (01) ==
LOC: MTLAB 15:00
PROVIDERS: PCP Internal Medicine; Referring Provider Family Medicine; Visit Provider Family Medicine
DX: E34.9 Endocrine disorder, unspecified (principal)
CPT/HCPCS: 36415; 82670; 83001; 84403

== ENCOUNTER → 2025-08-07 | Outpatient (CLI) | payer OTHER, SELFPAY ==
--- OUTSIDE RECORDS SUMMARY | 2025-08-07 20:44 | XMS RPT_ITS | CCD ---
Author Organization [facility] Care Team Providers Care Match Maker Name Role Phone Randee Hdz Unavailable Unavailable Unavailable PEDRITO, Dr. RANDEE COLVIN Primary Care Unavaila Juni Olivas Attending Unavailable Juni Gamboa Attending Unavailable PEDRITO, Dr. RANDEE COLVIN Primary Care Unavaila prince HDZ, Dr. RANDEE COLVIN Referring Unavaila prince HDZ, Dr. RANDEE COLVIN Primary Care Unavaila Juni Olivas Attending Unavailable Juni Gamboa Attending Unavailable PEDRITO, Dr. RANDEE COLVIN Primary Care Unavaila prince HDZ, Dr. RANDEE COLVIN Primary Care Unavaila Juni Olivas Referring Unavailable ISAÍAS ANDERS Attending Unavailable PEDRITO, Dr. RANDEE COLVIN Primary Care Unavaila prince HDZ, Dr. RANDEE COLVIN Attending Unavaila ble PEDRITO, Dr. RANDEE COLVIN Referring Unavaila ble PEDRITO, Dr. RANDEE COLVIN Attending Unavaila ble PERDITO, Dr. RANDEE COLVIN Referring Unavaila ble PEDRITO, Dr. RANDEE COLVIN Primary Care Unavaila Randee White MD Primary Care Provider Randee Hdz MD Primary Care Provider Randee Hdz MD Primary Care Provider Randee dHz MD Unavailable Randee Hdz MD Primary Care Provider ANTHONY WHITE Referring Unavailable RANDEE HDZ Primary Care Unavailable ANTHONY WHITE Referring Unavailable RANDEE HDZ Primary Care Unavailable RANDEE HDZ Attending Unavailable PEDRITO, RANDEE M Primary Care Unavailable ANTHONY WHITE Referring Unavailable PEDRITO, RANDEE M Primary Care Unavailable ANTHONY WHITE W Referring Unavailable ANTHONY WHITE Attending Unavailable PEDRITO, RANDEE M Primary Care Unavailable PEDRITO, RANDEE M Primary Care Unavailable PEDRITO, RANDEE M Primary Care Unavailable PEDIRTO, RANDEE M Primary Care Unavailable PEDRITO, RANDEE M Primary Care Unavailable ANTHONY WHITE Referring Unavailable Jay Jay CHARLES, Dr. Bailey Primary Care Provider Meghana Helms Attending Provider Meghana Helms Referring Provider Jay Jay CHARLES, Dr. Bailey Referring Provider Shahid Poon Attending Provider [phone] Evangelina CHARLES, Dr. Paula Attending Provider Dr. Nisa Hutchinson MD Referring Provider Jay Jay CHARLES, Dr. Bailey Primary Care Physician Meghana Helms Attending Physician Shahid Poon Attending Physician 1([facility])[phone] Evangelina CHARLES, Dr. Paula Attending Physician Elsa LEÓN, Dr. Winter Attending Physician Dr. Maggy Hunter DO Referring Provider 1([facility])[phone] Ana DELACRUZ-Lexi Issa Attending Physician Maggy Hunter Referring Unavailable Maggy Hunter Attending Unavailable Oleghe, Efewongbe Primary Care Unavailable Assessment, Health Risk Referring Unavaila ble Assessment, Health Risk Attending Unavaila ble Meghana Woods Referring Unavailable Meghana Woods Attending Unavailable Oleghe, Efewongbe Primary Care Unavailable Oleghe, Efewongbe Referring Unavailable Lexi Perez Attending Unavailable Oleghe, Efewongbe Primary Care Unavailable Oleghe, Efewongbe Primary Care Unavailable Nisa Hutchinson Attending Unavailable Stephenie Mercado Attending Unavailable Oleghe, Efewongbe Primary Care Unavailable Oleghe, Efewongbe Referring Unavailable Nisa Hutchinson Attending Unavailable Oleghe, Efewongbe Referring Unavailable Meghana Woods Attending Unavailable Oleghe, Efewongbe Primary Care Unavailable Oleghe, Efewongbe Referring Unavailable Shahid Poon Attending Unavailable Oleghe, Efewongbe Primary Care Unavailable Oleghe, Efewongbe Referring Unavailable Oleghe, Efewongbe Primary Care Unavailable Nisa Hutchinson Attending Unavailable Oleghe, Efewongbe Referring Unavailable Meghana Woods Attending Unavailable Oleghe, Efewongbe Primary Care Unavailable Oleghe, Efewongbe Referring Unavailable Nisa Hutchinson Attending Unavailable Oleghe, Efewongbe Primary Care Unavailable Shahid Poon Attending Unavailable Oleghe, Efewongbe Primary Care Unavailable Oleghe, Efewongbe Primary Care Unavailable Nisa Hutchinsno Referring Unavailable Nisa Hutchinson Attending Unavailable Meghana Woods Referring Unavailable Meghana Woods Attending Unavailable Oleghe, Efewongbe Primary Care Unavailable Nisa Hutchinson Attending Unavailable Oleghe, Efewongbe Primary Care Unavailable Nisa Hutchinson Referring Unavailable Medications Current Medications Medication Drug Class(es) Dates Sig (Normalized) Sig (Original) cephalexin 500 mg oral tablet (7 sources) Cephalosporin Antibacterial Start: 07-09-2025 take 1 tablet by mouth three times daily Start: 07-09-2025 take 1 capsule by mo [facility] at bedtime Start: 06-22-2025 End: 07-09-2025 take 1 tablet by mouth three times daily Cephalexin 500 mg tablet Discontinued 500 mg PO THREE TIMES A DAY 15 0 June 22, 2025 12:00am July 09, 2025 3:06pm Start: 06-22-2025 take 1 tablet by yuri three times daily Start: 06-22-2025 take 1 tablet by yuri three times daily compounded progesterone 50 m g capsule (12 sources) compounded proge sterone 50 mg capsule 50 mg twice daily. Active compounded proge sterone 50 mg capsule 50 mg twice daily. 0 Active Comment on above: 50 mg twice daily. Estriol (11 sources) Start: 12-12-2023 estriol 0.01 [...] above: Take by mouth once d aily. linezolid 600 mg oral tablet (4 sources) Oxazolidinone Antibacterial Start: 06-23-2025 take 1 tablet by mouth twice daily Start: 06-23-2025 take 1 tablet by mouth twice d aily meloxicam 15 mg oral tablet (6 sources) Nonsteroidal Anti-inflammatory Drug Start: 05-29-2025 take 1 tablet by mouth once daily OMEGA-3 FATTY ACIDS/FISH OIL (OMEGA 3 FISH OIL ORAL) (14 sources) OMEGA-3 FATTY ACIDS/FISH OIL (OMEGA 3 FISH OIL ORAL) Take by mouth. Active OMEGA-3 FATTY AC IDS/FISH OIL (OMEGA 3 FISH OIL ORAL) Take by mouth. 0 Active Comment on above: Take by mouth. penicillin v potassium 500 mg oral tablet (1 source) Start: 4 End: 4 take 1 tablet by mouth four times daily penicillin v potassium (Veetid) 500 mg tablet Indications: Gingivitis Take 1 tablet (500 mg) by mouth 4 times a day for 7 days. 28 tablet 03/14/2024 03/21/2024 Active TESTOSTERONE CYPIONATE INTRAMUSC. (2 sources) Start: 5 TESTOSTERONE CYPIONATE INTRAMUSC. Inject 0.1 mL intramuscularly as directed. Every 4 days 01/01/2025 Active Tirzepatide (10 sources) Start: Tirzepatide (Mounjaro) 2.5 mg/0.5 mL pen injector Active 7.5 mg SC EVERY WEEK May 29, 2025 8:10am for 4 weeks Complies with drug therapy Start: 05-29-2025 Start: 05-08-2025 End: 05-29-2025 Tirzepatide (Mounjaro) 2.5 m g/0.5 mL pen injector Discontinued 2.5 mg SC EVERY WEEK May 08, 2025 12:00am May 29, 2025 8:10am for 4 weeks Tirzepatide (Mounjaro) 2.5 mg/0.5 mL pen injector (7 sources) Start: 05-29-2025 Tirzepatide (M ounjaro) 2.5 mg/0.5 mL pen injector Active 7.5 mg SC EVERY WEEK May 29, 2025 8:10am for 4 weeks Start: 05-08-2025 End: 05-29-2025 Tirzepatide (Mounjaro) 2.5 m g/0.5 mL pen injector Discontinued 2.5 mg SC EVERY WEEK May 08, 2025 12:00am May 29, 2025 8:10am for 4 weeks Start: 05-08-2025 Tirzepatide (M ounjaro) 2.5 mg/0.5 mL pen injector Active 2.5 [...] mg / clavulanate 125 mg oral tablet (20 sources) Penicillin-class Antibacterial Start: 10-17-2024 End: 05-06-2025 Amoxicillin-Pot Clavulanate 875-125 mg tablet Discontinued 1 {tbl} PO TWICE A DAY October 17, 2024 7:59pm May 06, 2025 9:05am azithromycin 250 mg oral tablet (20 sources) Macrolide Antimicrobial Start: 02-11-2024 End: 02-16-2024 [...] twice daily. cefdinir 300 mg oral capsule (20 sources) Cephalosporin Antibacterial Start: 02-11-20 End: 10-17-19 take 1 capsule by mouth twice daily Cefdinir 300 mg capsule Discontinued 300 mg PO TWICE A DAY August 11, 2024 9:04pm October 17, 2024 7:54pm Desogestrel / Ethinyl Estradiol (4 sources) Progestin, Estrogen Start: 09-21-20 take 1 tablet by mouth once daily Desogestrel-Ethinyl Estradiol (MIRCETTE, 28,) 0.15-0.02 mgx21 /0.01 mg x 5 per tablet Take 1 tablet by mouth once daily. 3 Package 1 09/21/2017 Active Comment on above: Take 1 tablet by yuri th once daily. dexamethasone 6 mg oral tablet (13 sources) Corticosteroid Start: 09-20-20 End: 02-06-20 23 take 1 tablet by mouth twice daily Dexamethasone (Decadron) 6 mg tablet Discontinued 6 mg PO TWICE A DAY 14 September 20, 2021 1:00am February 05, 2023 6:54pm 84 hr estradiol 0.18487 mg/hr transdermal system (20 sources) Estrogen Start: 05-06-20 End: 05-22-20 Estradiol (Karen) 0.05 mg/24 hr patch semiweekly Discontinued 1 NMA TOPICAL TWICE A WEEK May 06, 2025 12:00am May 22, 2025 8:31am Start: 01-05-2025 estradiol (EST RACE) 0.01 % (0.1 mg/gram) vaginal cream Use 1 g vaginally two times a week. 1-2 times per week as directed. 42.5 g 5 01/05/2025 Active estradiol (KAREN ) 0.025 mg/24 hr Apply 1 Patch as directed two times a week. Active Comment on above: Apply 1 Patch as dir ected two times a week. estrogens, conjugated (halfway) 0.625 mg/ml vaginal cream (1 source) Estrogen [...] 26-Jun-2022 Active methylPREDNISolone 4 mg oral tablet (20 sources) Corticosteroid Start: 2024 End: 2024 take [...] Randee Hdz MD Start : 02-Nov-2020 Active progesterone 100 mg oral capsule (13 sources) Progesterone Start: 05-06-2025 End: 05-22-2025 take 1 capsule by mouth once daily in the morning Progesterone Micronized 100 mg capsule Discontinued 100 mg PO EVERY MORNING May 06, 2025 12:00am May 22, 2025 8:31am off 7 days; repeat cycle testosterone cypionate 100 mg/ml injectable solution (5 sources) Androgen Start: 05-06-2025 End: 05-22-2025 Testosterone Cypionate 100 mg/mL oil Discontinued mg IM May 06, 2025 12:00am May 22, 2025 8:31am Testosterone Cypionate 100 mg/mL oil (8 sources) Start: 05-06-2025 End: 05-22-2025 Testosterone Cypionate 100 mg/mL oil Discontinued mg IM May 06, 2025 12:00am May 22, 2025 8:31am Start: 05-06-2025 Testosterone C ypionate 100 mg/mL oil Active mg IM May 06, 2025 12:00am 24 hr venlafaxine 37.5 mg extended release [...] 10-27-2013 10-27-2013 Chronic Calculus of urinary tract (20 sources) Kidney stone; Translations: [Calculus of kidney] Onset: 06-11-2025 05-08-2025 Episodic Chronic obstructive pulmonary disease and bronchiectasis (13 sources) Bronchitis; Translations: [Bronchitis, not specified as acute or chronic] 09-20-2021 Episodic Chronic ulcer of skin (1 source) Pressure ulcer of unspecified ankle, unspecified stage; Translations: [Controlled type 2 diabetes mellitus with pressure ulcer of ankle (HCC) (HCC)] Onset: 03-17-2024 Chronic Diabetes mellitus without complication (17 sources) Type 2 diabetes mellitus without complications; Translations: [Diabetes mellitus] Onset: 03-17-2024 05-22-2025 Chronic Diseases of mouth; excluding dental (8 sources) Mucocele of mouth; Translations: [Other and unspecified diseases of the oral soft tissues] Episodic Disorders of lipid metabolism (1 source) Hyperlipidemia, unspecified; Translations: [Hyperlipoproteinemia] Onset: 03-17-2024 Chronic Disorders of teeth and jaw (3 sources) Gingivitis; Translations: [Chronic gingivitis, plaque induced] Onset: 03-14-2024 03-14-2024 Chronic Genitourinary symptoms and ill-defined conditions (9 sources) Dysuria; Translations: [Dysuria] Onset: 05-13-2025 Episodic Lymphadenitis (8 sources) Lymphadenopathy; Translations: [Enlargement [...] Open wounds of head; neck; and trunk (13 sources) Laceration of eyebrow; Translations: [Laceration without foreign body of unspecified eyelid and periocular area, initial encounter] 10-08-2023 Episodic Other acquired deformities (20 sources) Lumbar spondylolisthesis; Translations: [Spondylolisthesis, lumbar region] 05-06-2025 Episodic Other acquired deformities (1 source) Spondylolisthesis, lumbar region; Translations: [Spondylolisthesis, lumbar region] Onset: 05-20-2025 Episodic Other connective tissue disease (13 sources) Lateral epicondylitis of right humerus; Translations: [Lateral epicondylitis, right elbow] 02-28-2023 Episodic Other endocrine disorders (1 source) Springhill's syndrome, unspecified; 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)] Onset: 04-17-2024 Chronic Other endocrine disorders (1 source) Other specified disorders of adrenal gland; Translations: [Abnormality of cortisol-binding globulin (HCC)] Onset: 03-17-2024 Chronic Other endocrine disorders (1 source) Endocrine disorder, unspecified; Translations: [Endocrine disorder, unspecified] Onset: 06-13-2025 Episodic Other female genital disorders (1 source) Vaginal dryness; Translations: [Other specified noninflammatory disorders of vagina] 12-12-2023 Episodic Other inflammatory condition of skin (8 sources) Pityriasis rosea; Translations: [Pityriasis rosea] Chronic Other lower respiratory disease (8 sources) Cough; Translations: [Cough] Episodic Other nervous system disorders (1 source) Other chronic pain; Translations: [Other chronic pain] Onset: 05-22-2025 Chronic Other non-traumatic joint disorders (13 sources) Pain in elbow; Translations: [Pain in [...] 02-12-2024 Episodic Otitis media and related conditions (13 sources) Otitis media of left ear; Translations: [Otitis media, unspecified, left ear] 02-11-2024 Episodic Residual codes; unclassified (2 sources) Finding related to sleep; Translations: [Sleep apnea, unspecified] 03-14-2024 Chronic Residual codes; unclassified (2 sources) Sleep apnea, unspecified; Translations: [Sleep apnea, unspecified] Onset: 03-14-2024 Chronic Residual codes; unclassified (6 sources) Obstructive sleep apnea syndrome; Translations: [Obstructive sleep apnea (adult) (pediatric)] 06-24-2025 Chronic Residual codes; unclassified (8 sources) Past [...] Spondylosis; intervertebral disc disorders; other back problems (20 sources) Displacement of cervical intervertebral disc; Translations: [Other cervical disc displacement, unspecified cervical region] 02-06-2023 Chronic Spondylosis; intervertebral disc disorders; other back problems (20 sources) Low back pain; Translations: [Lumbago] Onset: 06-23-2025 05-06-2025 Episodic Thyroid disorders (2 sources) Autoimmune thyroiditis; Translations: [Autoimmune thyroiditis] Onset: 03-17-2024 12-12-2023 Chronic Unclassified (1 source) Spondylolisthesis at L4-L5 level Unclassified (7 sources) M43.16 - Spondylolisthesis, lumbar region,M54.50 - Low back pain, unspecified Unclassified (1 source) Low back pain, unspecified; Translations: [Low back pain, unspecified] Onset: 05-22-2025 Urinary tract infections (6 sources) Urinary tract infectious disease; Translations: [Urinary tract infection, site not specified] Onset: 07-08-2025 06-22-2025 Episodic Past or Other Problems Problem Classification Problem [...] Test Name Value Interpretation Reference Range Facility Laboratory - Chemistry and C hemistry - challengeOrdered By: Nisa Hutchinson on 07-08-2025 Bilirubin Ql (U) Negative [facility] Glucose Ql (U) Negative [facility] Ketones Ql (U) Negative [facility] pH (U) 6.5 [pH] [facility] Specific gravity (U) [Rel density] 1.005 [facility] Urobilinogen (U) [Mass/Vol] 0.6220197 mg/dL [facility] Laboratory - Hematology and Cell countsOrdered By: Nisa Hutchinson on 07-08-2025 Hemoglobin Ql (U) Negative [facility] Laboratory - UrinalysisOrder ed By: Nisa Hutchinson on 07-08-2025 Nitrite Ql (U) Negative [facility] Protein Ql (U) Negative [facility] No Panel InformationOrdered By: Nisa Hutchinson on 07-08-2025 Urine Leukocytes Positive [facility] Urine Non-Hemolyzed Blood Negative [facility] Office Visit Reporton 2024 Office Visit Report [facility] [place] [address] OFFICE VISIT Date of Service: 07/08/25 MR#: [id number] Acct: [id number] Patient: TORY SOLIS Rep #: [id number] : 1975 Provider: Dr. Nisa Davalos i, MD Age/Sex: 50/F Location: [facility] Status: Signed Intake Vital Signs 06/24/25 06:31 Height 5 ft 6 in Weight: 151 lb BMI 24.3 BP 108/81 H Blood Pressure Location Lt brachial Position Sitting Respiration 18 Pulse 69 Pulse Source Monitor Temp 97.5 F L Pulse Oximetry (%) 99 Oxygen Delivery Method room air Intake Visit Reasons: urine drop Chief Complaint: urine drop off Allergies No Known Allergies Allergy (Verified 06/24/25 08:26) Nurse's Note: patient dropped her urine off for UA and culture Results POC UA Auto w/o Microscopy Office Urine Color Last Edit by Annemarie Cotto on 07/08/25 13:31 Office Urine Clarity Last Edit by Annemarie Cotto on 07/08/25 13:31 Office Urine Glucose Negative Last Edit by Annemarie Cotto on 07/08/25 13:31 Office Urine Ketones Negative Last Edit by Annemarie Cotto on 07/08/25 13:31 Office Urine Bilirubin Negative Last Edit by Annemarie Cotto on 07/08/25 13:31 Office Urine Urobilinogen 0.2 mg/dL Last Edit by Annemarie Ctoto on 07/08/25 13:31 Off Ur Spec [place] 1.005 Last Edit by Annemarie Cotto on 07/08/25 13:31 Office Urine pH 6.5 Last Edit by Annemarie Cotto on 07/08/25 13:31 Office Urine Protein Negative Last Edit by Annemarie Cotto on 07/08/25 13:31 Office Urine Blood Negative Last Edit by Annemarie Cotto on 07/08/25 13:31 Office Urine Blood Hemolyzed Negative Last Edit by Annemarie Cotto on 07/08/25 13:31 Office Urine Nitrate Negative Last Edit by Annemarie Cotto on 07/08/25 13:31 Off Ur Leukocytes Positive Last Edit by Annemarie Cotto on 07/08/25 13:31 leuks 500 Assessment and Plan Assessment and Plan Orders: Orders POC UA Auto w/o Microscopy Today N39.0 - Urinary tract infection, site not specified 07/08/25 1416 Date Nisa Cole Signature: Date (if applicable) CC: Normal [facility] Pulmonary Visit Reporton Pulmonary Visit Report [facility] [address] [place] [address] OFFICE VISIT Date of Service: 06/24/25 MR#: [id number] Acct: [id number] Name: TORY SOLIS Rep #: [id number] : 1975 Provider: Lexi Perez NP Age/Sex: 50/F Location: [facility] Status: Signed Assessment and Plan Assessment and Plan (1) Obstructive sleep apnea: Status: Acute Plan: The patient has a history of at least moderate obstructive sleep apnea. This was confirmed by a home sleep study which does have limitations and may not fully quantify the severity of the degree of apnea. She has plateaued with receiving benefit from an oral appliance alone. The patient did perform her own trial of PAP therapy and received benefit. I have recommended that she treat her sleep apnea with positive airway pressure at this time. I recommended an AutoPap at 4 to 6 cm be initiated. The patient is agreeable to this plan. For the first week the patient will utilize her AutoPap device with her oral appliance. The second week she will remove the oral appliance and determine if her symptoms have continued to remain controlled and she will also be able to utilize data from her aura ring. I recommend obtaining a nocturnal pulse oximetry in approximately 6 weeks with both the oral appliance and PAP therapy unless the patient has received excellent results and benefit from the PAP device alone and if this is the case she will notify this practice. Follow-up in 8 to 10 weeks with compliance download from device and the results of the nocturnal oximetry. Orders: Orders OutPt Pulse Ox/Cont Overnight 6 Weeks G47.33 - Obstructive sleep apnea (adult) (pediatric) Plan Details Follow Up: 8 to 10 weeks (LMR) HPI HPI Comments Details: Patient 50-year-old female who presents today to establish for sleep disordered breathing. She is ambulatory and currently on room air. She did complete a home sleep study in February 2024 which showed an AHI of 19.3 events per hour using a 3% rule and 6.9 events per hour using the 4% rule. The patient was previously followed by Dr. Erika Santos who treated her with an oral appliance initially. The patient was concerned that she plateaued in her progress using this device. She experienced fatigue and was not sleeping well even with appliance. She does have an aura ring and uses it to follow her pulse oximetry variability. She began to use her significant others PAP device with her oral appliance. She set his ResMed AirSense 10 device to a CPAP at 4 cm and used a fullface style mask. She did note more variability in her oxygen saturation when she was using the oral appliance alone versus oral appliance with PAP therapy. She noticed that she felt more rested using both modalities. She rarely naps and rarely experiences nocturia. She does have oral dryness at times with use of the PAP device. She goes to bed between 1030 and 1130 and awakens between 545 and 630. 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 She has no history of pneumonia or bronchitis. She is a lifetime non-smoker. Intake Vital Signs 05/22/25 08:32 06/24/25 06:31 Height 5 ft 6 in 5 ft 6 in Weight: 151 lb BMI 24.3 BP 108/81 H Blood Pressure Location Lt brachial Position Sitting Respiration 18 Pulse 69 Pulse Source Monitor Temp 97.5 F L Temperature Source Temporal Artery Pulse Oximetry (%) 99 Oxygen Delivery Method room air Intake Visit Reasons: Sleep apnea Size Maker Required: No Accompanied by: Self Is patient in pain?: No Allergies No Known Allergies Allergy (Verified 06/24/25 08:26) Medications ???Medication ???Instructions ???Recorded ???Confirmed ???Type meloxicam 15 mg tablet 15 mg PO QDAY #30 tabs 05/29/25 Rx tirzepatide 2.5 mg/0.5 mL 7.5 mg subcut QWEEK 05/29/2506/24 History subcutaneous pen injector (Ceci) cephalexin 500 mg tablet 500 mg PO TID #15 tabs 06/22/25 Rx linezolid 600 mg tablet 600 mg PO BID #14 tabs 06/23/25 Rx PFSH Medical History Diabetes Herniated disc, cervical Right lateral epicondylitis Family History Father Prostate cancer Mother Suicide Grandfather Diabetes Aunt Asthma Social History (Updated 06/24/25 @ 08:30 by Rachell Burch) current occupational status: employed current occupation: [employer] Smoking Status: Never smoker Electronic Cigarette Use: not used alcohol intake: former substance use type: does not use caffeine: Yes Type: coffee Number of servings: 4 Questionnaire [place] Sleepiness Scale [place] Sleepiness Scale Sitting and readin = Would never doze Watching TV: 0 = Would never d (more content not included)... Normal [facility] Laboratory - Chemistry and C hemistry - challengeOrdered By: Nisa Hutchinson on 06-22-2025 Bilirubin Ql (U) Negative [facility] Glucose Ql (U) Negative [facility] Ketones Ql (U) Negative [facility] pH (U) 6 [pH] [facility] Specific gravity (U) [Rel density] 1.015 [facility] Urobilinogen (U) [Mass/Vol] 0.8795127 mg/dL [facility] Laboratory - Hematology and Cell countsOrdered By: Nisa Hutchinson on 06-22-2025 Hemoglobin Ql (U) Negative [facility] Laboratory - UrinalysisOrder ed By: Nisa Hutchinson on 06-22-2025 Nitrite Ql (U) Positive [facility] Protein Ql (U) Negative [facility] No Panel InformationOrdered By: Nisa Hutchinson on 06-22-2025 Urine Leukocytes Positive [facility] Urine Non-Hemolyzed Blood Negative [facility] Office Visit Reporton 2024 Office Visit Report [facility] [place] [address] OFFICE VISIT Date of Service: 06/22/25 MR#: [id number] Acct: [id number] Patient: TORY SOLIS Rep #: [id number] : 1975 Provider: Dr. Nisa Davalos i, MD Age/Sex: 50/F Location: [facility] [facility] Status: Signed Intake Vital Signs 05/22/25 08:32 Height 5 ft 6 in Intake Visit Reasons: Urine drop Chief Complaint: new patient- bilateral stones Allergies No Known Allergies Allergy (Verified 06/17/25 14:23) Nurse's Note: patient stopped off for a UA and culture for urgency, frequency, and dysuria. Results POC UA Auto w/o Microscopy Office Urine Color Last Edit by Annemarie Cotto on 06/22/25 15:09 Office Urine Clarity Last Edit by Annemarie Cotto on 06/22/25 15:09 Office Urine Glucose Negative Last Edit by Annemarie Cotto on 06/22/25 15:09 Office Urine Ketones Negative Last Edit by Annemarie Cotto on 06/22/25 15:09 Office Urine Bilirubin Negative Last Edit by Annemarie Cotto on 06/22/25 15:09 Office Urine Urobilinogen 0.2 mg/dL Last Edit by Annemarie Cotto on 06/22/25 15:09 Off Ur Spec [place] 1.015 Last Edit by Annemarie Cotto on 06/22/25 15:09 Office Urine pH 6 Last Edit by Annemarie Cotto on 06/22/25 15:09 Office Urine Protein Negative Last Edit by Annemarie Cotto on 06/22/25 15:09 Office Urine Blood Negative Last Edit by Annemarie oCtto on 06/22/25 15:09 Office Urine Blood Hemolyzed Negative Last Edit by Annemarie Cotto on 06/22/25 15:09 Office Urine Nitrate Positive Last Edit by Annemarie Cotto on 06/22/25 15:09 Off Ur Leukocytes Positive Last Edit by Annemarie Cotto on 06/22/25 15:09 leuks 70 Assessment and Plan Assessment and Plan Orders: Orders POC UA Auto w/o Microscopy Today N39.0 - Urinary tract infection, site not specified 06/22/252031 Date Nisa Cole Signature: Date (if applicable) CC: Normal [facility] Estradiolon 06-03-2025 ESTRADIOL 30.8 pg/mL [facility] Comment on above: Order Comment: FAX T O [phone] Result Comment: FEMA LES ADULT FEMALE: Premenopausal: 15-350 pg/mL(E2 levels vary widely through the menstrual cycle) Postmenopausal: <10 pg/mL MUSA STAGES MEAN AGE REFERENCE RANGES Stage I(>14 days and prepubertal) 7.1 years Undetectable-20 pg/mLL Stage II 10.5 years Undetectable-24 pg/mL Stage III 11.6 years Undetectable-60 pg/mL Stage IV 12.3 years 15-85 pg/mL Stage V 14.5 years 15-350 pg/mL Puberty onset (transition from Musa stage I to Musa stage II) occurs for girls at a median age of 10.5 (/- 2) years. There is evidence that it may occur up to 1 year earlier in obese girls and in girls. Progression through Musa stages is variable. Musa stage V (adult) should be reached by age 18. Performed By: #### L 509.3001, L3100.5125, L3300.1750 ####[facility] [address] [place], [place], [id number] Follicle Stimulating Hormone on 06-03-2025 FSH 84.0 mIU/mL Normal [facility] Comment on above: Order Comment: FAX T O [phone] Result Comment: FEMA LE: Follicular: 1.4 - 18.1 mIU/mL Midcycle: 3.4 - 33.4 mIU/mL Luteal: 1.5 - 9.1 mIU/mL Post Menopause: 23.0 - 116.3 mIU/mL MALE: 1.4 - 18.1 mIU/mL Performed By: #### L 509.3001, L3100.5125, L3300.1750 ####[facility] [address], [place], [address] L509.3001on 06-03-2025 Testosterone [Mass/Vol] 61.30 ng/dL [address] Comment on above: Order Comment: FAX T O [phone] Performed By: #### L 509.3001, L3100.5125, L3300.1750 #### [facility] [address] [place], [place], [address] Laboratory - Chemistry and C hemistry - challengeOrdered By: Maggy Hunter on 06-03-2025 Testosterone [Mass/Vol] 61.30 ng/dL [address] Serum or plasma estradiol me asurement after follitropin dose (mass/volume)Ordered By: Maggy Hunter on 06-03-2025 E2 post dose follitropin [Mass/Vol] 30.8 pg/mL [facility] Comment on above: FEMALES ADULT FEMALE : Premenopausal: 15-350 pg/mL(E2 levels vary widely through the menstrual cycle) Postmenopausal: <10 pg/mL MUSA STAGES MEAN AGE REFERENCE RANGES Stage I(>14 days and prepubertal) 7.1 years Undetectable-20 pg/mLL Stage II 10.5 years Undetectable-24 pg/mL Stage III 11.6 years Undetectable-60 pg/mL Stage IV 12.3 years 15-85 pg/mL Stage V 14.5 years 15-350 pg/mL Puberty onset (transition from Musa stage I to Musa stage II) occurs for girls at a median age of 10.5 (/- 2) years. There is evidence that it may occur up to 1 year earlier in obese girls and in girls.Progression through Musa stages is variable. Musa stage V (adult) should be reached by age 18. Abdomen/Pelvis without Conto n 06-02-2025 Abdomen/Pelvis without Cont [facility] Imaging Services [address] [place] [address] Abdomen/Pelvis without Cont MR#: [id number] Acct: [id number] Name: TORY SOLIS Rep #: [id number] : 1975 F 50 From: Praneeth beckman MD PCP: Dr. Leo Goyal MD Status: REG CLI Study: Abdomen/Pelvis without Cont Date of Exam: 06/18 Exam# [id number] Ordering Dr: Nisa Hutchinson MD PROCEDURE: ABDOMEN/PELVIS WITHOUT CONT 06/02/2025 REASON FOR EXAM: KIDNEY STONES, BACK PAIN TECHNIQUE: Procedure Code: CTABDPEL Modality: CT Procedure: ABDOMEN/PELVIS WITHOUT CONT Noncontrast technique limits evaluation of the abdominal and pelvic viscera. Coronal and Sagittal reconstruction series were provided. One or more dose reduction techniques were used (e.g., Automated exposure control, adjustment of the mA and/or kV according to patient size, use of iterative reconstruction technique). RADIATION DOSE SUMMARY: CTDlvol: 6.55 mGy DLP: 328.82 mGycm COMPARISON: None FINDINGS: Lung bases: Minimal increased markings in the medial aspect of the right middle lobe as well as in the anterior left lower lobe suggestive of linear atelectasis and/or scarring. Liver: Small cysts are seen in the right lobe of the liver. The largest measures 1 cm. Gallbladder: Unremarkable Spleen: Normal size. Pancreas: Normal size. No surrounding inflammation. Adrenals: Unremarkable Kidneys: Multiple bilateral nonobstructive intrarenal calculi. The largest is in the left kidney and measures 6.4 mm. Mild degree of right hydronephrosis. No evidence of obstruction. Bladder: Unremarkable Reproductive Organs: Unremarkable Bowel: Unremarkable Appendix: Unremarkable Lymph nodes: Unremarkable. Vasculature: The abdominal aorta and IVC contours are normal. Noncontrast technique limits evaluation. Peritoneum / Retroperitoneum: Unremarkable Bones: Unremarkable CT/Abdomen/Pelvis without Cont IMPRESSION: Nonobstructive bilateral intrarenal calculi. No evidence of obstruction. Small hepatic cysts in the right lobe of the liver. Reading Location: [facility] CC: Dr. Leo Goyal MD; Dr. Nisa Hutchinson MD Animal Cruelty Investigator: Signed Normal [facility] Orthopedic Visit Reporton Orthopedic Visit Report [facility] [address] [place] [address] OFFICE VISIT Date of Service: 05/29/25 MR#: [id number] Acct: [id number] Name: OTRY SOLIS Rep #: [id number] : 1975 Provider: SHAWN Jeff Age/Sex: 50/F Location: [facility] Status: Signed Intake Vital Signs 05/08/25 16:59 05/22/25 08:32 Height 5 ft 5 in 5 ft 6 in Weight: 150 lb BMI 24.2 BP 109/80 Pulse 82 Intake Visit Reasons: LUMBAR SPINE Size Maker Required: No Accompanied by: Self Is patient in pain?: Yes (low back ) Pain scale (1-10): 2 Allergies No Known Allergies Allergy (Verified 05/29/25 08:10) Medications ???Medication ???Instructions ???Recorded ???Confirmed ???Type meloxicam 15 mg tablet 15 mg PO QDAY #30 tabs 05/29/25 Rx tirzepatide 2.5 mg/0.5 mL 7.5 mg subcut QWEEK 05/29/2505/29 History subcutaneous pen injector (Mounjaro) [facility] Medical History Diabetes Herniated disc, cervical Right lateral epicondylitis Family History Father Prostate cancer Mother Suicide Grandfather Diabetes Aunt Asthma Social History Smoking Status: Never smoker Electronic Cigarette Use: not used alcohol intake: current alcohol intake frequency: holidays/special occasions only substance use type: does not use HPI LUMBAR SPINE Details: This documentation accurately reflects the service provided and the decisions made by me, SHAWN Jeff 05/29/25 0802. Part of today???s visit was documented by [ ], acting as scribe. TORY SOLIS is a 50 year old F here today for MRI review on 05/15/25. Reports low back pain continues about the same as previous. Stretches and exercises are not helpful. Continues to take Ibuprofen and Tylenol as needed with some short term positive effect. OV 05.06.25 Patient states that her pain is a [...] that this has been manageable for her. Plan: Obtained and reviewed lumbar x-rays. X-rays were done on April 30, 2025. X-rays show a mild levoscoliosis, a grade 1 anterolisthesis of L4 on L5. There is also some very mild disc height loss throughout the lumbar spine, no acute fractures. No lumbar MRI. Explained the imaging findings in detail. At this time due to the patient's chronic history of lower back pain which has been steadily worsening over the years recommend an MRI at this time to further assess. On x-ray findings the patient does have a mild spondylolisthesis which the MRI will help to further assess. Discussed the possibility of epidural steroid injections with pain management. We will discuss those more after her MRI pending results. In the meantime encouraged the patient to do stretches and exercises on her own. Encouraged the patient to continue to take as needed [id number] pain medications of ibuprofen and Tylenol. She can take 800 mg ibuprofen up to 3 times a day and can supplement this with 1000 mg of Tylenol for no mor (more content not included)... Normal [facility] Anion gap in Serum or Plasma Ordered By: Nisa Hutchinson on 05-22-2025 Anion gap [Moles/Vol] 12 mmol/L - [facility] BUN/creatinine ratioOrdered By: Nisa Hutchinson on 05-22-2025 Urea nitrogen/Creatinine [Mass ratio] 26.2 mg/mg High 10- [facility] Basic Metabolic Profile (BMP )on 05-22-2025 BUN/CRE 26.2 RATIO High 07-13 [facility] Comment on above: Performed By: #### L 500.2500 #### [facility] [address] [place], [address] Calcium [Mass/Vol] 9.4 mg/dL Normal 7.6-11.0 [facility] Comment on above: Performed By: #### L 500.2500 #### [facility] [address] [place], [address] Chloride [Moles/Vol] 104 mmol/L Normal 98-108 [facility] Comment on above: Performed By: #### L 500.2500 #### [facility] [address] [place], [address] CO2 [Moles/Vol] 21.7 mmol/L Normal 21.0-32.0 [facility] Comment on above: Performed By: #### L 500.2500 #### [facility] [address] [place], [address] Creatinine [Mass/Vol] 0.73 mg/dL Normal 0.70-1.20 [facility] Comment on above: Performed By: #### L 500.2500 #### [facility] [address] [place], [address] GAP 12 Normal 5-15 [facility] Comment on above: Performed By: #### L 500.2500 #### [facility] [address] [place], [address] GFR/1.73 sq M.predicted among non-blacks MDRD (S/P/Bld) [Vol rate/Area] 102 mL/min/{1.73_m2} Normal >60 [facility] Comment on above: Result Comment: mL/m in/1.73m2 CKD-EPI Creatinine Equation (2020) Performed By: #### L 500.2500 #### [facility] [address] [place], [address] Glucose [Mass/Vol] 93 mg/dL Normal 70-99 [facility] Comment on above: Performed By: #### L 500.2500 #### [facility] [address] [place], [address] Potassium [Moles/Vol] 4.3 mmol/L Normal 3.3-5.1 [facility] Comment on above: Performed By: #### L 500.2500 #### [facility] [address] [place], [place], [id number] Sodium [Moles/Vol] 138 mmol/L Normal 133-145 [facility] Comment on above: Performed By: #### L 500.2500 #### [facility] [address] [place], [place], [id number] Urea nitrogen [Mass/Vol] 19 mg/dL Normal 4-19 [facility] Comment on above: Performed By: #### L 500.2500 #### [facility] [address] [place], [place], [id number] Carbon dioxide, total [Moles /volume] in Central venous bloodOrdered By: Nisa Hutchinson on 05-22-2025 CO2 [Moles/Vol] 21.7 mmol/L 21.0-32.0 [facility] Chloride assayOrdered By: Scott Hutchinson on 05-22-2025 Chloride [Moles/Vol] 104 mmol/L 98-108 [facility] Glomerular filtration rate ( GFR) estimation/1.73 sq m using serum, plasma, or whole bOrdered By: Nisa Hutchinson on 05-22-2025 GFR/1.73 sq M.predicted among non-blacks MDRD (S/P/Bld) [Vol rate/Area] 102 mL/min/{1.73_m2} >60 [facility] Comment on above: mL/min/1.73m2 CKD-EP I Creatinine Equation (2020) Laboratory - Chemistry and C hemistry - challengeOrdered By: Nisa Hutchinson on 05-22-2025 Bilirubin Ql (U) Negative [facility] Glucose Ql (U) Negative [facility] Ketones Ql (U) Negative [facility] pH (U) 6 [pH] [facility] Specific gravity (U) [Rel density] 1.010 [facility] Urobilinogen (U) [Mass/Vol] Negative [facility] - Hematology and Cell countsOrdered By: Nisa Hutchinson on 05-22-2025 Hemoglobin Ql (U) Negative [facility] - UrinalysisOrder ed By: Nisa Hutchinson on 05-22-2025 Nitrite Ql (U) Negative [facility] Protein Ql (U) Negative [facility] MR/Jaren 05-22-2025 MR/DAVID [facility] [address] [facility], [address] [place] [address] OFFICE VISIT Date of Service: 05/22/25 MR#: [id number] Acct: [id number] Name: TORY SOLIS Rep #: [id number] : 1975 Provider: Dr. Nisa Davalos i, MD Age/Sex: 50/F Location: [facility] Status: Signed Intake Vital Signs 05/06/25 09:02 05/08/25 16:59 05/22/25 08:32 Height 5 ft 5 in 5 ft 5 in 5 ft 6 in Weight: 150 lb BMI 24.2 BP 109/80 Pulse 82 Intake Visit Reasons: F/U after X-ray Stone Chief Complaint: new patient- bilateral stones Size Maker Required: No Accompanied by: Self Is patient in pain?: No Allergies No Known Allergies Allergy (Verified 05/22/25 08:31) Medications ???Medication ???Instructions ???Recorded ???Confirmed ???Type tirzepatide 2.5 mg/0.5 mL 2.5 mg subcut QWEEK 05/08/2505/22 History subcutaneous pen injector (Ceci) Nurse's Note: went for back x-ray and bilateral stones were found Bladder scan PVR 0cc PFSH Medical History Diabetes Herniated disc, cervical Right lateral epicondylitis Family History Father Prostate cancer Mother Suicide Grandfather Diabetes Aunt Asthma Social History Smoking Status: Never smoker alcohol intake: current alcohol intake frequency: holidays/special occasions only HPI HPI Urology Chief Complaint: new patient- bilateral stones Details: TORY SOLIS, is a 50 F. She is here for evaluation and management of kidney stones. She is voiding 5-6 times during the day, 0 times at night. There is no urge incontinence where she cannot make it to the bathroom. There is no stress incontinence with cough, laugh, sneeze, lifting, etc. She is using no pads in 24 hours. She has had no urinary tract infections in the last year. She has not had visible blood in her urine. She is not sexually active. There is no sensation of vaginal bulging. She has the following issues with chronic bowel function: there is splinting, she has a known rectocele. She is not taking any fiber and we discussed this. There is no pelvic pain. She has no history of smoking. There is no history of blood clots or easy bleeding. There is not a family history of female cancer in the family. ROS Const Constitutional: No chills, fatigue, fever(s), headache(s), night sweats, weakness, weight change, abnormal sleep pattern or change in appetite Eyes Eyes: No change in vision ENT ENT: No headache(s) or dry mouth Resp Respiratory: No cough, chest congestion, shortness of breath or wheezing Cardio Cardiology: Positive for other (No chest pain.); No shortness of breath, irregular heart rhythm or lightheadedness Gastro GI: Positive for other (No nausea.); No abdominal pain, change in bowel habits, constipation, diarrhea or vomiting Musc Musculoskeletal: Positive for back pain (low back, seeing ortho sacral spinal stenosis); No abnormal gait Skin Skin: No yellowing of the eye, lesions, itchy eyes, rash or skin ulcer Neuro Neurology: No abnormal gait, confusion, dizziness, weakness, headache(s) or memory loss Psych Psychiatric: No abnormal sleep pattern, No change in appetite, No confusion and No memory loss Endo Endocrine: No fatigue, increased thirst/drinking or weight change Aller/Imm Allergy/Immunologic: No itchy eyes or wheezing Javon/Lymp Hematologic/Lymphatic: No easy bleeding, easy bruising or enlarged lymph nodes Exam Const General: cooperative, healthy appearing, comfortable and no acute distress [facility] Head: normocephalic and atraumatic Ears: hearing grossly normal bilaterally and external ears normal Nose: external nose normal Eyes General: appearance normal, both eyes and all related structures Neck Neck: normal visual inspection and trachea midline Chest Chest palpation inspection: normal inspection of the chest Resp Effort Inspection: normal respiratory effort, able to speak in complete sentences and symmetric chest movement Cardio Rate: regular rate GI Inspection: normal to inspection Palpation: soft and nontender General: No CVA tenderness Skin General: no rashes or lesions noted Neuro General: patient alert, patient awake, patient oriented x3 and CN's II-XI intact bilaterally Extrem General: normal to inspection Psych Appearance: grossly normal and well kempt Mental Status: mental status grossly normal Results POC UA Auto w/o Microscopy Office Urine Color Last Edit by Annemarie Cotto on 05/22/25 08:36 Office Urine Clarity Last Edit by Annemarie Cotto on 05/22/25 08:36 Office Urine Glucose Negative Last Edit by Annemarie Cotto on 05/22/25 08:36 Office Urine Ketones Ne (more content not included)... Normal [facility] No Panel InformationOrdered By: Nisa Hutchinson on 05-22-2025 Urine Leukocytes Negatve [facility] Urine Non-Hemolyzed Blood Negative [facility] Potassium measurement (mass/ volume)Ordered By: Nisa Hutchinson on 05-22-2025 Potassium (Unsp spec) [Mass/Vol] 4.3 mmol/L 3.3-5.1 [facility] Serum creatinine measurement (mass/volume)Ordered By: Nisa Hutchinson on 05-22-2025 Creatinine [Mass/Vol] 0.73 mg/dL 0.70-1.20 [facility] Serum glucose measurement (m ass/volume)Ordered By: Nisa Hutchinson on 05-22-2025 Glucose [Mass/Vol] 93 mg/dL 70-99 [facility] Serum or plasma calcium kerry urement (mass/volume)Ordered By: Nisa Hutchinson on 05-22-2025 Calcium [Mass/Vol] 9.4 mg/dL 7.6-11.0 [facility] Serum or plasma urea nitroge n measurement (mass/volume)Ordered By: Nisa Hutchinson on 05-22-2025 Urea nitrogen [Mass/Vol] 19 mg/dL 4-19 [facility] Sodium levelOrdered By: Tal Hutchinson on 05-22-2025 Sodium [Moles/Vol] 138 mmol/L 133-145 [facility] Magnetic resonance imaging r eportOrdered By: Melo Goss on 05-17-2025 Study report [facility] Imaging Services [address] [place], [place] [id number] Spine Lumbar (Routine) MR#: [id number] Acct: [id number] Name: TORY SOLIS Rep #: [id number] : 1975 F 50 From: Maurice Goss MD PCP: Dr. Leo Goyal MD Status: R EG CLI Study:Spine Lumbar (Routine) Date of Exam: 05/15/25 Exam# [id number] Ordering Dr: Giorgio Woods PROCEDURE: SPINE LUMBAR (ROUTINE) 05/15/2025 REASON FOR EXAM: BACK PAIN X2 YEARS WORSENING, L4-5 SPONDY TECHNIQUE: SPINE LUMBAR (ROUTINE) FINDINGS: Normal lumbar vertebral body height and alignment. Normal conus. No subluxation. No compression deformity. No retroperitoneal mass. L1-2 is unremarkable. Degenerative facet arthrosis at L2-3 and L3-4 with mild ligamentous hypertrophy but no results in spinal stenosis. At L4-5, minimal annular bulge and ligamentous hypertrophy results in mild acquired spinal stenosis. At L5-S1 facet arthrosis and minimal bulging are present without significant spinal stenosis. There is no foraminal nerve root impingement. There is inferior foraminal narrowing on the left at L4-5 without direct nerve impingement. MRI/Spine Lumbar (Routine) IMPRESSION: 1. Mild canal narrowing at L4-5. 2. Multilevel facet degeneration Reading Location: [facility] CC: SHAWN Jeff; Dr. Leo Goyal MD ~ Animal Cruelty Investigator: Signed [facility] Spine Lumbar (Routine)on Spine Lumbar (Routine) [facility] Imaging Services [address] [place] [address] Spine Lumbar (Routine) MR#: [id number] Acct: [id number] Name: TORY SOLIS Rep #: [id number] : 1975 F 50 From: Melo Goss MD PCP: Dr. Leo Goyal MD Status: REG CLI Study: Spine Lumbar (Routine) Date of Exam: 05/15/25 Exam# [id number] Ordering Dr: Meghana Woods PROCEDURE: SPINE LUMBAR (ROUTINE) 05/15/2025 REASON FOR EXAM: BACK PAIN X2 YEARS WORSENING, L4-5 SPONDY TECHNIQUE: SPINE LUMBAR (ROUTINE) FINDINGS: Normal lumbar vertebral body height and alignment. Normal conus. No subluxation. No compression deformity. No retroperitoneal mass. L1-2 is unremarkable. Degenerative facet arthrosis at L2-3 and L3-4 with mild ligamentous hypertrophy but no results in spinal stenosis. At L4-5, minimal annular bulge and ligamentous hypertrophy results in mild acquired spinal stenosis. At L5-S1 facet arthrosis and minimal bulging are present without significant spinal stenosis. There is no foraminal nerve root impingement. There is inferior foraminal narrowing on the left at L4-5 without direct nerve impingement. MRI/Spine Lumbar (Routine) IMPRESSION: 1. Mild canal narrowing at L4-5. 2. Multilevel facet degeneration Reading [facility] CC: SHAWN Jeff; Dr. Leo Goyal MD Animal Cruelty Investigator: Signed Normal [facility] Urine Cultureon 05-10-2025 URC Culture exhibits no growth. Normal [facility] Comment on above: Performed By: #### M 570.0811 #### [facility] [address] [place] [address], [address] Urine cultureOrdered By: Doyle See on 05-09-2025 Bacteria identified Cx Nom (U) Culture exhibits no growth. [facility] - Chemistry and C hemistry - challengeOrdered By: Shahid See on 05-08-2025 Bilirubin Ql (U) Negative [facility] Glucose Ql (U) Negative [facility] Ketones Ql (U) Negative [facility] pH (U) 6.5 [pH] [facility] Specific gravity (U) [Rel density] 1.005 [facility] Urobilinogen (U) [Mass/Vol] 0.1324274 mg/dL [facility] - Hematology and Cell countsOrdered By: Shahid See on 05-08-2025 Hemoglobin Ql (U) Negative [facility] - Specimen inform ationOrdered By: Shahid See on 05-08-2025 Clarity (U) Clear [facility] Color (U) Yellow [facility] - UrinalysisOrder ed By: Shahid See on 05-08-2025 Nitrite Ql (U) Negative [facility] Protein Ql (U) Negative [facility] No Panel InformationOrdered By: Shahid See on 05-08-2025 Urine Leukocytes Negatve [facility] Urine Non-Hemolyzed Blood [facility] Urgent Care Visit Reporton 0 05-08-2025 Urgent Care Visit Report [facility] [address], [address] [place] [address] OFFICE VISIT Date of Service: 05/08/25 MR#: [id number] Acct: [id number] Name: TORY SOLIS Rep #: [id number] : 1975 Provider: SHAWN Redman Age/Sex: 50/F Location: [facility] Status: Signed Intake Vital Signs 05/06/25 09:02 [...] subcut QWEEK 05/08/2505/08 History subcutaneous pen injector (Ceci) Nurse's Note: Had an xray of back [...] was 84 per blood work done at [facility] Medical History Herniated disc, cervical Right lateral [...] MA on 05/08/25 17:10 Off Ur Spec [place] 1.005 Last Edit by Annie Powell MA [...] 05/08/25 17 (more content not included)... Normal [facility] Orthopedic Visit Reporton Orthopedic Visit Report [facility] [address] [place] [address] OFFICE VISIT Date of Service: 05/06/25 MR#: [id number] Acct: [id number] Name: TORY SOLIS Rep #: [id number] : 1975 Provider: SHAWN Jeff Age/Sex: 50/F Location: [facility] Status: Signed Intake Vital [...] decisions made by me, SHAWN Jeff 05/06/25 0902. Part of today???s [...] of L (more content not included)... Normal [facility] L/S Spine Min 4 Viewson L/S Spine Min 4 Views [facility] Imaging Services [address] [place], [place] [address] L/S Spine Min 4 Views MR#: [id number] Acct: [id number] Name: TORY SOLIS Rep #: [id number] : 1975 F 50 From: John Tony MD PCP: Dr. Leo Goyal MD Status: REG CLI Study: L/S Spine Min 4 Views Date of Exam: 04/30/25 Exam# [id number] Ordering Dr: Meghana Woods PROCEDURE: L/S SPINE [...] Lumbar spine scoliosis and degeneration. [facility]: [place]; Dr. Leo Goyal MD Animal Cruelty Investigator: Signed Normal [facility] Comprehensive metabolic 2000 panelon 02-28-2025 Albumin [Mass/Vol] 4.3 g/dL Normal 3.9-4.9 [facility] Comment on above: Order Comment: Speci men Type: BLOOD SPECIMEN Ordering Facility: [facility] Address: [address] [place], [place] [address] Performed By: #### 2 4323-8, 55798-2 #### [facility] CLIA [id number] [address] [place] [address] [place] ALP [Catalytic activity/Vol] 60 U/L Normal 34-123 [facility] Comment on above: Order Comment: Speci men Type: BLOOD SPECIMEN Ordering Facility: [facility] Address: [address] [place] [address] Performed By: #### 2 4323-8, 31688-5 #### [facility] CLIA [id number] [address] [place] [address] [place] ALT [Catalytic activity/Vol] 14 U/L Normal 7-38 [facility] Comment on above: Order Comment: Speci men Type: BLOOD SPECIMEN Ordering Facility: [facility] Address: [address] [place] [address] Performed By: #### 2 4323-8, 89964-4 #### [facility] CLIA [id number] [address] [place] Anion gap [Moles/Vol] 8 mmol/L Normal 8-15 [facility] Comment on above: Order Comment: Speci men Type: BLOOD SPECIMEN Ordering Facility: [facility] Address: [address] [place] [address] Performed By: #### 2 4323-8, 30719-8 #### [facility] CLIA [id number] [address] [place] AST [Catalytic activity/Vol] 17 U/L Normal 13-35 [facility] Comment on above: Order Comment: Speci men Type: BLOOD SPECIMEN Ordering Facility: [facility] Address: [address] [place] [address] Performed By: #### 2 4323-8, 80327-3 #### [facility] CLIA [id number] [address] [place] Bilirubin [Mass/Vol] 0.2 mg/dL Normal 0.2-1.3 [facility] Comment on above: Order Comment: Speci men Type: BLOOD SPECIMEN Ordering Facility: [facility] Address: [address] [place] [address] Performed By: #### 2 4323-8, 99148-1 #### [facility] CLIA [id number] [address] [place] [address] [place] Calcium [Mass/Vol] 9.2 mg/dL Normal 8.5-10.2 [facility] Comment on above: Order Comment: Speci men Type: BLOOD SPECIMEN Ordering Facility: [facility] Address: [address] [place] [address] Performed By: #### 2 4323-8, 83882-3 #### [facility] CLIA [id number] [address] [place] [address] [place] Chloride [Moles/Vol] 107 mmol/L Normal 98-107 [facility] Comment on above: Order Comment: Speci men Type: BLOOD SPECIMEN Ordering Facility: [facility] Address: [address] [place] [address] Performed By: #### 2 4323-8, 12327-7 #### [facility] CLIA [id number] [address] [place] [address] [place] CO2 [Moles/Vol] 26 mmol/L Normal 22-30 [facility] Comment on above: Order Comment: Speci men Type: BLOOD SPECIMEN Ordering Facility: [facility] Address: [address] [place] [address] Performed By: #### 2 4323-8, 59933-7 #### [facility] CLIA [id number] [address] [place] [address] [place] Creatinine [Mass/Vol] 0.86 mg/dL Normal 0.58-0.96 [facility] Comment on above: Order Comment: Speci men Type: BLOOD SPECIMEN Ordering Facility: [facility] Address: [address] [place] [address] Performed By: #### 2 4323-8, 51388-8 #### [facility] CLIA [id number] [address] Creatinine and Glomerular filtration rate.predicted panel (S/P/Bld) 83 mL/min/1.73m??? Normal >=60 [facility] Comment on above: Order Comment: Speci men Type: BLOOD SPECIMEN Ordering Facility: [facility] Address: [address] [id number] Result Comment: Cale mated Glomerular Filtration Rate [...] actual GFR. Performed By: #### 2 4323-8, 93579-9 #### [facility] CLIA [id number] [address] [place] [address] [place] Glucose [Mass/Vol] 114 mg/dL High 74-99 [facility] Comment on above: Order Comment: Edmund srivastava Type: BLOOD SPECIMEN Ordering Facility: [facility] Address: [address] [phone] Result Comment: The Citizen Of [place] Diabetes Association (ADA) provides guidance for cutoff [...] Medical Care in Diabetes 2016, Citizen Of [place] Diabetes Association. Diabetes Care. 2016.39(Suppl 1). Performed By: #### 2 4323-8, 26730-9 #### [facility] CLIA [id number] [address] [place] [address] [place] Potassium [Moles/Vol] 4.3 mmol/L Normal 3.7-5.1 [facility] Comment on above: Order Comment: Edmund srivastava Type: BLOOD SPECIMEN Ordering Facility: [facility] Address: [address] [phone] Performed By: #### 2 4323-8, 18011-7 #### [facility] CLIA [id number] [address] [place] [address] [place] Protein [Mass/Vol] 7.3 g/dL Normal 6.3-8.0 [facility] Comment on above: Order Comment: Edmund srivastava Type: BLOOD SPECIMEN Ordering Facility: [facility] Address: [address] [place] [address] Performed By: #### 2 4323-8, 32470-9 #### [facility] CLIA [id number] [address] [place] Sodium [Moles/Vol] 141 mmol/L Normal 136-144 [facility] Comment on above: Order Comment: Edmund men Type: BLOOD SPECIMEN Ordering Facility: [facility] Address: [address] [place] [address] Performed By: #### 2 4323-8, 91975-7 #### [facility] CLIA [id number] [address] [place] Urea nitrogen [Mass/Vol] 24 mg/dL High 7-21 [facility] Comment on above: Order Comment: Edmund men Type: BLOOD SPECIMEN Ordering Facility: [facility] Address: [address] [place] [address] Performed By: #### 2 4323-8, 57124-9 #### [facility] CLIA [id number] [address] [place] HbA1c (Bld)on 02-28-2025 Average glucose Estimated from glycated hemoglobin (Bld) [Mass/Vol] 105 mg/dL Normal [facility] Comment on above: Order Comment: Edmund men Type: BLOOD SPECIMEN Ordering Facility: [facility] Address: [address] [place] [address] Result Comment: eAG: (Estimated average glucose) is a calculated value from HgbA1c and is containers sales representative of the average blood glucose level in the last 2-3 month period. Performed By: #### 5 5454-3 #### [facility] CLIA [id number] [address] [place] [address] [place] HbA1c (Bld) [Mass fraction] 5.3 % Normal 4.3-5.6 [facility] Comment on above: Order Comment: Speci men Type: BLOOD SPECIMEN Ordering Facility: [facility] Address: [address] [place] [address] Result Comment: Amer [place] Diabetes Association guidelines indicate that patients with HgbA1c in the range 5.7-6.4% are at increased risk for development of diabetes, and intervention by lifestyle modification may be beneficial. HgbA1c greater or equal to 6.5% is considered diagnostic of diabetes. Performed By: #### 5 5454-3 #### [facility] CLIA [id number] [address] [place] [address] [place] Lipid 1996 panelon 5 Cholesterol [Mass/Vol] 130 mg/dL Normal <200 [facility] Comment on above: Order Comment: Edmund srivastava Type: BLOOD SPECIMEN Ordering Facility: [facility] Address: [address] [place] [address] Result Comment: <200 mg/dL, Desirable 200-239 mg/dL, Borderline high >239 mg/dL, High Performed By: #### 2 4323-8, 22691-2 #### [facility] CLIA [id number] [address] Cholesterol in HDL [Mass/Vol] 59 mg/dL Normal >39 [facility] Comment on above: Order Comment: Edmund srivastava Type: BLOOD SPECIMEN Ordering Facility: [facility] Address: [address] [place] [address] Result Comment: 40-5 9 mg/dL, Acceptable >59 mg/dL, High: Negative risk factor for coronary heart disease <40 mg/dL, Low: Positive risk factor for coronary heart disease Performed By: #### 2 4323-8, 38559-1 #### [facility] CLIA [id number] [address] Cholesterol in LDL [Mass/Vol] 57 mg/dL Normal <100 [facility] Comment on above: Order Comment: Edmund atif Type: BLOOD SPECIMEN Ordering Facility: [facility] Address: [address] [place] [address] Result Comment: <100 mg/dL, Optimal 100-129 mg/dL, Near optimal/above optimal 130-159 mg/dL, Borderline high 160-189 mg/dL, High >189 mg/dL, Very high Secondary prevention optimal LDL Cholesterol levels are recommended to be <70 mg/dL LDL cholesterol is calculated using the Avila-NIH equation. Performed By: #### 2 4323-8, 97182-2 #### [facility] CLIA [id number] [address] Cholesterol in LDL/Cholesterol in HDL [Mass ratio] 0.97 {ratio} Normal <2.54 [facility] Comment on above: Order Comment: Edmund srivastava Type: BLOOD SPECIMEN Ordering Facility: [facility] Address: [address] [place] [address] Result Comment: Samara chanel: 1. National Cholesterol Education Program ATP III Guideline At-A-Glance Quick Desk Reference: National Heart, Lung, and Blood [place]. National Institutes of Health. 2001: NIH Publication No. 01-3305. 2. An International Atherosclerosis Society position paper: global recommendations for the management of dyslipidemia: executive summary, Atherosclerosis. 2014: 232(2):410-413. Performed By: #### 2 4323-8, 68732-8 #### [facility] CLIA [id number] [address] Cholesterol in VLDL [Mass/Vol] 10 mg/dL Normal <30 [facility] Comment on above: Order Comment: Edmund srivastava Type: BLOOD SPECIMEN Ordering Facility: [facility] Address: [address] [place] [address] Performed By: #### 2 4323-8, 47301-3 #### [facility] CLIA [id number] [address] Cholesterol non HDL [Mass/Vol] 71 mg/dL Normal <130 [facility] Comment on above: Order Comment: Edmund atif Type: BLOOD SPECIMEN Ordering Facility: [facility] Address: [address] [place] [address] Result Comment: <130 mg/dL, Optimal 130-159 mg/dL, Near optimal/above optimal 160-189 mg/dL, Borderline high 190-219 mg/dL, High >219 mg/dL, Very high Secondary prevention optimal non HDL Cholesterol levels are recommended to be <100 mg/dL Performed By: #### 2 4323-8, 65220-4 #### [facility] CLIA [id number] [address] Cholesterol.total/Ch olesterol in HDL [Mass ratio] 2.20 {ratio} Normal <5.10 [facility] Comment on above: Order Comment: Speci men Type: BLOOD SPECIMEN Ordering Facility: [facility] Address: [address] [place] [address] Performed By: #### 2 4323-8, 66130-8 #### [facility] CLIA [id number] [address] FASTING TIME 12 hrs Normal [facility] Comment on above: Order Comment: Speci men Type: BLOOD SPECIMEN Ordering Facility: [facility] Address: [address] [place] [address] Performed By: #### 2 4323-8, 49398-9 #### [facility] CLIA [id number] [address] Triglyceride [Mass/Vol] 67 mg/dL Normal <150 [facility] Comment on above: Order Comment: Speci men Type: BLOOD SPECIMEN Ordering Facility: [facility] Address: [address] [place] [address] Result Comment: <150 mg/dL, Normal 150-199 mg/dL, Borderline high 200-499 mg/dL, High >499 mg/dL, Very high Performed By: #### 2 4323-8, 48425-4 #### [facility] CLIA [id number] [address] HIGH RISK HUMAN PAPILLOMA IVIS (HPV), PCR FOR DETECTION AND GENOTYPINGOrdered By: Daniela Downey on 01-13-2025 HPV 16 Ag Ql (Unsp spec) Not detected Not detected [facility] HPV 18 Ag Ql (Unsp spec) Not detected Not detected [facility] HPV 31+33+35+39+45+51+52 +56+58+59+66+68 DNA BINA+probe Ql (Cvx) Detected Abnormal Not detected [facility] Comment on above: High Risk HPV Other Type includes HPV types 31, 33, 35, 39, 45, 51, 52, 56, 58, 59, 66 and 68. Interpretation and review of laboratory results Abnormal [facility] This test was develo ped and its performance characteristics determined by [facility] [place] ([facility] It has not been cleared or approved by the FDA. -[facility] is regulated under CLIA as qualified to perform high-complexity testing. This test is used for clinical purposes. It should not be regarded as investigational or for research. [facility] No Panel InformationOrdered By: Daniela Downey on 01-13-2025 [facility] PAP TESTOrdered By: Jayne gomez on 01-13-2025 Case Report Gynecologic Cytology Report Case: [id number] Authorizing Provider: Anthony White MD Collected: 01/05/2025 03:39 PM Ordering Location: Obstetrics/Gynecology Received: 01/06/2025 07:56 AM First Screen: Cassy Lawson, CT, ASCP Rescreen: Jayne Peraza, CT, ASCP Specimen: Pap Test, ThinPrep, Cervix [facility] Clinical History Routine Exam [facility] Interpretation Negative [facility] LMP 08/29/2024 [facility] Pap Disclaimer x2mbhIRuDLNho2yzBMHq bGFu ZzEwMzNcZnRuYmpcdWMxIHtc wuAaXNxhs4GxH2IbFrVeQPir bnNpXGRlZmxhbmcxMDMzXGZ0 vpWeJXRzIEyoASKlWYetOj5a fANqmOmyZhKlJDEim0xvrqCL cwslcYc1x0kyHTJpVdS8jPFe YJzfG9vogtErnCThBGDuHWc9 hS12IDYzzO6nyVTfFJbirhRv ZdC4RMudVFMhYfM3UAZhfLTa ABIzS2joFRMzXZitKNHjMQuh jMKbZDW7kHkif6W9dFYmwOSn pNsdRpIbDzHfLuLMi4KjOKg5 eEbvD4PdWEQsKcI8nEEoCWYh AEheESOjJXXwgtX5nF45EKlz jsX1hGKym1Mjw29gh190bZ3m cMZuPJL7NHXoRUEsiILvFYUn RZB5DXPvaLHoG6txSLCdZR3t ewzuCMzjUDanHEQinRW4RHPc lBSuQ2BvTTVmNPhnLKFuakg8 WqJlIh9avFUgzHgeDZvhr6yv i5hnxLHyVmi0EWNyOkSvGvil KSict8Hwg8hzQMIrsc1oQCL1 dZUsrBdey5K8kMXvNWBimDTv gsBcLQUpCkP5MQosPF6tad66 XLVyIMD3xx4cjDEcxVakmfZv wTBaPRvoA2ScOJZjr591XWFa B8JfMKIld7P2vyWoExRrWBGm wEQ8pkW3NCErWEj7rHKruqD4 vnAdjPSvB1bupI7oJNIkTW1w ncgbh0ilVZcwVAtsLVYloKG7 pyI5SPLyrFFrF2MrsJ5dNXNr TJxbVQTwtkc2SyNoVu8tyWWt eTcyMFxzYmtwYWdlXHBnbmNv bnRccGduZGVjXHBsYWluXHBs YWluXGYwXGZzMjRccWxccGxh cZ1jTqYkFtJiPakjMZ0oWWUx P1mjyUMuFLIuTPZfT3dhWnYb jN3zfLdgEBtwaeO4TEPyQKPI EUXiH05cBDKbyXZzMKGpR3Cl TW8qdtahxAEifFLhp0DnF0Vx kxsgZQloM4MhH5NgXlWtGgQv o6LqabJqSRAzswEcolNirSy9 klIkO4R3erP3bDEpELNugPBd I8QfHL7mdvetiISpoEBgPURj jAxag3j6sM7yBCXcIWJfXZYh IGZvciByZXNjcmVlbmluZyBh pETkPDSypM3deqHoTKOaspDe cnZhbHMsIGFuZCBjbGluaWNh zELgj3UyNFajeAlfsd7cgBod vH1hGjDhOsMwOgtaPL2fPEZn V9ttxVVxSHYoJNZsN1scGqRa aN0gwAlxKSciqcEhJSOnoc93 [facility] PAP Director Music Comment m2cijHNkMLVij7qhTPKp bGFu ZzEwMzNcZnRuYmpcdWMxIHtc lpNrNLbuc6GvB1NeIpZdAFco bnNpXGRlZmxhbmcxMDMzXGZ0 tzDcLGCgTAkgUYFbDPgtHy1y kWJdlItjXuXxIIIpe3ynipKS doqvlVk6w3xfXTSnMrA2nHFa ONmdA9joxfKvoASaUZUsNHp8 eO16QBEgzJ1thRUuMOsqnqAd EaN7XEgtLXKgAgP6SHBcjHAi UFYsP0rdVLWrGSfyULRsNTeu nQUzLOW7fXrou1E9dFHcmTRx fPbxPjNaWwOkQgAFz1XqANo3 sEhjZ9RsLDPqNwW1hASmWREk ULaxGMWcRTQxzaL0vP19YXuk leZ0aQTlc2Tfr23yz483nP2m aEFkNVH6UFSxICZxhTVgYHDr UMN0NNFpfKOuX3ujRDAsDP6l xrtlUSctOLvgIWTdfZE7ZSJt pZGtW1GsSHYxGSosYCFpwzq9 IuXiVp1fgDQllGfxFKvjc3pn c6ejoEBeWuz7CDGqAiFjNmbj DMmfj6Jtb4fdXRFxzu4gWGA7 sFEbyTovz2C3kBJvQQMezDIm gkUoGCYgLmL0UPhtHR0ryg09 KUMjYBA7ae7wfALsmBltckZc kOIyMEdoB4ZpUNVpx699OLLz R2FyTBVrf8L7phPyBeIeISTq gIV7soW9CLHwHAi5mOWqaiJ6 bmIsiIIzG2gyvW2lMGWxPG7l enwyn3lvPCaiUHfeFTHjkPD7 fqX8QAMtiEEnA1MroZ8sPCHa XQvvKZTanuk4ReReLg1iqAQn eTcyMFxzYmtwYWdlXHBnbmNv bnRccGduZGVjXHBsYWluXHBs YWluXGYwXGZzMjRccWxccGxh fQ0nPsRuDfIfDcsmYI3hYKYq F3nvkTPgLAWpTYSiB3unVsOq bI9bjNwdLYcwgtP4WHcpXHwy uoKizZEqlB4trsAnKARcKlSc dpQvzjZdpGhkIATygQG0gCVz BBuoqqByAFZnEU7sP5ygCxTU fUR9IS2nXGEeHLR2xW6nGPTm QAHhfUBzkL7bZRNrOYZwTEGh VKbzz6rpcFBrTJS7jOpyrUCz j7Yom2YuVVCaJQOwOTVhkrP2 r3O6WCzeLQY7KOf1RGJghyjh T1MsiMGqz98fFRbhvqUaDHAj BPZbXKSal5ZaEmWvIy3gvG27 fW1eCHZ6mR7hKCIiLDBhcGDq hL6dMUEtCMisE8UnVELiaHZn ZHMgZnJvbSBldmVyeSBzbGlk WEQprvZfhlE1bAF3WRYxMouc WRFagCVwpHRjtN8lhN5njLB1 LlxwbGFpblxmMVxmczIyXGxh jlcaOUZbTCykG1eiNvPwXNOb rRffQChuv3IxGGWnOAAxAuPm cGFyfX0= [facility] Performing Lab z2rrnVHdZUGkf2rcQFJz bGFu ZzEwMzNcZnRuYmpcdWMxIHtc cnRmMVxhbnNpXGRlZmxhbmcx HAXoLHA2poPaDUDqZBG5XLU0 MmLmk3I1TRAwMgYjDMTpEZ1u bQdvLUKuPA5cPLTjY3ywrQ5m bwe8QkAkZERdSeA2EXMyeoJ6 Isb7UIZfLHukg6caa4GgODXz VUj5iNhyLxIdHHEuy1irgeGu ZfJaSTEtRUQzHLLelKTgG530 o1ksp4vccvPysOB2JQUiGTO4 BOiugiJqnoB5RIchnWZbVxF5 IDtccmVkMFxncmVlbjBcYmx1 LGJzM608WUZ4tSnih8dvWDZ0 RECiWFHkDjLgLm9ecQMkR520 EMZtHBHQZZTjtJg6SRLyeiCp jqXleAOBn030Z085s4yfMGUb sbIxdRhYjtuum4mwO563KATa cGVydzEyMjQwXHBhcGVyaDE1 SYXfVE2giktgBHwkZFdiCPZw irG5BGVopGZpX5TaFVYeGY2m wlanGOU9OVmdDCWgHPK9BqNc LGPpe1Nbazf1FxYiqq7mcu60 COB0p7UhjOoiXGF6LTV3RiMm Lf7suDWsJGSzYM8qGdMfyDXs PDQzjt21bZuiRVagaeHpmO7n NnHjWYEemNJpWVOsRD3yeREr ODMtkQ1majglJXQvVzIwarls KKHoiFztyjOxEp6suFzqYBY7 UKfiM5nirA3pVrH5TJtqE0rq aB7kMDb3QStzsIY3TBJznI4b WZ5mrivkt8nwWTahMPfnSIMw wtG1spI5KMQtnKFqF6YldX0d PNNySJ3nlzsul4pkJDX1KXwx PWQvHGA5CtWxBWWwk9Xznmp6 AbEwm5WoxRLzXIodQ59sn289 KAHalcYtS2zyfOHefphzgCTz ivsnKDavbnV3NVTwAEXcVChj XGYxXGZzMjJcbGFuZzEwMzNc aGljaFxmMVxkYmNoXGYxXGxv V5mqVsEjAwDwYwZIRMZcyyrg OXzbH71wtW8vQI08IYWfbSAm iJFecI1mdL7qtDW0PGIimeOx uqksLuGyOCPdy8QcNUTcODJh F9gecaAtEN0gXPVpyK9mQvpd OTUwMCBFdWNsaWQgQXZlLCBD vTE0WWghknGtO5gxALVcLBWg LHTZHYtOGjEqKsJtLkI1XSk0 CGRxrs21y1qasTDpUTIziZVs OoJrAVXpZQKwy4qaKRAdcODo ZzEwMzNcZnRuYmpcdWMxXGRl BuGce9eau394iONxj9pkARNi HnH4cCPePWMteXSyM660SPJb CNsmb5fuf7BjNMVsxOMnv2A3 FPCGzlsikDb8eApcG90cn9T4 XassW8daBWQdZCTqY6UmXE8n TGJnOub9KKL1OIZ6HQGqXDMm O4ItGC1rEIAffRLaQEl4r3jo rCogKEUbHTG4u6feJWasqeWs DZ5aap2qgJn3w1ianoFyXXEn NNGehFXNWNEwL3LbnSlcVe0o lRr3cIawWuhtIVO2Nli0JT1j cz15ubi0zAvoFYWirtdgMrO2 OOxvFBDoqshhZMz2LShcCNMw iHN8EXBznSQhU4ZsOAvlWO5k eia0TUO5OZueRZDtYhV4HVAp sSDgMIPjrTroTYwkc535VUF5 AcVvCG8mK0Kcv7J8lO3fbGAm PKXjaZSxLoFaBLCfdy1cpSGn DPwqk1LqIOV7erR1uEMieYYg AWKzGC27Parms2XkNsjvf5Sm J56gcOQ9CUmeo2azTX8yNiX4 syEdITisv7cyfW4wMmY3CJxz RS3aLA9wTSPvrG8ypaapGTMt TnRylnvtMURtuShprbNaLl2q kDxyWKI7VTzeD1hwmE3fLmR4 ONdfX6zbpY2sCUj9ECqvgRD2 ZGFkvC1aXB8qttpms7hpPEcc YUpfICTivtE7ibOkHCEtvCVb D5KwhA0zVPIdDK7deutzn7od MLM9ZOerATNaSDM7VrAmXNKi y3Aaxsy7ToYwq4WxvCZuILtc O34wv847BUDxsbBnO0yrpULr osgtdORmsmqaVRriwrD0WTSs XHBsYWluXGYxXGZzMjBcbGFu ZzEwMzNcaGljaFxmMVxkYmNo MVEdPXsuX7yfCgHnMhPkJCRH zZIurl3wqUxaCIqiaCPaaWTt sTF1fX6lCGBskmVhep4vMDCv oYXDwXY9VPpusjNeL3zhabcj JCC5AXRnIQQ1Q7koXRRVcxHn TBXqPUNjlKKtYIIIUJX2IRM0 VUKzNJYQAAAqOXA9ZBA8YFRs OTRccGFyXHBhclxwYXJkXHBs ENybSNNoYZUfGkMpcLauyX6e SxDcVyQyHHixAB9eCFIhG6kz bYRhFSRmRALaD5fqJrTztV7h aFxmMVxjZjJcZnMyMFxsdHJj tKUQFVVkdzK7i0J1NMoqpISe blxmMVxmczIwXGxhbmcxMDMz VCutZ1jiLhZkMBFlhJnqISjc f9DwAKBiIVFgVhXdKKkiZDJ0 v8S6NDmahRNoiaNGNjHGKC4n lMCijgiiPT1TRefisKYfzsbv MVxmczIyXGxhbmcxMDMzXGhp I8hhZvJcKZBjuMvcUTfqc3Ns XGYxXGZzMjJccGFyfX0= [facility] Specimen Adequacy Satisfactory for interpretation. Transformation zone present [facility] CNOVon 01-05-2025 CNOV Office Visit (OBGMEM ) -------- GRAFTORY De León ([id number]) 1975 F Date Time Provider Department 01/05/25 3:00 PM ANTHONY WHITE OBEM During your visit today, we recorded the following information about you: Blood pressure Weight Last Period 124/76 73.5 kg 08/29/24 Anthony White MD 01/27/2025 1:11 PM Signed Tory Solis is a 49 year old who presents for her annual gynecologic exam. Shipping Manager concerns Perimenopausal status. Abnormal mammography 12/22/2024 IMPRESSION: [...] external genitalia normal, normal Bartholin's glands, urethra, Still Pond's glands, no vulvar lesions, no cervical lesions, [...] Date: 04/06/2025 Scheduling Instructions: Patient must be "Fasting" 10-12 hours prior to having blood drawn. [...] Anthony Spangler (more content not included)... Normal [facility] HIGH RISK HUMAN PAPILLOMA IVIS (HPV), PCR FOR DETECTION AND GENOTYPINGon 01-05-2025 HPV 16 Ag Ql (Unsp spec) Not detected Normal Not detected [facility] Comment on above: Order Comment: Speci men Type: FLUID SPECIMEN Ordering Facility: [facility] Address: [address] [place] [address] Performed By: #### H PVHRT #### [facility] CLIA [id number] [address] [place] [address] [place] HPV 18 Ag Ql (Unsp spec) Not detected Normal Not detected [facility] Comment on above: Order Comment: Speci men Type: FLUID SPECIMEN Ordering Facility: [facility] Address: [address] [place] [address] Performed By: #### H PVHRT #### [facility] CLIA [id number] [address] [place] [address] [place] HPV 31+33+35+39+45+51+52 +56+58+59+66+68 DNA BINA+probe Ql (Cvx) Detected Abnormal Not detected [facility] Comment on above: Order Comment: Speci men Type: FLUID SPECIMEN Ordering Facility: [facility] Address: [address] [place] [address] Result Comment: High Risk HPV Other Type includes HPV types 31, 33, 35, 39, 45, 51, 52, 56, 58, 59, 66 and 68. Performed By: #### H PVHRT #### [facility] CLIA [id number] [address] [place] [address] [place] PAP TESTon 01-05-2025 ADEQUACY Normal [facility] Comment on above: Order Comment: Speci men Type: FLUID SPECIMEN Ordering Facility: [facility] Address: [address] [place] [address] Result Comment: Sati sfactory for interpretation. Transformation zone present Performed By: #### L [id number] #### [facility] CLIA [id number] [address] [place] [address] [place] CASE REPORT Normal [facility] Comment on above: Order Comment: Speci men Type: FLUID SPECIMEN Ordering Facility: [facility] Address: [address] [place] [address] Result Comment: Gyne cologic Cytology Report Case: [id number] Authorizing Provider: Anthony White MD Collected: 01/05/2025 03:39 PM Ordering Location: Obstetrics/Gynecology Received: 01/06/2025 07:56 AM First Screen: Cassy Lawson, CT, ASCP Rescreen: Jayne Peraza, CT, ASCP Specimen: Pap Test, ThinPrep, Cervix Performed By: #### L [id number] #### [facility] CLIA [id number] [address] [place] [address] [place] CLINICAL HISTORY, CYTOLOGY, SHEETMETAL WORKER Routine Exam Normal [facility] Comment on above: Order Comment: Speci men Type: FLUID SPECIMEN Ordering Facility: [facility] Address: [address] [place] [address] Performed By: #### L [id number] #### [facility] CLIA [id number] [address] [place] [address] [place] FINAL PERFORMING LAB Normal [facility] Comment on above: Order Comment: Speci men Type: FLUID SPECIMEN Ordering Facility: [facility] Address: [address] [place] [address] Result Comment: Tech nical component, packer screening performed at [facility], [address] [place] [address] CLIA# [id number] Diagnostic interpretation performed at [facility], [address] [place] [address] CLIA# [id number] Low Voltage Electrician: Fritz Wilcox M.D. Performed By: #### L [id number] #### [facility] CLIA [id number] [address] [place] [address] [place] INTERPRETATION, CYTOLOGY, SHEETMETAL WORKER Normal [facility] Comment on above: Order Comment: Speci men Type: FLUID SPECIMEN Ordering Facility: [facility] Address: [address] [place] [address] Result Comment: Nega tive for intraepithelial lesion or malignancy. at 1405 EDT Performed By: #### L [id number] #### [facility] CLIA [id number] [address] [place], [place] [address] [place] LMP 08/29/2024 Normal [facility] Comment on above: Order Comment: Speci men Type: FLUID SPECIMEN Ordering Facility: [facility] Address: [address] [place] [address] Performed By: #### L [id number] #### [facility] CLIA [id number] [address] [place], [place] [address] [place] PAP DISCLAIMER COMMENT The Pap Smear is a screening test for cervical cancer. False negative results occur with all screening tests, emphasizing the need for rescreening at recommended intervals, and clinical correlation. Normal [facility] Comment on above: Order Comment: Speci men Type: FLUID SPECIMEN Ordering Facility: [facility] Address: [address] [place] [address] Performed By: #### L [id number] #### [facility] CLIA [id number] [address] [place] [address] [place] PAP ELECTRIC BATH ATTENDANT COMMENT This specimen has be en analyzed by the ThinPrep Imaging System, an automated imaging and review system, which assists the laboratory in evaluating cells on ThinPrep Pap tests. Following automated imaging, selected ferraro from every slide are reviewed by a packer. Normal [facility] Comment on above: Order Comment: Speci men Type: FLUID SPECIMEN Ordering Facility: [facility] Address: [address] [place] [address] Performed By: #### L [id number] #### [facility] CLIA [id number] [address] [place] [address] [place] RAJ DIAG W DALTON LTon 01-02-2 025 RAJ DIAG W DALTON LT * * *Final Report* * * DATE OF EXAM: Jan 02 2025 8:27AM AAW 0628 - RAJ DIAG W DALTON LT / PROCEDURE REASON: Abnormal mammogram * * * * Physician Interpretation * * * * [facility] BREAST [facility] [address] [facility] [address] #[id number] - RAJ DANE HOFFMAN LT HISTORY: 49 year-old patient seen for [...] Lexi Romero M.D. Electronically signed on: 01/02/2025 Animal Cruelty Investigator: WILMAN Transcribe Date/Time: Jan 02 2025 8:15A Dictated by : LEXI ROMERO MD This examination was interpreted and the report reviewed and electronically signed by: YADIRA PRECIADO MD on Jan 02 2025 9:19AM EST [id number] Normal [facility] CNPNon 12-24-2024 CNPN Telephone ([facility]) -------- TORY SOLIS ([id number]) 1975 F Date Time Provider Department 12/24/24 [facility] your visit today, we recorded [...] cycles [N92.6] 10/27/2013 Anxiety [F41.9] 10/27/2013 Anorgasmia [BCM9226] 10/27/2013 ASCUS with positive high risk HPV cervical [R87*12/18/2016 Encounter Status:Closed by JENNIFER VALDEZ on 12/24/24 Normal [facility] Natacha 12-23-2024 [facility] Telephone ([employer]) -------- TORY SOLIS ([id number]) 1975 F Date Time Provider Department 12/23/24 ANTHONY WHITE During your visit today, we recorded the following information about you: Alena Jarrett Nata 12/23/2024 8:37 AM Signed Patient is asking if she is needing to have a diagnostic mammogram completed now from the reading/results of her DALTON mammogram. Please advise and call patient. Thank you Jennifer Valdez RN 12/23/2024 9:05 AM Signed Orders placed. Patient notified via [employer].Jennifer Valdez RN Allergies As of Date: 12/23/2024 (No Known Allergies) Date Reviewed: 11/27/2023 Reviewed by: Griselda Gillespie MA - Fully Assessed Primary Visit Diagnosis:Abnormal mammogram [R92.8] Order(s):[facility] DIAGNOSTIC LEFT [[id number]] Order #: [id number] FUTURE BREAST LTD LEFT [[id number]] Order #: [id number] FUTURE Prescriptions as of 12/23/2024 - estriol [...] cycles [N92.6] 10/27/2013 Anxiety [F41.9] 10/27/2013 Anorgasmia [AEN0455] 10/27/2013 ASCUS with positive high risk HPV cervical [R87*12/18/2016 Encounter Status:Closed by JENNIFER VALDEZ on 12/23/24 Normal [facility] DBT Breast - bilateral scresamra de souza 12-22-2024 IMPRESSION: The asymmetry in the lateral [...] Verna Peralta M.D. Electronically signed on: 12/22/2024 Animal Cruelty Investigator: WILMAN Transcribe Date/Time: Dec 22 2024 7:50A Dictated by: VERNA PERALTA MD This examination was interpreted and the report reviewed and electronically signed by: VERNA PERALTA MD on Dec 22 2024 8:42AM [facility] DIVISION OF RADIOLOGY * * *Final Report* * * DATE OF EXAM: Dec 22 2024 8:12AM [facility] 0582 - [facility] SCREENING W DALTON / PROCEDURE REASON: Encounter for screening mammogram for malignant neoplasm of breast * * * * Physician Interpretation * * * * RESULT: [place] [address] #[id number] - [facility] SCREENING W DALTON HISTORY: 49 year-old patient [...] the right breast. DIVISION OF RADIOLOGY Provider, [facility] - 12/22/2024 * * *Final Report* * * DATE OF EXAM: Dec 22 2024 8:12AM [facility] 0582 - [facility] SCREENING W DALTON / PROCEDURE REASON: Encounter for screening mammogram for malignant neoplasm of breast * * * * Physician Interpretation * * * * RESULT: [place] [address] #[id number] - [facility] SCREENING W DALTON HISTORY: 49 year-old patient [...] Verna Peralta M.D. Electronically signed on: 12/22/2024 Animal Cruelty Investigator: WILMAN Transcribe Date/Time: Dec 22 2024 7:50A Dictated by: VERNA PERALTA MD This examination was interpreted and the report reviewed and electronically signed by: VERNA PERALTA MD on Dec 22 2024 8:42AM EST [facility] Radiology Study observation (narrative) [facility] DBT Breast - bilateral scree ningOrdered By: [facility]cf Provider on 12-22-2024 [facility] RAJ SCREENING W TOMOon 12-22 RAJ SCREENING W DLATON * * *Final Report* * * DATE OF EXAM: Dec 22 2024 8:12AM [facility] 0582 - RAJ SCREENING W DALTON / PROCEDURE REASON: Encounter for screening mammogram for malignant neoplasm of breast * * * * Physician Interpretation * * * * RESULT: [place] [address] #[id number] - RAJ SCREENING W DALTON HISTORY: 49 [...] Verna Peralta M.D. Electronically signed on: 12/22/2024 Animal Cruelty Investigator: WILMAN Transcribe Date/Time: Dec 22 2024 7:50A Dictated by: VERNA PERALTA MD This examination was interpreted and the report reviewed and electronically signed by: VERNA PERALTA MD on Dec 22 2024 8:42AM EST [id number] Normal [facility] 11-27-2024 [facility] -------- TORY SOLIS ([id number]) 1975 F Date Time Provider Department 11/27/24 [facility] During your visit today, we recorded the following information about you: Zenaida Ji 11/27/2024 8:59 AM Signed Patient is requesting a mammogram. 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] 10/27/2013 ASCUS with positive high risk HPV cervical [R87*12/18/2016 Encounter Status:Closed by JENNIFER VALDEZ on 11/27/24 [facility] Telephone (OBEM) -------- TORY SOLIS ([id number]) 1975 F Date Time Provider Department 11/26/24 [...] cycles [N92.6] 10/27/2013 Anxiety [F41.9] 10/27/2013 Anorgasmia [SJY0992] 10/27/2013 ASCUS with positive high risk HPV cervical [R87*12/18/2016 Encounter Status:Closed by ZENAIDA JI on 11/28/24 Normal [facility] Mumps Antibody,IgGon 025 MUMPS Ab, IgG 13.9 AU/mL Normal Immune >10.9 [facility] Comment on above: Result Comment: Nega tive <9.0 Equivocal 9.0 - 10.9 Positive >10.9 A positive result generally indicates past exposure to Mumps virus or previous vaccination. Performed By: #### L 3100.0539, L3400.1750, L509.4015, L3100.3400 #### [facility] [address] [place], [place], [id number] [facility] EMP Rubeola Titeron 10-25 RUBEOLA Ab, IgG < 13.5 Low Immune >16.4 [facility] Comment on above: Result Comment: Nega tive <13.5 Equivocal 13.5 - 16.4 Positive >16.4 Presence of antibodies to Rubeola is presumptive evidence of immunity except when acute infection is suspected. Performed at: [facility] - [address] [id number] Finisher Polisher: Vazquez Oliver PhD, Phone: [phone] Performed By: #### L 3100.0539, L3400.1750, L509.4015, L3100.3400 #### [facility] [address] [place], [place], [id number] Hepatitis B Surf AB - EMPon 11-11-2024 HEP B Surf Ab Non-Reactive Normal [facility] Comment on above: Result Comment: Non Reactive: Inconsistent with immunity less than <10 mIU/mL Reactive: Consistent with immunity greater than or equal to 10 mIU/mL Performed By: #### L 3100.0539, L3400.1750, L509.4015, L3100.3400 #### [facility] [address] [place], [place], [id number] Rubella IgG [facility] EMPLOYEEon 0 11-11-2024 Rubella IgG Reactive Normal Nonreactive [facility] Comment on above: Result Comment: Anti body Results Interpretation of Immune Status Non Reactive Presumed Non-Immune Equivocal Equivocal Reactive Presumed Immune Performed By: #### L 3100.0539, L3400.1750, L509.4015, L3100.3400 #### [facility] [address] [facility] [place], [place], [address] CBC W Auto Differential pane l (Bld)on 05-12-2024 Basophils (Bld) [#/Vol] 0.03 10*3/uL Normal <0.11 [facility] Comment on above: Order Comment: Speci men Type: BLOOD SPECIMEN Ordering Facility: [facility] ([facility]) Address: [address] [place] [address] Performed By: #### 5 0190-8, 2276-4, 52819-3, 3016-3 #### [facility] CLIA [id number] [address] [place] [address] [place] Basophils/100 WBC (Bld) 0.5 % Normal [facility] Comment on above: Order Comment: Speci men Type: BLOOD SPECIMEN Ordering Facility: [facility] ([facility]) Address: [address] [place] [address] Performed By: #### 5 0190-8, 2276-4, 06399-9, 3016-3 #### [facility] CLIA [id number] [address] [place] Differential cell count method Nom (Bld) Auto Normal [facility] Comment on above: Order Comment: Speci men Type: BLOOD SPECIMEN Ordering Facility: [facility] ([facility]) Address: [address] [place] [address] Performed By: #### 5 0190-8, 2276-4, 44217-6, 3016-3 #### [facility] CLIA [id number] [address] [place] [address] [place] Eosinophils (Bld) [#/Vol] 0.08 10*3/uL Normal <0.46 [facility] Comment on above: Order Comment: Speci men Type: BLOOD SPECIMEN [facility] Address: [address] [place], [place] [address] Performed By: #### 5 0190-8, 2276-4, 00641-9, 3016-3 #### [facility] CLIA [id number] [address] [place] [address] [place] Eosinophils/100 WBC (Bld) 1.3 % Normal [facility] Comment on above: Order Comment: Speci men Type: BLOOD SPECIMEN Ordering Facility: [facility] ([facility]) Address: [address] [place] [address] Performed By: #### 5 0190-8, 2276-4, 55783-9, 3016-3 #### [facility] CLIA [id number] [address] [place] Erythrocyte distribution width (RBC) [Ratio] 12.9 % Normal 11.5-15.0 [facility] Comment on above: Order Comment: Speci men Type: BLOOD SPECIMEN Ordering Facility: [facility] ([facility]) Address: [address] [place] [address] Performed By: #### 5 0190-8, 2276-4, 07296-6, 3016-3 #### [facility] CLIA [id number] [address] [place] [address] [place] Hematocrit (Bld) [Volume fraction] 43.3 % Normal 36.0-46.0 [facility] Comment on above: Order Comment: Speci men Type: BLOOD SPECIMEN Ordering [facility] Address: [address] [place] [address] Performed By: #### 5 0190-8, 2276-4, 12623-2, 3016-3 #### [facility] CLIA [id number] [address] [place] [address] [place] Hemoglobin (Bld) [Mass/Vol] 14.0 g/dL Normal 11.5-15.5 [facility] Comment on above: Order Comment: Speci men Type: BLOOD SPECIMEN Ordering Facility: [facility] ([facility]) Address: [address] [place] [address] Performed By: #### 5 0190-8, 2276-4, 64845-5, 3016-3 #### [facility] CLIA [id number] [address] [place] [address] [place] Immature granulocytes (Bld) [#/Vol] 10*3/uL Normal <0.10 [facility] Comment on above: Order Comment: Speci men Type: BLOOD SPECIMEN [facility]ing [facility] Address: [address] [place] [address] Performed By: #### 5 0190-8, 2276-4, 87709-4, 3016-3 #### [facility] CLIA [id number] [address] [place] Immature granulocytes/100 WBC (Bld) 0.3 % Normal [facility] Comment on above: Order Comment: Speci men Type: BLOOD SPECIMEN Ordering Facility: [facility] Address: [address] [place] [address] Performed By: #### 5 0190-8, 2276-4, 59177-2, 3016-3 #### [facility] CLIA [id number] [address] [place], [place] [address] [place] [address] [place] Lymphocytes (Bld) [#/Vol] 2.30 10*3/uL Normal 1.00-4.00 [facility] Comment on above: Order Comment: Speci men Type: BLOOD SPECIMEN Ordering Facility: [facility] Address: [address] [place] [address] Performed By: #### 5 0190-8, 2276-4, 83696-2, 3016-3 #### [facility] CLIA [id number] [address] Lymphocytes/100 WBC (Bld) 38.0 % Normal [facility] Comment on above: Order Comment: Speci men Type: BLOOD SPECIMEN Ordering Facility: [facility] ([facility]) Address: [address] [place] [address] Performed By: #### 5 0190-8, 6-4, 17848-0, 3016-3 #### [facility] CLIA [id number] [address] [place] MCH (RBC) [Entitic mass] 30.3 pg Normal 26.0-34.0 [facility] Comment on above: Order Comment: Speci men Type: BLOOD SPECIMEN Ordering Facility: [facility] ([facility]) Address: [address] [place] [address] Performed By: #### 5 0190-8, 6-4, 53940-0, 3016-3 #### [facility] CLIA [id number] [address] [place] MCHC (RBC) [Mass/Vol] 32.3 g/dL Normal 30.5-36.0 [facility] Comment on above: Order Comment: Speci men Type: BLOOD SPECIMEN Ordering Facility: [facility] Address: [address] [place], [place] [address] Performed By: #### 5 0190-8, 6-4, 17916-1, 3016-3 #### [facility] CLIA [id number] [address] [place] [address] [place] MCV (RBC) [Entitic vol] 93.7 fL Normal 80.0-100.0 [facility] Comment on above: Order Comment: Speci men Type: BLOOD SPECIMEN Ordering Facility: [facility] ([facility]) Address: [address] [place] [address] Performed By: #### 5 0190-8, 2276-4, 63987-4, 6-3 #### [facility] CLIA [id number] [address] [place] [address] [place] Monocytes (Bld) [#/Vol] 0.52 10*3/uL Normal <0.87 [facility] Comment on above: Order Comment: Speci atif Type: BLOOD SPECIMEN [facility]ing [facility] Address: [address] [place] [address] Performed By: #### 5 0190-8, 6-4, 27016-6, 6-3 #### [facility] CLIA [id number] [address] [place] [address] [place] Monocytes/100 WBC (Bld) 8.6 % Normal [facility] Comment on above: Order Comment: Speci men Type: BLOOD SPECIMEN Ordering Facility: [facility] Address: [address] [place] [address] Performed By: #### 5 0190-8, 6-4, 20703-9, 6-3 #### [facility] CLIA [id number] [address] [place] [address] [place] Neutrophils (Bld) [#/Vol] 3.11 10*3/uL Normal 1.45-7.50 [facility] Comment on above: Order Comment: Speci men Type: BLOOD SPECIMEN Ordering Facility: [facility] ([facility]) Address: [address] [place] [address] Performed By: #### 5 0190-8, 2276-4, 30363-8, 3016-3 #### [facility] CLIA [id number] [address] [place] [address] [place] Neutrophils/100 WBC (Bld) 51.3 % Normal [facility] Comment on above: Order Comment: Edmund srivastava Type: BLOOD SPECIMEN Ordering Facility: [facility] ([facility]) Address: [address] [place] [address] Performed By: #### 5 0190-8, 2276-4, 09328-5, 3016-3 #### [facility] CLIA [id number] [address] [place] [address] [place] Nucleated RBC (Bld) [#/Vol] 10*3/uL Normal <0.01 [facility] Comment on above: Order Comment: Edmund srivastava Type: BLOOD SPECIMEN Ordering Facility: [facility] ([facility]) Address: [address] [place] [address] Performed By: #### 5 0190-8, 2276-4, 79451-7, 3016-3 #### [facility] CLIA [id number] [address] [place] [address] [place] Nucleated RBC/100 WBC (Bld) [Ratio] 0.0 /100 WBC Normal [facility] Comment on above: Order Comment: Edmund srivastava Type: BLOOD SPECIMEN Ordering Facility: [facility] ([facility]) Address: [address] [place] [address] Performed By: #### 5 0190-8, 2276-4, 55438-5, 3016-3 #### [facility] CLIA [id number] [address] [place] [address] [place] Platelet mean volume (Bld) [Entitic vol] 9.9 fL Normal 9.0-12.7 [facility] Comment on above: Order Comment: Edmund srivastava Type: BLOOD SPECIMEN Ordering Facility: [facility] ([facility]) Address: [address] [place] [address] Performed By: #### 5 0190-8, 2276-4, 26845-6, 3016-3 #### [facility] CLIA [id number] [address] [place] [address] [place] Platelets (Bld) [#/Vol] 234 10*3/uL Normal 150-400 [facility] Comment on above: Order Comment: Edmund srivastava Type: BLOOD SPECIMEN Ordering Facility: [facility] ([facility]) Address: [address] [place] [address] Performed By: #### 5 0190-8, 2276-4, 60298-6, 3016-3 #### [facility] CLIA [id number] [address] [place] [address] [place] RBC (Bld) [#/Vol] 4.62 10*6/uL Normal 3.90-5.20 [facility] Comment on above: Order Comment: Edmund srivastava Type: BLOOD SPECIMEN Ordering Facility: [facility] ([facility]) Address: [address] [place] [address] Performed By: #### 5 0190-8, 2276-4, 51924-0, 3016-3 #### [facility] CLIA [id number] [address] [place] [address] [place] WBC (Bld) [#/Vol] 6.06 10*3/uL Normal 3.70-11.00 [facility] Comment on above: Order Comment: Edmund srivastava Type: BLOOD SPECIMEN Ordering Facility: [facility] ([facility]) Address: [address] [place] [address] Performed By: #### 5 0190-8, 2276-4, 56509-0, 3016-3 #### [facility] CLIA [id number] [address] [place] [address] [place] Eleazar Aguilar 04-17-20 24 Cortisol [Mass/Vol] 0.8 ug/dL Low 4.8-19.5 [facility] Comment on above: Order Comment: Edmund srivastava Type: BLOOD SPECIMEN Ordering Facility: [facility] ([facility]) Address: [address] [place] [address] Result Comment: Prov ided reference range is from 6-10 AM sample collection time. Cortisol Reference Range: 6-10 AM = 4.8-19.5 ug/dL, 4-8 PM = 2.5-11.9 ug/dL Performed By: #### 2 143-6 #### [facility] CLIA [id number] [address] [place] [address] OF [place]E DEXAMETHASONEon 04-17-2024 DEXAMETHASONE 186.9 ng/dL Normal [facility] Comment on above: Order Comment: Edmund srivastava Type: BLOOD SPECIMEN Ordering Facility: [facility] ([facility]) Address: [address] [place] [address] Result Comment: INTE RPRETIVE INFORMATION: Dexamethasone, Serum [...] developed and its performance characteristics determined by [facility]. It has not been cleared or approved by the [place] Food and Drug Administration. This test was performed in a CLIA certified laboratory and is intended for clinical purposes. Performed By: [facility] [address] [place] [address] Low Voltage Electrician: Kenneth Noyola MD, PhD CLIA Number: [id number] Performed By: #### D EXA #### [facility] CLIA [id number] [address] [place] [address] Home sleep apnea test (HSAT) on 04-01-2024 [facility] Work Phone: 25(OH)D3 [facility] 2023 25-hydroxyvitamin D3 [Mass/Vol] 48.6 ng/mL Normal 31.0-80.0 [facility] Comment on above: Order Comment: Edmund srivastava Type: BLOOD SPECIMEN Ordering Facility: [facility] ([facility]) Address: [address] [place] [address] Performed By: #### 1 989-3 #### [facility] CLIA [id number] [address] [place] [address] OF [place] Comprehensive metabolic 2000 panelon 03-17-2024 Albumin [Mass/Vol] 4.0 g/dL Normal 3.9-4.9 [facility] Comment on above: Order Comment: Edmund srivastava Type: BLOOD SPECIMEN Ordering Facility: [facility] ([facility]) Address: [address] [place], [place] [address] Performed By: #### 5 0190-8, 2276-4, 06910-6, 3016-3 #### [facility] CLIA [id number] [address] [place] [address] [place] ALP [Catalytic activity/Vol] 70 U/L Normal 34-123 [facility] Comment on above: Order Comment: Edmund srivastava Type: BLOOD SPECIMEN Ordering Facility: [facility] ([facility]) Address: [address] [place], [place] [address] Performed By: #### 5 0190-8, 2276-4, 69866-0, 3016-3 #### [facility] CLIA [id number] [address] ALT [Catalytic activity/Vol] 15 U/L Normal 7-38 [facility] Comment on above: Order Comment: Edmund srivastava Type: BLOOD SPECIMEN [facility] Address: [address] [place], [place] [address] Performed By: #### 5 0190-8, 2276-4, 09230-1, 3016-3 #### [facility] CLIA [id number] [address] STATES [facility] Anion gap [Moles/Vol] 11 mmol/L Normal 8-15 [facility] Comment on above: Order Comment: Edmund srivastava Type: BLOOD SPECIMEN Ordering Facility: [facility] ([facility]) Address: [address] [place] [address] Performed By: #### 5 0190-8, 2276-4, 27410-2, 3016-3 #### [facility] CLIA [id number] [address] STATES OF [facility] AST [Catalytic activity/Vol] 18 U/L Normal 13-35 [facility] Comment on above: Order Comment: Edmund srivastava Type: BLOOD SPECIMEN Ordering Facility: [facility] ([facility]) Address: [address] [place] [address] Performed By: #### 5 0190-8, 2276-4, 39149-8, 3016-3 #### [facility] CLIA [id number] [address] [place] [address] [place] Bilirubin [Mass/Vol] 0.6 mg/dL Normal 0.2-1.3 [facility] Comment on above: Order Comment: Edmund srivastava Type: BLOOD SPECIMEN [facility]ing Facility: [facility] ([id number]) Address: [address] [place] [address] Performed By: #### 5 0190-8, 2276-4, 85187-7, 3016-3 #### [facility] CLIA [id number] [address] [place] [address] [place] Calcium [Mass/Vol] 8.9 mg/dL Normal 8.5-10.2 [facility] Comment on above: Order Comment: Edmund srivastava Type: BLOOD SPECIMEN Ordering Facility: [facility] ([id number]) Address: [address] [place], [place] [address] Performed By: #### 5 0190-8, 2276-4, 27337-2, 3016-3 #### [facility] CLIA [id number] [address] [place] [address] [place] Chloride [Moles/Vol] 104 mmol/L Normal 98-107 [facility] Comment on above: Order Comment: Edmund men Type: BLOOD SPECIMEN Ordering Facility: [facility] ([id number]) Address: [address] [place], [place] [address] Performed By: #### 5 0190-8, 2276-4, 60473-4, 3016-3 #### [facility] CLIA [id number] [address] [place] [address] [place] CO2 [Moles/Vol] 23 mmol/L Normal 22-30 [facility] Comment on above: Order Comment: Saadi men Type: BLOOD SPECIMEN Ordering Facility: [facility] ([id number]) Address: [address] [place] [address] Performed By: #### 5 0190-8, 2276-4, 47862-2, 3016-3 #### [facility] CLIA [id number] [address] [place] Creatinine [Mass/Vol] 0.79 mg/dL Normal 0.58-0.96 [facility] Comment on above: Order Comment: Specchaka srivastava Type: BLOOD SPECIMEN Ordering Facility: [facility] (J[facility]) Address: [address] [place] [address] Performed By: #### 5 0190-8, 2276-4, 48146-5, 3016-3 #### [facility] CLIA [id number] [address] [place] [address] Creatinine and Glomerular filtration rate.predicted panel (S/P/Bld) 93 mL/min/1.73m??? Normal >=60 [facility] Comment on above: Order Comment: Edmund srivastava Type: BLOOD SPECIMEN Ordering Facility: [facility] ([id number]) Address: [address] [place] [address] Result Comment: Cale mated Glomerular Filtration Rate [...] GFR. Performed By: #### 5 0190-8, 2276-4, 48800-5, 3016-3 #### [facility] CLIA [id number] [address] [place] [address] [place] Glucose [Mass/Vol] 116 mg/dL High 74-99 [facility] Comment on above: Order Comment: Edmund srivastava Type: BLOOD SPECIMEN Ordering Facility: [facility] ([id number]) Address: [address] [place] [address] Result Comment: The [place] Diabetes Association (ADA) provides guidance for cutoff [...] Medical Care in Diabetes 2016, [place] Diabetes Association. Diabetes Care. 2016.39(Suppl 1). Performed By: #### 5 0190-8, 2276-4, 30279-0, 3016-3 #### [facility] CLIA [id number] [address] [place] [address] [place] Potassium [Moles/Vol] 4.1 mmol/L Normal 3.7-5.1 [facility] Comment on above: Order Comment: Edmund srivastava Type: BLOOD SPECIMEN [facility] Address: [address] [place] [address] Performed By: #### 5 0190-8, 2276-4, 94519-6, 3016-3 #### [facility] CLIA [id number] [address] [place] [address] [place] Protein [Mass/Vol] 6.8 g/dL Normal 6.3-8.0 [facility] Comment on above: Order Comment: Edmund srivastava Type: BLOOD SPECIMEN [facility] Address: [address] [place] [address] Performed By: #### 5 0190-8, 2276-4, 31752-9, 3016-3 #### [facility] CLIA [id number] [address] [place] [address] [place] Sodium [Moles/Vol] 138 mmol/L Normal 136-144 [facility] Comment on above: Order Comment: Edmund srivastava Type: BLOOD SPECIMEN Ordering Facility: [facility] (J[facility]) Address: [address] [place] [address] Performed By: #### 5 0190-8, 2276-4, 20833-8, 3016-3 #### [facility] CLIA [id number] [address] [place] [address] [place] Urea nitrogen [Mass/Vol] 14 mg/dL Normal 7-21 [facility] Comment on above: Order Comment: [facility] Type: BLOOD SPECIMEN [facility] Address: [address] [place] [address] Performed By: #### 5 0190-8, 2276-4, 29255-9, 3016-3 #### [facility] CLIA [id number] [address] [place] [address] [place] DHEA-S BLDon 03-17-2024 DHEA-S [Mass/Vol] 291.4 ug/dL High 35.4-256.0 [facility] Comment on above: Order Comment: [facility] Type: BLOOD SPECIMEN Ordering Facility: [facility] ([facility]) Address: [address] [place] [address] Result Comment: Refe rence ranges are age and gender specific. For additional information, reference range tables can be found in the laboratory test directory. The normal values are based on the following source: Dehydroepiandrosterone sulfate (DHEA S) [package insert V 17.0 Romansh]. [facility], [place], [place]: April 2013. Performed By: #### 5 0190-8, 2276-4, 09996-5, 3016-3 #### [facility] CLIA [id number] [address] [place] [address] [place] Ferritin SerPl-mCncon 2023 Ferritin [Mass/Vol] 73.5 ng/mL Normal 14.7-205.1 [facility] Comment on above: Order Comment: [facility] Type: BLOOD SPECIMEN Ordering [facility] Address: [address] [place] [address] Performed By: #### 5 0190-8, 2276-4, 12904-1, 3016-3 #### [facility] CLIA [id number] [address] [place] [address] [place] Fructosamine SerPl-sCncon Fructosamine [Moles/Vol] 233 umol/L Normal 205-285 [facility] Comment on above: Order Comment: Edmund srivastava Type: BLOOD SPECIMEN Ordering Facility: [facility] (J181) Address: [address] [place] [address] Performed By: #### 5 0190-8, 2276-4, 71568-9, 3016-3 #### [facility] CLIA [id number] [address] HbA1c (Bld)on 03-17-2024 Average glucose Estimated from glycated hemoglobin (Bld) [Mass/Vol] 105 mg/dL Normal [facility] Comment on above: Order Comment: Edmund srivastava Type: BLOOD SPECIMEN Ordering Facility: [facility] (J[facility]) Address: [address] [place] [address] Result Comment: eAG: (Estimated average glucose) is a calculated value from HgbA1c and is containers sales representative of the average blood glucose level in the last 2-3 month period. Performed By: #### 5 0190-8, 6-4, 29509-6, 6-3 #### [facility] CLIA [id number] [address] STATES [facility] HbA1c (Bld) [Mass fraction] 5.3 % Normal 4.3-5.6 [facility] Comment on above: Order Comment: Edmund srivastava Type: BLOOD SPECIMEN Ordering Facility: [facility] (J[facility]) Address: [address] [place] [address] Result Comment: Amer [place] Diabetes Association guidelines indicate that patients with HgbA1c in the range 5.7-6.4% are at increased risk for development of diabetes, and intervention by lifestyle modification may be beneficial. HgbA1c greater or equal to 6.5% is considered diagnostic of diabetes. Performed By: #### 5 0190-8, 2276-4, 75370-8, 3016-3 #### [facility] CLIA [id number] [address] [place] Iron and Iron binding capaci ty panelon 03-17-2024 Iron [Mass/Vol] 133 ug/dL Normal 41-186 [facility] Comment on above: Order Comment: Speci men Type: BLOOD SPECIMEN Ordering Facility: [facility] (J[facility]) Address: [address] [place] [address] Performed By: #### 5 0190-8, 2276-4, 93738-8, 3016-3 #### [facility] CLIA [id number] [address] [place] [address] [place] Iron binding capacity [Mass/Vol] 285 ug/dL Normal 232-386 [facility] Comment on above: Order Comment: Speci men Type: BLOOD SPECIMEN Ordering Facility: [facility] (J[facility]) Address: [address] [place] [address] Performed By: #### 5 0190-8, 2276-4, 47650-8, 3016-3 #### [facility] CLIA [id number] [address] STATES OF [facility] Iron/TIBC [Molar ratio] 46.7 % Normal 15.0-57.0 [facility] Comment on above: Order Comment: Speci men Type: BLOOD SPECIMEN Ordering Facility: [facility] (J[facility]) Address: [address] [place] [address] Performed By: #### 5 0190-8, 2276-4, 17416-4, 3016-3 #### [facility] CLIA [id number] [address] [place] [address] [place] T3Free SerPl-mCncon 03-17-20 24 Free T3 [Mass/Vol] 3.1 pg/mL Normal 2.3-4.1 [facility] Comment on above: Order Comment: Speci men Type: BLOOD SPECIMEN Ordering Facility: [facility] (J[facility]) Address: [address] [place] [address] Performed By: #### 5 0190-8, 2276-4, 75571-8, 3016-3 #### [facility] CLIA [id number] [address] [place] [address] [place] T4 Free SerPl-mCncon 024 Free T4 [Mass/Vol] 1.3 ng/dL Normal 0.9-1.7 [facility] Comment on above: Order Comment: Edmund srivastava Type: BLOOD SPECIMEN Ordering Facility: [facility] (J[facility]) Address: [address] [place] [address] Performed By: #### 5 0190-8, 2276-4, 82026-1, 3016-3 #### [facility] CLIA [id number] [address] [place] [address] [place] TSH SerPl-aCncon 03-17-2024 TSH Qn 0.804 m[IU]/L Normal 0.270-4.200 [facility] Comment on above: Order Comment: Edmund srivastava Type: BLOOD SPECIMEN Ordering Facility: [facility] (J[facility]) Address: [address] [place] [address] Result Comment: If t he patient is , TSH reference range varies by gestational period: First Trimester (weeks 9-12): 0.180-2.990 mIU/L Second Trimester: 0.110-3.980 mIU/L Third Trimester: 0.480-4.710 mIU/L Dominick Peace et al. A Practical Approach for the Verifications and Determination of Site- and Trimester-Specific Reference Intervals for Thyroid Function tests in . Thyroid, 2019:29:3:412-420. Jacques Cabrales, et al. 2017 Guidelines of the Citizen Of [place] Thyroid Association for the Diagnosis and Management of Thyroid Disease during and the . Thyroid, 2017:27:3:315-389. Performed By: #### 5 0190-8, 2276-4, 24521-8, 3016-3 #### [facility] CLIA [id number] [address] [place] [address] [place] PAP TESTon 12-21-2022 Case Report Gynecologic Cytology Report Case: [id number] Authorizing Provider: Anthony White MD Collected: 12/14/2022 07:47 AM Ordering Location: Obstetrics/Gynecology Received: 12/14/2022 09:54 AM First Screen: Jayne Peraza, CT, ASCP Rescreen: Komal Peck CT, ASCP Specimen: Pap Test, ThinPrep, Cervix [facility] Clinical History Routine Exam [facility] FINAL DIAGNOSIS A - Cervix Satisfactory for interpretation Negative for Intraepithelial lesion or malignancy. [facility] HPV Reflex Auto HPV [facility] LMP 11/28/2022 [facility] Pap Disclaimer The Pap Smear is a screening test for cervical cancer. False negative results occur with all screening tests, emphasizing the need for rescreening at recommended intervals, and clinical correlation. [facility] Performing Lab Technical component, packer screening performed at [facility], [address], [facility] [address] CLIA# [id number] Diagnostic interpretation performed at [facility], [address], [facility] [address] CLIA# [id number] Low Voltage Electrician: Fritz Wilcox M.D. [facility] HPV W/GENOTYPE THIN PREPon 0 12-20-2022 HPV 16 Ag Ql (Unsp spec) Negative Negative for HPV DNA high risk type 16 by PCR [facility] HPV 18 Ag Ql (Unsp spec) Negative Negative for HPV DNA high risk type 18 by PCR [facility] HPV 31+33+35+39+45+51+52 +56+58+59+66+68 DNA BINA+probe Ql (Cvx) Negative for HPV DNA high risk types: 31,33,35,39,45,51,52,56, 58,59,66,68 by PCR. Negative for HPV DNA high risk types: 31,33,35,39,4 5,51,52,56,58 ,59,66,68 by PCR. [facility] Office Visit (Family Medicin e)on 06-26-2022 [...] All medical record entries made by the Erick were at my direction and personally dictated [...] of left (more content not included)... Normal [facility] PHQ-2 VITALSon 06-26-2022 Adult depression screening assessment Yes -[facility] Work Phone: Adult depression screening assessment No [facility]: Fall risk assessment a) No falls within the last year [facility] Work Phone: PHQ-2 VITALS 1-Several days [facility] Work Phone: PHQ-2 VITALS 3-Nearly every day -[facility] Work Phone: PHQ-2 VITALS 0-Not at all -[facility] Work Phone: PHQ-2 VITALS Not difficult at all -[facility] Work Phone: Blood Pressure Cuff Sizeon 0 11-22-2021 Tobacco use status CPHS b) No -[facility] [address] [place] Work Phone: Blood Pressure [...] 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 Vitals Vital Signs Recorded: 22Nov2021 04:20PM Heart Rate64 Jwpcfbge074, RUE, Sitting Pluyzlvfi08, RUE, Sitting Blood Pressure Cuff SizeAdult Height5 ft 6 in Yixpwt153 lb BMI Rducxaxwlc40.7 kg/m2 BSA Calculated1.78 Tobacco Useb) No O2 Jgysilqach15, RA Impressions 1. Palpitations/atypical chest discomfort: Symptoms [...] Nov 22 2021 5:01PM EST (Author) Normal [facility] Echocardiogramon 11-10-2021 Echocardiography [facility] , [address], [address], [place], [place] [address] and TRANSTHORACIC ECHOCARDIOGRAM REPORT Patient Name: TORY SOLIS Reading Physician: [id number] Juni Gamboa MD Study Date: 11/10/2021 Referring Physician: JUNI GAMBOA MRN/PID: [id number] PCP: Accession/Order#: [id number] Department Location: [facility] Date of : 1975 Fellow: Gender: F Nurse: Admit Date: Paper Goods Machine Operator: Blanka Hong [facility] Admission Status: Outpatient Additional Staff: Height: 167.64 cm CC Report to: Weight: 68.04 kg Study Type: Echocardiogram BSA: 1.77 m2 Blood Pressure: 109 /74 mmHg Diagnosis/ICD: R00.2-Palpitations Indication: Palpitations Procedure/CPT: Echo Complete w Full Doppler-[id number] Patient History: Pertinent History: Palpitations and Chest [...] LA Area A2C: 12.0 cm2 LA [place] A4C: 6.0 cm LA [place] A2C: 4.9 cm LA Volume Index: 20.0 ml/m2 LA Vol A4C: 31.3 ml LA Vol A2C: 25.6 ml RA VOLUME BY A/L METHOD: Normal Ranges: RA Vol A4C: 34.0 ml (8.3-19.5ml) RA Vol Index A4C: 19.2 ml/m2 RA Area A4C: 14.0 cm2 RA [place] A4C: 4.9 cm M-MODE MEASUREMENTS: Normal Ranges: [...] Sven: 1.06 PulmV Sys Sven: 52.98 cm/s 94913 Juni Gamboa MD Electronically signed on 11/11/2021 at 10:57:02 AM Final Normal [facility] BNPon 10-19-2021 Natriuretic peptide B (Bld) [Mass/Vol] 28 pg/mL Normal 0 - 99 [facility] Comment on above: Result Comment: . <1 [...] information. Performed By: #### B NP2 #### [facility] [address] [place] [address] C-REACTIVE PROTEINon 022 C-REACTIVE PROTEIN 0.11 mg/dL Normal [facility] Comment on above: Result Comment: REF VALUE < 1.00 Performed By: #### C RP #### [facility] [address] [place] [address] SEDIMENTATION RATE, ERYTHROC YTEon 10-19-2021 SEDIMENTATION RATE, ERYTHROCYTE 2 mm/h Normal 0 - 20 [facility] Comment on above: Performed By: #### E SRWS #### [facility] [address] [place] [address] C Reactive Protein, Serumon 10-18-2021 CRP [Mass/Vol] 0.11 mg/dL [facility] Work Phone: Comment on above: REF VALUE< 1.00 No Panel Informationon 10-18 28 pg/mL 0 - 99 [facility] [employer] Work Phone: Comment on above: . <100 pg/mL - Heart failure shytefxj939-183 pg/mL - Intermediate probability of acute heart. [...] local laboratory for further information. [email or web address] 1:80 [email or web address]?RetrieveTestByDateTim e?LwjiarlXP=[email or web address]&Da te=18-10-2021&Time=16%3a 00%3a27%3a00&TestType=EC G&Site=1&OutputType=PDF& Ext=PDF [facility] Work Phone: Normal sinus rhythm [facility] [place] Work Phone: Normal [facility] Work Phone: [phone] [facility] Work Phone: [phone] 1 [facility] Work Phone: 197 1 [facility] Work Phone: 146 1 [facility] Work Phone: 223 1 [facility] Work Phone: 12 1 [facility] Work Phone: 46 1 [facility] Work Phone: 67 1 [facility] Work Phone: 21 1 [facility] Work Phone: 421 1 [facility] Work Phone: 390 1 [facility] Work Phone: 80 1 [facility] Work Phone: 154 1 [facility] Work Phone: 70 1 [facility] Work Phone: Office Visit (Cardiology)on 10-18-2021 Follow-up visit Diagnoses/Problems Assessed Heart palpitations (785.1) (R00.2) Palpitations (785.1) (R00.2) Viral syndrome (079.99) (B34.9) Orders Heart palpitations Electrocardiogram 12 Lead; Status:Active; Requested for:18Oct2021; Sedimentation Rate, Erythrocyte; Status:Active; Requested for:18Oct2021; Palpitations Brain Natriuretic Peptide BNP; Status:Active; Requested for:18Oct2021; C Reactive Protein, Serum; Status:Active; Requested for:18Oct2021; Continuous Ambulatory case monitor up to 30 days; Status:Hold For [...] 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 Vitals Vital Signs Recorded: [id number] 03:15PM Heart Rate78 Bevvqmvb454, LUE Bporxauwu44, LUE Qqjmel039 lb 2 oz BMI Cxahaacowp81.88 kg/m2 BSA Calculated1.79 O2 Yoyvfieysh89 Physical Exam General: No acute distress ENT [...] 2 mm/h 0 - 20 [facility] Work Phone: TROPONIN Ion 10-18-2021 Troponin I.cardiac [Mass/Vol] ng/mL Normal 0.00 - 0.03 [facility] Comment on above: Result Comment: LESS THAN [...] is performed using different testing methodology at [facility] than at other [facility]. Direct result comparisons should only be made within the same method. . Biotin interference may cause falsely decreased results. Patients taking a Biotin dose of up to 5 mg/day should refrain from taking Biotin for 24 hours before sample collection. Providers may contact their laboratory for further information. Performed By: #### T ROP2 #### [facility] [address] [place] [address] Troponin I, Serumon 10-18-19 22 Troponin I.cardiac [Mass/Vol] ng/mL See Below [facility] [employer] Work Phone: Comment on above: Reference Range: [...] is performed using different testing methodology at [facility] than at other [facility]. Direct result comparisons should only be made within the same method.. Biotin interference may cause falsely decreased results. Patients taking a Biotin dose of up to 5 mg/day should refrain from taking Biotin for 24 hours before sample collection. Providers may contact their laboratory for further information. BASIC METABOLIC PANELon 09-24 Anion gap [Moles/Vol] 11 mmol/L Normal 10 - 20 [facility] Comment on above: Performed By: #### B MP #### [facility] [address] [place] [address] Calcium [Mass/Vol] 9.2 mg/dL Normal 8.6 - 10.6 [facility] Comment on above: Performed By: #### B MP #### [facility] [address] [place] [address] Chloride [Moles/Vol] 103 mmol/L Normal 98 - 107 [facility] Comment on above: Performed By: #### B MP #### [facility] [address] [place] [address] Creatinine [Mass/Vol] 0.69 mg/dL Normal 0.50 - 1.05 [facility] Comment on above: Performed By: #### B MP #### [facility] [address] [place] [address] eGFR FEMALE >90 Normal >90 [facility] Comment on above: Result Comment: CALC ULATIONS OF ESTIMATED GFR ARE PERFORMED USING THE 2020 CKD-EPI STUDY REFIT EQUATION WITHOUT THE RACE VARIABLE FOR THE IDMS-TRACEABLE CREATININE METHODS. [email or web address]://jasn.asnjournals.org/content//ASN.[email or web address] 988 Performed By: #### B MP #### [facility] [address] [place] [address] Glucose [Mass/Vol] 105 mg/dL High 74 - 99 [facility] Comment on above: Performed By: #### B MP #### [facility] [address] [place] [address] HCO3 (Bld) [Moles/Vol] 28 mmol/L Normal 21 - 32 [facility] Comment on above: Performed By: #### B MP #### [facility] [address] [place] [address] Potassium [Moles/Vol] 4.0 mmol/L Normal 3.5 - 5.3 [facility] Comment on above: Performed By: #### B MP #### [facility] [address] [place] [address] Sodium [Moles/Vol] 138 mmol/L Normal 136 - 145 [facility] Comment on above: Performed By: #### B MP #### [facility] [address] [place] [address] Urea nitrogen [Mass/Vol] 16 mg/dL Normal 6 - 23 [facility] Comment on above: Performed By: #### B MP #### [facility] [address] [place] [address] CBC AND DIFFERENTIALon 10-11 % AUTOMATED IMMATURE GRAN 0.1 % Normal 0.0 - 0.9 [facility] Comment on above: Result Comment: Karen ture Granulocyte Count (IG) includes promyelocytes, myelocytes and metamyelocytes but does not include bands. Percent differential counts (%) should be interpreted in the context of the absolute cell counts (cells/L). Performed By: #### C BCDF #### [facility] [address] [place] [address] Basophils (Bld) [#/Vol] 0.04 10*3/uL Normal 0.00 - 0.10 [facility] Comment on above: Performed By: #### C BCDF #### [facility] [address] [place] [address] Basophils/100 WBC (Bld) 0.6 % Normal 0.0 - 2.0 [facility] Comment on above: Performed By: #### C BCDF #### [facility] [address] [place] [address] Eosinophils (Bld) [#/Vol] 0.11 10*3/uL Normal 0.00 - 0.70 [facility] Comment on above: Performed By: #### C BCDF #### [facility] [address] [place] [address] Eosinophils/100 WBC (Bld) 1.6 % Normal 0.0 - 6.0 [facility] Comment on above: Performed By: #### C BCDF #### [facility] [address] [place] [address] Erythrocyte distribution width (RBC) [Ratio] 13.0 % Normal 11.5 - 14.5 [facility] Comment on above: Performed By: #### C BCDF #### [facility] [address] [place] [address] Hematocrit (Bld) [Volume fraction] 42.3 % Normal 36.0 - 46.0 [facility] Comment on above: Performed By: #### C BCDF #### [facility] [address] [place] [address] Hemoglobin (Bld) [Mass/Vol] 14.0 g/dL Normal 12.0 - 16.0 [facility] Comment on above: Performed By: #### C BCDF #### [facility] [address] [place] [address] Lymphocytes (Bld) [#/Vol] 2.52 10*3/uL Normal 1.20 - 4.80 [facility] Comment on above: Performed By: #### C BCDF #### [facility] [address] [place] [address] Lymphocytes/100 WBC (Bld) 36.4 % Normal 13.0 - 44.0 [facility] Comment on above: Performed By: #### C BCDF #### [facility] [id number] [place] [address] MCHC (RBC) [Mass/Vol] 33.1 g/dL Normal 32.0 - 36.0 [facility] Comment on above: Performed By: #### C BCDF #### [facility] [address] [place] [address] MCV (RBC) [Entitic vol] 96 fL Normal 80 - 100 [facility] Comment on above: Performed By: #### C BCDF #### [facility] [address] [place] [address] Monocytes (Bld) [#/Vol] 0.54 10*3/uL Normal 0.10 - 1.00 [facility] Comment on above: Performed By: #### C BCDF #### [facility] [address] [place] [address] Monocytes/100 WBC (Bld) 7.8 % Normal 2.0 - 10.0 [facility] Comment on above: Performed By: #### C BCDF #### [facility] [address] [place] [address] Neutrophils (Bld) [#/Vol] 3.71 10*3/uL Normal 1.20 - 7.70 [facility] Comment on above: Performed By: #### C BCDF #### [facility] [address] [place] [address] Neutrophils/100 WBC (Bld) 53.5 % Normal 40.0 - 80.0 [facility] Comment on above: Performed By: #### C BCDF #### [facility] [address] [place] [address] NUCLEATED RBC 0.0 /100 WBC Normal 0.0-0.0 [facility] Comment on above: Performed By: #### C BCDF #### [facility] [address] [place] [address] Platelets (Bld) [#/Vol] 231 10*3/uL Normal 150 - 450 [facility] Comment on above: Performed By: #### C BCDF #### [facility] [address] [place] [address] RBC 4.40 x10E12/L Normal 4.00 - 5.20 [facility] Comment on above: Performed By: #### C BCDF #### [facility] [address] [place] [address] WBC (Bld) [#/Vol] 6.9 10*3/uL Normal 4.4 - 11.3 [facility] Comment on above: Performed By: #### C BCDF #### [facility] [address] [place], [place] MAGNESIUMon 10-11-2021 Magnesium [Mass/Vol] 2.02 mg/dL Normal 1.60 - 2.40 [facility] Comment on above: Performed By: #### M G #### [facility] [address] [place], [place] SARS-CoV-2 SPIKE TOTAL ANTIB ODYon 10-11-2021 SARS-CoV-2 (COVID-19) Ab IA Ql SEE BELOW Normal [facility] Comment on above: Result Comment: . SARS-COV-2 John protein antibodies detected. Result suggests recent or past infection of SARS-CoV-2 (COVID-19) and/or vaccination. Results from antibody testing should not be used as the sole basis to diagnose or exclude SARS-CoV-2 infection. False-positive results may be due to past or present infection with ypz-XFDX-AaF-2 coronavirus strains, such as coronavirus HKU1, NL63, [...] blood. Performed By: #### C OVTA #### [facility] [address] [place], [place] SARS-CoV-2 (COVID-19) RNA BINA+probe Ql (Unsp spec) Reactive Abnormal NONREACTIVE [facility] Comment on above: Performed By: #### C OVTA #### [facility] [address] [place], [place] TSH WITH REFLEX TO FREE T4 I F ABNORMALon 10-11-2021 TSH Qn 0.73 m[IU]/L Normal 0.44 - 3.98 [facility] Comment on above: Result Comment: TSH testing is performed using different testing methodology at [facility] than at other [facility]. Direct result comparisons should only be made within the same method. Performed By: #### T HYDS #### [facility] [address] [place] [address] Complete Blood Count + Diffe cecille 10-10-2021 Basophils/100 WBC (Bld) 0.6 % 0.0 - 2.0 [facility] Work Phone: Erythrocyte distribution width (RBC) [Ratio] 13.0 % See Below [facility] Work Phone: [phone] Comment on above: Reference Range: 11. 5 - 14.5 Hematocrit (Bld) [Volume fraction] 42.3 % See Below [facility] Work Phone: Comment on above: Reference Range: 36. 0 - 46.0 Hemoglobin (Bld) [Mass/Vol] 14.0 g/dL See Below [facility] Work Phone: Comment on above: Reference Range: 12. 0 - 16.0 Lymphocytes/100 WBC (Bld) 36.4 % See Below [facility] Work Phone: Comment on above: Reference Range: 13. 0 - 44.0 MCHC (RBC) [Mass/Vol] 33.1 g/dL See Below [facility] Work Phone: Comment on above: Reference Range: 32. 0 - 36.0 MCV (RBC) [Entitic vol] 96 fL 80 - 100 [facility] Work Phone: [phone] Monocytes/100 WBC (Bld) 7.8 % 2.0 - 10.0 [facility] Work Phone: Neutrophils/100 WBC (Bld) 53.5 % See Below [facility] Work Phone: Comment on above: Reference Range: 40. 0 - 80.0 Platelets (Bld) [#/Vol] 231 10*3/uL 150 - 450 [facility] Work Phone: RBC (Bld) [#/Vol] 4.40 {x10E12/L} See Below [facility] Work Phone: Comment on above: Reference Range: 4.0 0 - 5.20 WBC (Bld) [#/Vol] 6.9 10*3/uL 4.4 - 11.3 [facility] Work Phone: Complete Blood Count + Differential 0.04 {x10E9/L} See Below [facility] Work Phone: [phone] Comment on above: Reference Range: 0.0 0 - 0.10 Complete Blood Count + Differential 0.11 {x10E9/L} See Below [facility] Work Phone: Comment on above: Reference Range: 0.0 0 - 0.70 Complete Blood Count + Differential 0.54 {x10E9/L} See Below [facility] Work Phone: Comment on above: Reference Range: 0.1 0 - 1.00 Complete Blood Count + Differential 2.52 {x10E9/L} See Below [facility] Work Phone: Comment on above: Reference Range: 1.2 0 - 4.80 Complete Blood Count + Differential 3.71 {x10E9/L} See Below [facility] Work Phone: Comment on above: Reference Range: 1.2 0 - 7.70 Complete Blood Count + Differential 1.6 % 0.0 - 6.0 [facility] Work Phone: [phone] Complete Blood Count + Differential 0.1 % 0.0 - 0.9 [facility] Work Phone: Comment on above: Immature Granulocyte Count (IG) includes promyelocytes, myelocytes and metamyelocytes but does not include bands. Percent differential counts (%) should be interpreted in the context of the absolute cell counts (cells/L). Complete Blood Count + Differential 0.0 {/100_WBC} 0.0-0.0 [facility] Work Phone: [phone] Laboratory - Chemistry and C hemistry - challengeon 10-10-2021 Anion gap [Moles/Vol] 11 mmol/L 10 - 20 [facility] Work Phone: Calcium [Mass/Vol] 9.2 mg/dL 8.6 - 10.6 [facility] Work Phone: Chloride [Moles/Vol] 103 mmol/L 98 - 107 [facility] Work Phone: CO2 [Moles/Vol] 28 mmol/L 21 - 32 [facility] Work Phone: Creatinine [Mass/Vol] 0.69 mg/dL See Below [facility] Work Phone: Comment on above: Reference Range: 0.5 0 - 1.05 Glucose [Mass/Vol] 105 mg/dL above high threshold 74 - 99 [facility] Work Phone: Potassium [Moles/Vol] 4.0 mmol/L 3.5 - 5.3 [facility] Work Phone: Sodium [Moles/Vol] 138 mmol/L 136 - 145 [facility] Work Phone: TSH Qn 0.73 m[IU]/L See Below [facility] Work Phone: Comment on above: SOURCE: Reference Ra nge: 0.44 - 3.98 TSH testing is performed using different testing methodology at [facility] than at other [facility]. Direct result comparisons should only be made within the same method. Urea nitrogen [Mass/Vol] 16 mg/dL 6 - 23 [facility] Work Phone: Magnesium, Serumon 2 Magnesium [Mass/Vol] 2.02 mg/dL See Below [facility] Work Phone: Comment on above: Reference Range: 1.6 0 - 2.40 No Panel Informationon 10-10 >90 >90 [facility] Work Phone: Comment on above: CALCULATIONS OF CALE MATED GFR ARE PERFORMED USING THE 2020 CKD-EPI STUDY REFIT EQUATION WITHOUT THE RACE VARIABLE FOR THE IDMS-TRACEABLE CREATININE METHODS.https://jasn.asnjournals.org/content/early/ASN .7140322885 Office Visit (Family Michael cabrales)on 10-10-2021 Follow-up visit Diagnoses/Problems Heart palpitations (785.1) [...] 18Oct2021 AMA Intake Activity Log Entry by REAL SAMURAI ACCOUNT (INTRANET) on 2021-10-10 16:27 Status Change : Confirmed - SMN Module AMA Intake updated by REAL SAMURAI ACCOUNT (INTRANET) on 2021-10-10 16:27 New Recipient: [...] well. Intermittent tickle in chest still. Saw MARBLE COPER, gave her dexamethasone and z pack. After 4 days of dexamethasone was having racy heart mild sxs She stopped this. A couple of days later she had episode of severe palpitations again. Was like this for 24 hours, went to bed and then felt fine. This past weekend she was in [place] and had symptoms again. Could not sleep. [...] Ab IA Ql Reactive Abnormal See Below [facility] Work Phone: Comment on above: SOURCE: Reference Ra nge: NONREACTIVE SARS-CoV-2 (COVID-19) IgG+IgM IA Ql SEE BELOW [facility] Work Phone: Comment on above: .SARS-COV-2 John pr otein antibodies detected. Result suggests recent or past infection of SARS-CoV-2 (COVID-19) and/or vaccination. Results from antibody testing should not be used as the sole basis to diagnose or exclude SARS-CoV-2 infection. False-positive results may be due to past or present infection with vnt-MGXA-ElU-2 coronavirus strains, such as coronavirus HKU1, NL63, [...] of donated blood. SARS-CoV-2 SPIKE TOTAL ANTIB TETEYon 10-10-2021 Lab Specimen Source Normal [facility] Comment on above: Performed By: #### C OVTA #### [facility] [address] [place] [address] Performed By: #### T HYDS #### [facility] [address] [place] [address] Tobacco Screening.on 022 Tobacco use status [facility] b) No [facility] Work Phone: Vital Signs Date Time Vital Sign Value Performing Clinician Facility 06-24-2025 06:31-0400 Body mass index (BMI) [Ratio] 24.3 kg/m2 Dr. Loe Goyal MD Work Phone: [facility] 06-24-2025 06:31-0400 Body temperature 97.5 [degF] Dr. Leo Goyal MD Work Phone: [facility] 06-24-2025 06:31-0400 Body weight 68.[address] Leo Goyal MD Work Phone: [facility] 06-24-2025 06:31-0400 Diastolic blood pressure 81 mm[Hg] Dr. Leo Goyal MD Work Phone: [facility] 06-24-2025 06:31-0400 Heart rate 69 /min Dr. Leo Goyal MD Work Phone: [facility] 06-24-2025 06:31-0400 Respiratory rate 18 /min Dr. Leo Goyal MD Work Phone: [facility] 06-24-2025 06:31-0400 SaO2% (BldA) [Mass fraction] 99 % Dr. Leo Goyal MD Work Phone: [facility] 06-24-2025 06:31-0400 Systolic blood pressure 108 mm[Hg] Dr. Leo Goyal MD Work Phone: [facility] 05-22-2025 08:32-0400 Body height 167.[address] Leo Goyal MD Work Phone: [facility] 05-22-2025 08:32-0400 Body mass index (BMI) [Ratio] 24.2 kg/m2 Dr. Leo Goyal MD Work Phone: [facility] 05-22-2025 08:32-0400 Body weight 68.[address] Leo Goyal MD Work Phone: [facility] 05-22-2025 08:32-0400 Diastolic blood pressure 80 mm[Hg] Dr. Leo Goyal MD Work Phone: [facility] 05-22-2025 08:32-0400 Heart rate 82 /min Dr. Leo Goyla MD Work Phone: [facility] 05-22-2025 08:32-0400 Systolic blood pressure 109 mm[Hg] Dr. Leo Goyal MD Work Phone: [facility] 05-08-2025 16:59-0400 Body height 165.[address] Leo Goyal MD Work Phone: [facility] 05-08-2025 16:59-0400 Body mass index (BMI) [Ratio] 25.4 kg/m2 Dr. Leo Goyal MD Work Phone: [facility] 05-08-2025 16:59-0400 Body temperature 98.4 [degF] Dr. Leo Goyal MD Work Phone: [facility] 05-08-2025 16:59-0400 Body weight 69.[address] Leo Goyal MD Work Phone: [facility] 05-08-2025 16:59-0400 Diastolic blood pressure 88 mm[Hg] Dr. Leo Goyal MD Work Phone: [facility] 05-08-2025 16:59-0400 Heart rate 92 /min Dr. Leo Goyal MD Work Phone: [facility] 05-08-2025 16:59-0400 SaO2% (BldA) [Mass fraction] 98 % Dr. Leo Goyal MD Work Phone: [facility] 05-08-2025 16:59-0400 Systolic blood pressure 136 mm[Hg] Dr. Leo Goyal MD Work Phone: [facility] 05-06-2025 09:02-0400 Body height 165.[address] Leo Goyal MD Work Phone: [facility] 05-06-2025 09:02-0400 Body mass index (BMI) [Ratio] 25.3 kg/m2 Dr. Leo Goyal MD Work Phone: [facility] 05-06-2025 09:02-0400 Body weight 69.[address] Leo Goyal MD Work Phone: [facility] 01-05-2025 15:06-0400 Body mass index (BMI) [Ratio] 25.38 kg/m2 Anthony White MD Work Phone: [facility] 01-05-2025 15:06-0400 Body weight 73.5 kg Anthony White MD Work Phone: [facility] 01-05-2025 15:06-0400 Diastolic blood pressure 76 mm[Hg] Anthony White MD Work Phone: [facility] 01-05-2025 15:06-0400 Systolic blood pressure 124 mm[Hg] Anthony White MD Work Phone: [facility] 03-14-2024 09:49-0400 Body mass index (BMI) [Ratio] 25.34 kg/m2 Randee Hdz MD Work Phone: [facility] 03-14-2024 09:49-0400 Body temperature 99 [degF] Randee Hdz MD Work Phone: [facility] 03-14-2024 09:49-0400 Body weight 71.22 kg Randee Hdz MD Work Phone: [facility] 03-14-2024 09:49-0400 Diastolic blood pressure 78 mm[Hg] Randee Hdz MD Work Phone: [facility] 03-14-2024 09:49-0400 Heart rate 81 /min Randee Hdz MD Work Phone: [facility] 03-14-2024 09:49-0400 SaO2% (BldA) [Mass fraction] 96 % Randee Hdz MD Work Phone: [facility] 03-14-2024 09:49-0400 Systolic blood pressure 112 mm[Hg] Randee Hdz MD Work Phone: [facility] 12-14-2022 07:09-0400 Body weight 69.45 kg Anthony White MD Work Phone: [facility] 12-14-2022 07:09-0400 Diastolic blood pressure 82 mm[Hg] Anthony White MD Work Phone: [facility] 12-14-2022 07:09-0400 Systolic blood pressure 130 mm[Hg] Anthony White MD Work Phone: [facility] 06-26-2022 16:43-0400 7 1 Randee Hdz Work Phone: -[facility] Work Phone: Comment on above: PHQ-9 TS 06-26-2022 16:39-0400 Body height 167.64 cm Randee Hdz Work Phone: -[facility] Work Phone: 06-26-2022 16:39-0400 Body mass index (BMI) [Ratio] 24.05 kg/m2 Randee Hdz Work Phone: -[facility] Work Phone: 06-26-2022 16:39-0400 Body surface area Derived from formula 1.76 m2 Randee Hdz Work Phone: [facility] Work Phone: 06-26-2022 16:39-0400 Body temperature 98.4 [degF] Randee Hdz Work Phone: [facility] Work Phone: 06-26-2022 16:39-0400 Body weight 67.59 kg Randee Hdz Work Phone: [facility] Work Phone: 06-26-2022 16:39-0400 Diastolic blood pressure 72 mm[Hg] Randee Hdz Work Phone: [facility] Work Phone: 06-26-2022 16:39-0400 Heart rate 70 /min Randee Hdz Work Phone: [facility] Work Phone: 06-26-2022 16:39-0400 Respiratory rate 16 /min Randee Hdz Work Phone: [facility] Work Phone: 06-26-2022 16:39-0400 Systolic blood pressure 124 mm[Hg] Randee Hdz Work Phone: -[facility] Work Phone: 11-22-2021 16:20-0500 Body height 167.64 cm Randee Hdz Work Phone: QK-Chzjkxnnfn-Osol na [address] [place] Work Phone: 11-22-2021 16:20-0500 Body mass index (BMI) [Ratio] 24.7 kg/m2 Randee De León Omiro Work Phone: HG-Bynfdjijgc-Kkud na [address] [place] Work Phone: 11-22-2021 16:20-0500 Body surface area Derived from formula 1.78 m2 Randee De León Omiro Work Phone: YG-Nldakngapu-Igeg na [address] [place] Work Phone: 11-22-2021 16:20-0500 Body weight 69.4 kg Randee De León Omiro Work Phone: AX-Isxwqavdti-Rcda na [address] [place] Work Phone: 11-22-2021 16:20-0500 Diastolic blood pressure 73 mm[Hg] Randee De León Omiro Work Phone: ZF-Jvnrglwmwa-Jxnh na [address] [place] Work Phone: 11-22-2021 16:20-0500 Heart rate 64 /min Randee De León Omiro Work Phone: EO-Vxttulasbs-Lzlu na [address] [place] Work Phone: 11-22-2021 16:20-0500 SaO2% (BldA) [Mass fraction] 97 % Randee De León Omiro Work Phone: ML-Clonantogt-Zklg na [address] [place] Work Phone: 11-22-2021 16:20-0500 Systolic blood pressure 119 mm[Hg] Randee De León Omiro Work Phone: UH-Xmaocozgti-Mcza na [address] [place] Work Phone: 10-18-2021 15:15-0500 Body mass index (BMI) [Ratio] 24.88 kg/m2 Randee De León Omiro Work Phone: OZ-Fblxzivppv-Akmp na Work Phone: 10-18-2021 15:15-0500 Body surface area Derived from formula 1.79 m2 Randee Hdz Work Phone: XS-Dvpyncvxgg-Krsb na Work Phone: 10-18-2021 15:15-0500 Body weight 69.91 kg Randee Hdz Work Phone: LY-Qclqxbjwoz-Lwyp na Work Phone: 10-18-2021 15:15-0500 Diastolic blood pressure 74 mm[Hg] Randee Hdz Work Phone: XO-Wwdexzzmbf-Pfnd na Work Phone: 10-18-2021 15:15-0500 Heart rate 78 /min Randee Hdz Work Phone: VC-Vnetxccvaw-Oyqv na Work Phone: 10-18-2021 15:15-0500 SaO2% (BldA) [Mass fraction] 98 % Randee Hdz Work Phone: SP-Whespcjxcf-Cxtg na Work Phone: 10-18-2021 15:15-0500 Systolic blood pressure 109 mm[Hg] Randee Hdz Work Phone: QQ-Koydvmofdu-Kajd na Work Phone: 10-10-2021 15:59-0500 Body height 167.64 cm Randee Hdz Work Phone: [facility] Work Phone: 10-10-2021 15:59-0500 Body mass index (BMI) [Ratio] 24.86 kg/m2 Randee Hdz Work Phone: [facility] Work Phone: 10-10-2021 15:59-0500 Body surface area Derived from formula 1.79 m2 Randee Hdz Work Phone: [facility] Work Phone: 10-10-2021 15:59-0500 Body [...] Date Encounter Type Care Provider Facility Start: 08-07-2025 ambulatory Stephenie Arce lity:[facility] Start: 07-08-2025 End: 07-08-[address] Nisa Hutchinson MD -[facility] Work Phone: Start: 07-08-2025 End: 07-08-[address] Leo Goyal MD Work Phone: -[facility] Start: 07-08-2025 Non-patient / Non-visit Dr. Nisa wilkins MD -[facility] Work Phone: Start: 06-24-2025 End: 06-24-2025 Patient encounter procedure JAYME Lexi Ana -[facility] Work Phone: Start: 06-24-2025 End: 06-24-[address] Leo Goyal MD Work Phone: -[facility] Start: 06-22-2025 End: 06-22-[address] Nisa Hutchinson MD -[facility] Work Phone: Start: 06-22-2025 End: 06-22-[address] Leo Goyal MD Work Phone: -[facility] Start: 06-03-2025 End: 06-03-[address] Leo Goyal MD Work Phone: -[facility] Start: 06-03-2025 End: 06-03-[address] Maggy Hunter DO -[facility] Work Phone: Start: 06-02-2025 End: 06-03-[address] Leo Goyal MD Work Phone: -Cat Scan [facility] Start: 06-02-2025 End: 06-02-[address] Nisa Hutchinson MD -Cat [facility] Work Phone: Start: 06-02-2025 End: 06-02-2025 ambulatory Nisa Hutchinson Facility:[facility] Start: 05-29-2025 End: 05-29-2025 Patient encounter procedure Meghana ESCOBAR -[facility] Work Phone: Start: 05-29-2025 End: 05-29-[address] Leo Goyal MD Work Phone: -[facility] Start: 05-22-2025 End: 05-22-[address] Leo Goyal MD Work Phone: -[facility] Start: 05-22-2025 End: 05-22-[address] Nisa Hutchinson MD -[facility] Work Phone: Start: 05-22-2025 End: 05-22-[address] Nisa Hutchinson MD -[facility] Work Phone: Start: 05-22-2025 End: 05-22-[address] Leo Goyal MD Work Phone: -[facility] Start: 05-22-2025 End: 05-22-2025 ambulatory Leo Goyal Facility:[facility] Start: 05-15-2025 End: 05-15-[address] Leo Goyal MD Work Phone: -[facility] Start: 05-15-2025 End: 05-15-2025 Patient encounter procedure Meghana Woods PA -[facility] Work Phone: Start: 05-15-2025 End: 05-15-2025 ambulatory Meghana Woods Facility:[facility] Start: 05-09-2025 End: 05-09-[address] Leo Goyal MD Work Phone: -[facility] Start: 05-09-2025 End: 05-09-2025 Patient encounter procedure Shahid ESCOBAR -[facility] Work Phone: Start: 05-08-2025 End: 05-08-2025 Patient encounter procedure Shahid ESCOBAR [facility] Work Phone: Start: 05-08-2025 End: 05-09-[address] Leo Goyal MD Work Phone: -[facility] Start: 05-06-2025 End: 05-06-2025 Patient encounter procedure Meghana ESCOBAR -[facility] Work Phone: Start: 05-06-2025 End: 05-06-[address] Leo Goyal MD Work Phone: -[facility] Start: 04-30-2025 End: 04-30-[address] Leo Goyal MD Work Phone: -[facility] Start: 04-30-2025 End: 04-30-2025 Patient encounter procedure Meghana ESCOBAR -[facility] Work Phone: Start: 04-30-2025 End: 04-30-2025 ambulatory Meghana Woods Facility:[facility] Start: 02-28-2025 End: 02-28-2025 ambulatory [facility] Facility:[facility] Start: 02-28-2025 Encounter for gynecological examination (general) (routine) without abnormal findings [facility] Start: 01-27-2025 End: 03-29-2025 Follow-up encounter Anthony White MD Work Phone: Obstetrics/Gynecology Start: 01-05-2025 End: 01-05-2025 ambulatory ANTHONY WHITE Facility:[facility] Start: 01-05-2025 End: 01-05-2025 Patient encounter procedure Anthony White MD Work Phone: Obstetrics/Gynecology Comment on above: ASCUS with positive high risk HPV cervical (Primary Dx); Well female exam with routine gynecological exam; Screening for lipid disorders; Encounter for screening for diabetes mellitus Start: 01-05-2025 End: 01-05-2025 Patient encounter status Anthony White MD Work Phone: [facility] Start: 01-02-2025 ambulatory ANTHONY WHITE Facili ty:[facility] Start: 01-02-2025 End: 01-02-2025 Subsequent hospital visit by physician Diagnostic Mammo [facility] 1 RADIO MAMMO REFLECTIONS [facility] Comment on above: Abnormal mammogram [ R92.8] Start: 01-01-2025 ambulatory ANTHONY WHITE Facili ty:[facility] Start: 12-24-2024 End: 12-24-2024 Telephone encounter Anthony White MD Work Phone: Obstetrics/Gynecology Start: 12-23-2024 End: 12-23-2024 Telephone encounter Anthony White MD Work Phone: Obstetrics/Gynecology Start: 12-22-2024 End: 12-22-2024 ambulatory ANTHONY WHITE Facility:[facility] Start: 12-22-2024 End: 12-22-2024 Subsequent hospital visit by physician Screen Mammo [facility] Comment on above: Encounter for screen ing mammogram for malignant neoplasm of breast [Z12.31] Start: 11-27-2024 End: 11-27-2024 Telephone encounter Anthony White MD Work Phone: Obstetrics/Gynecology Comment on above: Orders Start: 11-26-2024 End: 11-28-2024 Telephone encounter Anthony White MD Work Phone: Obstetrics/Gynecology Comment on above: Appointment Start: 11-11-2024 ambulatory Health Risk Assessment Facility:[facility] Start: 05-12-2024 End: 05-12-2024 [facility] Start: 04-17-2024 End: 04-17-2024 ambulatory RANDEE HDZ Facility:[facility] Start: 03-22-2024 End: 03-22-2024 Patient encounter procedure Felafrancois Bearder [facility] Comment on above: Sleep disorder breat aaron Start: 03-17-2024 End: 03-17-2024 ambulatory RANDEE HDZ Facility:[facility] Start: 03-14-2024 End: 03-14-2024 Office outpatient visit 25 minutes Randee Hdz MD Work Phone: [facility] Internal Medicine/Peds Comment on above: Sleep disorder breat aaron (Primary Dx); Gingivitis Start: 03-14-2024 End: 03-14-2024 ambulatory [facility] Ambulatory Start: 12-24-2023 Documentation procedure Mammog shelli Coordinator [facility] Start: 12-24-2023 Letter encounter Mammography Coordinator [facility] Department Start: 12-12-2023 End: 12-12-2023 [facility] Anthony White MD Work Phone: Obstetrics/Gynecology [...] sit 15 minutes Randee Hdz Work Phone: [facility] [address] [place] Work Phone: Start: 11-22-2021 ambulatory Juni Gamboa Fac lity:[id number] Start: 11-13-2021 Chart Update Randee Hdz Work Phone: [facility] Work Phone: Start: 11-10-[address] RANDEE HDZ Facility:[id number] Start: 11-02-[address] RANDEE HDZ Facility:[id number] Start: 10-19-2021 Chart Update Randee Hdz Work Phone: [facility] [place] [address] Work Phone: Start: 10-18-[address] RANDEE HDZ Facility:[id number] Start: 10-18-2021 Office outpatient ne w 45 minutes Randee Hdz Work Phone: [facility] Work Phone: Start: 10-18-2021 ambulatory Juni Markchaka lity:[id number] Start: 10-13-2021 Chart Update Randee Hdz Work Phone: [facility] Work Phone: Start: 10-10-2021 Office outpatient vi sit 25 minutes Randee Hdz Work Phone: [facility] Work Phone: Start: 10-10-[address] RANDEE HDZ Facility:[id number] Procedures Date Procedure Procedure Detail Performing Clinician Start: 06-03-2025 Follicle stimulating hormone measurement Dr. Leo Goyal MD Work Phone: Comment on above: FEMALE:Follicular: 1 .4 - 18.1 mIU/mLMidcycle: 3.4 - 33.4 mIU/mLLuteal: 1.5 - 9.1 mIU/mLPost Menopause: 23.0 - 116.3 mIU/mLMALE: 1.4 - 18.1 mIU/mL Start: 06-02-2025 CT of abdomen and pe lvis without contrast Dr. Leo Goyal MD Work Phone: Start: 05-15-2025 MRI of lumbar spine Dr. Leo Goyal MD Work Phone: Start: 05-09-[address] Corby Goyal [...] DTaP/Tdap/Td Vaccines (3 - Td or Tdap) [facility] Start: 09-29-2033 Urine microalbumin profile DTaP,Tdap,Td Vaccine (3 - Td or Tdap) [facility] Start: 02-28-2030 Lipid panel Lipid Screening [facility] Start: 12-19-2028 Lipid panel Lipid Screening [facility] Start: 11-26-2028 Screening for malign ant neoplasm of cervix [facility] Start: 02-29-2028 Diabetes Screening Diabetes Screenin [facility] Start: 12-15-2027 HPV TESTING HPV TESTING [facility] Start: 12-15-2027 PAP TESTING PAP TESTING [facility] Start: 12-15-2027 Screening for malign ant neoplasm of cervix [facility] Start: 03-17-2027 Diabetes mellitus screening Diabetes Screening [facility] Start: 03-17-2027 Diabetes Screening Diabetes Screenin g [facility] Start: 03-05-2027 Screening for malign ant neoplasm of colon [facility] Start: 12-19-2026 Diabetes mellitus screening Diabetes Screening [facility] Start: 12-19-2026 Diabetes Screening Diabetes Screenin g [facility] Start: 11-26-2026 Screening for malign ant neoplasm of cervix [facility] Start: 06-21-2026 Lipid panel Lipid Screening [facility] Start: 06-21-2026 LIPID SCREEN LIPID SCREEN [facility] Start: 06-16-2026 HPV TESTING HPV TESTING [facility] Start: 06-16-2026 PAP TESTING PAP TESTING [facility] Start: 2026 Zoster Vaccines (1 of 2) Zoste r Vaccines (1 of 2) [facility] Start: 01-06-2026 End: 01-06-2026 Patient encounter procedure 01/06/2026 10:00 AM EDT Office Visit Obstetrics/Gynecology [address] [id number] Anthony White MD [address] [id number] Annual Obstetrics/Gynecolog y Comment on above: Annual Start: 01-05-2026 Screening for malign ant neoplasm of cervix Cervical Cancer Screening [facility] Start: 12-22-2025 Screening for malign ant neoplasm of breast Mammogram Screening [facility] Start: 06-22-2025 End: 06-22-2025 Patient encounter procedure Departed Physician/Provider Office Visit -[facility] Work Phone: Start: 05-25-2025 Influenza vaccination Influenz a Vaccine (Season Ended) [facility] Start: 01-05-2025 End: 01-05-2025 Patient encounter procedure 01/05/2025 3:00 PM EDT Office Visit Obstetrics/Gynecology [address] [id number] Anthony White MD [address] [id number] Annual Obstetrics/Gynecolog y Comment on above: Annual Start: 01-05-2025 End: 04-06-2025 Comprehensive metabolic 2000 panel - Serum or Plasma COMPREHENSIVE METABOLIC PANEL Lab Routine Well female exam with routine gynecological exam Encounter for screening for diabetes mellitus Expected: 01/05/2025, Expires: 04/06/2025 [facility] Comment on above: Expected: 01/05/2025 , Expires: 04/06/2025 Start: 01-05-2025 End: 04-06-2025 Hemoglobin A1c in Blood HEMOGLOBIN A1C Lab Routine Encounter for screening for diabetes mellitus Expected: 01/05/2025, Expires: 04/06/2025 [facility] Work Phone: Comment on above: Expected: 01/05/2025 , Expires: 04/06/2025 Start: 01-05-2025 End: 04-06-2025 Lipid 1996 panel - Serum or Plasma LIPID PANEL, FASTING Lab Routine Well female exam with routine gynecological exam Screening for lipid disorders Expected: 01/05/2025, Expires: 04/06/2025 [facility] Comment on above: Expected: 01/05/2025 , Expires: 04/06/2025 Start: 12-22-2024 End: 12-22-2024 Patient encounter procedure 12/22/2024 7:50 AM EDT Appointment Mammogram [address] [place] [address] Mammogram Start: 12-20-2024 Screening for malign ant neoplasm of breast [facility] Start: 06-21-2024 [facility] Start: 06-21-2024 Diabetes Screening Diabetes Screenin g [facility] Start: 05-25-2024 Covid-19 Vaccine ( season) Covid-19 Vaccine ( season) [facility] Start: 05-25-2024 Influenza vaccination C [facility] Start: 03-14-2024 End: 03-14-2025 Home sleep apnea test (HSAT) Home sleep apnea test (HSAT) [facility] Center Routine Sleep disorder breathing Expected: 03/14/2024 (Approximate), Expires: 03/14/[address] [facility] Service Area Work Phone: Comment on above: Expected: 03/14/2024 (Approximate), Expires: 03/14/2025 Start: 12-12-2023 End: 03-12-2024 Fasting glucose [Mass/volume] in Serum or Plasma GLUCOSE FASTING BLD Lab Routine Encounter for screening for diabetes mellitus Expected: 12/12/2023, Expires: 03/12/2024 [facility] Work Phone: Comment on above: Expected: 12/12/2023 , Expires: 03/12/2024 Start: 12-12-2023 End: 03-12-2024 Hemoglobin A1c in Blood HGB A1C Lab Routine Encounter for screening for diabetes mellitus Expected: 12/12/2023, Expires: 03/12/2024 [facility] Work Phone: Comment on above: Expected: 12/12/2023 , Expires: 03/12/2024 Start: 12-12-2023 End: 03-12-2024 Lipid 1996 panel - Serum or Plasma LIPID PANEL BASIC Lab Routine Screening for lipid disorders Expected: 12/12/2023, Expires: 03/12/2024 [facility] Work Phone: Comment on above: Expected: 12/12/2023 , Expires: 03/12/2024 Start: 09-24-2023 [facility] Start: 09-07-2023 Mammography MAMMOGRAM [facility] Start: 09-07-2023 Screening for malign ant neoplasm of breast Mammogram Screening [facility] Start: 06-04-2023 Lipid panel Lipid Panel [facility] Start: 05-25-2023 Covid-19 Vaccine ( season) Covid-19 Vaccine ( season) [facility] Start: 05-25-2023 Influenza vaccination C [facility] Start: 09-24-2022 DEPRESSION ASSESSMENT DEPRESSION ASS ESSMENT [facility] Start: 07-28-2022 Mammography MAMMOGRAM [facility] Start: 05-25-2022 Influenza vaccination INFLUENZA (#1) [facility] Start: 04-04-2022 Urine microalbumin profile DTAP,TDAP,TD (2 - Td or Tdap) [facility] Start: 11-22-2021 FUV, Provider: Juni Gamboa, Status: Pen, Time: 3:45 PM FUV, Provider: Juni Gamboa, Status: Pen, Time: 3:45 PM [facility] Work Phone: Start: 11-10-2021 ECHO, Provider: MEDI NA HHVI,MG CARD, Status: Pen, Time: 9:00 AM ECHO, Provider: CONNELLY HHVI,MG CARD, Status: Pen, Time: 9:00 AM RQ-Jjgcnbiunv-Yobdxm Work Phone: Start: 10-18-2021 NPV, Provider: Juni Gamboa, Status: Pen, Time: 3:00 PM NPV, Provider: Juni Gamboa, Status: Pen, Time: 3:00 PM [facility] Work Phone: Start: 09-24-2021 DEPRESSION ASSESSMENT DEPRESSION ASS ESSMENT [facility] Start: 07-28-2021 COVID-19 VACCINE (3 - Booster for Pfizer series) COVID-19 VACCINE (3 - Booster for Pfizer series) [facility] Start: 2021 COLOGUARD (FIT-DNA) COLOGUARD (FIT-D NA) [facility] Start: 2021 Colonoscopy COLONOSCOPY [facility] Start: 2021 COLORECTAL CANCER SCREENING COLORECTAL CANCER SCREENING [facility] Start: [address] COLONOGRAPHY [facility] Start: 2021 FECAL OCCULT BLOOD FECAL OCCULT BLOO D [facility] Start: 2021 Screening for malign ant neoplasm of colon [facility] Start: 2021 [facility] Start: 1997 Screening for malign ant neoplasm of cervix HPV/Cotest [facility] Start: 1995 Hepatitis B Vaccine (1 of 3 - 19+ 3-dose series) Hepatitis B Vaccine (1 of 3 - 19+ 3-dose series) [facility] Start: 1995 Hepatitis B Vaccines (1 of 3 - 19+ 3-dose series) Hepatitis B Vaccines (1 of 3 - 19+ 3-dose series) [facility] Start: 1994 Depression Screening Depression Scre ening [facility] Start: 1994 Hepatitis C screening Hepatitis C Sc [facility] Start: 1977 MMR Vaccines (1 of 1 - Standard series) MMR Vaccines (1 of 1 - Standard series) [facility] Start: 1976 HEPATITIS B (1 of 3 - 3-dose series) HEPATITIS B (1 of 3 - 3-dose series) [facility] Start: 1976 Hepatitis B Vaccine (1 of 3 - 3-dose series) Hepatitis B Vaccine (1 of 3 - 3-dose series) [facility] Start: 1976 HIV screening HIV Screening [facility] Start: 1976 Screening for malign ant neoplasm of colon [facility] Start: 1976 Yearly Adult Physical Yearly Adult P [facility] Basic metabolic 2008 panel with ionized calcium - Serum or Plasma [facility] Continuous pulse oximetry [facility] Continuous pulse oximetry [facility] CT Abdomen and Pelvi s WO contrast [facility] End: 12-01-2024 DBT Breast - bilateral screening RAJ SCREENING [facility] Rad[facility] Routine Encounter for screening mammogram for malignant neoplasm of breast 1 Occurrences starting 11/02/2023 until 12/01/2024 [facility] Work Phone: Comment on above: 1 Occurrences starti ng 11/02/2023 until 12/01/2024 End: 12-27-2025 DBT Breast - bilateral screening RAJ SCREENING [facility] Radiology Routine Encounter for screening mammogram for malignant neoplasm of breast 1 Occurrences starting 11/27/2024 until 12/27/2025 [facility] Work Phone: Comment on above: 1 Occurrences starti ng 11/27/2024 until 12/27/2025 End: 09-09-2023 RAJ SCREENING [facility] SCRE[facility] Radiology Routine Encounter for screening mammogram for malignant neoplasm of breast 1 Occurrences starting 08/10/2022 until 09/09/2023 [facility] Work Phone: Comment on above: 1 Occurrences starti ng 08/10/2022 until 09/09/2023 End: 09-07-2022 RAJ SCREENING [facility] Work Phone: Comment on above: 1 Occurrences starti ng 09/07/2022 until 09/07/2022 End: 01-22-2026 MG Breast - left Diagnostic for implant [facility]J DIAGNOSTIC LEFT Radiology Routine Abnormal mammogram 1 Occurrences starting 12/23/2024 until 01/22/2026 [facility] Work Phone: Comment on above: 1 Occurrences starti ng 12/23/2024 until 01/22/2026 MR Lumbar spine [facility] End: 01-22-2026 US Breast - left limited US BREAST LTD LEFT Radiology Routine Abnormal mammogram 1 Occurrences starting 12/23/2024 until 01/22/2026 [facility] Comment on above: 1 Occurrences starti ng 12/23/2024 until 01/22/2026 [facility] Immunizations Immunization Date Immunization Notes Care Provider Fa cility 09-29-2023 tetanus toxoid, redu jacque diphtheria toxoid, and acellular pertussis vaccine, adsorbed Anthony White MD Work Phone: [facility] 06-02-2021 Pfizer-BioNTech COVI D-19 Vacc 30 MCG/0.3ML Intramuscular Suspension Randee Hdz Work Phone: [facility] Work Phone: 05-03-2021 Pfizer-BioNTech COVI D-19 Vacc 30 MCG/0.3ML Intramuscular Suspension Randee Hdz Work Phone: [facility] Work Phone: 04-04-2012 tetanus toxoid, redu jacque diphtheria toxoid, and acellular pertussis vaccine, adsorbed Anthony White MD Work Phone: [facility] Payers Date Payer Category Payer Unknown [id number] 2024 Self-pay 2016 [employer] [id number] 2016 Unknown 2016 Unknown [id number] 1975 Unknown [id number] 2.16. [id number] 1975 Unknown [id number] 2.16. 840.1.600792.3.579.2.356 1975 Unknown [id number] 2.16. 840.1.811551.3.579.2.356 1975 Unknown [id number] 2.16. 840.1.222134.3.579.2.356 1976 Unknown [id number] 2.16. 840.1.316681.3.579.2.356 1976 Unknown [id number] 2.16. 840.1.074984.3.579.2.356 1976 Unknown [id number] 2.16. 840.1.133340.3.579.2.356 1976 Unknown [id number] 2.16.8 40.1.894173.3.579.2.1244 Unknown [id number] 2.16.8 40.1.943700.3.579.2.462 Unknown [id number] 2.16.8 40.1.947845.3.579.2.462 Unknown [id number] 2.16.8 40.1.842318.3.579.2.462 Unknown [id number] 2.16.8 40.1.463948.3.579.2.462 Unknown [id number] 2.16.8 40.1.447046.3.579.2.462 Unknown [id number] 2.16.8 40.1.348329.3.579.2.462 Unknown [id number] 2.16.8 40.1.538373.3.579.2.462 Unknown [id number] 2.16.8 40.1.707633.3.579.2.462 Unknown [id number] 2.16.8 40.1.484052.3.579.2.462 Unknown [id number] 2.16.8 40.1.784829.3.579.2.462 Unknown [id number] 2.16.8 40.1.184027.3.579.2.462 Unknown [id number] 2.16.8 40.1.662217.3.579.2.462 Unknown [id number] 2.16.8 40.1.078190.3.579.2.462 Unknown [id number] 2.16.8 40.1.042545.3.579.2.462 Unknown [id number] 2.16.8 40.1.517656.3.579.2.462 Unknown [id number] 2.16.8 40.1.573670.3.579.2.462 Social History Date Type Detail Facility Start: 09-29-2023 End: 09-30-2023 Marital History - Currently Marital History - Currently [facility] Work Phone: Start: 09-15-2011 End: 06-24-2025 Tobacco smoking status NHIS Never smoked tobacco [facility] Start: 09-15-2011 End: 03-14-2024 Tobacco use and exposure Smokeless tobacco non-user [facility] Start: 06-16-2021 End: 01-05-2025 Alcohol intake Current non-drinker of alcohol (finding) [facility] Start: 1975 Sex Assigned At Not on file [facility] Start: 09-29-2023 End: 09-30-2023 Tobacco use panel [facility] National Score (1-100), lower number is lower risk 44 [facility] Start: 03-14-2024 Alcoholic beverage intake Current drinker of alcohol (finding) [facility] Work Phone: Start: 03-04-2024 End: 03-14-2024 Exposure to SARS-CoV-2 (event) Not sure [facility] Start: 1975 Sex Assigned At Female W [facility] Functional Status Date Assessment Result Facility 06-26-2022 PHQ-9 [id number] Mild (5-9) [facility] Work Phone: 09-10-2014 Are you deaf, or do you have serious difficulty hearing No 09/10/2014 9:18 AM Cassy Sebastian Ma No [facility] 09-10-2014 Are you blind, or do you have serious difficulty seeing, even when wearing glasses No 09/10/2014 9:18 AM Cassy Sebastian Ma No [facility] 09-10-2014 Do you have serious difficulty walking or climbing stairs No 09/10/2014 9:18 AM Cassy Sebastian Ma No [facility] 09-10-2014 Do you have difficul ty dressing or bathing No 09/10/2014 9:18 AM Cassy Sebastian Ma No [facility] 09-10-2014 Because of a physica l, mental, or emotional condition, do you have difficulty doing errands alone such as visiting a physician's office or shopping No 09/10/2014 9:18 AM Cassy Sebastian Ma No [facility] Mental Status Date Assessment Result Facility 09-10-2014 Because of a physica l, mental, or emotional condition, do you have serious difficulty concentrating, remembering, or making decisions No 09/10/2014 9:18 AM Cassy Sebastian Ma No [facility] Clinical Notes 09-15-2011 to 07-08-2025 Note Date & Type Note Facility 07-08-2025 Progress note [facility] 06-24-2025 Progress note [facility] 06-22-2025 Progress note [facility] 06-22-2025 Progress note Note Date/Time June 22, 2025 8:32pm [facility] [address] [place] [address] OFFICE VISIT Date of Service: 06/22/25 MR#: [id number] Acct: [id number] Patient: TORY SOLIS Rep #: [id number] : 1975 Provider: Dr. Tal Hutchinson MD Age/Sex: 50/F Location: [facility] Status: Signed Intake Vital Signs 05/22/25 08:32 Height 5 ft 6 in Intake Visit Reasons: Urine drop Chief Complaint: new patient- bilateral stones Allergies No Known Allergies Allergy (Verified 06/17/25 14:23) Nurse's Note: patient stopped off for a UA and culture for urgency, frequency, and dysuria. Results POC UA Auto w/o Microscopy Office Urine Color Last Edit by Annemarie Cotto on 06/22/25 15:09 Office Urine Clarity Last Edit by Annemarie Cotto on 06/22/25 15:09 Office Urine Glucose Negative Last Edit by Annemarie Cotto on 06/22/25 15:0 9 Office Urine Ketones Negative Last Edit by Annemarie Cotto on 06/22/25 15:0 9 Office Urine Bilirubin Negative Last Edit by Annemarie Cotto on 06/22/25 15 :09 Office Urine Urobilinogen 0.2 mg/dL Last Edit by Annemarie Cotto on 5 15:09 Off Ur Spec [place] 1.015 Last Edit by Annemarie Cotto on 06/22/25 15:09 Office Urine pH 6 Last Edit by Annemarie Cotto on 06/22/25 15:09 Office Urine Protein Negative Last Edit by Annemarie Cotto on 06/22/25 15:0 9 Office Urine Blood Negative Last Edit by Annemarie Cotto on 06/22/25 15:09 Office Urine Blood Hemolyzed Negative Last Edit by Annemarie Cotto on 06/22 15:09 Office Urine Nitrate Positive Last Edit by Annemarie Cotto on 06/22/25 15:0 9 Off Ur Leukocytes Positive Last Edit by Annemarie Cotto on 06/22/25 15:09 leuks 70 Assessment and Plan Assessment and Plan Orders: Orders POC UA Auto w/o Microscopy Today N39.0 - Urinary tract infection, site not specified 06/22/252031 <Electronically signed by Nisa Hutchinson MD> Date _ Nisa Hutchinson MD Cosigner Signature: Date (if applicable) CC: ~ [facility] Work Phone: 1(667) 389-215709-10-2025 Radiology Diagnostic study note [facility] Imaging Services [address] [place], [place] [id number] Abdomen/Pelvis without Cont MR#: [id number] Acct: [id number] Name: TORY SOLIS Rep #: [id number] : 1975 F 50 From: Charly Bland MD PCP: Dr. Leo Goyal MD Status: R EG CLI Study:Abdomen/Pelvis without Cont Date of Exa m: 06/02/25 Exam# [id number] Ordering Dr: Nisa Hutchinson MD PROCEDURE: ABDOMEN/PELVIS WITHOUT CONT 06/02/2025 REASON FOR EXAM: KIDNEY STONES, BACK PAIN TECHNIQUE: Procedure Code: CTABDPEL Modality: CT Procedure: ABDOMEN/PELVIS WITHOUT CONT Noncontrast technique limits evaluation of the abdominal and pelvic viscera. Coronal and Sagittal reconstruction series were provided. One or more dose reduction techniques were used (e.g., Automated exposure control, adjustment of the mA and/or kV according to patient size, use of iterative reconstruction technique). RADIATION DOSE SUMMARY: CTDlvol: 6.55 mGy DLP: 328.82 mGycm COMPARISON: None FINDINGS: Lung bases: Minimal increased markings in the medial aspect of the right middle lobe as well as in the anterior left lower lobe suggestive of linear atelectasis and/or scarring. Liver: Small cysts are seen in the right lobe of the liver. The largest measures 1 cm. Gallbladder: Unremarkable Spleen: Normal size. Pancreas: Normal size. No surrounding inflammation. Adrenals: Unremarkable Kidneys: Multiple bilateral nonobstructive intrarenal calculi. The largest is in the left kidney and measures 6.4 mm. Mild degree of right hydronephrosis. No evidence of obstruction. Bladder: Unremarkable Reproductive Organs: Unremarkable Bowel: Unremarkable Appendix: Unremarkable Lymph nodes: Unremarkable. Vasculature: The abdominal aorta and IVC contours are normal. Noncontrast technique limits evaluation. Peritoneum / Retroperitoneum: Unremarkable Bones: Unremarkable CT/Abdomen/Pelvis without Cont IMPRESSION: Nonobstructive bilateral intrarenal calculi. No evidence of obstruction. Small hepatic cysts in the right lobe of the liver. Reading Location: [facility] CC: Dr. Leo Goyal MD; Dr. Nisa Hutchinson MD ~ Animal Cruelty Investigator: Signed [facility]08-13-2025 Evaluation note* Diagnosis Onset Date Resolution Status Admit Date Low back pain acute April 9:01am Spondylolisthesis at L4-L5 level acu te May 06, 2025 9:01am [facility] Work Phone: 1(140) 906-770808-13-2025 Evaluation note* Diagnosis Onset Date Resolution Status Admit Date Low back pain acute April 9:01am Spondylolisthesis at L4-L5 level acu te May 06, 2025 9:01am Nephrolithiasis acute May 082024 4:48pm [facility] Work Phone: 1(557) 155-351708-13-2025 Evaluation note* Diagnosis Onset Date Resolution Status Admit Date Low back pain acute April 9:01am Spondylolisthesis at L4-L5 level acu te May 06, 2025 9:01am Nephrolithiasis acute May 082024 4:48pm Diabetes acute May 22, 025 8:26am Low back pain acute April 8:26am Nephrolithiasis acute May 222024 8:26am [facility] Work Phone: 1(896) 666-386608-13-2025 Evaluation note* Diagnosis Onset Date Resolution Status Admit Date Low back pain acute April 9:01am Spondylolisthesis at L4-L5 level acute May 06 9:01am Nephrolithiasis acute May 082024 4:48pm Diabetes acute May 22, 2 025 8:26am Low back pain acute April 8:26am Nephrolithiasis acute May 222024 8:26am Facet arthritis of lumbar region acute May 29, 2 025 8:01am Spondylolisthesis at L4-L5 level acute May 29 2 025 8:01am Lumbar stenosis without neurogenic claudication noneactive 2024 8:01am [facility] Work Phone: 1(243) 704-820308-13-2025 Evaluation note* Diagnosis Onset Date Resolution Status Admit Date Low back pain acute April 9:01am Spondylolisthesis at L4-L5 level acute May 06 9:01am Nephrolithiasis acute May 082024 4:48pm Diabetes acute May 22, 025 8:26am Low back pain acute April 8:26am Nephrolithiasis acute May 222024 8:26am Facet arthritis of lumbar region acute May 29 025 8:01am Spondylolisthesis at L4-L5 level acute May 29 8:01am Lumbar stenosis without neurogenic claudication noneactive Septembe r 2024 8:01am Obstructive sleep apnea acute O ctober 2024 8:22am [facility] Work Phone: 1(996) 513-977908-07-2025 Radiology Diagnostic study note [facility] Imaging Services [address], [place] [address] L/S Spine Min 4 Views MR#: [id number] Acct: [id number] Name: TORY SOLIS Rep #: [id number] : 1975 F 50 From: Leah Tony MD PCP: Dr. Leo Goyal MD Status: R EG CLI Study:L/S Spine Min 4 Views Date of Exam: 04/30/25 Exam# [id number] Ordering Dr: Giorgio Woods PROCEDURE: L/S SPINE [...] SHAWN Jeff; Dr. Leo Goyal MD ~ Animal Cruelty Investigator: Signed [facility]04-14-2025 NoteHNO ID: [id number] Author: ANTHONY WHITE MD Service: ? Author Type: Physician Type: Progress Notes Filed: 01/27/2025 13:11 Note Text: Tory Solis is a 49 year old who presents for her annual gynecologic exam. Shipping Manager concerns Perimenopausal status. Abnormal mammography 12/22/2024 IMPRESSION: [...] external genitalia normal, normal Bartholin's glands, urethra, Still Pond's glands, no vulvar lesions, no cervical lesions, [...] Date: 04/06/2025 Scheduling Instructions: Patient must be "Fasting" 10-12 hours prior to having blood drawn. [...] repeat Pap in 1 year. Anthony White M.D.[place] [address]-14-2025 History of Present illness Narrative* Anthony White MD - 01/05/2025 11:54 AM EDT Tory Solis is a 49 year old who presents for her annual gynecologic exam. Shipping Manager concerns Perimenopausal status. Abnormal mammography 12/22/2024 IMPRESSION: [...] external genitalia normal, normal Bartholin's glands, urethra, Still Pond's glands, no vulvar lesions, no cervical lesions, [...] Date: 04/06/2025 Scheduling Instructions: Patient must be "Fasting" 10-12 hours prior to having blood drawn. [...] year. Anthony White M.D. documented in [facility] History of Present illness Narrative* Daniela Lara RT(Juan Carlos) - 01/02/2025 8:00 AM EDT Radiology Service [...] PATIENT PRESENTS WITH AN IMPLANTABLE OR ATTACHED GUYLINE OPERATOR: No RADIOLOGY DEPARTMENT: Mammography PERIPHERAL IV DATA: Not applicable SIGNED BY: ADIN Gutierrez) January 02, 2025 8:28 AM documented in this encounterDetwiler [facility]04-11-2025 NoteHNO ID: [id number] Author: DANIELA LARA RT(R) Service: ? Author [...] PATIENT PRESENTS WITH AN IMPLANTABLE OR ATTACHED GUYLINE OPERATOR: No RADIOLOGY DEPARTMENT: Mammography PERIPHERAL IV DATA: Not applicable SIGNED BY: RT Brenda(R) January 02, 2025 8:28 [facility] Telephone encounter Note* Telephone Encounter - Jennifer Valdez RN - 12/23/2024 9:05 AM EDT Orders placed. Patient notified via PapayaMobilehart.Jennifer Valdez RN [facility]04-01-2025 Miscellaneous Notes* Telephone Encounter - Jennifer Valdez RN - 12/23/2024 9:05 AM EDT Orders placed. Patient notified via PapayaMobilehart.Jennifer Valdez RN * Telephone Encounter - Alena Jarrett - 12/23/2024 8:35 AM EDT Patient is asking if she is needing to have a diagnostic mammogram completed now from the reading/results of her DALTON mammogram. Please advise and call patient. Thank you documented in this encounterDetw[facility]04-01-2025 Telephone encounter Note * Telephone Encounter - Alena Jarrett - 12/23/2024 8:35 AM EDT Patient is asking if she is needing to have a diagnostic mammogram completed now from the reading/results of her DAL[place] mammogram. Please advise and call patient. Thank you [facility]03-31-2025 History of Present illness Narrative* Larry [...] PATIENT PRESENTS WITH AN IMPLANTABLE OR ATTACHED GUYLINE OPERATOR: No RADIOLOGY DEPARTMENT: Mammography PERIPHERAL IV DATA: Not applicable SIGNED BY: Marge Valdes December 22, 2024 8:13 AM documented in this encounterDetwiler [facility]03-31-2025 NoteHNO ID: [id number] Author: LARRY POOL Mammo Tech Service: ? [...] PATIENT PRESENTS WITH AN IMPLANTABLE OR ATTACHED GUYLINE OPERATOR: No RADIOLOGY DEPARTMENT: Mammography PERIPHERAL IV DATA: Not applicable SIGNED BY: Marge Valdes December 22, 2024 8:13 [facility]03-06-2025 Telephone encounter Note* Telephone Encounter - Zenaida Ji - 11/27/2024 8:58 AM EST Patient is requesting a mammogram. [facility]03-06-2025 Miscellaneous Notes* Telephone Encounter - Zenaida Ji - 11/27/2024 8:58 AM EST Patient is requesting a mammogram. documented in this encounterDetwiler [facility]03-05-2025 Telephone encounter Note * Telephone Encounter [...] if an appointment is available this month. [facility]03-05-2025 Miscellaneous Notes* Telephone Encounter - Zenaida [...] is available this month. documented in this encounterDetwiler [facility] Hospital06-29-2024 History of Present illness Narrative* Fela Rivera - 03/22/2024 10:00 AM EDT Study completed by Silvia on 03/22/2024. [facility] Work Phone: 1(857) 573-308606-21-2024 History of Present illness Narrative* Randee Hdz [...] appointment Randee Hdz MD documented in [facility] encounterPark[facility] Work Phone: 1(872) 519-942004-01-2024 Miscellaneous Notes* Letter - Coordinator, Mammography - 12/24/2023 9:25 PM EDT December 25, 2023 PID: [id number] Tory Solis [address] [place] [address] Dear Kobi , We are pleased to inform you that [...] report will be kept on [facility] as part of your permanent medical record and are available for your continuing care. Thank you for allowing us to help in meeting your health care needs. Sincerely, Dr. Rodriguez Interpreting Radiologist [facility] (Normal over 40) documented in this encounterDetwiler [facility] Hospital2024 History of Present illness Narrative* Anthony [...] approach Premarin $650 Estrace $135 Will pursue [facility] compounding mail order pharmacy 4) plan fasting [...] weekly Anthony White MD documented in this encounterDetwiler [facility] Hospital02-09-2024 Miscellaneous Notes* Telephone Encounter - Aida Cooper LPN - 11/02/2023 3:22 PM EST done * Telephone Encounter - Margarita Cherry - 11/02/2023 3:18 PM EST Patient is requesting an order for a mammogram prior to her annual appointment in December documented in this encounterDetwiler [facility] Hospital03-23-2023 Instructions* Patient Instructions* Anthony White MD [...] for more bone tips. documented in this encounterDetwiler [facility] Hospital03-23-2023 History of Present illness Narrative* Anthony White MD - 12/14/2022 7:05 AM EDT Tory Solis is a 47 year old who presents for her annual gynecologic exam. Shipping Manager concerns . C/o perimenopausal sx's she saw [...] external genitalia normal, normal Bartholin's glands, urethra, Still Pond's glands, no vulvar lesions, no cervical lesions, [...] 5) Anthony White MD documented in this encounterDetwiler [facility] Hospital12-15-2022 History of Present illness Narrative* BEATRIZ [...] 07, 2022 10:56 AM documented in this encounterDetwiler [facility] Hospital11-17-2022 Miscellaneous Notes* Telephone Encounter - Jennifer [...] November, please advise thanks. documented in this encounterDetwiler [facility] Hospital03-01-2022 History of Present illness Narrative* 11/22/2021: Office [...] normal axis and appropriate R wave progression. [facility] [address] [place] Work Phone: 1(671) 793-329501-25-2022 History of Present illness Narrative* 10/18/2021: Office [...] normal axis and appropriate R wave progression. [facility] Work Phone: 1(316) 870-712012-12-2021 History of Present illness Narrative* 46 year [...] Intermittent tickle in chest still. * Saw MARBLE COPER, gave her dexamethasone and z pack. * After 4 days of dexamethasone was having racy heart mild sxs * She stopped this. * A couple of days later she had episode of severe palpitations again. * Was like this for 24 hours, went to bed and then felt fine. * This past weekend she was in [place] and had symptoms again. * Could not [...] had some mood sxs sadness considering meds [facility] Work Phone: 1(512) 102-915812-12-2021 History of Present illness Narrative* 46 year [...] Intermittent tickle in chest still. * Saw MARBLE COPER, gave her dexamethasone and z pack. * After 4 days of dexamethasone was having racy heart mild sxs * She stopped this. * A couple of days later she had episode of severe palpitations again. * Was like this for 24 hours, went to bed and then felt fine. * This past weekend she was in [place] and had symptoms again. * Could not [...] has had some mood sxs sadness considering [facility] Work Phone: 1(711) 790-415512-23-2011 History of Past illness Narrative* Problem Noted Date Resolved Date Supervision of other normal 09/15/2011 12/18/2016 documented as of this encounter (statuses as of 08/10/2022) [facility] History of Past illness Narrative* Problem Noted Date Resolved Date Supervision of other normal 09/15/2011 12/18/2016 documented as of this encounter (statuses as of 09/08/2022) [facility] History of Past illness Narrative* Problem Noted Date Resolved Date Supervision of other normal 09/15/2011 12/18/2016 documented as of this encounter (statuses as of 12/25/2022) [facility] History of Past illness Narrative* Problem Noted Date Diagnosed Date Resolved Date Supervision of other normal 09/15/2011 12/18/2016 documented as of this encounter (statuses as of 11/02/2023) [place] [address]-23-2011 History of Past illness Narrative* Problem Noted Date Diagnosed Date Resolved Date Supervision of other normal 09/15/2011 12/18/2016 documented as of this encounter (statuses as of 12/13/2023) [place] [address]-23-2011 History of Past illness Narrative* Problem Noted Date Diagnosed Date Resolved Date Supervision of other normal 09/15/2011 12/18/2016 documented as of this encounter (statuses as of 12/26/2023) [facility] note* Diagnosis Encounter for screening mammogram for malignant neoplasm of breast- Primary Other screening mammogram documented in this encounter [facility] note* Diagnosis Encounter for screening mammogram for malignant neoplasm of breast Other screening mammogram documented in this encounter [facility] note* Diagnosis Well female exam with routine gynecological exam- Primary Routine gynecological examination documented in this encounter [facility] note* Diagnosis Encounter for screening mammogram for malignant neoplasm of breast- Primary Other screening mammogram documented in this encounter [facility] note* Diagnosis Unintended weight gain- Primary Abnormal weight gain Screening for thyroid disorder Vaginal dryness Other specified symptom associated with female genital organs Screening for lipid disorders Encounter for screening for diabetes mellitus Screening for diabetes mellitus Autoimmune thyroiditis Chronic lymphocytic thyroiditis documented in this encounter [facility] note* Diagnosis Sleep disorder breathing- Primary Other sleep disturbances Gingivitis Chronic gingivitis, plaque induced documented in this encounter [facility] Work Phone: Evaluation note* Diagnosis Sleep disorder breathing Other sleep disturbances documented in this encounter [facility] Work Phone: evaluation note* Diagnosis Encounter for screening mammogram for malignant neoplasm of breast- Primary Other screening mammogram documented in this encounter [facility] note* Diagnosis Encounter for screening mammogram for malignant neoplasm of breast Other screening mammogram documented in this encounter [facility] note* Diagnosis Abnormal mammogram- Primary Abnormal mammogram, unspecified documented in this encounter [facility] note* Diagnosis ASCUS with positive high risk HPV cervical- Primary Cervical high risk human papillomavirus (HPV) DNA test positive Well female exam with routine gynecological exam Routine gynecological examination Screening for lipid disorders Encounter for screening for diabetes mellitus Screening for diabetes mellitus documented in this encounter [facility] noteNo assessment information availableSan [facility]on [facility] Work Phone: History of [...] headaches or dizziness. * Exercise tolerance good. [facility] Work Phone: Hospital Discharge instructionsAmbulatory Orders* Pain Management Location: None Selected [facility] Work Phone: Progress note Author JAYME Perez [facility] Note Date/Time June 24, 2025 9: 06am [facility] [address] [place] [address] OFFICE VISIT Date of Service: 06/24/25 MR#: [id number] Acct: [id number] Name: TORY SOLIS Rep #: [id number] : 1975 Provider: Lexi bynum NP Age/Sex: 50/F Location: [facility] Status: Signed Assessment and Plan Assessment and Plan (1) Obstructive sleep apnea: Status: Acute Plan: The patient has a history of at least moderate obstructive sleep apnea. This was confirmed by a home sleep study which does have limitations and may not fully quantify the severity of the degree of apnea. She has plateaued with receiving benefit from an oral appliance alone. The patient did perform her owntrial of PAP therapy and received benefit. I have recommended that she treat her sleep apnea with positive airway pressure at this time. I recommended an AutoPap at 4 to 6 cm be initiated. The patient is agreeable to this plan. For the first week the patient will utilize her AutoPap device with her oral appliance. The second week she will remove the oral appliance and determine if her symptoms have continued to remain controlled and she will also be able to utilize data from her aura ring. I recommend obtaining a nocturnal pulse oximetry in approximately 6 weeks with both the oral appliance and PAP therapy unless the patient has received excellent results and benefit from the PAP device alone and if this is the case she will notify this practice. Follow- up in 8 to 10 weeks with compliance download from device and the results of the nocturnal oximetry. Orders: Orders OutPt Pulse Ox/Cont Overnight 6 Weeks G47.33 - Obstructive sleep apnea (adult) (pediatric) Plan Details Follow Up: 8 to 10 weeks (LMR) HPI HPI Comments Details: Patient 50-year-old female who presents today to establish for sleep disordered breathing. She is ambulatory and currently on room air. She did complete a home sleep study in February 2024 which showed an AHI of 19.3 events per hour using a 3% rule and 6.9 events per hour using the 4% rule. The patient was previously followed by Dr. Erika Santos who treated her with an oral appliance initially. The patient was concerned that she plateaued in her progress using this device. She experienced fatigue and was not sleeping well even with appliance. She does have an aura ring and uses it to follow her pulseoximetry variability. She began to use her significant others PAP device with her oral appliance. She set his ResMed AirSense 10 device to a CPAP at 4 cm andused a fullface style mask. She did note more variability in her oxygen saturation when she was using the oral appliance alone versus oral appliance with PAP therapy. She noticed that she felt more rested using both modalities. She rarely naps and rarely experiences nocturia. She does have oral dryness at times with use of the PAP device. She goes to bed between 1030 and 1130 and awakens between 545 and 630. 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 She has no history of pneumonia or bronchitis. She is a lifetime non-smoker. Intake Vital Signs 05/22/25 08:32 06/24/25 06:31 Height 5 ft 6 in 5 ft 6 in Weight: 151 lb BMI 24.3 BP 108/81 H Blood Pressure Location Lt brachial Position Sitting Respiration 18 Pulse 69 Pulse Source Monitor Temp 97.5 F L Temperature Source Temporal Artery Pulse Oximetry (%) 99 Oxygen Delivery Method room air Intake Visit Reasons: Sleep apnea Size Maker Required: No Accompanied by: Self Is patient in pain?: No Allergies No Known Allergies Allergy (Verified 06/24/25 08:26) Medications ?Medication ?Instructions ?Recorded ?Confirmed ?Type meloxicam 15 mg tablet 15 mg PO QDAY #30 tabs 05/2906/24/25 Rx tirzepatide 2.5 mg/0.5 mL 7.5 mg subcut QWEEK 05/29/25 06/24/25 History subcutaneous pen injector (Ceci) cephalexin 500 mg tablet 500 mg PO TID #15 tabs 06/2206/24/25 Rx linezolid 600 mg tablet 600 mg PO BID #14 tabs 06/2306/24/25 Rx PFSH Medical History Diabetes Herniated disc, cervical Right lateral epicondylitis Family History Father Prostate cancer Mother Suicide Grandfather Diabetes Aunt Asthma Social History (Updated 06/24/25 @ 08:30 by Rachell Burch) current occupational status: employed current occupation: [employer] Smoking Status: Never smoker Electronic Cigarette Use: not used alcohol intake: former substance use type: does not use caffeine: Yes Type: coffee Number of servings: 4 Questionnaire [place] Sleepiness Scale [place] Sleepiness Scale Sitting and readin = Would never doze Watching TV: 0 = Would never doze Sitting inactive in public places such as theater or meeting (only at night): 0 = Would never doze Sitting as a passenger in a car for an hour without a break: 0 = Would never doze Lying down to rest in the afternoon when circumstances permit: 1 = Slight chanceof dozing Sitting and talking with someone: 0 = Would never doze In a car, while stopped for a few minutes in traffic: 0 = Would never doze [place] Sleepiness Scale Total Score: 1 Review of Systems Resp Respiratory: Yes as per HPI Exam Const Constitutional: Positive conversant, cooperative, in no acute respiratory distress, healthy appearing, well developed and well nourished; Negative ill appearing Head Head: Yes normocephalic and Yes atraumatic Eyes Eye: Positive clear conjunctiva Ears Ear: Positive hearing normal and external ears normal Nose Nose: Yes external nose normal Mouth Mouth: Positive oral mucosae normal and good dentition Neck Neck: Positive normal visual inspection and trachea midline Chest Wall Chest: Positive symmetric chest movement Resp lung sounds: Positive clear to auscultation, good air exchange, normal expiratory time and normal respiratory effort; Negative wheezes, rhonchi, rales or use of accessory muscles Cardio Cardiac: Positive regular rate and regular rhythm; Negative murmur GI GI: Positive normal to inspection Genitourinary: Positive deferred Musc Musculoskeletal: Positive steady gait and ROM normal Skin Pulmonary Skin Exam: Positive intact; Negative rash or erythema Pulses Pulse: Yes radial pulses present Extremities Extremities: Yes capillary refill normal, No clubbing and No cyanosis Neuro Neurologic: Yes no focal neuro deficits, Yes conversant and Yes normal cognition Psych Appearance: Positive grossly normal Mental Status: Positive mental status grossly normal Mood: Positive congruent mood Affect: Positive normal affect Coding Level of Care Code Off vis,new,level 3 Diagnoses Obstructive sleep apnea G47.33 06/24/25 1134 <Electronically signed by Lexi encinas MARBLE COPER-C> Date _ Lexi Perez MARBLE COPER-C Cosigner Signature: Date (if applicable) CC: ~ [facility] Work Phone: Progress note Author Nisa Hutchinson [facility] Note Date/Time July 08, 2025 1 :36pm [facility] [address] [place] [address] OFFICE VISIT Date of Service: 07/08/25 MR#: [id number] Acct: [id number] Patient: TORY SOLIS Rep #: [id number] : 1975 Provider: Dr. Tal Hutchinson MD Age/Sex: 50/F Location: [facility] Status: Signed Intake Vital Signs 06/24/25 06:31 Height 5 ft 6 in Weight: 151 lb BMI 24.3 BP 108/81 H Blood Pressure Location Lt brachial Position Sitting Respiration 18 Pulse 69 Pulse Source Monitor Temp 97.5 F L Pulse Oximetry (%) 99 Oxygen Delivery Method room air Intake Visit Reasons: urine drop Chief Complaint: urine drop off Allergies No Known Allergies Allergy (Verified 06/24/25 08:26) Nurse's Note: patient dropped her urine off for UA and culture Results POC UA Auto w/o Microscopy Office Urine Color Last Edit by Annemarie Cotto on 07/08/25 13:31 Office Urine Clarity Last Edit by Annemarie Cotto on 07/08/25 13:31 Office Urine Glucose Negative Last Edit by Annemarie Cotto on 07/08/25 13:3 1 Office Urine Ketones Negative Last Edit by Annemarie Cotto on 07/08/25 13:3 1 Office Urine Bilirubin Negative Last Edit by Annemarie Cotto on 07/08/25 13 :31 Office Urine Urobilinogen 0.2 mg/dL Last Edit by Annemarie Cotto on 5 13:31 Off Ur Spec [place] 1.005 Last Edit by Annemarie Cotto on 07/08/25 13:31 Office Urine pH 6.5 Last Edit by Annemarie Cotto on 07/08/25 13:31 Office Urine Protein Negative Last Edit by Annemarie Cotto on 07/08/25 13:3 1 Office Urine Blood Negative Last Edit by Annemarie Cotto on 07/08/25 13:31 Office Urine Blood Hemolyzed Negative Last Edit by Annemarie Cotto on 07/08 13:31 Office Urine Nitrate Negative Last Edit by Annemarie Cotto on 07/08/25 13:3 1 Off Ur Leukocytes Positive Last Edit by Annemarie Cotto on 07/08/25 13:31 leuks 500 Assessment and Plan Assessment and Plan Orders: Orders POC UA Auto w/o Microscopy Today N39.0 - Urinary tract infection, site not specified 07/08/25 1416 <Electronically signed by Nisa Hutchinson MD> Date _ Nisa Hutchinson MD Cosigner Signature: Date (if applicable) CC: ~ [facility] Work Phone: Reason for referral (narrative)* Diagnostic Procedure Only (Routine) - Authorized Specialty Diagnoses / Procedures Referred By Pascale marcial Referred To Contact [facility] Diagnoses Encounter for screening mammogram for malignant neoplasm of breast Procedures RAJ SCREENING W DALTON SCREENING DIGITAL BREAST TOMOSYNTHESIS BI SCREENING MAMMOGRAPHY BI 2-VIEW BREAST INC CAD Anthony White MD [address] [address] [facility] [address] [place] [address] Referral ID Status Reason Start Date Expiration Date Visits Requested Visits Authorized [id number] Authorized Auto-Generat ed Referral 09/09/2023 1 1 [facility] for referral (narrative)* Diagnostic Procedure Only (Routine) - Closed Specialty Diagnoses / Procedures Referred By Contac t Referred To Contact [facility] Diagnoses Encounter for screening mammogram for malignant neoplasm of breast Procedures RAJ SCREENING W [place] SCREENING DIGITAL BREAST TOMOSYNTHESIS BI SCREENING MAMMOGRAPHY BI 2-VIEW BREAST INC CAD Anthony hWite MD [address] [address] [facility] [address] [place] [address] Referral ID Status Reason Start Date Expiration Date V isits Requested Visits Authorized [id number] Closed Auto-Generate d Referral 08/10/2022 09/09/2023 1 1 [facility] for referral (narrative)* Diagnostic Procedure Only (Routine) - Authorized Specialty Diagnoses / Procedures Referred By Contac t Referred To Contact [facility] Diagnoses Encounter for screening mammogram for malignant neoplasm of breast Procedures RAJ SCREENING W [place] SCREENING DIGITAL BREAST TOMOSYNTHESIS BI SCREENING MAMMOGRAPHY BI 2-VIEW BREAST INC CAD Anthony White MD [address] [address] [facility] [address] [place] [address] Referral ID Status Reason Start Date Expiration Date Visits Requested Visits Authorized [id number] Authorized Auto-Generat ed Referral 11/02/2023 12/01/2024 1 1 [facility]No reason for referral information availableDukes [facility] Services Work Phone: Reason for visit Narrative* Diagnostic Procedure Only (Routine) - Closed Specialty Diagnoses / Procedures Referred By Sarabjitac t Referred To Contact [facility] Diagnoses Encounter for screening mammogram for malignant neoplasm of breast Procedures RAJ SCREENING W [place] SCREENING DIGITAL BREAST TOMOSYNTHESIS BI SCREENING MAMMOGRAPHY BI 2-VIEW BREAST INC CAD Anthony White MD [address] [address] [facility] [address] [place] [address] Referral ID Status Reason Start Date Expiration Date V isits Requested Visits Authorized [id number] Closed Auto-Generate d Referral 08/10/2022 09/09/2023 1 1 [facility] for visit Narrative* Diagnostic Procedure Only (Routine) - Closed Specialty Diagnoses / Procedures Referred By Pascale t Referred To Contact [facility] Diagnoses Encounter for screening mammogram for malignant neoplasm of breast Procedures RAJ SCREENING W DALTON SCREENING DIGITAL BREAST TOMOSYNTHESIS BI SCREENING MAMMOGRAPHY BI 2-VIEW BREAST INC CAD Anthony White MD [address] [place] [address] Phone: tel: fax: [facility] [address] [place] [address] Referral ID Status Reason Start Date Expiration Date V isits Requested Visits Authorized [id number] Closed Auto-Generate d Referral 11/27/2024 12/27/2025 1 1 [facility] for visit Narrative* Diagnostic Procedure Only (Routine) - Closed Specialty Diagnoses / Procedures Referred By Pascale t Referred To Contact [facility] Diagnoses Abnormal mammogram Procedures RAJ DIAGNOSTIC LEFT DIAGNOSTIC MAMMOGRAPHY COMPUTER-AIDED DETCJ UNI Anthony White MD [address] [place] [address] Phone: tel: fax: [facility] [address] [place] [address] Referral ID Status Reason Start Date Expiration Date V isits Requested Visits Authorized [id number] Closed Auto-Generate d Referral 12/23/2024 01/22/2026 1 1 [facility] Chief Complaint Chief Complaint: TORY SOLIS [...] Referred By Pascale marcial Referred To Contact Endocrinology Diagnoses Autoimmune thyroiditis Procedures CONSULT TO ENDOCRINOLOGY OFFICE/OUTPATIENT [facility] 60 MINUTES Anthony White MD [address] [address] Referral ID Status Reason Start Date Expiration Date Visits Requested Visits Authorized [id number] Authorized PCP Requested Referral 12/12/2023 12/11/2024 1 1 Specialty Diagnoses / Procedures Referred By Pascale marcial Referred To Contact Sleep Lab Diagnoses Sleep disorder breathing Procedures Home sleep apnea test (HSAT) Randee Hdz MD [address] [facility], [address] [address] Referral ID Status Reason Start Date Expiration Date V isits Requested Visits Authorized [id number] Pending Review 03/14/2024 03/14/2025 1 1 Chief [...] 9:01am Nephrolithiasis May 08, 2025 4: 48pm Chief Complaint Admit Date LOWER BACK PAIN April 30, 2025 4:4 1pm LUMBAR SPINE May 06, 2025 9: 01am CONCERN FOR UTI May 08, 2025 4: 48pm BACK PAIN May 15, 2025 3: 32pm Chief Complaint Admit Date LOWER BACK PAIN April 30, 2025 4:4 1pm LUMBAR SPINE May 06, 2025 9: 01am CONCERN FOR UTI May 08, 2025 4: 48pm BACK PAIN May 15, 2025 3: 32pm F/U after X-ray Stone May 22, 2025 8:26am Reason for Visit Admit Date Low back pain May 06, 2025 9: 01am Spondylolisthesis at L4-L5 level May 06, 2025 9:01am Nephrolithiasis May 08, 2025 4: 48pm Diabetes May 22, 2025 8: 26am Low back pain May 22, 2025 8: 26am Nephrolithiasis May 22, 2025 8: 26am Chief Complaint Admit Date LOWER BACK PAIN April 30, 2025 4:4 1pm LUMBAR SPINE May 06, 2025 9: 01am CONCERN FOR UTI May 08, 2025 4: 48pm BACK PAIN May 15, 2025 3: 32pm F/U after X-ray Stone May 22, 2025 8:26am LUMBAR SPINE May 29, 2025 8:01am Chief Complaint Admit Date LOWER BACK PAIN April 30, 2025 4:4 1pm LUMBAR SPINE May 06, 2025 9: 01am CONCERN FOR UTI May 08, 2025 4: 48pm BACK PAIN May 15, 2025 3: 32pm F/U after X-ray Stone May 22, 2025 8:26am LUMBAR SPINE May 29, 2025 8:01am Calculus of kidney June 02, 2025 6:15pm FAX TO [phone] June 03, 2025 2:57pm Urine drop June 22, 2025 2:55pm Reason for Visit Admit Date Low back pain May 06, 2025 9: 01am Spondylolisthesis at L4-L5 level May 06, 2025 9:01am Nephrolithiasis May 08, 2025 4: 48pm Diabetes May 22, 2025 8: 26am Low back pain May 22, 2025 8: 26am Nephrolithiasis May 22, 2025 8: 26am Facet arthritis of lumbar region [facility] 2024 8:01am Spondylolisthesis at L4-L5 level [facility] 2024 8:01am Lumbar stenosis without neurogenic jose ication May 29, 2025 8:01am Chief Complaint Admit Date LOWER BACK PAIN April 30, 2025 4:4 1pm LUMBAR SPINE May 06, 2025 9: 01am CONCERN FOR UTI May 08, 2025 4: 48pm BACK PAIN May 15, 2025 3: 32pm F/U after X-ray Stone May 22, 2025 8:26am LUMBAR SPINE May 29, 2025 8:01am Calculus of kidney June 02, 2025 6:15pm FAX TO [phone] June 03, 2025 2:57pm Urine drop June 22, 2025 2:55pm Sleep apnea June 24, 2025 8: 22am Reason for Visit Admit Date Low back pain May 06, 2025 9: 01am Spondylolisthesis at L4-L5 level May 06, 2025 9:01am Nephrolithiasis May 08, 2025 4: 48pm Diabetes May 22, 2025 8: 26am Low back pain May 22, 2025 8: 26am Nephrolithiasis May 22, 2025 8: 26am Facet arthritis of lumbar region [facility] 2024 8:01am Spondylolisthesis at L4-L5 level [facility] 2024 8:01am Lumbar stenosis without neurogenic jose ication May 29, 2025 8:01am Obstructive sleep apnea June 24 8:22am Chief Complaint Admit Date LOWER BACK PAIN April 30, 2025 4:4 1pm LUMBAR SPINE May 06, 2025 9: 01am CONCERN FOR UTI May 08, 2025 4: 48pm BACK PAIN May 15, 2025 3: 32pm F/U after X-ray Stone May 22, 2025 8:26am LUMBAR SPINE May 29, 2025 8:01am Calculus of kidney June 02, 2025 6:15pm FAX TO [phone] June 03, 2025 2:57pm Urine drop June 22, 2025 2:55pm Sleep apnea June 24, 2025 8: 22am urine drop July 08, 2025 1 :35pm Additional Source Comments INFORMATION SOURCE (unrecogn ized section and content) DATE CREATED AUTHOR 06/28/2022 [facility] DATE CREATED AUTHOR AUTHOR'S ORGANIZ ATION 06/28/2022 [employer] DATE CREATED AUTHOR AUTHOR'S ORGANIZ ATION 01/03/2025 [facility] DATE CREATED AUTHOR AUTHOR'S ORGANIZ ATION 01/11/2025 [facility] DATE CREATED AUTHOR AUTHOR'S ORGANIZ ATION 01/30/2025 [facility] DATE CREATED AUTHOR AUTHOR'S ORGANIZ ATION 03/01/2025 [facility] DATE CREATED AUTHOR AUTHOR'S ORGANIZ ATION 08/05/2025 [facility] Source Comments (unrecognize d section and content) In the event this informatio n is protected by the Federal Confidentiality of Alcohol and Drug Abuse Patient Records regulations: The Federal rules restrict any use of the information to criminally investigate or prosecute any alcohol or drug abuse patient.[facility] the event this information is protected by the Federal Confidentiality of Alcohol and Drug Abuse Patient Records regulations: The Federal rules restrict any use of the information to criminally investigate or prosecute any alcohol or drug abuse patient.[facility] the event this information is protected by the Federal Confidentiality of Alcohol and Drug Abuse Patient Records regulations: The Federal rules restrict any use of the information to criminally investigate or prosecute any alcohol or drug abuse patient.[facility] the event this information is protected by the Federal Confidentiality of Alcohol and Drug Abuse Patient Records regulations: The Federal rules restrict any use of the information to criminally investigate or prosecute any alcohol or drug abuse patient.[facility] the event this information is protected by the Federal Confidentiality of Alcohol and Drug Abuse Patient Records regulations: The Federal rules restrict any use of the information to criminally investigate or prosecute any alcohol or drug abuse patient.[facility] the event this information is protected by the Federal Confidentiality of Alcohol and Drug Abuse Patient Records regulations: The Federal rules restrict any use of the information to criminally investigate or prosecute any alcohol or drug abuse patient.[facility] the event this information is protected by the Federal Confidentiality of Alcohol and Drug Abuse Patient Records regulations: The Federal rules restrict any use of the information to criminally investigate or prosecute any alcohol or drug abuse patient.[facility] the event this information is protected by the Federal Confidentiality of Alcohol and Drug Abuse Patient Records regulations: The Federal rules restrict any use of the information to criminally investigate or prosecute any alcohol or drug abuse patient.[facility] the event this information is protected by the Federal Confidentiality of Alcohol and Drug Abuse Patient Records regulations: The Federal rules restrict any use of the information to criminally investigate or prosecute any alcohol or drug abuse patient.[facility] the event this information is protected by the Federal Confidentiality of Alcohol and Drug Abuse Patient Records regulations: The Federal rules restrict any use of the information to criminally investigate or prosecute any alcohol or drug abuse patient.[facility] the event this information is protected by the Federal Confidentiality of Alcohol and Drug Abuse Patient Records regulations: The Federal rules restrict any use of the information to criminally investigate or prosecute any alcohol or drug abuse patient.[facility] Hospital[facility] the event this information is protected by the Federal Confidentiality of Alcohol and Drug Abuse Patient Records regulations: The Federal rules restrict any use of the information to criminally investigate or prosecute any alcohol or drug abuse patient.[facility] the event this information is protected by the Federal Confidentiality of Alcohol and Drug Abuse Patient Records regulations: The Federal rules restrict any use of the information to criminally investigate or prosecute any alcohol or drug abuse patient.[facility] Hospital[facility] the event this information is protected by the Federal Confidentiality of Alcohol and Drug Abuse Patient Records regulations: The Federal rules restrict any use of the information to criminally investigate or prosecute any alcohol or drug abuse patient.[facility] Reason for Visit (unrecogniz ed section [...] Referred By Pascale t Referred To Contact Sleep Lab Diagnoses Sleep disorder breathing Procedures Home sleep apnea test (HSAT) Randee Hdz MD [address] [facility], [address] [address] Referral ID Status Reason Start Date Expiration Date V isits Requested Visits Authorized [id number] Authorized 03/14/2024 03/14/2025 1 1 Reason Comments Appointment Care Teams (unrecognized sec tion and content) Match Maker Relationship Specialty Start Date End Date Randee Hdz MD [address] [facility] [address] [place], [place] [id number] PCP - General Internal Medicine 09/10/14 Match Maker Relationship Specialty Start Date End Date Randee Hdz MD [address] [place], [place] [id number] PCP - General Internal Medicine 09/10/14 Match Maker Relationship Specialty Start Date End Date Randee Hdz MD [address] [place], [place] [id number] PCP - General Internal Medicine 09/10/14 Match Maker Relationship Specialty Start Date End Date Randee Hdz MD [address] [facility] [address] [place] [address] PCP - General Internal Medicine 09/10/14 Match Maker Relationship Specialty Start Date End Date Randee Hdz MD [address] [facility] [address] [place] [address] PCP - General Internal Medicine 09/10/14 Match Maker Relationship Specialty Start Date End Date Randee Hdz MD [facility] [facility] [address] [place] [address] PCP - General Internal Medicine 09/10/14 Match Maker Relationship Specialty Start Date End Date Randee Hdz MD [facility] [address] [facility], [facility] [address] [place] [address] PCP - General 11/02/20 Randee Hdz MD [facility] [address] [facility], [facility] [address] [place] [address] PCP - [place] [facility] PCP 11/23/23 Match Maker Relationship Specialty Start Date End Date Randee Hdz MD [facility] [address] [facility], [place] [address] [place] [address] PCP - General 11/02/20 Randee Hdz MD [facility] [address] [facility], [address] [place] [address] PCP - [place] [facility] PCP 11/23/23 Match Maker Relationship Specialty Start Date End Date Randee Hdz MD [facility] [address] [place] [address] PCP - General Internal Medicine 09/10/14 Match Maker Relationship Specialty Start Date End Date Randee Hdz MD [address] [place] [address] PCP - General Internal Medicine 09/10/14 Match Maker Relationship Specialty Start Date End Date Randee Hdz MD [address] [place] [address] PCP - General Internal Medicine 09/10/14 Match Maker Relationship Specialty Start Date End Date Randee Hdz MD [address] [place] [address] PCP - General Internal Medicine 09/10/14 Match Maker Relationship Specialty Start Date End Date Randee Hdz MD [address] [place] [address] PCP - General Internal Medicine 09/10/14 Match Maker Relationship Specialty Start Date End Date Randee Hdz MD [address] [place] [address] PCP - General Internal Medicine 09/10/14 Match Maker Relationship Specialty Start Date End Date Randee Hdz MD [address] [place] [address] PCP - General Internal Medicine 09/10/14 Match Maker Relationship Specialty Start Date End Date Randee Hdz MD [address] [place] [address] PCP - General Internal Medicine 09/10/14 Team Status: Active Member Role/Relationship Status Dates Dr. Leo Goyal MD Primary Care Provider Active Team Status: Active Member Role/Relationship Status Dates Dr. Leo Goyal MD Primary Care Provider Active Start: April 30, 2025 Meghana Woods , PA Attending Provider Active Star t: April 30, 2025 Meghana Soaresk , PA Referring Provider Active Star t: April 30, 2025 Team Status: Inactive Member Role/Relationship Status Dates Meghana Woods PA Attending Provider Active Star t: May 06, [...] May 09, 2025 End: May 09, 2025 Team Status: Inactive Member Role/Relationship Status Dates Dr. Leo Goyal MD Primary Care Provider Active Start: May 15, 2025 End: May 15, 2025 SHAWN Jeff Attending Provider Active Star t: May 15, 2025 End: May 15, 2025 SHAWN Jeff Referring Provider Active Star t: May 15, 2025 End: May 15, 2025 Team Status: Inactive Member Role/Relationship Status Dates Dr. Leo Goyal MD Primary Care Provider Active Start: May 22, 2025 End: May 22, 2025 Dr. Leo Goyal MD Referring Provider Active Start: May 22, 2025 End: May 22, 2025 Dr. Nisa Hutchinson MD Attending Provider Active Start: May 22, 2025 End: May 22, 2025 Team Status: Inactive Member Role/Relationship Status Dates Dr. Leo Goyal MD Primary Care Provider Active Start: May 22, 2025 End: May 22, 2025 Dr. Nisa Hutchinson MD Attending Provider Active Start: May 22, 2025 End: May 22, 2025 Dr. Nisa Hutchinson MD Referring Provider Active Start: May 22, 2025 End: May 22, 2025 Team Status: Inactive Member Role/Relationship Status Dates Dr. Leo Goyal MD Primary Care Provider Active Start: May 29, 2025 End: May 29, 2025 Dr. Leo Goyal MD Referring Provider Active Start: May 29, 2025 End: May 29, 2025 SHAWN Jeff Attending Provider Active Star t: May 29, 2025 End: May 29, 2025 Team Status: Active Member Role/Relationship Status Dates Dr. Leo Goyal MD Primary care physician Activ e Team Status: Inactive Member Role/Relationship Status Dates Dr. Leo Goyal MD Primary care physician Activ e Start: April 30, 2025 End: April 30, 2025 SHAWN Jeff Attending physician Active Sta rt: April 30, 2025 End: April 30, 2025 SHAWN Jeff Referring Provider Active Star t: April 30, 2025 End: April 30, 2025 Team Status: Inactive Member Role/Relationship Status Dates SHAWN Jeff Attending physician Active Sta rt: May 06, 2025 End: May 06, 2025 Dr. Leo Goyal MD Primary care physician Activ e Start: May 06, 2025 End: May 06, 2025 Dr. Leo Goyal MD Referring Provider Active Start: May 06, 2025 End: May 06, 2025 Team Status: Inactive Member Role/Relationship Status Dates Dr. Leo Goyal MD Primary care physician Activ e Start: May 08, 2025 End: May 08, 2025 Dr. Leo Goyal MD Referring Provider Active Start: May 08, 2025 End: May 08, 2025 SHAWN Roland Attending physician Active St art: May 08, 2025 End: May 08, 2025 Team Status: Inactive Member Role/Relationship Status Dates Dr. Leo Goyal MD Primary care physician Activ e Start: May 09, 2025 End: May 09, 2025 SHAWN Roland Attending physician Active St art: May 09, 2025 End: May 09, 2025 Team Status: Inactive Member Role/Relationship Status Dates Dr. Leo Goyal MD Primary care physician Activ e Start: May 15, 2025 End: May 15, 2025 SHAWN Jeff Attending physician Active Sta rt: May 15, 2025 End: May 15, 2025 SHAWN Jeff Referring Provider Active Star t: May 15, 2025 End: May 15, 2025 Team Status: Inactive Member Role/Relationship Status Dates Dr. Leo Goyal MD Primary care physician Activ e Start: May 22, 2025 End: May 22, 2025 Dr. Leo Goyal MD Referring Provider Active Start: May 22, 2025 End: May 22, 2025 Dr. Nisa Hutchinson MD Attending physician Active Start: May 22, 2025 End: May 22, 2025 Team Status: Inactive Member Role/Relationship Status Dates Dr. Leo Goyal MD Primary care physician Activ e Start: May 22, 2025 End: May 22, 2025 Dr. Nisa Hutchinson MD Attending physician Active Start: May 22, 2025 End: May 22, 2025 Dr. Nisa Hutchinson MD Referring Provider Active Start: May 22, 2025 End: May 22, 2025 Team Status: Inactive Member Role/Relationship Status Dates Dr. Leo Goyal MD Primary care physician Activ e Start: May 29, 2025 End: May 29, 2025 Dr. Leo Goyal MD Referring Provider Active Start: May 29, 2025 End: May 29, 2025 SHAWN Jeff Attending physician Active Sta rt: May 29, 2025 End: May 29, 2025 Team Status: Inactive Member Role/Relationship Status Dates Dr. Leo Goyal MD Primary care physician Activ e Start: June 02, 2025 End: June 02, 2025 Dr. Nisa Hutchinson MD Attending physician Active Start: June 02, 2025 End: June 02, 2025 Dr. Nisa Hutchinson MD Referring Provider Active Start: June 02, 2025 End: June 02, 2025 Team Status: Inactive Member Role/Relationship Status Dates Dr. Leo Goyal MD Primary care physician Activ e Start: June 03, 2025 End: June 03, 2025 Dr. Maggy Hunter DO Attending physician Active Start: June 03, 2025 End: June 03, 2025 Dr. Maggy Hunter DO Referring Provider Active Start: June 03, 2025 End: June 03, 2025 Team Status: Inactive Member Role/Relationship Status Dates Dr. Leo Goyal MD Primary care physician Activ e Start: June 22, 2025 End: June 22, 2025 Dr. Leo oGyal MD Referring Provider Active Start: June 22, 2025 End: June 22, 2025 Dr. Nisa Hutchinson MD Attending physician Active Start: June 22, 2025 End: June 22, 2025 Team Status: Inactive Member Role/Relationship Status Dates Dr. Leo Goyal MD Primary care physician Activ e Start: June 24, 2025 End: June 24, 2025 Dr. Leo Goyal MD Referring Provider Active Start: June 24, 2025 End: June 24, 2025 ARIEL Morataya Attending physician Active Start: June 24, 2025 End: June 24, 2025 Team Status: Active Member Role/Relationship Status Dates Dr. Leo Goyal MD Primary care physician Activ e Start: July 08, 2025 Dr. Nisa Hutchinson MD Attending physician Active Start: July 08, 2025 Team Status: Inactive Member Role/Relationship Status Dates Dr. Leo Goyal MD Primary care physician Activ e Start: July 08, 2025 End: July 08, 2025 Dr. Leo Goyal MD Referring Provider Active Start: July 08, 2025 End: July 08, 2025 Dr. Nisa Hutchinson MD Attending physician Active Start: July 08, 2025 End: July 08, 2025 Goals (unrecognized section and content) [...] BE BASED ON THE PRIMARY CLINICAL RECORDS. [employer] provides no warranty or guarantee of the accuracy or completeness of information in this document.
[2025-08-12 21:07] LABS: HPV APTIMA, High Risk Positive (Negative); HPV Genotype 16, Aptima Negative (Negative); HPV Genotype 18,45 Aptima Negative (Negative)
== END | disposition home or self-care (01) ==
LOC: LABSPEC 20:41
PROVIDERS: Visit Provider Obstetrics & Gynecology
DX: Z12.4 Encounter for screening for malignant neoplasm of cervix (principal)
CPT/HCPCS: 87624; 88175; G0145

== ENCOUNTER → 2025-08-18 | Outpatient (CLI) | payer OTHER, SELFPAY ==
[2025-08-18 15:29] LABS: Hematocrit 40.4 % (37-47); Hemoglobin 13.5 g/dL (12.0-15.0); Immature Granulocytes Count 0.030 X10^3/uL (0.0-0.0); Mean Corp Hgb Conc 33.4 g/dL (32-36); Mean Corpuscular Volume 91.8 fL (81-99); Mean Platelet Vol. 9.9 fl (6.2-12.0); NRBC Flagged by Analyzer 0 % (0-5); Platelet Count 258 K/mm3 (150-450); RBC Distribution Width CV 13.1 % (11.6-14.6); RBC Distribution Width SD 44.9 fl (35.1-43.9); Red Blood Count 4.40 M/mm3 (4.2-5.4); White Blood Count 7.4 K/mm3 (4.4-11.0)
[2025-08-18 16:08] LABS: Follicle Stimulating Hormone 18.9 mIU/mL; Vitamin D,25 Hydroxy 70.2 ng/mL (30-100)
[2025-08-18 18:09] LABS: AST(SGOT) 20 U/L (<=31); Alanine Aminotransfer ALT/SGPT 27 U/L (<=34); Albumin, Serum 4.3 g/dL (3.5-5.0); Alkaline Phosphatase 57 U/L (35-104); Anion Gap 12 (5-15); BUN 21 mg/dL (4-19); BUN/Creat Ratio 27.3 RATIO (10-20); Calcium,Total 9.4 mg/dL (7.6-11.0); Carbon Dioxide 26.5 mmol/L (21.0-32.0); Chloride 102 mmol/L (98-108); Globulin 2.8 g/dL (2.2-4.2); Glucose 101 mg/dL (70-99); Potassium 3.7 mmol/L (3.3-5.1)
[2025-08-22 04:07] LABS: PROLACTIN 14.4 ng/mL (4.8-33.4)
== END | disposition home or self-care (01) ==
LOC: MTLAB 13:28
PROVIDERS: Referring Provider Obstetrics & Gynecology; Visit Provider Obstetrics & Gynecology
DX: N95.1 Menopausal and female climacteric states (principal); Z13.29 Encounter for screening for other suspected endocrine disorder
CPT/HCPCS: 36415; 80053; 82306; 82627; 82670; 83001; 83498; 84146; 84402; 84443; 85025; 86376; 82626

== ENCOUNTER 2025-09-07 10:34 | Day surgery (SDC) | payer OTHER, SELFPAY ==
[2025-09-07] VITALS (8 sets, daily range): BP systolic 99–130; BP diastolic 66–80; PULSE 62–79; RESP 16; TEMP 36.6–36.8; O2SAT 94–100; BMI 25.9
[2025-09-07] MEDS: Lactated Ringers 1,000 ML 15 ML IV (11:00)
[2025-09-07 11:06] LABS: Internal QC Validated? YES +Cl - CLEAR BKGD; Pregnancy, Urine Negative Negative
--- NOTE | 2025-09-07 11:30 | RAD_ITS ---
PROCEDURE: FLUOR GUIDANCE FOR SPINE INJ 09/07/2025 REASON FOR EXAM: CAUDAL BLOCK TECHNIQUE: Procedure Code: RADSPN Modality: DX Procedure: FLUOR GUIDANCE FOR SPINE INJ. Fluoroscopy: 7.6 seconds. Radiation dose: 4.83 mGy. 1 image was submitted. COMPARISON: None FINDINGS: Intraoperative fluoroscopic services provided for caudal block. RAD/Fluor Guidance for Spine Inj IMPRESSION: Intraoperative fluoroscopic services provided for caudal block. Reading Location: [facility]
--- NOTE | 2025-09-07 11:39 | PRE.ANES_ITS ---
ASA Classification* ASA Classification ASA Classification: 2 Assessment & Plan Anesthesia* Anesthesia Assessment Anesthesia Assessment: Discussed sedation and/or anesthesia options, risks, benefits, and alternatives with patient/parents/legal guardian/POA. Questions invited. The patient/parents/legal guardian/POA seems to understand and agrees to proceed with anesthesia plan. Reviewed the physical assessment, medical history, allergy history and patient home medications list prior to surgery/procedure/anesthetic and documented any changes. Performed airway and anesthesia risk assessments. Anesthesia Type Anesthesia Type: MAC History Source History Obtained from:: Patient and Chart Anesthesia Focused Assessment* Temperature: 98.2 F Pulse Rate: 79 Blood Pressure: 130/80 Respiratory Rate: 16 Pulse Ox: 100 Oxygen Delivery Method: Room Air Airway Assessment Mouth opens: 2 cm Mallampati Score: II Teeth Condition: Intact Neck Range of motion (ROM): Full ROM Labs Anesthesia Preop lab: CBC WBC, (4.4-11.0) 7.4 K/mm3 08/18/25, 13:33 RBC, (4.2-5.4) 4.40 M/mm3 08/18/25, 13:33 Hgb, (12.0-15.0) 13.5 g/dL 08/18/25, 13:33 Hct, (37-47) 40.4 % 08/18/25, 13:33 Plt Count, (150-450) 258 K/mm3 08/18/25, 13:33 CHEMISTRY Potassium, (3.3-5.1) 3.7 mmol/L 08/18/25, 13:33 Sodium, (133-145) 140 mmol/L 08/18/25, 13:33 BUN, (4-19) 21 mg/dL H 08/18/25, 13:33 Creatinine, (0.70-1.20) 0.75 mg/dL 08/18/25, 13:33 Glucose, (70-99) 101 mg/dL H 08/18/25, 13:33 TSH, (0.300-4.200) 0.809 uIU/mL 08/18/25, 13:33 COAG Urine Test Negative Negative Today, 10:55 Pre-Assessment Diagnosis/Proposed Procedure Planned Operative Procedure(s): CAUDAL EPIDURAL STEROID INJECTION UNDER FLUOR Anesthesia History 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 When Was Last Pacemaker Check QUESTION #4 FULL TEXT: You/Your Family Experience fever (hyperthermia) with Anesthesia Any additional information?: No Last Oral Intake Last Oral intake: Last Oral Intake NPO since 20:30 09/07/25 11:08 Meds taken in AM with sips of No 09/07/25 11:08 water? Meds patient instructed to take am of surgery Any additional information?: No PONV PONV - crime investigator special agent: PONV - crime investigator special agent Female Yes 09/04/25 14:09 HX of Motion Sickness No 09/04/25 14:09 HX of N/V After Surgery No 09/04/25 14:09 Non-Smoker Yes 09/04/25 14:09 Duration of Surgery greater No 09/04/25 14:09 than 60 minutes Number of Risk Factors 2 09/04/25 14:09 PONV Score Moderate Risk 09/04/25 14:09 Any additional information?: No Height & Weight Height & Weight: Anesthesia: Height & Weight Height 5 ft 6 in 09/07/25 11:08 Weight: 73 kg 09/07/25 11:08 Body Mass Index (BMI) 25.9 09/07/25 11:08 Respiratory Assessment Respiratory Assessment - crime investigator special agent: Respiratory Tract Infection Hx - crime investigator special agent Hx Respiratory Tract Infection No 09/04/25 14:09 Any additional information?: No STOP Sleep Apnea STOP Sleep Apnea - crime investigator special agent: STOP Sleep Apnea - crime investigator special agent Hx Hypertension No 09/04/25 14:09 Hx Sleep Apnea Yes 09/04/25 14:09 CPAP Yes 09/04/25 14:09 BIPAP No 09/04/25 14:09 Do you snore loudly (louder than talking or can be heard Do you often feel tired/ fatigued/ sleepy during daytime? Has anyone observed you stop breathing during sleep? STOP Results Positive 09/04/25 14:09 QUESTION #5 FULL TEXT : Do you snore loudly (louder than talking or can be heard through closed doors)? Any additional information?: No Tobacco Use History Tobacco Use History - crime investigator special agent: Tobacco Use History - crime investigator special agent Tobacco Use Smoking Status Never smoker 09/04/25 14:09 Hx Tobacco Use No 09/04/25 14:09 Years Smoking Packs Smoked per Day Smoking Cessation Date was within the last 15 years Hx Smoking Cessation Date Hx Smoking Cessation Counseling Any additional information?: No Hematologic Medial History Hematologic Hx - crime investigator special agent: Hematologic Medical Hx - documentation writer Hx of Blood Transfusion No 09/04/25 14:09 Hx of Transfusion in last 3 No 09/04/25 14:09 Months Date of Last Transfusion (if within last 3 months) Ever experience any problems No 09/04/25 14:09 with transfusion(s)? Specify any problems Hx of Preganancy in last 3 No 09/04/25 14:09 Months Nurse Filling Out Transfusion [email or web address] 09/04/25 14:09 & Questions: Date: 09/04/25 09/04/25 14:09 Time: 14:11 09/04/25 14:09 Patient unable to answer at this time (ie. confused, unrespo Any additional information?: No /Reproduction History /Reproductive History - crime investigator special agent: /Reproductive Hx- crime investigator special agent Hx Now No 09/04/25 14:09 Gestational Age (in weeks): EDC: Hx Hx Para Hx Section SAB No 09/04/25 14:09 Does the father of the baby or his family experience fever w Father of the baby Malignant Hypertension history comment Any additional information?: No Active Medications Active Medications: Current Medications Generic Name Dose Route Start Last Admin Trade Name Freq PRN Reason Stop Dose Admin Lactated Ringer's 1,000 mls @ 15 mls/hr 09/07/25 11:00 IV .Q48H ULICES PFSH Medical History (Updated 09/04/25 @ 15:[address] Stephenie Mercado MD) Wears contact lenses Alcohol use Diabetes Herniated cervical disc Back pain CPAP (continuous positive airway pressure) dependence Non-smoker History of irregular heartbeat Right lateral epicondylitis Home Medications ?Medication ?Instructions ?Recorded ?Last Taken ?Type CPAP - Continuous Positive Airway 08/13/25 Unknown Hi story Pressure([facility] USE ONLY) drospirenone 3 mg-ethinyl 1 tab PO QDAY #84 tabs 09/04 Unknown Rx estradiol 0.02 mg tablet ibuprofen 600 mg tablet (IBU) 600 mg PO Q8H PRN pain 1 11/05/24 Unknown History multivitamin (Daily Multi-Vitamin 1 tab PO DAILY 09/04 Unknown History tablet) Allergy/AdvReac Type Severity Reaction Status Date / Time No Known Allergies Allergy Verified 09/04/25 14:06 Family History Father Prostate cancer Mother Suicide Grandfather Diabetes Aunt Asthma Surgical History (Updated 09/04/25 @ 14:19 by Danay Prakash) History of wisdom tooth extraction Social History number of children: 2 current occupational status: employed current occupation: [employer] Smoking Status: Never smoker Electronic Cigarette Use: not used alcohol intake: former substance use type: does not use caffeine: Yes Type: coffee Number of servings: 4 trevon/restoration: [employer] Day seatbelt use: always do you feel safe at home: Yes additional social history: Engaged - [employer] Review of Systems (Anesthesia) ROS Narrative System reviewed and no additional complaints, except as documented. Physical Exam Const alert, oriented x3 and average body habitus Orientation / Consciousness: awake HEENT dentition normal Neck full ROM Resp normal respiratory effort, normal air movement and clear to auscultation bilaterally Auscultation: clear to auscultation bilaterally Cardio regular rate, regular rhythm and no murmurs Skin Rashes: no rashes Neuro oriented x3 and moves all extremities
[2025-09-07] MEDS: 0.9% Normal Saline (Pres. free 10 ML Vial (12:01)
[2025-09-07] MEDS: Lidocaine 1% (5 ml sdv) 5 ML Vial (12:01)
--- NOTE | 2025-09-07 12:09 | OP.PCM_ITS ---
Operative Report (Standard) Operative Information Date of Procedure: 09/07/25 Pre-Operative Diagnosis: lumbosacral radiculopathy, lumbosacral degenerative disc disease, lumbosacral spinal stenosis Post-Operative Diagnosis: lumbosacral radiculopathy, lumbosacral degenerative disc disease, lumbosacral spinal stenosis Surgery/Procedure Performed: Diagnostic/therapeutic caudal epidural steroid injection under fluoroscopic guidance material requirements worker: No Type of Anesthesia: Local MAC RN Documented Start/Stop Times: Operation Date: 09/07/25 12:30 Case Time Into Pre-Op 09/07/25 10:47 Anesthesia Start 09/07/25 11:54 Into Room 09/07/25 11:54 Procedure Start 09/07/25 11:59 Procedure End 09/07/25 12:02 Anesthesia End 09/07/25 12:05 Out of Room 09/07/25 12:05 Procedure Start Time: 12:09 Procedure Stop Time: 12:09 Select all DRAINS/GRAFTS/IMPLANTS that apply: None Estimated Blood Loss: 0 Specimen collected: No Description of surgery: ANESTHESIA: MAC. BLOOD LOSS: Minimal. COMPLICATIONS: None. DESCRIPTION OF PROCEDURE: History and physical of today was reviewed. Risks and benefits of the procedure were explained. The patient understood and agreed to proceed. Informed consent was obtained. IV inserted per routine protocol. The patient was taken to the operating room and placed in the prone position with a pillow positioned underneath the abdomen. The lower back and tailbone area was prepped and draped in a sterile fashion using iodine x3. Under fluoroscopy guidance on a lateral view, the caudal space was identified. The skin and subcutaneous tissue was anesthetized with approximately 3 mL of 1% lidocaine using a 25-gauge regular needle. Under direct visualization with fluoroscopy, using a 22-gauge 3-1/2-inch spinal needle, the needle was advanced via the skin through the sacral hiatus. The tip of the needle was passed through the sacrococcygeal ligament and advanced to approximately S4 area. After negative aspiration of blood or CSF, a total of 3 mL of contrast was injected to confirm correct placement of the needle as well as cephalad spread. The spread was followed to approximately L5 area. After confirmation on AP as well as lateral view and repeated negative aspiration, a total of 15 mL of preservative-free 0.125% Marcaine with 80 mg of Depo-Medrol was injected easily. The needle was then removed intact. The patient experienced no sign or symptoms of intrathecal or intravascular injection. The patient experienced no paresthesia. The procedure was completed without any apparent difficulty or any complications. The patient appeared to tolerate it well. ASSESSMENT AND PLAN: This is a 50-year-old female with lumbosacral radiculopathy, lumbosacral degenerative disc disease, lumbosacral spinal stenosis, status post diagnostic/therapeutic caudal epidural steroid injection under fluoroscopic guidance, patient will continue her current medications, patient will follow-up in approximately 1 to 2 weeks for reevaluation. Surgical Findings: 0 Complications Complications: No Admit VTE Documentation VTE Present on Admission: No VTE Mechan Device Prophylaxis: None VTE Pharm Prophylaxis ordered?: No
--- NOTE | 2025-09-07 12:19 | POSTOPAN2_ITS ---
Anesthesia Postop Eval I Sum Postop Eval Completion status Anesthesia document: Postop Eval 1 completed: Yes Anesthesia Postop Eval I Summary Anesthesia Postop Eval I Summary: Anesthesia Postop Eval I: Assessment Summary Airway patent Yes 09/07/25 12:19 [email or web address] Spontaneous unlabored Yes 09/07/25 12:19 [email or web address] respirations Mental status Awake,Calm 09/07/25 12:19 [email or web address] nausea No 09/07/25 12:19 [email or web address] Vomiting No 09/07/25 12:19 [email or web address] Anesthesia Postop Eval I: Fluid Summary Crystalloid volume administer 200 09/07/25 12:19 [email or web address] (ml) Colloids volume administered ( ml) Blood Product volume administered (ml) Total IV fluid infused 200 09/07/25 12:19 [email or web address] Anesthesia Postop Eval I: Summary Notes Anesthesia Complication No 09/07/25 12:19 [email or web address] Anesthesia Complication Comment: Post-operative progress note Anesthesia: Postop Eval II Evaluation Mental status: Awake and Calm Pain Level: 0 nausea: No Vomiting: No Complications Anesthesia Complication: No
--- NOTE | 2025-09-07 12:19 | PCM.POST.ANE ---
Anesthesia: Postop Eval I Current Vital Signs Temperature: 98.2 F Pulse Rate: 79 Blood Pressure: 130/80 Respiratory Rate: 16 Pulse Ox: 100 Oxygen Delivery Method: Room Air Assessment Airway patent: Yes Spontaneous unlabored respirations: Yes Mental status: Awake and Calm nausea: No Vomiting: No Anesthesia Complication: No Fluid Hydration Crystalloid volume administer (ml): 200 Total IV fluid infused: 200 Progress Note Anesthesia document: Postop Eval 1 completed: Yes
--- NOTE | 2025-09-07 12:19 | PCM.POSTANE2 ---
Anesthesia Postop Eval I Sum Postop Eval Completion status Anesthesia document: Postop Eval 1 completed: Yes Anesthesia Postop Eval I Summary Anesthesia Postop Eval I Summary: Anesthesia Postop Eval I: Assessment Summary Airway patent Yes 09/07/25 12:19 [email or web address] Spontaneous unlabored Yes 09/07/25 12:19 [email or web address] respirations Mental status Awake,Calm 09/07/25 12:19 [email or web address] nausea No 09/07/25 12:19 [email or web address] [email or web address] Vomiting No 09/07/25 12:19 [email or web address] [email or web address] Anesthesia Postop Eval I: Fluid Summary Crystalloid volume administer 200 09/07/25 12:19 [email or web address] (ml) Colloids volume administered ( ml) Blood Product volume administered (ml) Total IV fluid infused 200 09/07/25 12:19 [email or web address] Anesthesia Postop Eval I: Summary Notes Anesthesia Complication No 09/07/25 12:19 [email or web address] [email or web address] Anesthesia Complication Comment: Post-operative progress note Anesthesia: Postop Eval II Evaluation Mental status: Awake and Calm Pain Level: 0 nausea: No Vomiting: No Complications Anesthesia Complication: No
== END 2025-09-07 12:55 | disposition home or self-care (01) ==
LOC: SDC 10:35 → AC 10:49
PROVIDERS: Anesthesiology; Referring Provider Anesthesiology Pain Medicine; Visit Provider Anesthesiology Pain Medicine
PROC: 3E0S3BZ Introduction of Anesthetic Agent into Epidural Space, Percutaneous Approach (ICD-10-PCS; CPT 62282; principal; 2025-09-07 12:25)
DX: M51.17 Intervertebral disc disorders with radiculopathy, lumbosacral region (principal); E11.9 Type 2 diabetes mellitus without complications; M48.07 Spinal stenosis, lumbosacral region
CPT/HCPCS: 62323; 01992; 64483; 77003; 81025; 82962